=== PATIENT | female | born 1940 | race Caucasian/White ===

== ENCOUNTER 2022-08-02 13:51 | Emergency (ER) | payer MEDICARE, SELFPAY ==
[2022-08-02 14:42] VITALS: BP 144/77; PULSE 89; RESP 18; TEMP 36.3; O2SAT 96; BMI 24.8
--- NOTE | 2022-08-02 16:03 | ED_ITS ---
HPI - General Adult General Time Seen by Provider: 16:03 Date Seen: 08/02/22 Chief complaint: Extremity Pain/Injury, Lower Stated complaint: Infected Leg Time Seen by Provider: 08/02/22 15:43 Source: patient and RN notes reviewed Mode of arrival: ambulatory Limitations: no limitations History of Present Illness HPI narrative: Patient is an 82-year-old female up here for the holidays coming in with concern of wound and cellulitis of her left lower extremity. She has been living in [place] the last 20 years but maintains a condominium up here. They still have family here. She has been celebrating the holiday season appear, has been having to wear boots which she thinks may have rubbed on her leg. Does have a history ulcers and wound issues for which she has been to wound clinics in [place] before. She started noticed seen of about a couple days ago that her left lower extremity on the inner aspect was a little irritated and red. She did start some leftover oral antibiotics with Keflex yesterday, use 3 pills. Did call her doctor back in [place] yesterday who called in Keflex for her. She states she has multiple medication allergies, significant difficulties with many medicines. She has had 4 tablets of Keflex. She feels that the redness is down from 1 0 was yesterday. There is pain in the leg. She does have pain pills from her primary care provider. She has had no fevers or chills. She has been quite active and has been busy. She had her wounds covered, stocking at material over them. She has also been using some topical Bactroban. She is not aware that she has ever had any MRSA. She states she typically always takes Keflex. Related Data Home Medications Medication Instructions Recorded Confirmed cephalexin 500 mg capsule mg 08/02/22 hydrocodone 5 mg-acetaminophen 325 tab 08/02/22 mg tablet latanoprost 0.005 % eye drops drp 08/02/22 lorazepam 0.5 mg tablet (Ativan) 0.5 mg PO Q12H PRN 08/02/22 08/02/22 methotrexate sodium 2.5 mg tablet mg 08/02/22 mupirocin 2 % topical ointment topical 08/02/22 prednisone 5 mg tablet mg 08/02/22 zolpidem 5 mg tablet 2.5 mg PO QHS 08/02/22 08/02/22 Allergies Allergy/AdvReac Type Severity Reaction Status Date / Time ciprofloxacin [From Cipro] Allergy Anaphylaxis Verified 08/02/22 14:35 Review of Systems Status of ROS: Reports: 6 or more systems reviewed and unremarkable except as noted in History and below Exam Const: Vital Signs, click to edit/add: Vital Signs - 24 hr 08/02/22 14:42 Temperature 97.3 F L Pulse Rate [Right Pulse Oximeter] 89 Respiratory Rate 18 Blood Pressure [Ri ght Upper Arm] 144/77 H Pulse Oximetry 96 Oxygen Delivery Me thod Room Air Documenting provider has reviewed patient's vital signs: yes Common normals: no apparent distress, average body habitus, oriented x3, no limitations, healthy appearing and alert General appearance: cooperative, comfortable, well kempt and well developed Other: Very talkative and pleasant female. Stocking at was removed from her left lower extremity. There is a little superficial breakdown of the skin along the mid tibial area. There is erythema extending around that to above the ankle, over laterally. It is not circumferential. She does complain of pain when I palpate the area. There is no drainage. Bandage was removed from a wound on the upper proximal area below the knee. There is a little bit of a scab, no surrounding erythema, no drainage. Really no significant edema of this lower extremity. Good dorsalis pedis pulse. Foot has no edema. HENMT: Common normals: normocephalic, head/scalp atraumatic and hearing grossly normal bilaterally Head and scalp: normocephalic and atraumatic Eye: Common normals: PERRL, EOMs intact bilaterally, conjunctivae normal and no scleral icterus Conjunctiva: conjunctiva(e) normal Pupil: PERRL Resp: Common normals: normal respiratory effort, no retractions, no use of accessory muscles and clear to auscultation bilaterally Auscultation: clear to auscultation bilaterally Cardio: Common normals: regular rate, regular rhythm, S1 normal heart sound, S2 normal heart sound, no gallops, no clicks and no murmurs Rate: regular rate Rhythm: regular rhythm Heart sounds: S1 normal and S2 normal Neuro: Common normals: oriented x3 Sensorium/orientation: alert Psych: Appearance: well kempt Course Course Hospital Course: Will obtain some baseline labs including a C reactive protein and CBC. She indeed does have some erythema and breathe that there is some cellulitis. There is no drainage from any of her wounds. It appears that the wound along the medial mid tibial area is where the cellulitis is coming from. The upper wound just below her outer left knee is clean dry intact with a scab over it, no erythema. If her labs look reasonable, would recommend she continue with the Keflex but have advised her that she really needs to try to elevate and rest this leg. Reevaluation(s) Reevaluation #1: Reviewed with patient her normal white blood count. Given that she feels the erythema is decreased from yesterday, feel we are on adequate treatment at this time. She does understand that if the symptoms in her leg or worsening, may need to consider changing, if she develops fever likewise. Nursing staff has redressed the wounds. She did try to contact our wound clinic, they are supposedly putting her on a wait list. She is considering going back to [place] as well. We did review trying to elevate this leg and not trying to be as active her up on it as much. Time: 17:33 Vital Signs Vital signs: Initial Vital Signs Temperature 97.3 F L 08/02/22 14:42 Temperature Source Temporal Artery Scan 08/02/22 14:42 Pulse Rate 89 08/02/22 14:42 Respiratory Rate 18 08/02/22 14:42 Blood Pressure 144/77 H 08/02/22 14:42 Blood Pressure Mean 99 08/02/22 14:42 Blood Pressure Position Sitting 08/02/22 14:42 Pulse Oximetry 96 08/02/22 14:42 Oxygen Delivery Method 08/02/22 14:42 Vital Signs Temperature 97.3 F L 08/02/22 14:42 Pulse Rate 89 08/02/22 14:42 Respiratory Rate 18 08/02/22 14:42 Blood Pressure 144/77 H 08/02/22 14:42 Pulse Oximetry 96 08/02/22 14:42 Oxygen Delivery Method 08/02/22 14:42 Temperature 97.3 F L 08/02/22 14:42 Pulse Rate 89 08/02/22 14:42 Respiratory Rate 18 08/02/22 14:42 Blood Pressure 144/77 H 08/02/22 14:42 Pulse Oximetry 96 08/02/22 14:42 Oxygen Delivery Method 08/02/22 14:42 Medical Decision Making Lab Data Lab results reviewed: Yes I reviewed the patient's lab results Lab results narrative: C reactive protein, bmp pending but do not feel we need to change antibiotics at this point. Labs: Lab Results 08/02/22 Range/Units 16:40 WBC 5.00 (4.50-11.00) K/uL RBC 3.68 L (4.00-5.20) m/uL Hgb 12.1 (12.0-16.0) gm/dL Hct 37.2 (33.0-51.0) % MCV 101 H (80-100) fL MCH 33 (26-34) pg MCHC 33 (32-36) gm/dL RDW Coeff of Dre 13.4 (11.5-15.5) % Plt Count 171 (140-440) K/uL Neut % (Auto) 64.6 (42.0-72.0) % Lymph % (Auto) 20.4 (20-44) % Hamlin % (Auto) 13.6 H (0.0-11.0) % Eos % (Auto) 0.4 (0.0-7.0) % Baso % (Auto) 0.4 (0.0-3.0) % Neut # (Auto) 3.23 (1.7-7.0) K/uL Lymph # (Auto) 1.02 (0.90-2.90) K/uL Hamlin # (Auto) 0.70 (0.00-0.90) K/UL Eos # (Auto) 0.02 (0.00-0.50) K/uL Baso # (Auto) 0.02 (0.00-0.30) K/uL Core Measures AMI core measures followed: No Critical Care Time Critical Care Time Critical Care Time: No Discharge Plan Discharge Clinical Impression: Ulcer of left lower extremity, Cellulitis Patient Disposition: Home, Self-Care Condition: Stable Instructions: Cellulitis (ED) Additional Instructions: Dress wounds daily. Stand Keflex at this time. If you are staying here in [place], do recommend getting in with our wound clinic for management. Otherwise, if you go back to [place], get into your primary care provider as soon as possible. Do recommend elevating this leg and tell the cellulitis is improving. If you feel the infection is worsening at any point, please seek re- evaluation. Prescriptions: No Action latanoprost 0.005 % drops Label Comments: INSTILL 1 DROP IN BOTH EYES EVERY NIGHT hydrocodone-acetaminophen 5-325 mg tablet prednisone 5 mg tablet Label Comments: TAKE 1 TABLET BY MOUTH DAILY methotrexate sodium 2.5 mg tablet Label Comments: TAKE 5 TABLETS BY MOUTH 1 TIME A WEEK cephalexin 500 mg capsule mupirocin 2 % ointment TOPICAL Label Comments: APPLY TOPICALLY 2X DAILY. APPLY TO OPEN WOUND OF LEFT LEG 2X A DAY AND COVER WITH A DRY DRESSING zolpidem 5 mg tablet 2.5 mg PO QHS lorazepam [Ativan] 0.5 mg tablet 0.5 mg PO Q12H PRN Stand Alone [facility]: [facility] Inst[facility]
[2022-08-02 16:46] LABS: Basophils Absolute Auto 0.02 K/uL (0.00-0.30); Basophils Percent Auto 0.4 % (0.0-3.0); Eosinophils Absolute Auto 0.02 K/uL (0.00-0.50); Eosinophils Percent Auto 0.4 % (0.0-7.0); Hematocrit 37.2 % (33.0-51.0); Hemoglobin* 12.1 gm/dL (12.0-16.0); Immature Granulocytes Abs Auto 0.03 K/uL (0.00-0.30); Immature Granulocytes Pct Auto 0.6 %; Lymphocytes Absolute Auto 1.02 K/uL (0.90-2.90); Lymphocytes Percent Auto 20.4 % (20-44); Mean Corpuscular HGB Conc 33 gm/dL (32-36); Mean Corpuscular Hemoglobin 33 pg (26-34); Mean Corpuscular Volume 101 fL (80-100); Monocytes Percent Auto 13.6 % (0.0-11.0); Neutrophils Absolute Auto 3.23 K/uL (1.7-7.0); Neutrophils Percent Auto 64.6 % (42.0-72.0); Platelet Count* 171 K/uL (140-440); RDW Coefficient of Variation % 13.4 % (11.5-15.5); Red Blood Count 3.68 m/uL (4.00-5.20)
[2022-08-02 16:59] LABS: Chloride* 106 mmol/L (96-114); Potassium* 3.8 mmol/L (3.6-5.1); Slide Review Reflex No; Sodium* 140 mmol/L (135-149)
[2022-08-02 17:02] LABS: Creatinine* 0.7 mg/dL (0.5-1.5); Est. Creatinine Clearance* 35.88; Estimated Glomerular Filt Rate 86 ml/min
[2022-08-02 17:03] LABS: Blood Urea Nitrogen* 14 mg/dL (7-30); Calcium* 9.8 mg/dL (8.4-10.6); Carbon Dioxide* 26 mmol/L (20-32); Glucose* 94 mg/dL (60-115)
[2022-08-02 17:06] LABS: C Reactive Protein* 2.1 mg/dL (0.5-1.0)
[2022-08-02 18:42] VITALS: BP 131/57; PULSE 88; RESP 16; TEMP 37.1; O2SAT 97
== END 2022-08-02 18:44 | disposition home or self-care (01) ==
PROVIDERS: Emergency Provider Family Medicine
DX: L03.116 Cellulitis of left lower limb (principal)
CPT/HCPCS: 36415; 80048; 85025; 86140; 99283; 99284

== ENCOUNTER 2023-01-26 13:49 | Emergency (ER) | payer MEDICARE, SELFPAY ==
[2023-01-26 13:53] VITALS: BP 135/75; PULSE 97; RESP 20; TEMP 36.3; O2SAT 93; BMI 23.2
--- NOTE | 2023-01-26 14:29 | ED_ITS ---
HPI - General Adult General Chief complaint: Skin/Abscess/Foreign Body Stated complaint: Leg Infection Time Seen by Provider: 01/26/23 13:53 Source: patient Mode of arrival: ambulatory Limitations: no limitations History of Present Illness HPI narrative: 82-year-old female coming in today concerned about lower leg cellulitis. She states that she hit her leg with the corner of a car door about 1 month ago. She has been using mupirocin daily however 1 week and half ago approximately 6 switch to daily Vaseline. She elevates it when it gets swollen and has been slowly healing however in the last few days she has noticed increasing pain and redness. She denies any systemic symptoms. She states that she has been having a difficult time since her passed last May and they just had his celebration of life this last week. She feels like she does have good family support with 3 daughters and a son, as well as 10 grandchildren. Related Data Home Medications Medication Instructions Recorded Confirmed cephalexin 500 mg capsule mg 08/02/22 hydrocodone 5 mg-acetaminophen 325 tab 08/02/22 mg tablet latanoprost 0.005 % eye drops drp 08/02/22 lorazepam 0.5 mg tablet (Ativan) 0.5 mg PO Q12H PRN 08/02/22 08/02/22 methotrexate sodium 2.5 mg tablet mg 08/02/22 mupirocin 2 % topical ointment topical 08/02/22 prednisone 5 mg tablet mg 08/02/22 zolpidem 5 mg tablet 2.5 mg PO QHS 08/02/22 08/02/22 Previous Rx's Medication Instructions Recorded cephalexin 500 mg capsule 500 mg PO TID 7 days #21 caps 01/26/23 Allergies Allergy/AdvReac Type Severity Reaction Status Date / Time ciprofloxacin [From Cipro] Allergy Anaphylaxis Verified 01/26/23 13:52 Review of Systems Status of ROS: Reports: 10 or more systems reviewed and unremarkable except as noted in History and below [facility] Social History Smoking Status: Never smoker Do you use any of these nicotine containing products: None Second hand tobacco smoke exposure: No How often do you have a drink containing alcohol: never How often do you have six or more drinks on one occasion: Never AUDIT-C Alcohol total score: 0 Non-prescribed substance use: denies use service: No Exam Narrative: Exam Narrative: Well-nourished well-developed patient, tearful when she speaks of her . Alert and oriented x3. Answers questions appropriately. Mood and affect are appropriate. Thoughts are goal oriented and rational. No tangential or magical thinking noted. Patient speaks in full sentences without needing to catch her breath. HEENT: Normocephalic atraumatic. Pupils are equally round reactive to light. Extraocular muscles are intact. Conjunctivae are moist without any icterus noted. Moist mucous membranes. Extremities: Bilateral lower extremities are without edema. Normal DP and PT pulses. Anterior right lower leg has an ulceration of the skin that does appear to be healing appropriately. She does have some surrounding erythema and warmth however spreading up the leg. Skin: Well perfused . Const: Vital Signs, click to edit/add: Vital Signs - 24 hr 01/26/23 13:53 Temperature 97.4 F L Pulse Rate [Pulse Oximeter] 97 Respiratory Rate 20 Blood Pressure [Ri ght Upper Arm] 135/75 Pulse Oximetry 93 Oxygen Delivery Me thod Room Air Course Vital Signs Vital signs: Initial Vital Signs Temperature 97.4 F L 01/26/23 13:53 Temperature Source Temporal Artery Scan 01/26/23 13:53 Pulse Rate 97 01/26/23 13:53 Pulse Rhythm Regular 01/26/23 13:53 Respiratory Rate 20 01/26/23 13:53 Blood Pressure 135/75 01/26/23 13:53 Blood Pressure Mean 95 01/26/23 13:53 Blood Pressure Position Supine 01/26/23 13:53 Pulse Oximetry 93 01/26/23 13:53 Oxygen Delivery Method Room Air 01/26/23 13:53 Vital Signs Temperature 97.4 F L 01/26/23 13:53 Pulse Rate 97 01/26/23 13:53 Respiratory Rate 20 01/26/23 13:53 Blood Pressure 135/75 01/26/23 13:53 Pulse Oximetry 93 01/26/23 13:53 Oxygen Delivery Method Room Air 01/26/23 13:53 Temperature 97.4 F L 01/26/23 13:53 Pulse Rate 97 01/26/23 13:53 Respiratory Rate 20 01/26/23 13:53 Blood Pressure 135/75 01/26/23 13:53 Pulse Oximetry 93 01/26/23 13:53 Oxygen Delivery Method Room Air 01/26/23 13:53 Medical Decision Making MDM Narrative Medical decision making narrative: 82-year-old female with cellulitis peel treat with Keflex. We discussed appropriate follow-up. Patient does state that she lives between here in [facility], again has a lot of support here in the area with her family in feels safe and comfortable returning home at this time. Discharge Plan Discharge Clinical Impression: Cellulitis Patient Disposition: Home, Self-Care Condition: Stable Additional Instructions: Take all antibiotics as prescribed. Follow-up with your primary care provider or return to the ER if you feel like you are not improving. Prescriptions: New cephalexin 500 mg capsule 500 mg PO TID 7 Days Qty: 21 0RF No Action latanoprost 0.005 % drops Patient Comments: INSTILL 1 DROP IN BOTH EYES EVERY NIGHT hydrocodone-acetaminophen 5-325 mg tablet prednisone 5 mg tablet Patient Comments: TAKE 1 TABLET BY MOUTH DAILY methotrexate sodium 2.5 mg tablet Patient Comments: TAKE 5 TABLETS BY MOUTH 1 TIME A WEEK cephalexin 500 mg capsule mupirocin 2 % ointment TOPICAL Patient Comments: APPLY TOPICALLY 2X DAILY. APPLY TO OPEN WOUND OF LEFT LEG 2X A DAY AND COVER WITH A DRY DRESSING zolpidem 5 mg tablet 2.5 mg PO QHS lorazepam [Ativan] 0.5 mg tablet 0.5 mg PO Q12H PRN Follow Up/Referrals: Provider,Not a Local [Primary Care Provider] - Stand Alone [facility] Info Inst[facility]
--- OUTSIDE RECORDS SUMMARY | 2023-01-26 14:35 | XMS_ITS | Patient Health Record ---
Author Name Unknown Organization [facility] Care Team Providers Care Assistant General Manager Name Role Phone Porfirio Hauser Unavailable Unavailable PROBLEMS Type Condition ICD9-CM Code [id number] Code Onset Dates Condition Status W/U Status Risk SNOMED Code Notes Problem Sensorineural hearing loss, bilateral H90.3 confirmed [id number] ALLERGIES Allergen (clinical drug ingredient) Drug/Non Drug Allergy documented on EMR Reaction Allergy Type Onset Date Status ciprofloxacin Cipro([facility] Code:[address]-23) Unknown Drug Allergy Active ENCOUNTERS from 1940 to 2023-01-26 Encounter Location Date Provider Diagnosis [facility] [address] [place] [address] May, Porfirio Hauser [facility] [place] [address] [place] [address] May, Iftikhar Kelsch Sensorineural hearin g loss, bilateral H90.3 and Impacted cerumen of both ears H61.23 SOCIAL HISTORY Tobacco Use: Social History Observation Description Date Details (start date - stop date) Never Smoker Sex Assigned At : Social History Observation Description Sex Assigned At Female Tobacco Use/Smoking Question Answer Notes Are you a: never smoker REASON FOR REFERRAL No Information VITAL SIGNS from 1940 to 2023-01-26 Height 64 in May, Weight 142 lbs May, BMI 24.37 kg/m2 May, Heart Rate 93 /min May, Respiratory Rate 16 /min May, Weight-kg 64.41 kg May, Blood pressure systolic 132 mm Hg May, Blood pressure diastolic 85 mm Hg May, MEDICATIONS Medication SIG (Take, Route, Fr equency, Duration) Notes Start Date End Date Status Methotrexate 2.5 MG as directed Orally Active Vicodin Active prednisoLONE 5 MG 1 tablet in the morn ing with food or milk Orally Once a day A ctive REASON FOR VISIT No Information MEDICAL (GENERAL) HISTORY Type Description Date Medical History Fibermyalgia Surgical History Ostamy surgery x2 Surgical History Gallbladder Removed x2 Surgical History Hysterectomy Surgical History [place] Teeth Surgical History Tonsilectomy Surgical History Broken Leg x2 Surgical History Broken Hip MENTAL STATUS No Information ASSESSMENTS Encounter Date Diagnosis Assessment Notes Treatment Notes Treatment Clinical Notes May, Impacted cerumen of both ears (ICD-10 - H61.23) Today the patient underwent cerumen removal and I have recommended follow-up in 6 to 12 months for repeat ear cleaning. They may use vinegar/water irrigation to clean the ears. We will follow-up for any sudden change in symptoms. May, Sensorineural hearing loss, bilateral (ICD-10 - H90.3) The patient has hearing loss that meets indications for hearing amplification. Appropriate digital hearing aids will improve the patient's ability to communicate. I recommend consultation with audiology directly. I also recommend subsequent follow-up examinations every 1 to 2 years. Consultation for hearing aidsAudiogram 1 year PLAN OF TREATMENT Treatment Notes Assessment Notes Clinical Notes Impacted cerumen of both ears Today the patient underwent cerumen removal and I have recommended follow-up in 6 to 12 months for repeat ear cleaning. They may use vinegar/water irrigation to clean the ears. We will follow-up for any sudden change in symptoms. Sensorineural hearing loss, bilateral The patient has hearing loss that meets indications for hearing amplification. Appropriate digital hearing aids will improve the patient's ability to communicate. I recommend consultation with audiology directly. I also recommend subsequent follow-up examinations every 1 to 2 years. Consultation for hearing aidsAudiogram 1 year Insurance Providers Payer Name Payer Address Payer Phone Insured Name Patient Relationship to Insured Coverage Start Date Coverage End Date Subscriber Number Group Number [employer] [address] [facility] [phone] Eveline FRASER Self - patient is the insured [id number] Medicare Part B [employer] [address] [facility] [phone] Eveline FRASER EMILY Self - patient is the insured 5 [id number]
--- OUTSIDE RECORDS SUMMARY | 2023-01-26 14:35 | XMS_ITS | Patient Health Record ---
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 confirmed 83928463 Problem Localized edema R60.0 confirmed [id number] ALLERGIES Allergen (clinical drug ingredient) Drug/Non Drug Allergy documented on EMR Reaction Allergy Type Onset Date Status ant Unknown Non Drug Allergy Act lien ciprofloxacin Cipro([facility] Code:[address]-04) Unknown Drug Allergy Active ENCOUNTERS from 1940 to 2023-01-26 Encounter Location Date Provider Diagnosis [facility] [address] [address] Oct, Agustín Hernández [facility] [address] [address] Sep, Agustín Hernández Palpitations R00.2 [facility] [address] [address] Sep, Agustín Hernández Abnormal stress ECG with treadmill R94.39 ; Chest tightness R07.89 ; Palpitations R00.2 ; Shortness of breath R06.02 ; Localized edema R60.0 ; 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 ; Nonhealing nonsurgical wound T14.8XXA ; Pain in left leg M79.605 and Pain in right leg M79.604 SOCIAL HISTORY Tobacco Use: Social History Observation Description Date Details (start date - stop date) Never Smoker Sex Assigned At : Social History Observation Description Sex Assigned At Unknown Smoking Question Answer Notes Status: never smoker REASON FOR REFERRAL No Information VITAL SIGNS from 1940 to 2023-01-26 Heart Rate 96 /min Sep, Height 64 in Sep, Weight 147 lbs Sep, BMI 25.23 kg/m2 Sep, Blood pressure systolic 138 mm Hg Sep, Blood pressure diastolic 86 mm Hg Sep, MEDICATIONS Medication SIG (Take, Route, Frequency, Duration) Notes Start Date End Date Status Metoprolol Succinate ER 25 MG 0.5 tablet Orally EOD for 30 day(s) Oct, Active REASON FOR VISIT No Information MEDICAL (GENERAL) HISTORY Type Description Date Medical History venous insufficiency Medical History hernia lside upper stomach Surgical History No Surgical history information MENTAL STATUS No Information ASSESSMENTS Encounter Date Diagnosis Assessment Notes Treatment Notes Treatment Clinical Notes Sep, Abnormal stress ECG with treadmill (ICD-10 - R94.39) Recent Abnormal treadmill, intermediate risk, with hip and back limitations with exercise Sep, Palpitations (ICD-10 - R00.2) Sep, Chest tightness (ICD-10 - R07.89) Atypical Sep, Palpitations (ICD-10 - R00.2) She believes stress related Sep, Shortness of breath (ICD-10 - R06.02) Not clearly pulmonary or CHF related but she has edema chronic varicosities bilateral leg pain Sep, Localized edema (ICD-10 - R60.0) Sep, Varicose veins of both legs with edema (ICD-10 - I83.893) Nonhealing wounds, both legs, minor trauma, took 8 months at wound clinic Sep, Nonhealing nonsurgical wound (ICD-10 - T14.8XXA) Sep, Pain in left leg (ICD-10 - M79.605) Sep, Pain in right leg (ICD-10 - M79.604) Sep, Other This practice u [facility] voice recognition software. Translation errors may occur. Please contact this office for clarification if needed,Chest pain material was printed PLAN OF TREATMENT Medication Medication Name Sig Start Date Stop Date Metoprolol Succinate ER 25 MG 0.5 tablet Orally EOD for 30 day(s) Oct, Treatment Notes Assessment Notes Clinical Notes Abnormal stress ECG with treadmill Recen t Abnormal treadmill, intermediate risk, with hip and back limitations with exercise Chest tightness Atypical Palpitations She believes stress related Shortness of breath Not clearly pulmonar y or CHF related but she has edema chronic varicosities bilateral leg pain Varicose veins of both legs with edema Nonhealing wounds, both legs, minor trauma, took 8 months at wound clinic Pending Tests Test Name Order Date Lexiscan Stress Nuclear MPI 1-day protoc ol 2019-09-23 Ultrasound: Echocardiogram 2019-09-23 Ultrasound: Venous Lower RIGHT extremity 2019-09-23 Ultrasound: Venous Lower LEFT extremity 2019-09-23 Holter Monitor 24 Hours 2019-09-23 Insurance Providers Payer Name Payer Address Payer Phone Insured Name Patient Relationship to Insured Coverage Start Date Coverage End Date Subscriber Number Group Number [employer] Claims Division [address] [facility] [phone] Eveline Coelho Self - patient is the insured [id number] Medicare [address] [facility] [phone] Eveline Coelho Self - patient is the insured [id number]
--- OUTSIDE RECORDS SUMMARY | 2023-01-26 14:35 | XMS_ITS | Continuity of Care Document ---
Author Name Unknown Organization [facility] Address [address] [place] [address] Phone Care Team Providers Care Material Loader Name Role Phone Gene Marks PA-C Unavailable Unavailable Procedures Procedure Date INITIAL HOSPITAL CARE Advance Directives Directive Yes / No Effective Date File Name No Information Encounters Encounter Description Practice Location Reason(s) For Visit Diagnoses Date Provider Providers Copied on Encounter INITIAL HOSPITAL CARE [facility], [address] [place] [address], [id number], [place] tel:[phone] [facility] No Information [facility] Mills. [address], [address], [place], [place], [id number], [place]. tel:[phone] Referring Provider: Gary Sainz, [address], [place], [place], [id number]. tel:[phone] Family History Family Member Type Diagnosis Age At Onset No Information Payers Payer name Insurance type Covered libertarian ID Authoriza tion(s) Medicare MB [id number] [facility] Health Care Options [id number] CI [id number] 1 Social History Type Description Quantity Date Captured Comments Sex Female Smoking Status No Information Chief Complaint And Reason For Visit No Information Plan Of Treatment Date Type Action Status No Information History Of Present Illness Encounter Date Complaint History Of Prese nt Illness No Information Instructions Date Instruction Additional Infor mation No Information Assessments Type Assessment Date No Information
== END 2023-01-26 15:02 | disposition home or self-care (01) ==
LOC: ED 14:34
PROVIDERS: Emergency Provider Family Medicine
DX: L03.115 Cellulitis of right lower limb (principal)
CPT/HCPCS: 99282; 99283; 99284

== ENCOUNTER 2023-01-28 15:47 | Emergency (ER) | payer MEDICARE, SELFPAY ==
[2023-01-28 16:11] VITALS: BP 124/73; PULSE 95; RESP 18; TEMP 36.8; O2SAT 92; BMI 24.0
--- NOTE | 2023-01-28 17:36 | ED.BACK ---
HPI - Back Pain/Injury General Chief Complaint: Back Injury/Pain Stated Complaint: Back pain Time Seen by Provider: 01/28/23 17:18 History of Present Illness HPI Narrative: This 82-year-old female comes in reporting back pain. 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 She states [place] but visits family members up here. 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 She status as that she has fibromyalgia and has some type of arthritic condition where she is taking methotrexate, prednisone, hydrocodone, and lorazepam as needed. She does not describe any pain radiating down into any of her extremities. She is here simply for additional relief of her back pain. Related Data Home Medications Medication Instructions Recorded Confirmed cephalexin 500 mg capsule mg 08/02/22 hydrocodone 5 mg-acetaminophen 325 tab 08/02/22 mg tablet latanoprost 0.005 % eye drops drp 08/02/22 lorazepam 0.5 mg tablet (Ativan) 0.5 mg PO Q12H PRN 08/02/22 08/02/22 methotrexate sodium 2.5 mg tablet mg 08/02/22 mupirocin 2 % topical ointment topical 08/02/22 prednisone 5 mg tablet mg 08/02/22 zolpidem 5 mg tablet 2.5 mg PO QHS 08/02/22 08/02/22 Previous Rx's Medication Instructions Recorded cephalexin 500 mg capsule 500 mg PO TID 7 days #21 caps 01/26/23 cyclobenzaprine 10 mg tablet 10 mg PO TID #15 tabs 01/28/23 ketorolac 10 mg tablet 10 mg PO Q8H 5 days #15 tabs 01/28/23 Allergies Allergy/AdvReac Type Severity Reaction Status Date / Time ciprofloxacin [From Cipro] Allergy Anaphylaxis Verified 01/28/23 16:14 Review of Systems Status of ROS: Reports: 10 or more systems reviewed and unremarkable except as noted in History and below Narrative: Constitutional: No fevers, no weight gain or loss. Eyes: No discharge. No vision changes. HENT: No congestion, no sore throat, no ear pain. Cardiovascular: No chest pain, no palpitations. Respiratory: No shortness of breath, no wheezes, no cough. Gastrointestinal: No abdominal pain, no vomiting, no diarrhea. Genitourinary: No dysuria, no hematuria. Musculoskeletal: Normal range of motion. Chronic arthritic pains and fibromyalgia. Skin: No rashes, no pruritis. Neurological: No dizziness, weakness, sensory change, speech change. Endo/Heme/Allergies: No bruising or bleeding. No polydipsia. Pysch: no suicidality, no anxiety, no insomnia. All other systems reviewed and are negative. [facility] Social History Smoking Status: Never smoker Do you use any of these nicotine containing products: None Second hand tobacco smoke exposure: No How often do you have a drink containing alcohol: never How often do you have six or more drinks on one occasion: Never AUDIT-C Alcohol total score: 0 Non-prescribed substance use: denies use service: No Exam Narrative: Exam Narrative: Constitutional: Well-developed, well-nourished, no acute distress. HEENT: Normocephalic, atraumatic. Neck: Normal range of motion. Nontender. Supple. Heart: Regular. No murmurs. Normal rate. Intact distal pulses. Lungs: Clear to auscultation. No chest discomfort. No wheezes, rhonchi, or rales. Abdomen: Normal bowel sounds. Nontender. No rebound tenderness. Genitalia: Deferred. Back: Generalized pain throughout her back. No particular midline tenderness along the spine. Occasional spasms. Extremities: Normal range of motion. No injury. Skin: Intact. No rash. Warm. No erythema or pallor. Neurologic: No altered sensation. No weakness. Alert and oriented. Psychiatric: No suicidality. No anxiety or depression. No insomnia. Nursing notes and vitals signs are reviewed. Const: Vital Signs, click to edit/add: Vital Signs - 24 hr 01/28/23 16:11 Temperature 98.2 F Pulse Rate [Right Pulse Oximeter] 95 Respiratory Rate 18 Blood Pressure [Ri ght Upper Arm] 124/73 Pulse Oximetry 92 Oxygen Delivery Me thod Room Air Course Vital Signs Vital signs: Initial Vital Signs Temperature 98.2 F 01/28/23 16:11 Temperature Source Temporal Artery Scan 01/28/23 16:11 Pulse Rate 95 01/28/23 16:11 Pulse Rhythm Regular 01/28/23 16:11 Pulse Strength 3+ Normal 01/28/23 16:11 Respiratory Rate 18 01/28/23 16:11 Blood Pressure 124/73 01/28/23 16:11 Blood Pressure Mean 90 01/28/23 16:11 Blood Pressure Position Sitting 01/28/23 16:11 Pulse Oximetry 92 01/28/23 16:11 Oxygen Delivery Method Room Air 01/28/23 16:11 Vital Signs Temperature 98.2 F 01/28/23 16:11 Pulse Rate 95 01/28/23 16:11 Respiratory Rate 18 01/28/23 16:11 Blood Pressure 124/73 01/28/23 16:11 Pulse Oximetry 92 01/28/23 16:11 Oxygen Delivery Method Room Air 01/28/23 16:11 Temperature 98.2 F 01/28/23 16:11 Pulse Rate 95 01/28/23 16:11 Respiratory Rate 18 01/28/23 16:11 Blood Pressure 124/73 01/28/23 16:11 Pulse Oximetry 92 01/28/23 16:11 Oxygen Delivery Method Room Air 01/28/23 16:11 MDM - Back Pain/Injury MDM Narrative Medical decision making narrative: This patient has acute on chronic pain in her back. 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 She received an intramuscular injection of Toradol 15 mg. I also provided prescription for Toradol and Flexeril. The patient has her other regular medicines that can also be used as needed and directed. Discharge Plan Discharge Clinical Impression: Back muscle spasm Patient Disposition: Home, Self-Care Condition: Stable Additional Instructions: Take medications as needed and indicated. Follow up with MD or return if worsening. Prescriptions: New cyclobenzaprine 10 mg tablet 10 mg PO TID Qty: 15 0RF ketorolac 10 mg tablet 10 mg PO Q8H 5 Days Qty: 15 0RF No Action cephalexin 500 mg capsule 500 mg PO TID 7 Days Qty: 21 0RF latanoprost 0.005 % drops Patient Comments: INSTILL 1 DROP IN BOTH EYES EVERY NIGHT hydrocodone-acetaminophen 5-325 mg tablet prednisone 5 mg tablet Patient Comments: TAKE 1 TABLET BY MOUTH DAILY methotrexate sodium 2.5 mg tablet Patient Comments: TAKE 5 TABLETS BY MOUTH 1 TIME A WEEK cephalexin 500 mg capsule mupirocin 2 % ointment TOPICAL Patient Comments: APPLY TOPICALLY 2X DAILY. APPLY TO OPEN WOUND OF LEFT LEG 2X A DAY AND COVER WITH A DRY DRESSING zolpidem 5 mg tablet 2.5 mg PO QHS lorazepam [Ativan] 0.5 mg tablet 0.5 mg PO Q12H PRN Follow Up/Referrals: Provider,Not a Local [Primary Care Provider] - Stand Alone Forms: [facility] Info Instructions
--- OUTSIDE RECORDS SUMMARY | 2023-01-28 17:47 | XMS_ITS | Patient Health Record ---
Author Name Unknown Organization [facility] Care Team Providers Care Tree Scout Name Role Phone Porfirio Hauser Unavailable Unavailable PROBLEMS Type Condition ICD9-CM Code UOS15-GY Code Onset Dates Condition Status W/U Status Risk SNOMED Code Notes Problem Sensorineural hearing loss, bilateral H90.3 confirmed [id number] ALLERGIES Allergen (clinical drug ingredient) Drug/Non Drug Allergy documented on EMR Reaction Allergy Type Onset Date Status ciprofloxacin Cipro([facility] Code:[address]-71) Unknown Drug Allergy Active ENCOUNTERS from 1940 to 2023-01-28 Encounter Location Date Provider Diagnosis [facility] [place] [address] [place] [address] May, Porfirio Hauser [facility] [place] [address] [facility] [address] [place] [address] May, Iftikhar Kelsch Sensorineural hearin g loss, [...] No Information VITAL SIGNS from 1940 to 2023-01-28 Height 64 in May, Weight 142 lbs [...] Removed x2 Surgical History Hysterectomy Surgical History [place] Teeth Surgical History Tonsilectomy Surgical History Broken Leg x2 Surgical History Broken Hip MENTAL STATUS No Information ASSESSMENTS Encounter Date Diagnosis Assessment Notes Treatment Notes Treatment Clinical Notes May, Sensorineural hearing loss, bilateral (ICD-10 - H90.3) The patient has hearing loss that meets indications for hearing amplification. Appropriate digital hearing aids will improve the patient's ability to communicate. I recommend consultation with audiology directly. I also recommend subsequent follow-up examinations every 1 to 2 years. Consultation for hearing aidsAudiogram 1 year May, Impacted cerumen of both ears (ICD-10 - H61.23) Today the patient underwent cerumen removal and I have recommended follow-up in 6 to 12 months for repeat ear cleaning. They may use vinegar/water irrigation to clean the ears. We will follow-up for any sudden change in symptoms. PLAN OF TREATMENT Treatment Notes Assessment Notes Clinical Notes Sensorineural hearing loss, bilateral The patient has hearing loss that meets indications for hearing amplification. Appropriate digital hearing aids will improve the patient's ability to communicate. I recommend consultation with audiology directly. I also recommend subsequent follow-up examinations every 1 to 2 years. Consultation for hearing aidsAudiogram 1 year Impacted cerumen of both ears Today the patient underwent cerumen removal and I have recommended follow-up in 6 to 12 months for repeat ear cleaning. They may use vinegar/water irrigation to clean the ears. We will follow-up for any sudden change in symptoms. Insurance Providers Payer Name Payer Address Payer Phone Insured Name Patient Relationship to Insured Coverage Start Date Coverage End Date Subscriber Number Group Number Medicare Part B [employer] [address] [facility] [phone] Eveline FRASER Self - patient is the insured 5 [id number] [facility] [address] [facility] [phone] Eveline FRASER EMILY Self - patient is the insured [id number]
--- OUTSIDE RECORDS SUMMARY | 2023-01-28 17:47 | XMS_ITS | Continuity of Care Document ---
Author Name Unknown Organization [facility] Address [address] [place] [address] Phone Care Team Providers Care Director Digital Name Role Phone Gene Marks PA-C Unavailable Unavailable Procedures Procedure Date INITIAL HOSPITAL CARE Advance Directives Directive Yes / No Effective Date File Name No Information Encounters Encounter Description Practice Location Reason(s) For Visit Diagnoses Date Provider Providers Copied on Encounter INITIAL HOSPITAL CARE [facility], [address] [place] [address], [id number], [place] tel:[phone] [facility] No Information [facility] Mills. [address], [address], [place], [place], [id number], [place]. tel:[phone] Referring Provider: Gary Sainz, [address], [place], [place], [id number]. tel:[phone] Family History Family Member Type Diagnosis Age At Onset No Information Payers Payer name Insurance type Covered green party ID Authoriza tion(s) Medicare MB [id number] [facility] Health Care Options [id number] CI [id number] 1 Social History Type Description Quantity Date [...]
--- OUTSIDE RECORDS SUMMARY | 2023-01-28 17:48 | XMS_ITS | Patient Health Record ---
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 confirmed 95124918 Problem Localized edema R60.0 confirmed [id number] ALLERGIES Allergen (clinical drug ingredient) Drug/Non Drug Allergy documented on EMR Reaction Allergy Type Onset Date Status ant Unknown Non Drug Allergy Act lien ciprofloxacin Cipro([facility] Code:[address]-91) Unknown Drug Allergy Active ENCOUNTERS from 1940 to 2023-01-28 Encounter Location Date Provider Diagnosis [facility] [address] [address] Oct, Agustín Hernández [facility] [address] [address] Sep, Agustín Hernández Palpitations R00.2 [facility] [address] [address] Sep, Agustín Hernández Abnormal stress ECG with [...] Information VITAL SIGNS from 1940 to 2023-01-28 Heart Rate 96 /min Sep, Height 64 [...] - M79.604) Sep, Other This practice u [facility] voice recognition software. Translation errors may occur. [...] Group Number [employer] Claims Division [address] [facility] [phone] Eveline Coelho Self - patient is the insured [id number] Medicare [address] [facility] [id number] [phone] Eveline Coelho Self - patient is the insured [id number]
[2023-01-28] MEDS: KETOROLAC 15 MG/ML inj IM (18:00)
--- NOTE | 2023-01-28 18:14 | ED.NURSE ---
dc teaching done, pt waiting for son to pick her up.
== END 2023-01-28 18:20 | disposition home or self-care (01) ==
PROVIDERS: Emergency Provider Emergency Medicine Emergency Medical Services
DX: M62.830 Muscle spasm of back (principal)
CPT/HCPCS: 96372; 99284; J1885

== ENCOUNTER 2023-01-30 13:30 | Emergency (ER) | payer MEDICARE, SELFPAY ==
[2023-01-30 13:39] VITALS: BP 126/79; PULSE 99; RESP 18; TEMP 36.7; O2SAT 93; BMI 24.8
--- NOTE | 2023-01-30 13:47 | ED.GENADULT ---
HPI - General Adult General Chief complaint: Back Injury/Pain Stated complaint: Back Pain Time Seen by Provider: 01/30/23 13:45 History of Present Illness HPI narrative: Patient is 82 white female that reports vacuuming in the last few days and having back pain. She saw Dr. Self got Toradol and a muscle relaxant, and apparently it has not helped much. She is on a regular narcotic per her doctor for fibromyalgia in on a small dose of prednisone daily. She lives in [place], she is here with her granddaughter. Her granddaughter reports that she is chronically on narcotic medication, and they were concerned that she has an issue with this, she is from [place] and might be running low on her pills. Today she reports that she still has adequate narcotic at home. But has pain that stems from her low back to and migrates around to her upper back. When she moves quickly she has pain in the thoracic area and at the thoracic lumbar junction. She has been on chronic prednisone Related Data Home Medications Medication Instructions Recorded Confirmed cephalexin 500 mg capsule mg 08/02/22 hydrocodone 5 mg-acetaminophen 325 tab 08/02/22 mg tablet latanoprost 0.005 % eye drops drp 08/02/22 lorazepam 0.5 mg tablet (Ativan) 0.5 mg PO Q12H PRN 08/02/22 08/02/22 methotrexate sodium 2.5 mg tablet mg 08/02/22 mupirocin 2 % topical ointment topical 08/02/22 prednisone 5 mg tablet mg 08/02/22 zolpidem 5 mg tablet 2.5 mg PO QHS 08/02/22 08/02/22 Previous Rx's Medication Instructions Recorded cephalexin 500 mg capsule 500 mg PO TID 7 days #21 caps 01/26/23 cyclobenzaprine 10 mg tablet 10 mg PO TID #15 tabs 01/28/23 ketorolac 10 mg tablet 10 mg PO Q8H 5 days #15 tabs 01/28/23 Allergies Allergy/AdvReac Type Severity Reaction Status Date / Time ciprofloxacin [From Cipro] Allergy Anaphylaxis Verified 01/30/23 13:48 Review of Systems Status of ROS: Reports: 6 or more systems reviewed and unremarkable except as noted in History and below PFSH PFSH Social History Smoking Status: Never smoker Do you use any of these nicotine containing products: None Second hand tobacco smoke exposure: No How often do you have a drink containing alcohol: never How often do you have six or more drinks on one occasion: Never AUDIT-C Alcohol total score: 0 Non-prescribed substance use: denies use service: No Exam Narrative: Exam Narrative: Objective: Patient's vital signs unremarkable She appears to be in no distress except when moving she has pain in the thoracic area. No lumbar palpable tenderness or thoracic tenderness, no redness in that area Normal strength sensation lower extremities Negative straight leg raise bilaterally Patient denies bowel or bladder symptoms Const: Vital Signs, click to edit/add: Vital Signs - 24 hr 01/30/23 13:39 01/30/23 15:50 Temperature 98.1 F 97.1 F L Pulse Rate [Left P ulse Oximeter] 99 83 Respiratory Rate 18 16 Blood Pressure [Ri ght Upper Arm] 126/79 139/69 Pulse Oximetry 93 95 Oxygen Delivery Me thod Room Air Room Air Course Vital Signs Vital signs: Initial Vital Signs Temperature 98.1 F 01/30/23 13:39 Temperature Source Temporal Artery Scan 01/30/23 13:39 Pulse Rate 99 01/30/23 13:39 Pulse Rhythm Regular 01/30/23 13:39 Respiratory Rate 18 01/30/23 13:39 Blood Pressure 126/79 01/30/23 13:39 Blood Pressure Mean 94 01/30/23 13:39 Pulse Oximetry 93 01/30/23 13:39 Oxygen Delivery Method Room Air 01/30/23 13:39 Vital Signs Temperature 98.1 F 01/30/23 13:39 Pulse Rate 99 01/30/23 13:39 Respiratory Rate 18 01/30/23 13:39 Blood Pressure 126/79 01/30/23 13:39 Pulse Oximetry 93 01/30/23 13:39 Oxygen Delivery Method Room Air 01/30/23 13:39 Temperature 97.1 F L 01/30/23 15:50 Pulse Rate 83 01/30/23 15:50 Respiratory Rate 16 01/30/23 15:50 Blood Pressure 139/69 01/30/23 15:50 Pulse Oximetry 95 01/30/23 15:50 Oxygen Delivery Method Room Air 01/30/23 15:50 Medical Decision Making MDM Narrative Medical decision making narrative: 82-year-old white female with chronic narcotic use with episode of increased back pain. Patient is also on daily prednison She has a regular physician in [place], she is going back within the next couple of weeks. I would recommend at this time that we give her some pain relief with IM morphine, this was discussed with her with the patient and her granddaughter. I think a 1 time injection be reasonable to make sure she is having pain relief, then she can talk to her regular physician regarding ongoing pain management, as she really should get narcotics from 1 physician in 1 clinic. Will check x-rays of thoracic and lumbar area to make sure there is no compression fracture. If x-rays showed just degenerative change, I think continuing on her home medications as well as the injection now will be appropriate. The patient's thoracic CT scan shows chronic T8 and 12 compression fractures that are old with no new change no new fractures. Follow-up plan as above. Discharge Plan Discharge Clinical Impression: Strain of lumbar region, Thoracic back pain Patient Disposition: Home w/ Parent or Adult Condition: Stable Additional Instructions: Recommend continue home medications, position of comfort, light activity, ice to the back, discussed with her regular physician regarding ongoing pain management. The compression fractures at T8 and T12 care to be chronic and stable no new compression fractures were noted. Activity Level: Light activity Discharge Diet: Regular Prescriptions: No Action cephalexin 500 mg capsule 500 mg PO TID 7 Days Qty: 21 0RF latanoprost 0.005 % drops Patient Comments: INSTILL 1 DROP IN BOTH EYES EVERY NIGHT hydrocodone-acetaminophen 5-325 mg tablet prednisone 5 mg tablet Patient Comments: TAKE 1 TABLET BY MOUTH DAILY methotrexate sodium 2.5 mg tablet Patient Comments: TAKE 5 TABLETS BY MOUTH 1 TIME A WEEK cephalexin 500 mg capsule mupirocin 2 % ointment TOPICAL Patient Comments: APPLY TOPICALLY 2X DAILY. APPLY TO OPEN WOUND OF LEFT LEG 2X A DAY AND COVER WITH A DRY DRESSING zolpidem 5 mg tablet 2.5 mg PO QHS lorazepam [Ativan] 0.5 mg tablet 0.5 mg PO Q12H PRN cyclobenzaprine 10 mg tablet 10 mg PO TID Qty: 15 0RF ketorolac 10 mg tablet 10 mg PO Q8H 5 Days Qty: 15 0RF Follow Up/Referrals: Provider,Not a Local [Primary Care Provider] - Stand Alone Forms: [facility] Info Instructions
--- NOTE | 2023-01-30 14:01 | CRLHL7_ITS ---
For Patients: As a result of the Century Cures Act, medical imaging exams and procedure reports are released immediately into your electronic medical record. You may view this report before your referring provider. If you have questions, please contact your health care provider. INDICATION: Pain. TECHNIQUE: Thoracic spine 2 views. COMPARISON: CT thoracic spine 04/01/2018. FINDINGS: There are 12 rib-bearing thoracic type vertebral bodies. Normal vertebral body alignment. There is a severe biconcave compression fracture of T8 which has increased in severity since prior exam. No obvious retropulsion. Chronic severe biconcave compression fracture T12 with mild retropulsion. Chronic rlpp-[id number] superior endplate compression fractures of L1 and L2. No new fracture identified. Surgical clips right upper quadrant. Aortic calcification. IMPRESSION: 1. Severe biconcave compression fracture of T8 has increased in severity since prior exam. 2. Stable chronic compression fractures of T12-L2. 3. No new fracture identified. Dictated by Ladan Williamson MD @ 01/30/2023 3:24:34 PM (Electronically Signed)
--- NOTE | 2023-01-30 14:01 | CRLHL7_ITS ---
For Patients: As a result of the Century Cures Act, medical imaging exams and procedure reports are released immediately into your electronic medical record. You may view this report before your referring provider. If you have questions, please contact your health care provider. INDICATION: Pain. TECHNIQUE: Lumbar spine 2 views. COMPARISON: CT lumbar spine 04/01/2018. FINDINGS: There are 5 lumbar type vertebral bodies. Mild anterolisthesis of L4 on L5. There is a chronic severe biconcave compression fracture of T12 with mild retropulsion of the inferior endplate. Chronic mild superior endplate compression fractures of L1 and L2 and moderate superior endplate compression fracture of L3. No retropulsion at these levels. No new fracture identified. Lower lumbar facet arthropathy. Disc space narrowing at L5-S1. The sacroiliac joints are normal in appearance. Surgical clips right upper quadrant. Suture line in the pelvis. Partially visualized left femur hardware. Aortic calcification. IMPRESSION: 1. 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 2. Chronic qyot-kr-acxvqbwz superior endplate compression fractures of L1-L3. 3. No new fracture identified. Dictated by Ladan Williamson MD @ 01/30/2023 3:28:58 PM (Electronically Signed)
--- OUTSIDE RECORDS SUMMARY | 2023-01-30 14:14 | XMS_ITS | Continuity of Care Document ---
Author Name Unknown Organization [facility] Address [address] [place] [address] Phone Care Team Providers Care Iron Setter Name Role Phone Gene Marks PA-C Unavailable Unavailable Procedures Procedure Date INITIAL HOSPITAL CARE Advance Directives Directive Yes / No Effective Date File Name No Information Encounters Encounter Description Practice Location Reason(s) For Visit Diagnoses Date Provider Providers Copied on Encounter INITIAL HOSPITAL CARE [facility], [address] [place] [address], [id number], [place] tel:[phone] [facility] No Information [facility]. [address], [address], [place], [place], [id number], [place]. tel:[phone] Referring Provider: Gary Sainz, [address], [place], [place], [id number]. tel:[phone] Family History Family Member Type Diagnosis Age At Onset No Information Payers Payer name Insurance type Covered republican ID Authoriza tion(s) Medicare MB [id number] [facility] Health Care Options [id number] 1 Social History Type Description Quantity Date [...]
--- OUTSIDE RECORDS SUMMARY | 2023-01-30 14:14 | XMS_ITS | Patient Health Record ---
Author Name Unknown Organization [facility] Care Team Providers Care Shake Feeder Name Role Phone Porfirio Hauser Unavailable Unavailable PROBLEMS Type Condition ICD9-CM Code [id number] Code Onset Dates Condition Status W/U Status Risk SNOMED Code Notes Problem Sensorineural hearing loss, bilateral H90.3 confirmed [id number] ALLERGIES Allergen (clinical drug ingredient) Drug/Non Drug Allergy documented on EMR Reaction Allergy Type Onset Date Status ciprofloxacin Cipro([facility] [place] 2[place] Code:[address]-85) Unknown Drug Allergy Active ENCOUNTERS from 1940 to 2023-01-30 Encounter Location Date Provider Diagnosis [facility] [address] [place] [address] May, Porfirio Hauser [facility] [place] [address] [place] [address] May, Iftikhar Kelsch Sensorineural hearin g loss, [...] No Information VITAL SIGNS from 1940 to 2023-01-30 Height 64 in May, Weight 142 lbs [...] Removed x2 Surgical History Hysterectomy Surgical History Dolliver Teeth Surgical History Tonsilectomy Surgical History Broken [...] Medicare Part B Carriers [address] [facility] [phone] Eveline FRASER Self - patient is the insured 5 [id number] [facility] [address] [facility] [phone] Eveline FRASER EMILY Self - patient is the insured [id number]
[2023-01-30] MEDS: MORPHINE 10 MG/ML inj 7.5 MG IM (14:21)
--- NOTE | 2023-01-30 14:34 | ED.NURSE ---
pt initially did not want to take morphine because she reports feeling loopy. Dr talked to patient about taking the morphine, she then agreed to the injection.
--- NOTE | 2023-01-30 15:02 | CRLHL7_ITS ---
For Patients: As a result of the Century Cures Act, medical imaging exams and procedure reports are released immediately into your electronic medical record. You may view this report before your referring provider. If you have questions, please contact your health care provider. Indication: Evaluate compression fractures Technique: Volumetric multidetector CT images of the thoracic spine were obtained without the administration of IV contrast. Comparison: CT thoracic spine April 01, 2018 Findings: There is chronic vertebral plana of evolution of previously seen compression fracture of the T8 level. Additional vertebral plana changes of the T12 level are noted. Otherwise, there are stable mild chronic endplate deformities of the superior T2 and T3 levels. There is persistent straightening of the normal thoracic kyphosis with mild focal exaggerated kyphosis at the T8 level. There is no significant spondylolisthesis. There is minimal degenerative disc height loss and marginal osteophyte formation. There is no significant spinal canal stenosis or neural foraminal narrowing. There is no displaced fracture or dislocation. There are airspace opacities appreciated within the lung bases with trace pleural effusions consistent with bibasilar infiltrates. Impression: Chronic vertebral plana fractures of the T8 and T12 levels with otherwise stable vertebral body heights. No significant spondylolisthesis or displaced injury is appreciated. No evidence of new or acute compression fracture is identified. Consider follow-up with MRI for improved characterization of the remains persistent clinical concern. Please note that all CT scans at this facility use dose modulation, iterative reconstruction, and/or weight-based dosing when appropriate to reduce radiation dose to as low as reasonably achievable. Dictated by Fidel Gonzalez MD @ 01/30/2023 3:52:10 PM (Electronically Signed)
[2023-01-30 15:50] VITALS: BP 139/69; PULSE 83; RESP 16; TEMP 36.2; O2SAT 95
== END 2023-01-30 16:15 | disposition home or self-care (01) ==
PROVIDERS: Emergency Provider Family Medicine
DX: S39.012A Strain of muscle, fascia and tendon of lower back, initial encounter (principal); M54.6 Pain in thoracic spine
CPT/HCPCS: 72070; 72100; 72128; 96372; 99284; 99285; J2270

== ENCOUNTER 2023-02-04 09:00 | Emergency (ER) | payer MEDICARE, SELFPAY ==
[2023-02-04 09:08] VITALS: BP 141/84; PULSE 117; RESP 20; TEMP 36.8; O2SAT 97; BMI 24.6
--- NOTE | 2023-02-04 10:37 | ED.BACK ---
HPI - Back Pain/Injury General Chief Complaint: Back Injury/Pain Stated Complaint: back pain Time Seen by Provider: 02/04/23 10:19 History of Present Illness HPI Narrative: This 82-year-old female resides in [place] but is visiting family up here as there is a [facility] service plan for her who last fall. She has chronic back pain and has been taking hydrocodone as needed over the past 15 years. She has much worse pain recently and does state that she has been doing out of the normal activities that may have triggered worsening pain. She was seen by me about a week ago and then a 2nd visit occurred a few days ago. At that time she had a CT scan of her spine which showed no acute findings. She does have old compression fractures and degenerative disease. She has been taking hydrocodone as prescribed by her primary physician. She also recently took Toradol which I prescribed. She states that she has pain with any kind of movement and at times is screaming out in pain. Related Data Home Medications Medication Instructions Recorded Confirmed cephalexin 500 mg capsule mg 08/02/22 hydrocodone 5 mg-acetaminophen 325 tab 08/02/22 mg tablet latanoprost 0.005 % eye drops drp 08/02/22 lorazepam 0.5 mg tablet (Ativan) 0.5 mg PO Q12H PRN 08/02/22 08/02/22 methotrexate sodium 2.5 mg tablet mg 08/02/22 mupirocin 2 % topical ointment topical 08/02/22 prednisone 5 mg tablet mg 08/02/22 zolpidem 5 mg tablet 2.5 mg PO QHS 08/02/22 08/02/22 Previous Rx's Medication Instructions Recorded cephalexin 500 mg capsule 500 mg PO TID 7 days #21 caps 01/26/23 cyclobenzaprine 10 mg tablet 10 mg PO TID #15 tabs 01/28/23 ketorolac 10 mg tablet 10 mg PO Q8H 5 days #15 tabs 01/28/23 hydrocodone 5 mg-acetaminophen 325 1 tab PO Q4-6H PRN pain #20 tabs 02/04/23 mg tablet lidocaine 5 % topical patch 1 patch topical DAILY #15 ea 02/04/23 tramadol 50 mg tablet 50 mg PO Q6H PRN pain #20 tabs 02/04/23 Allergies Allergy/AdvReac Type Severity Reaction Status Date / Time ciprofloxacin [From Cipro] Allergy Anaphylaxis Verified 01/30/23 13:48 Review of Systems Status of ROS: Reports: 10 or more systems reviewed and unremarkable except as noted in History and below Narrative: Constitutional: No fevers, no weight gain or loss. Eyes: No discharge. No vision changes. HENT: No congestion, no sore throat, no ear pain. Cardiovascular: No chest pain, no palpitations. Respiratory: No shortness of breath, no wheezes, no cough. Gastrointestinal: No abdominal pain, no vomiting, no diarrhea. Genitourinary: No dysuria, no hematuria. Musculoskeletal: Chronic back pain that is worse recently. Skin: No rashes, no pruritis. Neurological: No dizziness, weakness, sensory change, speech change. Endo/Heme/Allergies: No bruising or bleeding. No polydipsia. Pysch: no suicidality, no anxiety, no insomnia. All other systems reviewed and are negative. [facility] Social History Smoking Status: Never smoker Do you use any of these nicotine containing products: None Second hand tobacco smoke exposure: No How often do you have a drink containing alcohol: monthly or less How many standard drinks containing alcohol do you have on a typical day: 1 or 2 How often do you have six or more drinks on one occasion: Never AUDIT-C Alcohol total score: 1 Non-prescribed substance use: denies use service: No Exam Narrative: Exam Narrative: Constitutional: Well-developed, well-nourished, no acute distress. HEENT: Normocephalic, atraumatic. Neck: Normal range of motion. Nontender. Supple. Heart: Intact distal pulses. Lungs: No chest discomfort. No wheezes, rhonchi, or rales. Abdomen: Nontender. Back: Diffuse pain throughout the back with frequent spasms and increased pain. Extremities: Normal range of motion. No injury. Skin: Intact. No rash. Warm. No erythema or pallor. Neurologic: No altered sensation. No weakness. Alert and oriented. Psychiatric: No suicidality. No anxiety or depression. No insomnia. Nursing notes and vitals signs are reviewed. Const: Vital Signs, click to edit/add: Vital Signs - 24 hr 02/04/23 09:08 Temperature 98.3 F Pulse Rate [Pulse Oximeter] 117 H Respiratory Rate 20 Blood Pressure [Ri ght Upper Arm] 141/84 H Pulse Oximetry 97 Oxygen Delivery Me thod Room Air Course Vital Signs Vital signs: Initial Vital Signs Temperature 98.3 F 02/04/23 09:08 Temperature Source Temporal Artery Scan 02/04/23 09:08 Pulse Rate 117 H 02/04/23 09:08 Pulse Rhythm Regular 02/04/23 09:08 Respiratory Rate 20 02/04/23 09:08 Blood Pressure 141/84 H 02/04/23 09:08 Blood Pressure Mean 103 02/04/23 09:08 Blood Pressure Position Supine 02/04/23 09:08 Pulse Oximetry 97 02/04/23 09:08 Oxygen Delivery Method Room Air 02/04/23 09:08 Vital Signs Temperature 98.3 F 02/04/23 09:08 Pulse Rate 117 H 02/04/23 09:08 Respiratory Rate 20 02/04/23 09:08 Blood Pressure 141/84 H 02/04/23 09:08 Pulse Oximetry 97 02/04/23 09:08 Oxygen Delivery Method Room Air 02/04/23 09:08 Temperature 98.3 F 02/04/23 09:08 Pulse Rate 117 H 02/04/23 09:08 Respiratory Rate 20 02/04/23 09:08 Blood Pressure 141/84 H 02/04/23 09:08 Pulse Oximetry 97 02/04/23 09:08 Oxygen Delivery Method Room Air 02/04/23 09:08 MDM - Back Pain/Injury MDM Narrative Medical decision making narrative: This patient has acute on chronic back pain. This is her 3rd visit here in the last week. She has been following they prescriptions by her primary provider who resides in [place]. She is planning to return back there within a week or so. The patient does not have any radiating pain into her extremities. She does use narcotics daily and may be having some rebound pain and tolerance of her current medications. I stated that we typically have a patient's primary physician managing such medications. The patient did receive an intramuscular injection of morphine 10 mg and an oral dose of dexamethasone 10 mg. I did provide prescription for tramadol and lidocaine patches. I stated that we do have a spine clinic here but seeing that she is planning to return to [place] these medicines then may help her enough until she can follow with her regular doctors there. Discharge Plan Discharge Clinical Impression: Thoracic back pain Patient Disposition: Home w/ Parent or Adult Condition: Unchanged Additional Instructions: Take medications as prescribed. Follow up with primary physician for ongoing management of pain. If desiring to seek such management here an appointment can be made with the spine clinic by calling [phone]. Prescriptions: New hydrocodone-acetaminophen 5-325 mg tablet 1 tab PO Q4-6H PRN (Reason: pain) Qty: 20 0RF tramadol 50 mg tablet 50 mg PO Q6H PRN (Reason: pain) Qty: 20 0RF lidocaine 5 % adhesive patch,medicated 1 patch topical DAILY Qty: 15 0RF Rx Instructions: leave on most painful area for up to 12 hrs No Action cephalexin 500 mg capsule 500 mg PO TID 7 Days Qty: 21 0RF latanoprost 0.005 % drops Patient Comments: INSTILL 1 DROP IN BOTH EYES EVERY NIGHT hydrocodone-acetaminophen 5-325 mg tablet prednisone 5 mg tablet Patient Comments: TAKE 1 TABLET BY MOUTH DAILY methotrexate sodium 2.5 mg tablet Patient Comments: TAKE 5 TABLETS BY MOUTH 1 TIME A WEEK cephalexin 500 mg capsule mupirocin 2 % ointment TOPICAL Patient Comments: APPLY TOPICALLY 2X DAILY. APPLY TO OPEN WOUND OF LEFT LEG 2X A DAY AND COVER WITH A DRY DRESSING zolpidem 5 mg tablet 2.5 mg PO QHS lorazepam [Ativan] 0.5 mg tablet 0.5 mg PO Q12H PRN cyclobenzaprine 10 mg tablet 10 mg PO TID Qty: 15 0RF ketorolac 10 mg tablet 10 mg PO Q8H 5 Days Qty: 15 0RF Follow Up/Referrals: Provider,Not a Local [Primary Care Provider] - Stand Alone Forms: [facility] Info Instructions
[2023-02-04] MEDS: MORPHINE 10 MG/ML inj IM (10:46)
[2023-02-04] MEDS: dexAMETHasone 10 MG/ML inj PO (10:46)
== END 2023-02-04 11:05 | disposition home or self-care (01) ==
LOC: ED 10:49
PROVIDERS: Emergency Provider Emergency Medicine Emergency Medical Services
DX: M54.6 Pain in thoracic spine (principal)
CPT/HCPCS: 96372; 99283; 99284; J1100; J2270

== ENCOUNTER 2023-02-08 12:09 | Observation (INO) | payer MEDICARE, SELFPAY ==
[2023-02-08] VITALS (20 sets, daily range): BP systolic 146–163; BP diastolic 75–95; PULSE 94–120; RESP 18–22; TEMP 36–36.8; O2SAT 88–97; BMI 24.0; BMI 23.9
--- NOTE | 2023-02-08 12:35 | ED.NURSE ---
Last time patient had a bowel movement was last night or this morning, did not sound like it was a complete one.
--- NOTE | 2023-02-08 12:37 | CRLHL7_ITS ---
For Patients: As a result of the Century Cures Act, medical imaging exams and procedure reports are released immediately into your electronic medical record. You may view this report before your referring provider. If you have questions, please contact your health care provider. INDICATION: Diffuse abdominal pain. TECHNIQUE: CT abdomen and pelvis without contrast. COMPARISON: April 01, 2018. FINDINGS: Lower chest: Scattered atelectasis. Trace pericardial effusion. Liver: Normal in size and attenuation. No suspicious masses. Gallbladder and bile ducts: Cholecystectomy. Pancreas: Unremarkable. No mass or inflammation. Spleen: Normal in size. No masses. Adrenal glands: Normal in size. No nodules. Kidneys: Normal in size. No suspicious masses, stones, or hydronephrosis. GI tract: Postsurgical changes in the rectum. Moderate to large volume colonic stool burden. No bowel obstruction. Colonic diverticulosis without diverticulitis. No sign of mass or inflammation. Vasculature: Moderate aortoiliac arterial calcifications. Abdominal aorta is normal in caliber. Lymph nodes: No lymphadenopathy. Peritoneum/Abdominal Wall: Left ventral fat containing hernia. No sign of mass or infiltration. No free air or significant free fluid. Pelvis: Hysterectomy.. No pelvic masses. Bones: Left hip intertrochanteric carola and nail. Degenerative changes. Chronic T12, L1, L2, L3 compression deformities. Anterolisthesis of L4 on L5. IMPRESSION: Severe colonic stool burden. No acute intra-abdominal/pelvic abnormality. Colonic diverticulosis without diverticulitis. Please note that all CT scans at this facility use dose modulation, iterative reconstruction, and/or weight-based dosing when appropriate to reduce radiation dose to as low as reasonably achievable. Dictated by Ward Hughes MD @ 02/08/2023 2:25:40 PM (Electronically Signed)
--- OUTSIDE RECORDS SUMMARY | 2023-02-08 12:48 | XMS_ITS | Patient Health Record ---
Author Name Unknown Organization [facility] Address [address] [place] [address] Care Team Providers Care Fire Marshal Refinery Name Role Phone Pofririo Hauser MD Primary Care Provider Iftikhar Landeros [phone] ALLERGIES Allergen (clinical drug ingredient) Drug/Non Drug Allergy documented on EMR Reaction Allergy Type Onset Date Status ciprofloxacin Cipro Unknown Drug Allergy Act lien REASON FOR REFERRAL No Information MEDICATIONS Medication SIG (Take, Route, Fr equency, Duration) Notes Start Date End Date Status prednisoLONE 5 MG 1 tablet in the morn ing with food or milk Orally Once a day A ctive Methotrexate 2.5 MG as directed Orally Active Vicodin Active SOCIAL HISTORY Tobacco Use: Social History Observation Description Date Details (start date - stop date) Never Smoker NA - NA Sex Assigned At : Social History Observation Description Sex Assigned At Female Tobacco Use/Smoking Question Answer Notes Are you a: never smoker PROBLEMS Problem Type ICD Code Onset Dates Problem Status W/U Status Risk SNOMED Code Notes Problem Sensorineural hearing loss, bilateral (H90.3) Active confirmed [id number] VITAL SIGNS Heart Rate 93 /min 05/28/2022 Respiratory Rate 16 /min 05/28/2022 Blood pressure diastolic 85 mm Hg 05/28/2022 Weight-kg 64.41 kg 05/28/2022 Height 64 in 05/28/2022 Blood pressure systolic 132 mm Hg 05/28/2022 Weight 142 lbs 05/28/2022 BMI 24.37 kg/m2 05/28/2022 Encounters Encounter Location Date Provider Diagnosis [facility] [address] [place] [address] 05/28/2022 [facility] [address] [place] [address] 05/28/2022 Iftikhar Perez Sensorineural hearin g loss, bilateral H90.3 and Impacted cerumen of both ears H61.23 ASSESSMENTS Encounter Date Diagnosis Assessment Notes Treatment Notes Treatment Clinical Notes 05/28/2022 Sensorineural hearing loss, bilateral (ICD-10 - H90.3) The patient has hearing loss that meets indications for hearing amplification. Appropriate digital hearing aids will improve the patient's ability to communicate. I recommend consultation with audiology directly. I also recommend subsequent follow-up examinations every 1 to 2 years. Consultation for hearing aidsAudiogram 1 year 05/28/2022 Impacted cerumen of both ears (ICD-10 - H61.23) Today the patient underwent cerumen removal and I have recommended follow-up in 6 to 12 months for repeat ear cleaning. They may use vinegar/water irrigation to clean the ears. We will follow-up for any sudden change in symptoms. PLAN OF TREATMENT No Information Insurance Providers Payer Name Payer Address Payer Phone Subscriber Number Group Number Insured Name Patient Relationship to Insured Coverage Start Date Coverage End Date Medicare Part B [employer] [address] [place] [phone] [id number] MILIND FRASER Self - patient is the insured 5 [facility] [address] [place] [address] [id number] MILIND FRASER Self - patient is the insured MEDICAL (GENERAL) HISTORY Medical History History ICD Code Fibermyalgia Surgical History Surgery Date(Month/Year) Ostamy surgery x2 Gallbladder Removed x2 Hysterectomy Tyro Teeth Tonsilectomy Broken Leg x2 Broken Hip
--- OUTSIDE RECORDS SUMMARY | 2023-02-08 12:48 | XMS_ITS | Patient Health Record ---
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 confirmed 45120342 Problem Localized edema R60.0 confirmed [id number] ALLERGIES Allergen (clinical drug ingredient) Drug/Non Drug Allergy documented on EMR Reaction Allergy Type Onset Date Status ant Unknown Non Drug Allergy Act lien ciprofloxacin Cipro([facility] Code:[id number]) Unknown Drug Allergy Active ENCOUNTERS from 1940 to 2023-02-08 Encounter Location Date Provider Diagnosis [facility] [address] [address] Oct, Agustín Hernández [facility] [address] [address] Sep, Agustín Hernández Palpitations R00.2 [facility] [address] [address] Sep, Agustín Hernández Abnormal stress ECG with [...] No Information VITAL SIGNS from 1940 to 2023-02-08 Heart Rate 96 /min Sep, Height 64 [...] - M79.604) Sep, Other This practice [facility] voice recognition software. Translation errors may occur. [...] End Date Subscriber Number Group Number Medicare [address] [facility] [id number] Eveline Coelho Self - patient is the insured [id number] [facility] Claims Division [address] [facility] [phone] Eveline Coelho Self - patient is the insured [id number]
--- NOTE | 2023-02-08 12:52 | ED_ITS ---
HPI - General Adult General Chief complaint: Abdominal Pain Stated complaint: Bowel obstruction, back pain Time Seen by Provider: 02/08/23 12:18 Source: patient Mode of arrival: ambulatory Limitations: no limitations History of Present Illness HPI narrative: 82-year-old female coming in today complaining of abdominal discomfort and constipation. She states that ever since she received IM morphine on January 30 here in the ER, she has had little to no stool output. She states that she had no stool output until last night when she had a couple of roel come out, and again another few roel this morning. She states that her stomach is bloated and uncomfortable. She denies any vomiting. She complains of decreased appetite and has not been drinking very much water recently. She also states she has not been passing gas for ?I do not know how long?. She has not had any fevers or chills. She continues to have back pain that she states is not getting any better, however today her biggest concern is her abdominal discomfort. Patient tells me that she has had an ostomy in the past but cannot tell me why. Of note this is patient's 4th ER visit in the last 2 weeks. She is very tearful today. Her last May and she tells me today as she did last time I saw her that they had his celebration of life recently and that she is having a very difficult time getting over his . She denies thoughts of self-harm today. Denies thoughts of hurting others. Her children all live in [place], she generally lives in [place] and has a condo here for when she visits her kids. She states that she wants to go back to [place] but her kids want her to stay and so there is a lot of family struggle going on right now. Related Data Home Medications Medication Instructions Recorded Confirmed cephalexin 500 mg capsule mg 08/02/22 hydrocodone 5 mg-acetaminophen 325 tab 08/02/22 mg tablet latanoprost 0.005 % eye drops drp 08/02/22 lorazepam 0.5 mg tablet (Ativan) 0.5 mg PO Q12H PRN 08/02/22 08/02/22 methotrexate sodium 2.5 mg tablet mg 08/02/22 mupirocin 2 % topical ointment topical 08/02/22 prednisone 5 mg tablet mg 08/02/22 zolpidem 5 mg tablet 2.5 mg PO QHS 08/02/22 08/02/22 Previous Rx's Medication Instructions Recorded cephalexin 500 mg capsule 500 mg PO TID 7 days #21 caps 01/26/23 cyclobenzaprine 10 mg tablet 10 mg PO TID #15 tabs 01/28/23 ketorolac 10 mg tablet 10 mg PO Q8H 5 days #15 tabs 01/28/23 hydrocodone 5 mg-acetaminophen 325 1 tab PO Q4-6H PRN pain #20 tabs 02/04/23 mg tablet lidocaine 5 % topical patch 1 patch topical DAILY #15 ea 02/04/23 tramadol 50 mg tablet 50 mg PO Q6H PRN pain #20 tabs 02/04/23 Allergies Allergy/AdvReac Type Severity Reaction Status Date / Time ciprofloxacin [From Cipro] Allergy Anaphylaxis Verified 02/08/23 12:29 Review of Systems Status of ROS: Reports: 10 or more systems reviewed and unremarkable except as noted in History and below PFSH PFS Social History Smoking Status: Never smoker Do you use any of these nicotine containing products: None Second hand tobacco smoke exposure: No How often do you have a drink containing alcohol: monthly or less How many standard drinks containing alcohol do you have on a typical day: 1 or 2 How often do you have six or more drinks on one occasion: Never AUDIT-C Alcohol total score: 1 Non-prescribed substance use: denies use service: No Exam Narrative: Exam Narrative: Well-nourished well-developed patient, tearful. Alert and oriented x3. Answers questions appropriately. Thoughts are goal oriented and rational. No tangential or magical thinking noted. Patient speaks in full sentences without needing to catch her breath. Speech is not slurred or pressured. HEENT: Normocephalic atraumatic. Pupils are equally round reactive to light. Extraocular muscles are intact. Conjunctivae are moist without any icterus noted. Dry mucous membranes. Neck is soft without any lymphadenopathy or thyromegaly. No masses are appreciated. Cardiovascular: Heart is regular rate and rhythm S1 and S2 are present without any murmurs. Lungs: Clear to auscultation bilaterally no wheezes rhonchi or rales are appreciated. Patient takes deep breaths without any discomfort. Abdomen: Soft. It is mildly distended and she has diffuse mild tenderness with palpation anywhere on the abdomen. She has scarring on the abdominal wall. Extremities: Bilateral lower extremities are without edema. Normal DP and PT pulses. Skin: Well perfused without any obvious rashes. Const: Vital Signs, click to edit/add: Vital Signs - 24 hr 02/08/23 12:18 02/08/23 13:14 02/08/23 15:45 Temperature 96.8 F L 98.1 F Pulse Rate [Right Pulse Oximeter] 118 H 120 H Respiratory Rate 18 22 Blood Pressure [Ri ght Upper Arm] 150/89 H 161/93 H Pulse Oximetry 96 89 97 Oxygen Delivery Me thod Room Air Room Air 02/08/23 18:43 Temperature 98.1 F Pulse Rate [Right Pulse Oximeter] 101 H Respiratory Rate 22 Blood Pressure [Ri ght Upper Arm] 152/75 H Pulse Oximetry 97 Oxygen Delivery Me thod Room Air Course Course Hospital Course: Patient appeared to be quite dehydrated on presentation with dry cracked lips dry mucous membranes and tachycardia. IV established and labs were drawn. She received 1 L of normal saline which brought her pulse down to 105 from 08/24. Patient's lab work was unremarkable. However, a D-dimer was drawn given her tachycardia and diffuse back discomfort and this was found to be elevated. Given her diffuse nature of the abdominal discomfort, EKG was done and read by me, showed sinus tachycardia with a pulse of 107. Given her abdominal surgical history, We proceeded with an abdominal CT which showed a significant stool burden. we then proceeded with a Fleet's enema which produced a moderate amount of stool and made her feel significantly better. CT chest PE protocol was then done: Shows involving compression fracture T10, no PE. Atelectasis versus infiltrate- patient is not coughing, has no other evidence of infection, this is likely atelectasis. Patient had refused pain medication up to this point she felt that is contributing to her constipation however she is in so much discomfort that she finally accepts IV Dilaudid. Given that the patient lives alone is having very difficult time controlling her pain and constipation from narcotic use, she will be admitted for further management and pain control. Vital Signs Vital signs: Initial Vital Signs Temperature 96.8 F L 02/08/23 12:18 Temperature Source Temporal Artery Scan 02/08/23 12:18 Pulse Rate 118 H 02/08/23 12:18 Pulse Rhythm Regular 02/08/23 12:18 Respiratory Rate 18 02/08/23 12:18 Blood Pressure 150/89 H 02/08/23 12:18 Blood Pressure Mean 109 H 02/08/23 12:18 Pulse Oximetry 96 02/08/23 12:18 Oxygen Delivery Method Room Air 02/08/23 12:18 Vital Signs Temperature 96.8 F L 02/08/23 12:18 Pulse Rate 118 H 02/08/23 12:18 Respiratory Rate 18 02/08/23 12:18 Blood Pressure 150/89 H 02/08/23 12:18 Pulse Oximetry 96 02/08/23 12:18 Oxygen Delivery Method Room Air 02/08/23 12:18 Temperature 98.1 F 02/08/23 18:43 Pulse Rate 101 H 02/08/23 18:43 Respiratory Rate 22 02/08/23 18:43 Blood Pressure 152/75 H 02/08/23 18:43 Pulse Oximetry 97 02/08/23 18:43 Oxygen Delivery Method Room Air 02/08/23 18:43 Medical Decision Making MDM Narrative Medical decision making narrative: 82-year-old female with acute on chronic back pain presenting with constipation, dehydration and involving T4 compression fracture. Patient will be admitted for further management. Medical Records Medical records reviewed: Yes I reviewed the patient's medical records Lab Data Lab results reviewed: Yes I reviewed the patient's lab results Labs: Lab Results 02/08/23 02/08/23 02/08/23 Range/Units 12:38 14:20 16:42 WBC 7.38 (4.50-11.00) K/uL RBC 3.44 L (4.00-5.20) m/uL Hgb 11.2 L (12.0-16.0) gm/dL Hct 34.0 (33.0-51.0) % MCV 99 (80-100) fL MCH 33 (26-34) pg MCHC 33 (32-36) gm/dL RDW Coeff of Dre 13.3 (11.5-15.5) % Plt Count 228 (140-440) K/uL Neut % (Auto) 76.5 H (42.0-72.0) % Lymph % (Auto) 7.3 L (20-44) % Story % (Auto) 13.0 H (0.0-11.0) % Eos % (Auto) 0.0 (0.0-7.0) % Baso % (Auto) 0.5 (0.0-3.0) % Neut # (Auto) 5.60 (1.7-7.0) K/uL Lymph # (Auto) 0.50 L (0.90-2.90) K/uL Story # (Auto) 1.00 H (0.00-0.90) K/UL Eos # (Auto) 0.00 (0.00-0.50) K/uL Baso # (Auto) 0.04 (0.00-0.30) K/uL Abs Immat Gran (auto) 0.20 (0.00-0.30) K/uL Imm/Tot Granulo (auto) 2.7 % D-Dimer Quant (PE/DVT) 1.79 H (0.00-0.50) ug/ml Sodium 136 (135-149) mmol/L Potassium 3.5 L (3.6-5.1) mmol/L Chloride 101 (96-114) mmol/L Carbon Dioxide 25 (20-32) mmol/L BUN 14 (7-30) mg/dL Creatinine 0.5 (0.5-1.5) mg/dL Estimated Creat Clear 37.45 Estimated GFR 94 ml/min Glucose 117 H (60-115) mg/dL Lactate 1.0 (0.5-1.9) mmol/L Calcium 9.3 (8.4-10.6) mg/dL Total Bilirubin 1.1 (0.1-1.5) mg/dL Direct Bilirubin 0.2 (0.0-0.5) mg/dL AST 29 (12-35) U/L ALT 25 (4-35) U/L Alkaline Phosphatase 100 (40-150) U/L Troponin I < 0.01 L (0.01-0.04) ng/mL C-Reactive Protein 3.1 H (0.5-1.0) mg/dL Total Protein 7.0 (6.0-8.3) g/dL Albumin 4.3 (3.3-5.0) g/dL Lipase 48 (23-300) U/L Urine Color Yellow (Yellow) Urine Appearance Clear (Clear) Urine pH 6.5 (5.0-8.5) Ur Specific [place] 1.015 (1.000-1.030) Urine Protein Negative (Negative) Urine Glucose (UA) Negative (Negative) Urine Ketones Trace A (Negative) Urine Blood Trace-intact A (Negative) Urine Nitrite Negative (Negative) Urine Bilirubin Negative (Negative) Urine Urobilinogen 0.2 (0.2-1.0) Ur Leukocyte Esterase Negative (Negative) Urine RBC 0-2 (0-2) Urine WBC 0-2 (0-5) Ur Squamous Epith Cells Few (None-Few) Urine Bacteria Few A (None) Fine Granular Casts Few A (None) Lab Acknowledgement Test Added Imaging Data CT scan - abdomen: Attestation: I have reviewed the pertinent imaging results. Radiologist's impression: CT abdomen and pelvis without contrast. COMPARISON: April 01, 2018. FINDINGS: Lower chest: Scattered atelectasis. Trace pericardial effusion. Liver: Normal in size and attenuation. No suspicious masses. Gallbladder and bile ducts: Cholecystectomy. Pancreas: Unremarkable. No mass or inflammation. Spleen: Normal in size. No masses. Adrenal glands: Normal in size. No nodules. Kidneys: Normal in size. No suspicious masses, stones, or hydronephrosis. GI tract: Postsurgical changes in the rectum. Moderate to large volume colonic stool burden. No bowel obstruction. Colonic diverticulosis without diverticulitis. No sign of mass or inflammation. Vasculature: Moderate aortoiliac arterial calcifications. Abdominal aorta is normal in caliber. Lymph nodes: No lymphadenopathy. Peritoneum/Abdominal Wall: Left ventral fat containing hernia. No sign of mass or infiltration. No free air or significant free fluid. Pelvis: Hysterectomy.. No pelvic masses. Bones: Left hip intertrochanteric carola and nail. Degenerative changes. Chronic T12, L1, L2, L3 compression deformities. Anterolisthesis of L4 on L5. IMPRESSION: Severe colonic stool burden. No acute intra-abdominal/pelvic abnormality. Colonic diverticulosis without diverticulitis. CT scan - chest: Attestation: I have reviewed the pertinent imaging results. Radiologist's impression: Technique: Volumetric multidetector CT images of the chest were obtained after the administration of IV contrast. 95 cc Isovue 370 low osmolar intravenous contrast Comparison: CT thoracic spine January 30, 2023 Findings: The thoracic inlet and thyroid gland are unremarkable. The thoracic aorta is nonaneurysmal. There is no central filling defect to suggest pulmonary embolism. There are mildly prominent mediastinal and hilar lymph nodes. There is no axillary adenopathy. There is mild central bronchial thickening. There is airspace opacification of the right greater than left lung bases likely representing infiltrate versus atelectasis. There is mild emphysematous change of the upper lobes. There is mild to moderate biapical pleural thickening. There is no evidence of pulmonary mass or suspicious pulmonary nodule. The partially visualized upper abdominal viscera are within normal limits. Again seen are compression fractures of the T8, T10, and T12 levels with evolving subacute changes of the T10 level Impression: Evolving subacute compression fracture of the T10 vertebral body from recent comparison exam. Stable vertebral plana changes of the T8 and T12 levels. Demonstration of consolidative opacities within the bilateral lung bases likely representing atelectasis, underlying infiltrates may be difficult to exclude. ECG Data Attestation: I personally reviewed and interpreted this ECG as follows: Discharge Plan Discharge Clinical Impression: Intractable back pain, Constipation, Dehydration, Compression fracture Patient Disposition: Admitted As Inpatient Condition: Stable Additional Instructions: Increase your daily water intake. Start taking 1 scoop of MiraLax daily with 2 tablets of Colace daily. Both MiraLax and Colace can be purchased [id number]. I recommend you call your primary care provider to discuss pain management for your back. Prescriptions: No Action cephalexin 500 mg capsule 500 mg PO TID 7 Days Qty: 21 0RF hydrocodone-acetaminophen 5-325 mg tablet 1 tab PO Q4-6H PRN (Reason: pain) Qty: 20 0RF tramadol 50 mg tablet 50 mg PO Q6H PRN (Reason: pain) Qty: 20 0RF lidocaine 5 % adhesive patch,medicated 1 patch topical DAILY Qty: 15 0RF Rx Instructions: leave on most painful area for up to 12 hrs latanoprost 0.005 % drops Patient Comments: INSTILL 1 DROP IN BOTH EYES EVERY NIGHT hydrocodone-acetaminophen 5-325 mg tablet prednisone 5 mg tablet Patient Comments: TAKE 1 TABLET BY MOUTH DAILY methotrexate sodium 2.5 mg tablet Patient Comments: TAKE 5 TABLETS BY MOUTH 1 TIME A WEEK cephalexin 500 mg capsule mupirocin 2 % ointment TOPICAL Patient Comments: APPLY TOPICALLY 2X DAILY. APPLY TO OPEN WOUND OF LEFT LEG 2X A DAY AND COVER WITH A DRY DRESSING zolpidem 5 mg tablet 2.5 mg PO QHS lorazepam [Ativan] 0.5 mg tablet 0.5 mg PO Q12H PRN cyclobenzaprine 10 mg tablet 10 mg PO TID Qty: 15 0RF ketorolac 10 mg tablet 10 mg PO Q8H 5 Days Qty: 15 0RF Follow Up/Referrals: Provider,Not a Local [Primary Care Provider] - Stand Alone Forms: [facility] Info Instructions
[2023-02-08 13:14] LABS: Basophils Absolute Auto 0.04 K/uL (0.00-0.30); Basophils Percent Auto 0.5 % (0.0-3.0); Hemoglobin* 11.2 gm/dL (12.0-16.0); Immature Granulocytes Pct Auto 2.7 %; Lymphocytes Percent Auto 7.3 % (20-44); Mean Corpuscular HGB Conc 33 gm/dL (32-36); Mean Corpuscular Hemoglobin 33 pg (26-34); Mean Corpuscular Volume 99 fL (80-100); Neutrophils Percent Auto 76.5 % (42.0-72.0); Platelet Count* 228 K/uL (140-440); RDW Coefficient of Variation % 13.3 % (11.5-15.5); Red Blood Count 3.44 m/uL (4.00-5.20); White Blood Count* 7.38 K/uL (4.50-11.00)
--- NOTE | 2023-02-08 13:20 | ED.NURSE ---
pain upon palpitation of mid lower abdomen near the umbilicus
[2023-02-08 13:23] LABS: Slide Review Reflex No
[2023-02-08 13:28] LABS: Chloride* 101 mmol/L (96-114)
[2023-02-08 13:29] LABS: Potassium* 3.5 mmol/L (3.6-5.1); Sodium* 136 mmol/L (135-149)
[2023-02-08] MEDS: 0.9 % SODIUM CHLORIDE 1000 ml 1,000 ML IV (13:29)
[2023-02-08 13:30] LABS: Albumin* 4.3 g/dL (3.3-5.0)
[2023-02-08 13:31] LABS: Creatinine* 0.5 mg/dL (0.5-1.5); Est. Creatinine Clearance* 37.45; Estimated Glomerular Filt Rate 94 ml/min
[2023-02-08 13:32] LABS: Blood Urea Nitrogen* 14 mg/dL (7-30); Carbon Dioxide* 25 mmol/L (20-32); Glucose* 117 mg/dL (60-115)
[2023-02-08 13:33] LABS: Alkaline Phosphatase* 100 U/L (40-150); Aspartate Amino Transferase* 29 U/L (12-35); Bilirubin Direct* 0.2 mg/dL (0.0-0.5); Bilirubin Total* 1.1 mg/dL (0.1-1.5); Calcium* 9.3 mg/dL (8.4-10.6)
[2023-02-08 13:34] LABS: Alanine Aminotransferase* 25 U/L (4-35); Lipase* 48 U/L (23-300)
[2023-02-08 13:35] LABS: C Reactive Protein* 3.1 mg/dL (0.5-1.0)
[2023-02-08 13:44] LABS: Troponin I* < 0.01 ng/mL (0.01-0.04)
[2023-02-08 14:26] LABS: Appearance Urine Clear (Clear); Bilirubin Urine Negative (Negative); Blood Urine Trace-intact (Negative); Color Urine Yellow (Yellow); Glucose Urine Negative (Negative); Ketones Urine Trace (Negative); Leukocyte Esterase Urine Negative (Negative); Nitrite Urine Negative (Negative); Protein Urine Negative (Negative); Specific Gravity Urine 1.015 (1.000-1.030); Urobilinogen Urine 0.2 (0.2-1.0); pH Urine 6.5 (5.0-8.5)
[2023-02-08 14:42] LABS: RBC Urine 0-2 (0-2); WBC Urine 0-2 (0-5)
[2023-02-08 14:43] LABS: Bacteria Urine Few; Squamous Epithelial Cell Urine Few (None-Few)
[2023-02-08 14:44] LABS: Fine Granular Casts Urine Few
--- NOTE | 2023-02-08 15:11 | ED.NURSE ---
enema given to pt, no bowel movement yet
--- NOTE | 2023-02-08 15:38 | ED.NURSE ---
pt has been on the commode for approx 20 minutes, says blankets and dim lights help with bowel movement. Some progress made.
--- NOTE | 2023-02-08 16:24 | ED.NURSE ---
Pt off of commode, had 3 golf ball sized hard stools.
[2023-02-08 16:56] LABS: D Dimer Quantitative* 1.79 ug/ml (0.00-0.50)
--- NOTE | 2023-02-08 17:08 | CRLHL7_ITS ---
For Patients: As a result of the Century Cures Act, medical imaging exams and procedure reports are released immediately into your electronic medical record. You may view this report before your referring provider. If you have questions, please contact your health care provider. Indication: Pain, elevated D-dimer Technique: Volumetric multidetector CT images of the chest were obtained after the administration of IV contrast. 95 cc Isovue 370 low osmolar intravenous contrast Comparison: CT thoracic spine January 30, 2023 Findings: The thoracic inlet and thyroid gland are unremarkable. The thoracic aorta is nonaneurysmal. There is no central filling defect to suggest pulmonary embolism. There are mildly prominent mediastinal and hilar lymph nodes. There is no axillary adenopathy. There is mild central bronchial thickening. There is airspace opacification of the right greater than left lung bases likely representing infiltrate versus atelectasis. There is mild emphysematous change of the upper lobes. There is mild to moderate biapical pleural thickening. There is no evidence of pulmonary mass or suspicious pulmonary nodule. The partially visualized upper abdominal viscera are within normal limits. Again seen are compression fractures of the T8, T10, and T12 levels with evolving subacute changes of the T10 level Impression: Evolving subacute compression fracture of the T10 vertebral body from recent comparison exam. Stable vertebral plana changes of the T8 and T12 levels. Demonstration of consolidative opacities within the bilateral lung bases likely representing atelectasis, underlying infiltrates may be difficult to exclude. No evidence of pulmonary embolus. Please note that all CT scans at this facility use dose modulation, iterative reconstruction, and/or weight-based dosing when appropriate to reduce radiation dose to as low as reasonably achievable. Dictated by Fidel Gonzalez MD @ 02/08/2023 6:44:48 PM (Electronically Signed)
--- NOTE | 2023-02-08 18:15 | ED.NURSE ---
Multiple IV placement attempts by several RNs made to place IV for PE protocol study. During attempts, one RN suspected accidental venipuncture of artery in L AC. IV was removed and site was bandage with gauze and tegaderm. Notable swelling and bleeding through gauze at the site after venipuncture. Manager Of Training And Development placed coban over existing dressing as a pressure bandage. notified.
--- NOTE | 2023-02-08 18:49 | ED.NURSE ---
pt is in pain, rating it a 8 out of 10. Currently lying on her side to alleviate the pain some of her back.
[2023-02-08] MEDS: HYDROmorphone 0.5 mg/0.5 ml inj IVP (19:09)
--- NOTE | 2023-02-08 19:27 | ED.NURSE ---
MD Wut in room with pt. MD Mcdonough informed of possible accidental arterial venipuncture earlier during IV attempts. Coban pressure bandage removed and site examined, bleeding controlled at this time. There is a notable bruise and some swelling at pt's Left AC.
--- NOTE | 2023-02-08 19:36 | ED.NURSE ---
report given to med/surg, pt will be heading up
--- NOTE | 2023-02-08 20:10 | PM.IMHP1 ---
Hospitalist- H&P: HPI History of Present Illness Date Seen: 02/08/23 Chief complaint: Bowel obstruction, back pain Narrative: Bryanna Coelho is a 82 year old female admitted through the emergency department for uncontrolled back pain and abdominal pain. Patient reports over the last several days she has had severe unrelenting mid back pain. She has been seen in our emergency department twice for evaluation of this. She is unable to get control of her pain and unable to function at home secondary to pain. She cannot get out of bed because of her back pain. She has been taking hydrocodone/acetaminophen 5/325 2 tablets 3 or 4 times a day without relief of her pain. She is chronically on hydrocodone acetaminophen for over a decade. He was initially started for fibromyalgia. Evaluation the emergency department has shown that she has old compression fractures at T8 and T12 and new compression fracture at T10, likely the cause of her pain. She has not had any numbness or weakness in her legs. She has not had any bowel or bladder control problems. She reports despite her chronic use of hydrocodone she has never had problems with constipation. She normally has a bowel movement every day without straining. Recently she has not been able have a bowel movement and is feeling abdominal pain and bloating as a result. CT of the abdomen today showed a large burden of stool in her colon. She has a history of some type of inflammatory arthritis. Patient does not know her diagnosis but she tells me she is taking methotrexate and prednisone for this. She does not think this is rheumatoid arthritis but she does not know why her doctor is prescribing these medicines for more than a decade. Old records indicate possibly seronegative rheumatoid arthritis. Possibly this is for a diagnosis made at [facility]. Review of Systems Narrative: Review of systems is unremarkable except as noted above. Main concerns today are her severe back pain and now abdominal pain with constipation. Along with this she has had marked disability is not able to function at home. Two weeks ago she had an injury to her right leg causing a abrasion and superficial ulcer. With this she had a cellulitis that was treated with Keflex. That appears to have resolved though the ulcer is still present [facility] Medical History (Updated 02/08/23 @ 20:37 by Gurinder Mcdonough MD) Frailty syndrome in geriatric patient ?R54 - Age-related physical debility (ICD-10) History of femur fracture ?Z87.81 - Personal history of (healed) traumatic fracture (ICD-10) Thoracic compression fracture ?S22.000A - Wedge compression fracture of unspecified thoracic vertebra, initial encounter for closed fracture (ICD-10) Anxiety ?F41.9 - Anxiety disorder, unspecified (ICD-10) Sensorineural hearing loss ?H90.5 - Unspecified sensorineural hearing loss (ICD-10) Perforation of sigmoid colon due to diverticulitis ?K57.20 - Diverticulitis of large intestine with perforation and abscess without bleeding (ICD-10) Insomnia ?G47.00 - Insomnia, unspecified (ICD-10) Fibromyalgia ?M79.7 - Fibromyalgia (ICD-10) Inflammatory arthritis ?M19.90 - Unspecified osteoarthritis, unspecified site (ICD-10) Polypharmacy ?Z79.899 - Other middle or intermediate school principal (current) drug therapy (ICD-10) Chronic, continuous use of opioids ?F11.90 - Opioid use, unspecified, uncomplicated (ICD-10) Osteoporosis ?M81.0 - Age-related osteoporosis without current pathological fracture (ICD-10) Surgical History (Updated 02/08/23 @ 20:26 by Gurinder Mcdonough MD) History of ovarian cystectomy ?Z98.890 - Other specified postprocedural states (ICD-10) ?Z87.42 - Personal history of other diseases of the female genital tract (ICD-10) History of colostomy reversal ?Z98.890 - Other specified postprocedural states (ICD-10) History of colostomy History of hysterectomy ?Z90.710 - Acquired absence of both cervix and uterus (ICD-10) History of cholecystectomy ?Z90.49 - Acquired absence of other specified parts of digestive tract (ICD-10) Social History (Updated 02/08/23 @ 20:27 by Gurinder Mcdonough MD) Narrative: Patient lives in [place] in the winter but visits family in [place] in the summer. She maintains a condominium in [place]. May 2022. She has 4 children. 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 Code status is DNR. She does not smoke. She drinks wine about twice a week. Smoking Status: Never smoker Do you use any of these nicotine containing products: None Second hand tobacco smoke exposure: No How often do you have a drink containing alcohol: monthly or less How many standard drinks containing alcohol do you have on a typical day: 1 or 2 How often do you have six or more drinks on one occasion: Never AUDIT-C Alcohol total score: 1 Non-prescribed substance use: denies use service: No Meds Home Medications and Allergies Home Medications Medication Instructions Recorded Confirmed Type hydrocodone 5 mg-acetaminophen 325 2 tab PO TID 08/02/22 02/08/23 History mg tablet latanoprost 0.005 % eye drops 1 drp ophthalmic (eye) HS 08/02/22 02/08/23 History lorazepam 0.5 mg tablet (Ativan) 0.5 mg PO Q12H PRN 08/02/22 02/08/23 History methotrexate sodium 2.5 mg tablet 12.5 mg PO .weekly 08/02/22 02/08/23 History prednisone 5 mg tablet 5 mg PO DAILY 08/02/22 02/08/23 History zolpidem 5 mg tablet 2.5 mg PO QHS 08/02/22 02/08/23 History Allergies Allergy/AdvReac Type Severity Reaction Status Date / Time ciprofloxacin [From Cipro] Allergy Anaphylaxis Verified 02/08/23 12:29 Exam Narrative: Exam Narrative: She is lying in bed in obvious discomfort. She gives her own history. She struggles to give some information possibly due to distraction from the pain. Head is without apparent trauma. Eyes are normal. Pupils are of normal diameter, not pinpoint or dilated, and reactive to light. Extraocular movements are full. Oropharynx with dry mucous membranes. Neck is supple without mass or adenopathy. Respirations are clear to auscultation. Breathing is unlabored. Cardiovascular: S1, S2, regular rate and rhythm. No murmur gallop or rub. Abdomen: Bowel sounds are present. Abdomen is soft. She has mild diffuse tenderness a little more on the left than the right. External genitalia normal. Inspection of her back shows no obvious trauma. She does have midline tenderness in the lower thoracic spine without other obvious deformity or signs of trauma. She has intact peripheral pulses and intact sensation. Limited strength testing of her lower extremity shows intact strength in the feet and ankles with dorsiflexion plantar flexion. Const: Vital Signs, click to edit/add: Vital Signs - 24 hr 02/08/23 12:18 02/08/23 13:13 02/08/23 13:14 Temperature 96.8 F L Pulse Rate 100 Pulse Rate [Right Pulse Oximeter] 118 H Respiratory Rate 18 Blood Pressure Blood Pressure [Ri ght Upper Arm] 150/89 H Pulse Oximetry 96 88 89 Oxygen Delivery Me thod Room Air 02/08/23 13:30 02/08/23 14:18 02/08/23 14:30 Temperature Pulse Rate 98 99 96 Pulse Rate [Right Pulse Oximeter] Respiratory Rate Blood Pressure Blood Pressure [Ri ght Upper Arm] Pulse Oximetry 92 97 93 Oxygen Delivery Me thod 02/08/23 15:45 02/08/23 15:45 02/08/23 16:00 Temperature 98.1 F Pulse Rate 120 H 112 H Pulse Rate [Right Pulse Oximeter] 120 H Respiratory Rate 22 Blood Pressure Blood Pressure [Ri ght Upper Arm] 161/93 H Pulse Oximetry 97 97 96 Oxygen Delivery Me thod Room Air 02/08/23 16:30 02/08/23 17:00 02/08/23 17:17 Temperature Pulse Rate 107 H 104 H 94 Pulse Rate [Right Pulse Oximeter] Respiratory Rate Blood Pressure 163/95 H Blood Pressure [Ri ght Upper Arm] Pulse Oximetry 97 96 95 Oxygen Delivery Me thod 02/08/23 17:30 02/08/23 18:00 02/08/23 18:35 Temperature Pulse Rate 104 H 98 101 H Pulse Rate [Right Pulse Oximeter] Respiratory Rate Blood Pressure Blood Pressure [Ri ght Upper Arm] Pulse Oximetry 95 97 97 Oxygen Delivery Me thod 02/08/23 18:43 02/08/23 18:44 02/08/23 19:00 Temperature 98.1 F Pulse Rate 98 102 H Pulse Rate [Right Pulse Oximeter] 101 H Respiratory Rate 22 Blood Pressure 152/75 H Blood Pressure [Ri ght Upper Arm] 152/75 H Pulse Oximetry 97 96 96 Oxygen Delivery Me thod Room Air 02/08/23 19:30 Temperature Pulse Rate 101 H Pulse Rate [Right Pulse Oximeter] Respiratory Rate Blood Pressure Blood Pressure [Ri ght Upper Arm] Pulse Oximetry 96 Oxygen Delivery Me thod Documenting provider has reviewed patient's vital signs: yes Hospitalist - H&P: Result Labs Labs: Short CBC 02/08/23 Range/Units 12:38 WBC 7.38 (4.50-11.00) K/uL Hgb 11.2 L (12.0-16.0) gm/dL Hct 34.0 (33.0-51.0) % Plt Count 228 (140-440) K/uL BMP 02/08/23 12:38 Sodium 136 Potassium 3.5 L Chloride 101 Carbon Dioxide 25 BUN 14 Creatinine 0.5 Glucose 117 H Calcium 9.3 Cardiac Enzymes 02/08/23 Range/Units 12:38 Troponin I < 0.01 L (0.01-0.04) ng/mL Liver Function 02/08/23 Range/Units 12:38 Total Bilirubin 1.1 (0.1-1.5) mg/dL Direct Bilirubin 0.2 (0.0-0.5) mg/dL AST 29 (12-35) U/L ALT 25 (4-35) U/L Alkaline Phosphatase 100 (40-150) U/L Albumin 4.3 (3.3-5.0) g/dL Urine 02/08/23 Range/Units 14:20 Urine Color Yellow (Yellow) Urine Appearance Clear (Clear) Urine pH 6.5 (5.0-8.5) Ur Specific [place] 1.015 (1.000-1.030) Urine Protein Negative (Negative) Urine Glucose (UA) Negative (Negative) Assessment and Plan Assessment and plan (1) Thoracic compression fracture: Problem comment: February 2023: New compression fracture at T10. Old compression fractures at T8 and T12 Status: Acute (2) Intractable back pain: Problem comment: Currently will plan to continue outpatient hydrocodone acetaminophen 5/325, 2 tablets t.i.d. and supplement with oxycodone p.r.n.. Will also give a trial of low-dose ibuprofen for additional pain relief. Monitor for complications of ibuprofen. Treat complications of hydrocodone, constipation. Monitor for excess sedation from hydrocodone Status: Acute (3) Constipation: Problem comment: By patient report this is a new problem in February 2023 despite long-term use of opioid pain medication. Will treat with senna, MiraLax, suppositories, enema Status: Acute (4) Insomnia: Problem comment: On zolpidem Status: Acute (5) Polypharmacy: Problem comment: It appears that she is on chronic opioids plus zolpidem plus lorazepam. Family is quite concerned about polypharmacy and her substance use. I indicated that I was in agreement with their concerns but also that a change of plan would have to come gradually with the support of her primary care provider. Status: Acute (6) Osteoporosis: Problem comment: Patient has had at least 3 vertebral compression fractures. Most recently without trauma. Add in bisphosphonate, vitamin-D, calcium? Status: Acute (7) Frailty syndrome in geriatric patient: Problem comment: Assess functional status to determine whether she can remain independent. Status: Acute (8) Inflammatory arthritis: Problem comment: Possibly seronegative rheumatoid arthritis. Continue outpatient prednisone and methotrexate. Status: Acute (9) Fibromyalgia: Problem comment: Longstanding, treated with hydrocodone/acetaminophen Status: Acute Plan Admit to the hospital for management of intractable back pain due to thoracic compression fracture at T10 as well as underlying chronic pain and chronic opioid use and acute constipation. Assess for ability to care for herself. Total time spent in evaluation and management is 80 minutes, 50 minutes in discussing with patient family and other providers management of disabling back pain and constipation
[2023-02-08] MEDS: OXYCODONE 5 MG TABLET PO (20:43)
[2023-02-08] MEDS: ONDANSETRON 2 MG/ML inj 4 MG IVP (21:25)
[2023-02-08] MEDS: SENNOSIDES/DOCUSATE TABLET 4 TAB PO (21:41)
[2023-02-08] MEDS: polyethylene glycoL 3350 17 GM PACK PO (21:41)
[2023-02-08] MEDS: IBUPROFEN 400 MG TABLET PO (21:41)
[2023-02-08] MEDS: LATANOPROST 0.005% OPHTH 1 DROP EYE-BOTH (21:43)
[2023-02-08] MEDS: SODIUM CHLORIDE 0.9 % (FLUSH) 10 ML SYRINGE 5 ML IVF (21:44)
[2023-02-08] MEDS: bisacodyL 10 MG SUPP.RECT PR (21:45)
[2023-02-08] MEDS: LIDOCAINE 5% PATCH 1 PATCH TRANSDERMA (22:31)
[2023-02-08] MEDS: ZOLPIDEM 5 MG TABLET 2.5 MG PO (22:31)
[2023-02-08] MEDS: LACTATED RINGERS 1000 ML 1,000 ML 125 ML IV (22:37)
[2023-02-09] VITALS (7 sets, daily range): BP systolic 126–155; BP diastolic 55–86; PULSE 96–116; RESP 18–20; TEMP 36.7–37.3; O2SAT 92–95
[2023-02-09] MEDS: OXYCODONE 5 MG TABLET PO ×5 (04:01→21:01)
--- NOTE | 2023-02-09 06:00 | PC.NURSE ---
[id number] Pt slept on and off during night, up to BSC with SBA when needed. Pt denies passing gas and no BM this shift. Lower back pain present, increased with movement, some relief with prn galdamez medication, ice and heat.
[2023-02-09 06:16] LABS: Basophils Absolute Auto 0.02 K/uL (0.00-0.30); Basophils Percent Auto 0.3 % (0.0-3.0); Eosinophils Absolute Auto 0.01 K/uL (0.00-0.50); Eosinophils Percent Auto 0.1 % (0.0-7.0); Hematocrit 28.4 % (33.0-51.0); Hemoglobin* 9.3 gm/dL (12.0-16.0); Immature Granulocytes Abs Auto 0.08 K/uL (0.00-0.30); Immature Granulocytes Pct Auto 1.1 %; Lymphocytes Percent Auto 14.8 % (20-44); Mean Corpuscular HGB Conc 33 gm/dL (32-36); Mean Corpuscular Hemoglobin 33 pg (26-34); Mean Corpuscular Volume 99 fL (80-100); Monocytes Percent Auto 24.1 % (0.0-11.0); Neutrophils Absolute Auto 4.27 K/uL (1.7-7.0); Neutrophils Percent Auto 59.6 % (42.0-72.0); Platelet Count* 202 K/uL (140-440); RDW Coefficient of Variation % 13.3 % (11.5-15.5); Red Blood Count 2.86 m/uL (4.00-5.20); White Blood Count* 7.17 K/uL (4.50-11.00)
[2023-02-09 06:26] LABS: Slide Review Reflex No
[2023-02-09 06:41] LABS: C Reactive Protein* 4.2 mg/dL (0.5-1.0)
[2023-02-09] MEDS: IBUPROFEN 400 MG TABLET PO ×2 (08:41→16:20)
[2023-02-09] MEDS: predniSONE 5 MG TABLET PO (08:42)
[2023-02-09] MEDS: polyethylene glycoL 3350 17 GM PACK PO ×2 (09:46→20:59)
[2023-02-09] MEDS: FOLIC ACID 1 MG TABLET PO (09:46)
[2023-02-09] MEDS: bisacodyL 10 MG SUPP.RECT PR ×2 (09:47→20:59)
[2023-02-09] MEDS: SENNOSIDES/DOCUSATE TABLET 4 TAB PO ×2 (09:47→21:00)
[2023-02-09] MEDS: SODIUM CHLORIDE 0.9 % (FLUSH) 10 ML SYRINGE 5 ML IVF ×2 (09:48→21:09)
--- NOTE | 2023-02-09 14:49 | PC.NURSE ---
Pt worked with PT and OT this morning. Up to BS for small soft formed brown bm, some thick brown mucus noted in commode. Eval by Dr. Saldaña. Pt is very dramatic and restless when her pain meds start to wear off. She was treated with oxycodone 10 mg Q4hrs. Ibuprofen 400mg and 5 mg of Prednisone after initial assessment. HR 114-116 after activity. RN updated dtr Kristal @ [phone] via phone, she is planning to come and visit her mother later today. Pt resting at this time. Bowel regimen followed to promote adequate evacuation. Pt is to walk in hallway a minimum of 3 times per day.
--- NOTE | 2023-02-09 16:04 | P.IMPN_ITS ---
Progress Note: A&P Assessment and plan (1) Intractable back pain: Problem details: Has difficulty when pain medication wears off. May benefit from adjusting how she takes hydrocodone, but keeping the same overall dose and supplement with oxycodone p.r.n.. Also trialing low-dose ibuprofen for additional pain relief. Monitor for complications of ibuprofen. Treat complications of hydrocodone, constipation. No excess sedation from hydrocodone seen, continue to monitor. She is not yet safe for discharge and may need rehab prior to homegoing. Reassess in a.m.. Continue lidocaine patch and calcitonin nasal spray as well. Status: Chronic (2) Thoracic compression fracture: Problem details: February 2023: New compression fracture at T10. Old compression fractures at T8 and T12 Status: Acute (3) Frailty syndrome in geriatric patient: Problem details: Assessing functional status to determine whether she can remain independent. Status: Acute (4) Fibromyalgia: Problem details: Longstanding, treated with hydrocodone/acetaminophen Status: Chronic (5) Inflammatory arthritis: Problem details: Possibly seronegative rheumatoid arthritis. Continue outpatient prednisone and methotrexate. Add folic acid for methotrexate Status: Chronic (6) Polypharmacy: Problem details: It appears that she is on chronic opioids plus zolpidem plus lorazepam. Family is quite concerned about polypharmacy and her substance use. I indicated that I was in agreement with their concerns but also that a change of plan would have to come gradually with the support of her primary care provider. Status: Chronic (7) Chronic, continuous use of opioids: Status: Chronic (8) Osteoporosis: Problem details: Patient has had at least 3 vertebral compression fractures. Most recently without trauma. Getting calcium with vitamin D. Add in bisphosphonate as outpatient? Status: Chronic (9) Constipation: Problem details: By patient report this is a new problem in February 2023 despite long-term use of opioid pain medication. Not much result yet today. Continue with senna, MiraLax, suppositories, enema Status: Chronic (10) Sinus tachycardia: Problem details: EKG 02/08/23 shows sinus tachycardia. Possibly secondary to pain. Does not appear dehydrated at this time. Monitor on telemetry. Status: Acute Plan Not yet safe for discharge home, all familial support is unavailable this weekend. No safe discharge plan at present. Adjust pain managment. Subjective Time Seen by Provider: 11:30 Date Seen: 02/09/23 Interval history: Bryanna tells me that she has the best primary care provider in the world that he graduated 1st out of 6000 people in his class from medical school and that she trusts him completely and he is the 1 who prescribed her narcotic medications for her fibromyalgia. She tells me that unless she takes those narcotic medications, she is unable to do anything during the day because of the pain. She is at times somewhat able to ambulate in her room, but at other times is having difficulty. She tells me quite frequently during our extended conversation about how she has no help this weekend because each of her 4 children are off doing different things. Usually 1 of her sons lives with her and a condo here in [place], but he is currently in [place], 1 of her daughters is in [place], another daughter has a challenging child his care for and another daughter has a who recently had knee surgery. We discussed the possibility of rehab, which she is in favor of, but it is unclear if she will meet the criteria for this or if it will be covered by insurance. Exam Narrative: Exam Narrative: General: No acute distress although she is shifting around in fidgety in bed. Very animated. Awake, alert, oriented x3. No pallor. No jaundice. Oropharynx: Clear. Mucous membranes moist. Cardiovascular: Regular rate and rhythm. No murmurs, gallops, or rubs. Respiratory: Clear to auscultation bilaterally. No wheezes or crackles. Abdomen: Bowel sounds present. Soft, nondistended, nontender. Extremities: Slightly larger than quarter-sized area of black eschar over her right mid tapia. She tells me this has been there since the end of December when she bumped her leg. No pedal edema. Const: Vital Signs, click to edit/add: Vital Signs - 24 hr 02/08/23 16:30 02/08/23 17:00 02/08/23 17:17 Temperature Pulse Rate 107 H 104 H 94 Pulse Rate [Left A pical] Pulse Rate [Right Pulse Oximeter] Respiratory Rate Blood Pressure 163/95 H Blood Pressure [Le ft Radial Artery] Blood Pressure [Ri ght Upper Arm] Pulse Oximetry 97 96 95 Oxygen Delivery Me thod 02/08/23 17:30 02/08/23 18:00 02/08/23 18:35 Temperature Pulse Rate 104 H 98 101 H Pulse Rate [Left A pical] Pulse Rate [Right Pulse Oximeter] Respiratory Rate Blood Pressure Blood Pressure [Le ft Radial Artery] Blood Pressure [Ri ght Upper Arm] Pulse Oximetry 95 97 97 Oxygen Delivery Me thod 02/08/23 18:43 02/08/23 18:44 02/08/23 19:00 Temperature 98.1 F Pulse Rate 98 102 H Pulse Rate [Left A pical] Pulse Rate [Right Pulse Oximeter] 101 H Respiratory Rate 22 Blood Pressure 152/75 H Blood Pressure [Le ft Radial Artery] Blood Pressure [Ri ght Upper Arm] 152/75 H Pulse Oximetry 97 96 96 Oxygen Delivery Me thod Room Air 02/08/23 19:30 02/08/23 21:11 02/08/23 22:45 Temperature 98.1 F 98.2 F Pulse Rate 101 H Pulse Rate [Left A pical] Pulse Rate [Right Pulse Oximeter] Respiratory Rate 20 20 Blood Pressure Blood Pressure [Le ft Radial Artery] 146/88 H 148/83 H Blood Pressure [Ri ght Upper Arm] Pulse Oximetry 96 96 97 [facility] Room Air 02/09/23 02:11 02/09/23 08:00 02/09/23 12:45 Temperature 98.1 F 98.7 F 98.3 F Pulse Rate Pulse Rate [Left A pical] 114 H 116 H Pulse Rate [Right Pulse Oximeter] Respiratory Rate 18 18 20 Blood Pressure Blood Pressure [Le ft Radial Artery] 138/72 155/84 H 131/86 Blood Pressure [Ri ght Upper Arm] Pulse Oximetry 94 93 95 Oxygen Delivery Nc thod Room Air Room Air Room Air Labs Labs: Laboratory Results - last 24 hr 02/08/23 02/08/23 02/09/23 12:38 16:42 05:42 WBC 7.17 RBC 2.86 L Hgb 9.3 L Hct 28.4 L MCV 99 MCH 33 MCHC 33 RDW Coeff of Dre 13.3 Plt Count 202 Neut % (Auto) 59.6 Lymph % (Auto) 14.8 L [place] % (Auto) 24.1 H Eos % (Auto) 0.1 Baso % (Auto) 0.3 Neut # (Auto) 4.27 Lymph # (Auto) 1.10 [place] # (Auto) 1.70 H Eos # (Auto) 0.01 Baso # (Auto) 0.02 Abs Immat Gran (auto) 0.08 Imm/Tot Granulo (auto) 1.1 D-Dimer Quant (PE/DVT) 1.79 H C-Reactive Protein 4.2 H Lab Acknowledgement Test Added
--- NOTE | 2023-02-09 18:01 | PC.NURSE ---
New order for telemetry on this patient. Rhythm strip indicates NSR. She denies chest pain or SOB. Earlier in the shift pt was tachycardic with movement and position changes d/to back pain. Pt appears less anxious than earlier in the shift. She has been resting/napping on her right side enjoying the view out the window. CL tray ordered. Pain 3-5 out of 10 managed with ibuprofen 400mg and oxycodone 10 mg PO. Pt's dtr Kristal was updated on her mother's condition over the phone by primary RN @ 1648 pm ). Dtr states she will be in later this evening to visit with her mom. Continue plan of care, report will be provided to oncoming shift RN.
--- NOTE | 2023-02-09 19:21 | PC.NURSE ---
Pt walked in hallway with jasson Giraldo during shift change. Report to Rosales FLORES.
[2023-02-09] MEDS: LATANOPROST 0.005% OPHTH 1 DROP EYE-BOTH (20:59)
[2023-02-09] MEDS: LIDOCAINE 5% PATCH 1 PATCH TRANSDERMA (21:01)
[2023-02-09] MEDS: HYDROCODONE/ACETAMIN 7.5-325 TABLET 1 TAB PO (21:01)
[2023-02-09] MEDS: ZOLPIDEM 5 MG TABLET 2.5 MG PO (22:33)
[2023-02-10] VITALS (7 sets, daily range): BP systolic 110–152; BP diastolic 51–81; PULSE 94–110; RESP 16–18; TEMP 36.9–37; O2SAT 91–95
[2023-02-10] MEDS: IBUPROFEN 400 MG TABLET PO ×3 (01:03→17:10)
[2023-02-10] MEDS: OXYCODONE 5 MG TABLET PO ×2 (01:04→07:43)
--- NOTE | 2023-02-10 06:01 | PC.NURSE ---
Shift note: Pt was given scheduled Bisacodyl suppository, Mirelax, and Senna at 2100 due to constipation. About an hour after the medication pt complained of abdominal pain and discomfort. Nurse assisted pt to the bedside commode and had medium size hard stool. Repeated another medium size hard stool about 30 minute from the first one. At 0230, had an explosive loose stool which was repeated at 0500 which cause interruption of sleep pattern. Pt verbalized reduction in abd pain. Still complained of weakness. Vitally stable except variation of heart rate between 95 and 110.
[2023-02-10 06:50] LABS: Basophils Percent Auto 0.4 % (0.0-3.0); Eosinophils Percent Auto 0.1 % (0.0-7.0); Hematocrit 33.3 % (33.0-51.0); Immature Granulocytes Pct Auto 1.4 %; Lymphocytes Percent Auto 10.2 % (20-44); Mean Corpuscular HGB Conc 33 gm/dL (32-36); Mean Corpuscular Hemoglobin 33 pg (26-34); Mean Corpuscular Volume 99 fL (80-100); Monocytes Percent Auto 29.7 % (0.0-11.0); Neutrophils Percent Auto 58.2 % (42.0-72.0); Platelet Count* 211 K/uL (140-440); RDW Coefficient of Variation % 13.3 % (11.5-15.5); Red Blood Count 3.36 m/uL (4.00-5.20); White Blood Count* 11.23 K/uL (4.50-11.00)
[2023-02-10 07:04] LABS: Chloride* 97 mmol/L (96-114); Potassium* 3.3 mmol/L (3.6-5.1); Sodium* 133 mmol/L (135-149)
[2023-02-10 07:07] LABS: Carbon Dioxide* 26 mmol/L (20-32); Creatinine* 0.6 mg/dL (0.5-1.5); Est. Creatinine Clearance* 37.45; Estimated Glomerular Filt Rate 90 ml/min
[2023-02-10 07:08] LABS: Blood Urea Nitrogen* 12 mg/dL (7-30); Calcium* 9.5 mg/dL (8.4-10.6); Glucose* 95 mg/dL (60-115); Magnesium* 1.7 mg/dL (1.5-2.6)
[2023-02-10 07:30] LABS: C Reactive Protein* 14.7 mg/dL (0.5-1.0)
[2023-02-10 08:06] LABS: Slide Review Reflex Yes
[2023-02-10 08:09] LABS: Slide Review Acceptable Review (Acceptable)
[2023-02-10] MEDS: POTASSIUM BICARB 25 MEQ EFFERVESCENT TAB PO (09:23)
[2023-02-10] MEDS: predniSONE 5 MG TABLET PO (09:24)
[2023-02-10] MEDS: SODIUM CHLORIDE 0.9 % (FLUSH) 10 ML SYRINGE 5 ML IVF (09:24)
[2023-02-10 12:50] LABS: Appearance Urine Cloudy (Clear); Bilirubin Urine 1+ (Negative); Blood Urine 3+ (Negative); Color Urine Brown (Yellow); Glucose Urine Negative (Negative); Ketones Urine 2+ (Negative); Leukocyte Esterase Urine 3+ (Negative); Nitrite Urine Negative (Negative); Protein Urine Negative (Negative); pH Urine 6.5 (5.0-8.5)
[2023-02-10 12:54] LABS: Bacteria Urine Many; Squamous Epithelial Cell Urine Few (None-Few)
[2023-02-10 15:11] LABS: Appearance Urine Clear (Clear); Bilirubin Urine Negative (Negative); Blood Urine Negative (Negative); Color Urine Yellow (Yellow); Glucose Urine Negative (Negative); Ketones Urine Trace (Negative); Leukocyte Esterase Urine Negative (Negative); Nitrite Urine Negative (Negative); Protein Urine Negative (Negative); Urobilinogen Urine 0.2 (0.2-1.0)
[2023-02-10 15:25] LABS: RBC Urine 0-2 (0-2); WBC Urine 0-2 (0-5)
[2023-02-10] MEDS: HYDROCODONE/ACETAMIN 7.5-325 TABLET 1 TAB PO (16:07)
[2023-02-10 16:11] LABS: Troponin I* < 0.01 ng/mL (0.01-0.04)
--- NOTE | 2023-02-10 16:23 | P.DS_ITS ---
DS: Providers Provider Time Seen by Provider: 07:55 Date Seen: 02/10/23 Date of admission: 02/08/23 19:37 Primary care physician: Not a Local Provider Admitting Clinician: Gurinder Mcdonough MD Consults: 02/08/23 20:03 Consult to Occupational Therapy [CONS] Routine Comment: Reason(s) for OT Consult:: Evaluate and Treat Any Restrictions?:: No Restrictions Consult to Physical Therapy [CONS] Routine Comment: Reason(s) for PT Consult:: Evaluate and Treat Any Restrictions?:: No Restrictions 02/08/23 20:04 Consult to Program Management Analyst [CONS] Routine Comment: Reason for Consult:: Discharge Planning Needs Attending Physician on discharge: Judy Saldaña MD Date of Discharge: 02/10/23 DS: Diagnosis Discharge Diagnosis (1) Thoracic compression fracture: Status: Acute Problem details: February 2023: New compression fracture at T10. Old compression fractures at T8 and T12 (2) Sinus tachycardia: Status: Acute Problem details: EKG 02/08/23, 02/10/23, and telemetry show sinus tachycardia. Does not appear dehydrated. DDx includes pain, withdrawal, infection, or inflammatory response. She is asymptomatic. No SOB or hypoxia. Have patient f/u with PCP this week. (3) Frailty syndrome in geriatric patient: Status: Acute Problem details: PT and OT assessed yesterday and again today. Patient is up independently in the room and hallway and does not need supervision at home. 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 Continue outpatient prednisone and methotrexate. Add folic acid for methotrexate (6) Polypharmacy: Status: Chronic Problem details: It appears that she is on chronic opioids plus zolpidem plus lorazepam. Family is quite concerned about polypharmacy and her substance use. I indicated that I was in agreement with their concerns but also that a change of plan would have to come gradually with the support of her primary care provider. (7) Chronic, continuous use of opioids: Status: Chronic (8) Osteoporosis: Status: Chronic Problem details: Patient has had at least 3 vertebral compression fractures. Most recently without trauma. Getting calcium with vitamin D. Consider adding bisphosphonate as outpatient. (9) Intractable back pain: Status: Chronic Problem details: Doing much better today, oxycodone stop this morning and patient has been able to ambulate without difficulty independently. She has done well with a low dose of ibuprofen for additional pain relief. Have her establish primary care provider here to monitor for complications of ibuprofen. Continue lidocaine patch in calcitonin nasal spray as well. Continue home narcotic dosing with no additional narcotics. (10) Constipation: Status: Chronic Problem details: By patient report this is a new problem in February 2023 despite long-term use of opioid pain medication. Good results in the hospital, this is now resolved, but likely needs an ongoing bowel regimen in chronic opioid use. Will start on p.r.n. senna and have patient follow-up to establish primary care provider here. (11) Dehydration: Status: Resolved DS: Summary Hospital Course Hospital Course: This is an 82-year-old female with a history of chronic pain for which she has been on chronic opioids who developed uncontrolled back and abdominal pain over the last several days. She was found to have a new compression fracture at T10 in addition to old compression fractures at T8 and T12. She was also found to have large burden of stool in her colon. She was started on oxycodone and given about 3 doses of IV Dilaudid and was able to ambulate independently today without difficulty. I had several conversations with her and I also spoke with her daughter Kristal Sanders [phone] over the phone today. Kristal asked for resources to help get her mom off pain medications. I suggested that she establish a primary care provider in the area who can help adjust her medications. Kristal stated that her mom has not wanted to go into rehab for addiction to pain medications nor establish primary care in the area because she goes to a [facility] physician? in [place] where she can get her narcotic medications. Kristal would like Bryanna to go [place] a [place] [facility] [place] for rehab, however we talked about how Bryanna is ambulating independently and [place] not qualify [place] at this point. I suggested looking into assisted living however Bryanna and Kristal both declined this idea. Bryanna said that her bed at home does not allow her to get in and out of it easily like she can here. She has a recliner at home he says is 2 lumpy to sleep in. We talked about possibly getting bed rales or getting a different bed frame so that she could get in an out more easily. Bryanna declined all of these ideas stating that none of them would work. I recommended that she establish with a physician in this area and she was hesitant to do so but she did agree to do so. Also of note she had persistent asymptomatic sinus tachycardia here. This was asymptomatic with the exception of a brief episode of chest pain when we told her she was leaving today. EKG and troponin at that time were unremarkable. She has not had any hypoxia or shortness of breath. She had a CTA on admission that was negative for PE. She is discharged today in stable condition. I would like her to follow-up with Dr. Elias this week. Time Spent with Patient Time attestation: Total time spent providing and/or coordinating discharge services: Exam Narrative: Exam Narrative: General: No acute distress. Awake, alert, oriented x3. No pallor. No jaundice. Oropharynx: Clear. Mucous membranes moist. Cardiovascular: Regular rate and rhythm. No murmurs, gallops, or rubs. Chest wall is mildly tender to palpation anteriorly. No overlying skin changes. Respiratory: Clear to auscultation bilaterally. No wheezes or crackles. Abdomen: Bowel sounds present. Soft, nondistended, nontender. Const: Vital Signs, click to edit/add: Vital Signs - 24 hr 02/09/23 17:38 02/09/23 19:00 02/09/23 23:00 Temperature 98.5 F Pulse Rate 96 97 Pulse Rate [Left A pical] 106 H Respiratory Rate 18 Blood Pressure [Le ft Arm] Blood Pressure [Le ft Radial Artery] 133/83 Pulse Oximetry 92 Oxygen Delivery Me thod Room Air 02/09/23 23:00 02/10/23 03:00 02/10/23 07:02 Temperature 98.5 F 98.5 F Pulse Rate 94 Pulse Rate [Left A pical] 103 H 110 H Respiratory Rate 18 18 Blood Pressure [Le ft Arm] Blood Pressure [Le ft Radial Artery] 130/79 120/66 Pulse Oximetry 93 91 Oxygen Delivery Md thod Room Air Room Air 02/10/23 07:40 02/10/23 12:32 02/10/23 15:19 Temperature 98.4 F 98.6 F Pulse Rate 100 Pulse Rate [Left A pical] 95 95 Respiratory Rate 16 16 Blood Pressure [Le ft Arm] 133/69 110/51 L Blood Pressure [Le ft Radial Artery] Pulse Oximetry 92 95 Oxygen Delivery Me thod Room Air Room Air 02/10/23 15:20 Temperature 98.6 F Pulse Rate Pulse Rate [Left A pical] 110 H Respiratory Rate 18 Blood Pressure [Le ft Arm] 137/81 Blood Pressure [Le ft Radial Artery] Pulse Oximetry 93 Oxygen Delivery Me thod Room Air Documenting provider has reviewed patient's vital signs: yes DS: Data Data Completed and Pending Completed studies during hospitalization: 02/08/2023 EKG: Sinus tachycardia, 107 beats per minute, otherwise normal EKG. 02/10/2023 8:09 a.m. EKG: sinus tachycardia, 124 beats per minute, nonspecific ST abnormality. 02/10/2023 2:27 p.m. EKG: Normal sinus rhythm, 100 beats per minute, normal EKG. Ordering Physician: Yue Pryor M.D. Date of Service: 02/08/23 Procedure(s): CT abdomen pelvis wo con Accession Number(s): [id number] cc: Yue Pryor M.D.; Provider,Not a Local~ For Patients: As a result of the Cures Act, medical imaging exams and procedure reports are released immediately into your electronic medical record. You may view this report before your referring provider. If you have questions, please contact your health care provider. INDICATION: Diffuse abdominal pain. TECHNIQUE: CT abdomen and pelvis without contrast. COMPARISON: April 01, 2018. FINDINGS: Lower chest: Scattered atelectasis. Trace pericardial effusion. Liver: Normal in size and attenuation. No suspicious masses. Gallbladder and bile ducts: Cholecystectomy. Pancreas: Unremarkable. No mass or inflammation. Spleen: Normal in size. No masses. Adrenal glands: Normal in size. No nodules. Kidneys: Normal in size. No suspicious masses, stones, or hydronephrosis. GI tract: Postsurgical changes in the rectum. Moderate to large volume colonic stool burden. No bowel obstruction. Colonic diverticulosis without diverticulitis. No sign of mass or inflammation. Vasculature: Moderate aortoiliac arterial calcifications. Abdominal aorta is normal in caliber. Lymph nodes: No lymphadenopathy. Peritoneum/Abdominal Wall: Left ventral fat containing hernia. No sign of mass or infiltration. No free air or significant free fluid. Pelvis: Hysterectomy.. No pelvic masses. Bones: Left hip intertrochanteric carola and nail. Degenerative changes. Chronic T12, L1, L2, L3 compression deformities. Anterolisthesis of L4 on L5. IMPRESSION: Severe colonic stool burden. No acute intra-abdominal/pelvic abnormality. Colonic diverticulosis without diverticulitis. Please note that all CT scans at this facility use dose modulation, iterative reconstruction, and/or weight-based dosing when appropriate to reduce radiation dose to as low as reasonably achievable. Dictated by Ward Hughes MD @ 02/08/2023 2:25:40 PM (Electronically Signed) Ordering Physician: Yue Pryor M.D. Date of Service: 02/08/23 Procedure(s): CT angio chest PE protocol Accession Number(s): [id number] cc: Yue Pryor M.D.; Provider,Not a Local~ For Patients: As a result of the Cures Act, medical imaging exams and procedure reports are released immediately into your electronic medical record. You may view this report before your referring provider. If you have questions, please contact your health care provider. Indication: Pain, elevated D-dimer Technique: Volumetric multidetector CT images of the chest were obtained after the administration of IV contrast. 95 cc Isovue 370 low osmolar intravenous contrast Comparison: CT thoracic spine January 30, 2023 Findings: The thoracic inlet and thyroid gland are unremarkable. The thoracic aorta is nonaneurysmal. There is no central filling defect to suggest pulmonary embolism. There are mildly prominent mediastinal and hilar lymph nodes. There is no axillary adenopathy. There is mild central bronchial thickening. There is airspace opacification of the right greater than left lung bases likely representing infiltrate versus atelectasis. There is mild emphysematous change of the upper lobes. There is mild to moderate biapical pleural thickening. There is no evidence of pulmonary mass or suspicious pulmonary nodule. The partially visualized upper abdominal viscera are within normal limits. Again seen are compression fractures of the T8, T10, and T12 levels with evolving subacute changes of the T10 level Impression: Evolving subacute compression fracture of the T10 vertebral body from recent comparison exam. Stable vertebral plana changes of the T8 and T12 levels. Demonstration of consolidative opacities within the bilateral lung bases likely representing atelectasis, underlying infiltrates may be difficult to exclude. No evidence of pulmonary embolus. Please note that all CT scans at this facility use dose modulation, iterative reconstruction, and/or weight-based dosing when appropriate to reduce radiation dose to as low as reasonably achievable. Dictated by Fidel Gonzalez MD @ 02/08/2023 6:44:48 PM (Electronically Signed) Labs on day of discharge: Labs from last 24 hours 02/10/23 02/10/23 02/10/23 15:37 15:00 12:32 WBC RBC Hgb Hct MCV MCH MCHC RDW Coeff of Dre Plt Count Neut % (Auto) Lymph % (Auto) [place] % (Auto) Eos % (Auto) Baso % (Auto) Neut # (Auto) Lymph # (Auto) [place] # (Auto) Eos # (Auto) Baso # (Auto) Abs Immat Gran (auto) Imm/Tot Granulo (auto) Diff Slide Review Sodium Potassium Chloride Carbon Dioxide BUN Creatinine Estimated Creat Clear Estimated GFR Glucose Calcium Magnesium Troponin I < 0.01 L C-Reactive Protein Procalcitonin Urine Color Yellow Brown A Urine Appearance Clear Cloudy A Urine pH 7.0 6.5 Ur Specific [place] 1.010 1.010 Urine Protein Negative Negative Urine Glucose (UA) Negative Negative Urine Ketones Trace A 2+ A Urine Blood Negative 3+ A Urine Nitrite Negative Negative Urine Bilirubin Negative 1+ A Urine Urobilinogen 0.2 1.0 Ur Leukocyte Esterase Negative 3+ A Urine RBC 0-2 5-10 A Urine WBC 0-2 2-5 Ur Squamous Epith Cells None Few Urine Bacteria None Many A Lab Acknowledgement 02/10/23 02/10/23 09:21 06:05 WBC 11.23 H RBC 3.36 L Hgb 11.0 L Hct 33.3 MCV 99 MCH 33 MCHC 33 RDW Coeff of Dre 13.3 Plt Count 211 Neut % (Auto) 58.2 Lymph % (Auto) 10.2 L [place] % (Auto) 29.7 H Eos % (Auto) 0.1 Baso % (Auto) 0.4 Neut # (Auto) 6.50 Lymph # (Auto) 1.10 [place] # (Auto) 3.30 H Eos # (Auto) 0.00 Baso # (Auto) 0.00 Abs Immat Gran (auto) 0.20 Imm/Tot Granulo (auto) 1.4 Diff Slide Review Acceptable Review Sodium 133 L Potassium 3.3 L Chloride 97 Carbon Dioxide 26 BUN 12 Creatinine 0.6 Estimated Creat Clear 37.45 Estimated GFR 90 Glucose 95 Calcium 9.5 Magnesium 1.7 Troponin I C-Reactive Protein 14.7 H Procalcitonin 0.20 Urine Color Urine Appearance Urine pH Ur Specific [place] Urine Protein Urine Glucose (UA) Urine Ketones Urine Blood Urine Nitrite Urine Bilirubin Urine Urobilinogen Ur Leukocyte Esterase Urine RBC Urine WBC Ur Squamous Epith Cells Urine Bacteria Lab Acknowledgement Test Added Preliminary micro results at discharge 02/08/23 14:20 Urine Culture - Preliminary Urine,Clean Catch < 50,000 COL/ML MIXED GRAM POSITIVE YONY ISOLATED NO FURTHER WORKUP Discharge Plan Discharge Disposition: Home, Self-Care Date of Admission: 02/08/23 19:37 Attending Provider on Discharge: Judy Saldaña Primary Care Provider: Provider,Not a Local Condition: Stable Anticipated Discharge Date/Time: 02/10/23 16:33 Discharge Medications: New calcitonin (salmon) 200 unit/actuation [place],Non-Aerosol 1 spray intranasal HS Qty: 1 0RF Rx Instructions: alternate nostrils calcium carbonate-vitamin D3 [Oyster Shell Calcium-Vit D3] 500 mg-5 mcg (200 unit) Tablet 1 tab PO BID Qty: 60 0RF sennosides-docusate sodium [Stool Softener-Laxative] 8.6-50 mg Tablet 1 tab PO BID PRN (Reason: constipation) Qty: 60 0RF folic acid 1 mg Tablet 1 mg PO DAILY Qty: 30 0RF ibuprofen 400 mg Tablet 400 mg PO Q6H PRNQty: 100 0RF polyethylene glycol 3350 [Miralax] 17 gram Powder In Packet 17 g PO DAILY PRN (Reason: Constipation) Qty: 1 0RF Continued lidocaine 5 % adhesive patch,medicated 1 patch topical DAILY Qty: 15 0RF Rx Instructions: leave on most painful area for up to 12 hrs latanoprost 0.005 % drops 1 drp ophthalmic (eye) HS Patient Comments: INSTILL 1 DROP IN BOTH EYES EVERY NIGHT hydrocodone-acetaminophen 5-325 mg tablet 2 tab PO TID prednisone 5 mg tablet 5 mg PO DAILY Patient Comments: TAKE 1 TABLET BY MOUTH DAILY methotrexate sodium 2.5 mg tablet 12.5 mg PO .WEEKLY Patient Comments: TAKE 5 TABLETS BY MOUTH 1 TIME A WEEK on Saturday Rx Instructions: Wednesdays lorazepam [Ativan] 0.5 mg tablet 0.5 mg PO Q12H PRN tramadol 50 mg tablet 50 mg PO Q6H PRN (Reason: pain) zolpidem [Ambien] 5 mg tablet 2.5 mg PO QHS Discharge Orders: Discharge Order (Routine); Ordered 02/10/23 Ordered By: Judy Saldaña Patient Education: Vertebral Compression Fracture (DC), Polysubstance Use Disorder (DC) Additional Instructions: Increase your daily water intake. Start taking 1 scoop of MiraLax daily with 2 tablets of Colace daily. Both MiraLax and Colace can be purchased [id number]. I recommend you establish care with a provider in the area. Please see Dr. Elias this week to discuss pain management for your back. Activity Level: Activity as Tolerated and Use Walker Discharge Diet: Regular Follow Up Appointments: Provider,Not a Local [Primary Care Provider] - Forms: [facility] Info Instructions
--- NOTE | 2023-02-10 18:57 | PC.NURSE ---
Discharge [id number]- Patient complains of sharp chest pain during initial assessment- MD updated- see orders, EKG done. Ly[place] is cleansed and redressed with mepilex. She is up independently. Pain medication given for pain control and prophylactic to discharge. Discharge instructions given verbally and in-print. IV removed with catheter intact. Discharge done, patient awaits ride in room. She leaves with all belongings.
--- NOTE | 2023-02-15 14:08 | P.EN_ITS ---
Chart Event Note Date Seen: 02/15/23 Chart Event Note: Received results from patient's urine culture during recent stay, positive for pansensitive E coli. Called and reviewed with patient. She has been having dysuria and actually called her PCP in [place] yesterday for medication. Her PCP called in Keflex to [facility] locally; unfortunately, it was not the brand that she typically does well with. She is asking that I recent a prescription for Keflex (of the TEVA brand) to [facility] locally.
== END 2023-02-10 18:50 | disposition home or self-care (01) ==
LOC: ED 19:11 → MEDSURG 19:38
PROVIDERS: Family Medicine; Admitting Provider Family Medicine; Emergency Provider Family Medicine; Visit Provider Family Medicine
DX: S22.070A Wedge compression fracture of T9-T10 vertebra, initial encounter for closed fracture (principal); R79.89 Other specified abnormal findings of blood chemistry; R00.0 Tachycardia, unspecified; R54 Age-related physical debility; M79.7 Fibromyalgia; F11.90 Opioid use, unspecified, uncomplicated; M80.08XA Age-related osteoporosis with current pathological fracture, vertebra(e), initial encounter for fracture; M19.90 Unspecified osteoarthritis, unspecified site; M54.9 Dorsalgia, unspecified; G89.29 Other chronic pain; K59.00 Constipation, unspecified; E86.0 Dehydration; G47.00 Insomnia, unspecified; I10 Essential (primary) hypertension; F41.9 Anxiety disorder, unspecified; Z98.890 Other specified postprocedural states; Z79.899 Other long term (current) drug therapy; Z87.81 Personal history of (healed) traumatic fracture; Z87.42 Personal history of other diseases of the female genital tract; Z90.710 Acquired absence of both cervix and uterus; Z90.49 Acquired absence of other specified parts of digestive tract
CPT/HCPCS: 36415; 71260; 74176; 80048; 80076; 81001; 83605; 83690; 83735; 84145; 84484; 85025; 85379; 86140; 87040; 87086; 87186; 93005; 94761; 96361; 96374; 96375; 97116; 97161; 97165; 97530; 97535; 99285; G0378; A9270; J1170; J2405; J7030; J7120; J7512; Q9967

== ENCOUNTER 2023-02-20 12:39 | Outpatient (CLI) | payer MEDICARE, SELFPAY | END 2023-02-20 12:40 | disposition home or self-care (01) | PROVIDERS: Visit Provider Surgery | DX: I83.012 Varicose veins of right lower extremity with ulcer of calf (principal); L97.812 Non-pressure chronic ulcer of other part of right lower leg with fat layer exposed; M79.7 Fibromyalgia; R54 Age-related physical debility; Z79.52 Long term (current) use of systemic steroids; F11.90 Opioid use, unspecified, uncomplicated | CPT/HCPCS: 11042; 99213 ==

== ENCOUNTER 2023-02-22 15:31 | Outpatient (CLI) | payer MEDICARE, SELFPAY ==
--- OUTSIDE RECORDS SUMMARY | 2023-02-22 15:33 | XMS_ITS | Patient Health Record ---
Author Name Unknown Organization Valerio Carpio MD, P [facility] Address [address] [place] [address] Care Team Providers Care Dietary Aide Teacher Name Role Phone Porfirio Hauser Primary Care Provider Agustín Hernández [phone] ALLERGIES Allergen (clinical drug ingredient) Drug/Non Drug Allergy documented on EMR Reaction Allergy Type Onset Date Status ant (uncoded) Unknown Allergy Active ciprofloxacin Cipro Unknown Drug Allergy Act lien REASON FOR REFERRAL No Information MEDICATIONS Medication SIG (Take, Route, Frequency, Duration) Notes Start Date End Date Status Metoprolol Succinate ER 25 MG 0.5 tablet Orally EOD for 30 day(s) 10/08/2019 Active SOCIAL HISTORY Tobacco Use: Social History Observation Description Date Details (start date - stop date) Never Smoker NA - NA Sex Assigned At : Social History Observation Description Sex Assigned At Unknown Smoking Question Answer Notes Status: Non Smoker PROBLEMS Problem Type ICD Code Onset Dates Problem Status W/U Status Risk SNOMED Code Notes Problem Palpitations (R00.2) Active confirmed 06679096 Problem Shortness of breath (R06.02) Active confirmed 960820332 Problem Localized edema (R60.0) Active confirmed 686807864 Problem 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) Active confirmed 45282025 Problem Chest tightness (R07.89) Active confirmed 19909715 Problem Abnormal stress ECG with treadmill (R94.39) Active confirmed 603835346 PLAN OF TREATMENT Pending Test Test Name Order Date Lexiscan Stress Nuclear MPI 1-day protoc ol 09/23/2019 Ultrasound: Echocardiogram 09/23/2019 Ultrasound: Venous Lower RIGHT extremity 09/23/2019 Ultrasound: Venous Lower LEFT extremity 09/23/2019 Holter Monitor 24 Hours 09/23/2019 Insurance Providers Payer Name Payer Address Payer Phone Subscriber Number Group Number Insured Name Patient Relationship to Insured Coverage Start Date Coverage End Date Medicare [address] [place] [phone] [id number] Bryanna Coelho Self - patient is the insured [facility] Claims Division [address] [place] [address] [id number] Bryanna Coelho Self - patient is the insured MEDICAL (GENERAL) HISTORY Medical History History ICD Code venous insufficiency hernia lside upper stomach
--- OUTSIDE RECORDS SUMMARY | 2023-02-22 15:33 | XMS_ITS | Patient Health Record ---
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) Active confirmed 923384159 VITAL SIGNS Heart Rate 93 /min 05/28/2022 Respiratory Rate 16 /min 05/28/2022 Blood pressure diastolic 85 mm Hg 05/28/2022 Weight-kg 64.41 kg 05/28/2022 Height 64 in 05/28/2022 Blood pressure systolic 132 mm Hg 05/28/2022 Weight 142 lbs 05/28/2022 BMI 24.37 kg/m2 05/28/2022 Encounters Encounter Location Date Provider Diagnosis [facility] [address] [place] [address] 05/28/2022 Porfirio [facility] [address] [place] [address] 05/28/2022 Iftikhar Perez Sensorineural hearin g loss, [...] Medicare Part B Carriers [address] [place] [address] [id number] MILIND FRASER Self - patient is the insured [address] [facility] [address] [place] [address] [id number] MILIND FRASER Self - patient is the insured MEDICAL (GENERAL) HISTORY Medical History History ICD Code Fibermyalgia Surgical History Surgery Date(Month/Year) Ostamy surgery x2 Gallbladder Removed x2 Hysterectomy Upper [place] Teeth Tonsilectomy Broken Leg x2 Broken Hip
--- OUTSIDE RECORDS SUMMARY | 2023-02-22 15:33 | XMS_ITS | Continuity of Care Document ---
Author Name Unknown Organization [facility] Address [address] [place] [address] Phone Care Team Providers Care Distribution Associate Name Role Phone Gene Marks PA-C Unavailable Unavailable Procedures Procedure Date INITIAL HOSPITAL CARE Advance Directives Directive Yes / No Effective Date File Name No Information Encounters Encounter Description Practice Location Reason(s) For Visit Diagnoses Date Provider Providers Copied on Encounter INITIAL HOSPITAL CARE [facility], [address] [place] [address], [id number], [place] tel:[phone] [facility] No Information [facility]. [address], [address], [place], [place], [id number], [place]. tel:[phone] Referring Provider: Gary Sainz, [address], [place], [place], [id number]. tel:[phone] Family History Family Member Type Diagnosis Age At Onset No Information Payers Payer name Insurance type Covered constitution party ID Authoriza tion(s) Medicare MB [id number] [facility] Health Care Options [id number] Social History Type Description Quantity Date [...]
== END 2023-02-22 15:32 | disposition home or self-care (01) ==
LOC: WOUND 15:32
PROVIDERS: Visit Provider Nurse Practitioner Family
DX: I83.012 Varicose veins of right lower extremity with ulcer of calf (principal); L97.212 Non-pressure chronic ulcer of right calf with fat layer exposed
CPT/HCPCS: 99212

== ENCOUNTER 2023-02-27 15:48 | Outpatient (CLI) | payer MEDICARE, SELFPAY ==
--- OUTSIDE RECORDS SUMMARY | 2023-02-27 15:50 | XMS_ITS | Patient Health Record ---
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
--- OUTSIDE RECORDS SUMMARY | 2023-02-27 15:50 | XMS_ITS | Patient Health Record ---
Author Name Unknown Organization [facility] Address [address] [place] [address] Care Team Providers Care Electric Tool Repairer Name Role Phone Porfirio Hauser MD Primary Care Provider Iftikhar Landeros [phone] ALLERGIES Allergen (clinical drug ingredient) Drug/Non Drug [...] Sensorineural hearing loss, bilateral (H90.3) Active confirmed [id number] VITAL SIGNS Heart Rate 93 /min 05/28/2022 Respiratory Rate 16 /min 05/28/2022 Blood pressure diastolic 85 mm Hg 05/28/2022 Weight-kg 64.41 kg 05/28/2022 Height 64 in 05/28/2022 Blood pressure systolic 132 mm Hg 05/28/2022 Weight 142 lbs 05/28/2022 BMI 24.37 kg/m2 05/28/2022 Encounters Encounter Location Date Provider Diagnosis [facility] [address] [place] [address] 05/28/2022 Porfirio Estill [facility] [place] [address] [place] [address] 05/28/2022 Iftikhar Perez Sensorineural hearin g loss, [...] Medicare Part B Carriers [address] [place] [address] [phone] [id number] MILIND FRASER Self - patient is the insured 5 [facility] [address] [place] [address] [phone] [id number] MILIND FRASER Self - patient is the insured MEDICAL (GENERAL) HISTORY Medical History History ICD Code Fibermyalgia Surgical History Surgery Date(Month/Year) Ostamy surgery x2 Gallbladder Removed x2 Hysterectomy [place] Teeth Tonsilectomy Broken Leg x2 Broken Hip
== END 2023-02-27 15:49 | disposition home or self-care (01) ==
LOC: WOUND 15:48
PROVIDERS: Visit Provider Surgery
DX: I87.311 Chronic venous hypertension (idiopathic) with ulcer of right lower extremity (principal); L97.811 Non-pressure chronic ulcer of other part of right lower leg limited to breakdown of skin; S91.101A Unspecified open wound of right great toe without damage to nail, initial encounter
CPT/HCPCS: 97597

== ENCOUNTER 2023-02-28 10:46 | Outpatient (RCR) | payer MEDICARE, SELFPAY | END 2023-06-28 23:59 | disposition home or self-care (01) | PROVIDERS: Visit Provider Family Medicine | DX: S22.070D Wedge compression fracture of T9-T10 vertebra, subsequent encounter for fracture with routine healing (principal); M54.6 Pain in thoracic spine; R29.3 Abnormal posture; Z51.89 Encounter for other specified aftercare | CPT/HCPCS: 97110; 97162; 97535 ==

== ENCOUNTER 2023-03-06 15:41 | Outpatient (CLI) | payer MEDICARE, SELFPAY ==
--- OUTSIDE RECORDS SUMMARY | 2023-03-06 15:44 | XMS_ITS | Patient Health Record ---
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
== END 2023-03-06 15:42 | disposition home or self-care (01) ==
LOC: WOUND 15:41
PROVIDERS: Visit Provider Surgery
DX: I83.018 Varicose veins of right lower extremity with ulcer other part of lower leg (principal); L97.812 Non-pressure chronic ulcer of other part of right lower leg with fat layer exposed; L89.893 Pressure ulcer of other site, stage 3; R54 Age-related physical debility
CPT/HCPCS: 11042; 11104; 88305; 99212

== ENCOUNTER 2023-03-13 14:05 | Outpatient (CLI) | payer MEDICARE, SELFPAY ==
--- OUTSIDE RECORDS SUMMARY | 2023-03-13 14:08 | XMS_ITS | Patient Health Record ---
Author Name Unknown Organization [facility] Address [address] [place] [address] Care Team Providers Care Video Tape Duplicator Name Role Phone Porfirio Hauser MD Primary Care Provider Iftikhar Landeros [phone] ALLERGIES Allergen (clinical drug ingredient) Drug/Non Drug [...] Sensorineural hearing loss, bilateral (H90.3) Active confirmed 700580003 VITAL SIGNS Heart Rate 93 /min 05/28/2022 Respiratory Rate 16 /min 05/28/2022 Blood pressure diastolic 85 mm Hg 05/28/2022 Weight-kg 64.41 kg 05/28/2022 Height 64 in 05/28/2022 Blood pressure systolic 132 mm Hg 05/28/2022 Weight 142 lbs 05/28/2022 BMI 24.37 kg/m2 05/28/2022 Encounters Encounter Location Date Provider Diagnosis [facility] [place] [address] [place] [address] 05/28/2022 Porfirio Lequire [facility] [place] [address] [place] [address] 05/28/2022 Iftikhar Perez Sensorineural hearin g loss, [...] Medicare Part B Carriers [address] [place] [address] [id number] MILIND FRASER Self - patient is the insured 5 [facility] [address] [place] [address] [phone] [id number] MILIND FRASER Self - patient is the insured MEDICAL (GENERAL) HISTORY Medical History History ICD Code Fibermyalgia Surgical History Surgery Date(Month/Year) Ostamy surgery x2 Gallbladder Removed x2 Hysterectomy [place] Teeth Tonsilectomy Broken Leg x2 Broken Hip
--- OUTSIDE RECORDS SUMMARY | 2023-03-13 14:08 | XMS_ITS | Patient Health Record ---
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 Claims Division [address] [place] [address] [id number] Bryanna Coelho Self - patient is the insured MEDICAL (GENERAL) HISTORY Medical History History ICD Code venous insufficiency hernia lside upper stomach
== END 2023-03-13 14:06 | disposition home or self-care (01) ==
LOC: WOUND 14:05
PROVIDERS: Visit Provider Surgery
DX: I83.018 Varicose veins of right lower extremity with ulcer other part of lower leg (principal); L97.812 Non-pressure chronic ulcer of other part of right lower leg with fat layer exposed; S91.101A Unspecified open wound of right great toe without damage to nail, initial encounter; Z79.52 Long term (current) use of systemic steroids
CPT/HCPCS: 97597

== ENCOUNTER 2023-03-20 13:54 | Outpatient (CLI) | payer MEDICARE, SELFPAY | END 2023-03-20 13:55 | disposition home or self-care (01) | LOC: WOUND 13:55 | PROVIDERS: Visit Provider Surgery | DX: I87.311 Chronic venous hypertension (idiopathic) with ulcer of right lower extremity (principal); L97.812 Non-pressure chronic ulcer of other part of right lower leg with fat layer exposed | CPT/HCPCS: 97597 ==

== ENCOUNTER 2023-03-27 13:32 | Outpatient (CLI) | payer MEDICARE, SELFPAY ==
--- OUTSIDE RECORDS SUMMARY | 2023-03-27 13:34 | XMS_ITS | Patient Health Record ---
Author Name Unknown Organization [facility] Address [address] [place] [address] Care Team Providers Care Hand I Thermal Cutter Name Role Phone Porfirio Hauser MD Primary Care Provider Iftikhar Landeros [phone] ALLERGIES Allergen (clinical drug ingredient) Drug/Non Drug [...] Sensorineural hearing loss, bilateral (H90.3) Active confirmed 650593979 VITAL SIGNS Heart Rate 93 /min 05/28/2022 Respiratory Rate 16 /min 05/28/2022 Blood pressure diastolic 85 mm Hg 05/28/2022 Weight-kg 64.41 kg 05/28/2022 Height 64 in 05/28/2022 Blood pressure systolic 132 mm Hg 05/28/2022 Weight 142 lbs 05/28/2022 BMI 24.37 kg/m2 05/28/2022 Encounters Encounter Location Date Provider Diagnosis [facility] [address] [place] [address] 05/28/2022 Porfirio [facility] [place] [address] [place] [address] 05/28/2022 Iftikhar Perez Sensorineural hearin g loss, [...] Medicare Part B Carriers [address] [place] [address] [id number] MILIND FRASER Self - patient is the insured 5 [facility] [address] [place] [address] [id number] MILIND FRASER Self - patient is the insured MEDICAL (GENERAL) HISTORY Medical History History ICD Code Fibermyalgia Surgical History Surgery Date(Month/Year) Ostamy surgery x2 Gallbladder Removed x2 Hysterectomy [place] Teeth Tonsilectomy Broken Leg x2 Broken Hip
--- OUTSIDE RECORDS SUMMARY | 2023-03-27 13:34 | XMS_ITS | Patient Health Record ---
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
== END 2023-03-27 13:33 | disposition home or self-care (01) ==
LOC: WOUND 13:32
PROVIDERS: Visit Provider Surgery
DX: L97.812 Non-pressure chronic ulcer of other part of right lower leg with fat layer exposed; I83.018 Varicose veins of right lower extremity with ulcer other part of lower leg
CPT/HCPCS: 97597

== ENCOUNTER 2023-04-03 13:32 | Outpatient (CLI) | payer MEDICARE, SELFPAY ==
--- OUTSIDE RECORDS SUMMARY | 2023-04-03 13:35 | XMS_ITS | Patient Health Record ---
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
== END 2023-04-03 13:33 | disposition home or self-care (01) ==
LOC: WOUND 13:33
PROVIDERS: Visit Provider Surgery
DX: I83.018 Varicose veins of right lower extremity with ulcer other part of lower leg (principal); L97.811 Non-pressure chronic ulcer of other part of right lower leg limited to breakdown of skin
CPT/HCPCS: 11042

== ENCOUNTER 2023-04-10 13:42 | Outpatient (CLI) | payer MEDICARE, SELFPAY ==
--- OUTSIDE RECORDS SUMMARY | 2023-04-10 13:44 | XMS_ITS | Continuity of Care Document ---
Author Name Unknown Organization [facility] Address [address] [place] [address] Phone Care Team Providers Care Bindery Leadperson Name Role Phone Kendrick THOMPSON, Gene Unavailable Unavailable Procedures Procedure Date INITIAL HOSPITAL CARE Advance Directives Directive Yes / No Effective Date File Name No Information Encounters Encounter Description Practice Location Reason(s) For Visit Diagnoses Date Provider Providers Copied on Encounter INITIAL HOSPITAL CARE [facility], [address] [place] [address], [id number], tel:[phone] [facility] No Information Kendrick Mills. [address], [address], [place], [place], [id number], [place]. tel:[phone] Referring Provider: Gary Sainz, [address], [place], [address] . tel:[phone] Family History Family Member Type Diagnosis Age At Onset No Information Payers Payer name Insurance type Covered democrat ID Authoriza tion(s) Medicare MB [id number] [facility] Health Care Options [id number] Social History Type Description Quantity Date [...]
--- OUTSIDE RECORDS SUMMARY | 2023-04-10 13:44 | XMS_ITS | Patient Health Record ---
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
== END 2023-04-10 13:43 | disposition home or self-care (01) ==
LOC: WOUND 13:42
PROVIDERS: Visit Provider Surgery
DX: I83.012 Varicose veins of right lower extremity with ulcer of calf (principal); L97.218 Non-pressure chronic ulcer of right calf with other specified severity
CPT/HCPCS: 97597; 99212

== ENCOUNTER 2024-05-25 10:05 | Emergency (ER) | payer MEDICARE, SELFPAY ==
[2024-05-25 10:09] VITALS: BP 125/71; PULSE 99; RESP 18; TEMP 37.1; O2SAT 94
--- NOTE | 2024-05-25 10:20 | CRLHL7_ITS ---
For Patients: As a result of the Century Cures Act, medical imaging exams and procedure reports are released immediately into your electronic medical record. You may view this report before your referring provider. If you have questions, please contact your health care provider. INDICATION: Fall. Left-sided chest pain. COMPARISON: 02/08/2023 TECHNIQUE: CT of the chest without intravenous contrast. Please note that all CT scans at this facility use dose modulation, iterative reconstruction, and/or weight-based dosing when appropriate to reduce radiation dose to as low as reasonably achievable. FINDINGS: THORAX Visualized Lower Neck: No significant incidental findings. Thoracic Aorta: Smooth contour and uniform caliber without evidence of an intramural hematoma, pseudoaneurysm or rupture. The lumen cannot be evaluated on this noncontrast exam. Lungs: No lung injury. Bibasilar multilobar subsegmental atelectasis and/or fibrosis. Pleura: No hemothorax. No pneumothorax. No simple effusion. Mediastinum: No mediastinal hemorrhage or pneumomediastinum. Small chronic pericardial effusion. Trachea and esophagus are normal in appearance. No mediastinal lymphadenopathy. INCLUDED SKELETON AND BODY WALL Chronic lower sternal body fracture deformity. Spine: Chronic compression deformities of T8 and T12. Interval progression of compression deformity of T10. Age indeterminate chronic appearing compression deformity of T6, new in the interval since the prior exam. No significant spondylolisthesis, widening of the intervertebral disc spaces, interfacetal joints or interspinous distances. Vertebral bodies, pedicles, laminae, articular, transverse and spinous processes are otherwise intact. Ribs: Fractures of the left posterolateral 6th and 7th ribs (series 3; images 22, 29 respectively). Visualized appendicular skeleton: No fracture is identified. Body Wall: No soft tissue injury is identified. ABDOMEN Visualized Upper Abdomen: No significant findings. Cholecystectomy. IMPRESSION: 1. Acute fractures of the left posterolateral 6th and 7th ribs. No associated left pneumothorax or hemothorax. 2. Chronic appearing age-indeterminate compression deformities of T6, new in the interval since 02/08/2023. Interval progression of compression deformity of T10 compared to the prior exam. Chronic compression deformities of T8, T12 and chronic fracture deformity of the lower sternal body. 3. Incidental findings as above. Please note that all CT scans at this facility use dose modulation, iterative reconstruction, and/or weight-based dosing when appropriate to reduce radiation dose to as low as reasonably achievable. Dictated by Israel Ann MD @ 05/25/2024 11:21:22 AM (Electronically Signed)
--- NOTE | 2024-05-25 10:23 | ED.GENADULT ---
HPI - General Adult General Date Seen: 05/25/24 Chief complaint: Rib Pain Stated complaint: Fall, rib pain Time Seen by Provider: 05/25/24 10:14 Source: patient, RN notes reviewed and old records reviewed Mode of arrival: wheelchair Limitations: no limitations History of Present Illness HPI narrative: Patient is an 84-year-old woman who says her walker malfunction today in some way and she slipped forward hitting her left chest on the food tray. She complains of pain in her left ribcage particularly with movement. She has been having problems with pain in her right leg ongoing for quite some time she says they have been working on that for months, review of her record shows she has been followed by wound clinic for varicose veins and a chronic wound which appears to have healed up. She has bruising on the legs which she says happened today. She is able to bear weight without difficulty. No reported head or neck injury. No loss of consciousness. She does have a history of chronic pain and is on long standing chronic opioids. She is not anticoagulated. Related Data Home Medications ?Medication ?Instructions ?Recorded ?Confirmed hydrocodone 5 mg-acetaminophen 325 2 tab PO TID 08/02/22 02/08/23 mg tablet latanoprost 0.005 % eye drops 1 drp ophthalmic (eye) HS 08/02/22 02/08/23 lorazepam 0.5 mg tablet (Ativan) 0.5 mg PO Q12H PRN 08/02/22 02/08/23 methotrexate sodium 2.5 mg tablet 12.5 mg PO .WEEKLY 08/02/22 02/09/23 prednisone 5 mg tablet 5 mg PO DAILY 08/02/22 02/08/23 tramadol 50 mg tablet 50 mg PO Q6H PRN pain 02/09/23 02/09/23 zolpidem 5 mg tablet (Ambien) 2.5 mg PO QHS 02/09/23 02/09/23 metoprolol succinate 25 mg 12.5 mg PO DAILY 05/25/24 05/25/24 tablet,extended release 24 hr oxycodone 5 mg tablet PO 05/25/24 pregabalin 25 mg capsule mg PO BID 05/25/24 pregabalin 50 mg capsule 50 mg PO BID 05/25/24 05/25/24 Previous Rx's ?Medication ?Instructions ?Recorded lidocaine 5 % topical patch 1 patch topical DAILY #15 ea 02/04/23 calcitonin (salmon) 200 1 spray intranasal HS #1 ea 02/10/23 unit/actuation nasal spray calcium 500 mg (as 1 tab PO BID #60 tabs 02/10/23 carbonate)-vitamin D3 5 mcg (200 unit) tablet (Oyster Shell Calcium-Vitamin D3) folic acid 1 mg tablet 1 mg PO DAILY #30 tabs 02/10/23 ibuprofen 400 mg tablet 400 mg PO Q6H PRN #100 tabs 02/10/23 polyethylene glycol 3350 17 gram 17 g PO DAILY PRN Constipation #1 02/10/23 oral powder packet (Miralax) ea sennosides 8.6 mg-docusate sodium 1 tab PO BID PRN constipation #60 02/10/23 50 mg tablet (Stool tabs Softener-Laxative) cephalexin 500 mg capsule 500 mg PO Q8H 7 days #21 caps 02/15/23 Allergies Allergy/AdvReac Type Severity Reaction Status Date / Time ciprofloxacin [From Cipro] Allergy Anaphylaxis Verified 02/08/23 12:29 Review of Systems Status of ROS: Reports: 6 or more systems reviewed and unremarkable except as noted in History and below PFSH [facility] Medical History Frailty syndrome in geriatric patient ?R54 - Age-related physical debility (ICD-10) History of femur fracture ?Z87.81 - Personal history of (healed) traumatic fracture (ICD-10) Thoracic compression fracture ?S22.000A - Wedge compression fracture of unspecified thoracic vertebra, initial encounter for closed fracture (ICD-10) Anxiety ?F41.9 - Anxiety disorder, unspecified (ICD-10) Sensorineural hearing loss ?H90.5 - Unspecified sensorineural hearing loss (ICD-10) Perforation of sigmoid colon due to diverticulitis ?K57.20 - Diverticulitis of large intestine with perforation and abscess without bleeding (ICD-10) Insomnia ?G47.00 - Insomnia, unspecified (ICD-10) Fibromyalgia ?M79.7 - Fibromyalgia (ICD-10) Inflammatory arthritis ?M19.90 - Unspecified osteoarthritis, unspecified site (ICD-10) Polypharmacy ?Z79.899 - Other parts counterman (current) drug therapy (ICD-10) Chronic, continuous use of opioids ?F11.90 - Opioid use, unspecified, uncomplicated (ICD-10) Osteoporosis ?M81.0 - Age-related osteoporosis without current pathological fracture (ICD-10) Surgical History History of ovarian cystectomy ?Z98.890 - Other specified postprocedural states (ICD-10) ?Z87.42 - Personal history of other diseases of the female genital tract (ICD-10) History of colostomy reversal ?Z98.890 - Other specified postprocedural states (ICD-10) History of colostomy History of hysterectomy ?Z90.710 - Acquired absence of both cervix and uterus (ICD-10) History of cholecystectomy ?Z90.49 - Acquired absence of other specified parts of digestive tract (ICD-10) Social History Narrative: Patient lives in [place] in the winter but visits family in [place] in the summer. She maintains a condominium in [place]. May 2022. She has 4 children. 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 Code status is DNR. She does not smoke. She drinks wine about twice a week. What is your current living situation?: I presently have a place to live Problems where you live: declined to answer Problems where you live details: na In the past 12 months, utilities in danger of being shut off: no In past 12 months, lack of transportation kept you from medical appts, meetings, work, or getting things needed for daily living: no In the past 12 mos, have been you worried that your food would run out before you had money to buy more?: never true In the past 12 mos, the food you bought just didn't last and you didn't have money to buy more?: never true Smoking Status: Never smoker Do you use any of these nicotine containing products: None Second hand tobacco smoke exposure: No How often do you have a drink containing alcohol: monthly or less How many standard drinks containing alcohol do you have on a typical day: 1 or 2 How often do you have six or more drinks on one occasion: Never AUDIT-C Alcohol total score: 1 Non-prescribed substance use: denies use How often does anyone, including family, friends and others, physically hurt you: never How often does anyone, including family, friends and others, insult or talk down to you: never How often does anyone, including family, friends and others, threaten you with harm: never How often does anyone, including family, friends and others, scream or curse at you: never service: No Exam Narrative: Exam Narrative: Vital signs as noted above. In general, an alert, nontoxic elderly woman. She speaking in full sentences. Head: Normocephalic, atraumatic. Eyes: Pupils are equal reactive. Extraocular movements are full. Conjunctivae are normal. ENT: Mucous membranes are moist. Delete Neck: Supple without lymphadenopathy. Nontender to palpation. Heart: Regular rate and rhythm. No murmur or rub. Lungs: Clear bilaterally. No increased work of breathing, crackles or wheezes. Breath sounds equal. Tenderness along the left lateral ribcage without bruising, deformity, crepitus or subcu air. Abdomen: Soft and nontender. Extremities: Right leg is slightly edematous relative to the left, this appears to be chronic. There is no significant erythema or warmth. She has a healed wound on the anterior tapia. Scattered bruising noted around the knee area bilaterally which appears likely to be older than today. Neurologic: Patient is alert and oriented to person and place. Speech is fluent. Face is symmetric. Moves all extremities equally. Affect: Anxious. Skin: Warm and dry. Well perfused. Const: Vital Signs, click to edit/add: Vital Signs - 24 hr 05/25/24 10:09 Temperature 98.7 F Pulse Rate [Right Pulse Oximeter] 99 Respiratory Rate 18 Blood Pressure [Ri ght Upper Arm] 125/71 Pulse Oximetry 94 Oxygen Delivery Me thod Room Air Course Course ED Course: She reports that she did not take her usual morning pain medication, I did order 2 hydrocodone orally here, will get a CT of the chest to evaluate for rib fractures, underlying lung trauma or other injuries related to her fall. CT of the chest by my review showed at least 1 minimally displaced rib fracture on the left, read as below by Radiology. No pneumothorax. Plan will be to discharge home with her usual pain medications. Discussed reasons to return such as severe uncontrolled pain, inability to manage ADLs, or signs or symptoms of pneumonia. Reviewed expected course of rib fractures, primary care follow-up as needed for further concerns. Vital Signs Vital signs: Initial Vital Signs Temperature 98.7 F 05/25/24 10:09 Temperature Source Temporal Artery Scan 05/25/24 10:09 Pulse Rate 99 05/25/24 10:09 Respiratory Rate 18 05/25/24 10:09 Blood Pressure 125/71 05/25/24 10:09 Blood Pressure Mean 89 05/25/24 10:09 Blood Pressure Position Sitting 05/25/24 10:09 Pulse Oximetry 94 05/25/24 10:09 Oxygen Delivery Method Room Air 05/25/24 10:09 Vital Signs Temperature 98.7 F 05/25/24 10:09 Pulse Rate 99 05/25/24 10:09 Respiratory Rate 18 05/25/24 10:09 Blood Pressure 125/71 05/25/24 10:09 Pulse Oximetry 94 05/25/24 10:09 Oxygen Delivery Method Room Air 05/25/24 10:09 Temperature 98.7 F 05/25/24 10:09 Pulse Rate 99 05/25/24 10:09 Respiratory Rate 18 05/25/24 10:09 Blood Pressure 125/71 05/25/24 10:09 Pulse Oximetry 94 05/25/24 10:09 Oxygen Delivery Method Room Air 05/25/24 10:09 Medications Administered Medications: Discontinued Medications Generic Name Dose Route Start Last Admin Trade Name Freq PRN Reason Stop Dose Admin Hydrocodone Bitart/Acetaminophen 2 tab 05/25/24 10:20 05/25/24 10:42 Hydrocodone-Acetamin 5-325 Mg 1 Tab PO 05/25/24 10:21 2 tab ONCE ONE Administration Medical Decision Making Imaging Data CT scan - chest: Radiologist's impression: Patient: MILIND FRASER Facility: [facility] Site . Site : [id number] Study: CT-Chest WITHOUT-05/25/2024 10:45:32 AM Ordering Physician: Stone Ferreira Final Report: INDICATION: Fall. Left-sided chest pain. COMPARISON: 02/08/2023 TECHNIQUE: CT of the chest without intravenous contrast. Please note that all CT scans at this facility use dose modulation, iterative reconstruction, and/or weight-based dosing when appropriate to reduce radiation dose to as low as reasonably achievable. FINDINGS: THORAX Visualized Lower Neck: No significant incidental findings. Thoracic Aorta: Smooth contour and uniform caliber without evidence of an intramural hematoma, pseudoaneurysm or rupture. The lumen cannot be evaluated on this noncontrast exam. Lungs: No lung injury. Bibasilar multilobar subsegmental atelectasis and/or fibrosis. Pleura: No hemothorax. No pneumothorax. No simple effusion. Mediastinum: No mediastinal hemorrhage or pneumomediastinum. Small chronic pericardial effusion. Trachea and esophagus are normal in appearance. No mediastinal lymphadenopathy. INCLUDED SKELETON AND BODY WALL Chronic lower sternal body fracture deformity. Spine: Chronic compression deformities of T8 and T12. Interval progression of compression deformity of T10. Age indeterminate chronic appearing compression deformity of T6, new in the interval since the prior exam. No significant spondylolisthesis, widening of the intervertebral disc spaces, interfacetal joints or interspinous distances. Vertebral bodies, pedicles, laminae, articular, transverse and spinous processes are otherwise intact. Ribs: Fractures of the left posterolateral 6th and 7th ribs (series 3; images 22, 29 respectively). Visualized appendicular skeleton: No fracture is identified. Body Wall: No soft tissue injury is identified. ABDOMEN Visualized Upper Abdomen: No significant findings. Cholecystectomy. IMPRESSION: 1. Acute fractures of the left posterolateral 6th and 7th ribs. No associated left pneumothorax or hemothorax. 2. Chronic appearing age-indeterminate compression deformities of T6, new in the interval since 02/08/2023. Interval progression of compression deformity of T10 compared to the prior exam. Chronic compression deformities of T8, T12 and chronic fracture deformity of the lower sternal body. 3. Incidental findings as above. Please note that all CT scans at this facility use dose modulation, iterative reconstruction, and/or weight-based dosing when appropriate to reduce radiation dose to as low as reasonably achievable. Discharge Plan Discharge Clinical Impression: Left rib fracture Patient Disposition: Home, Self-Care Condition: Stable Instructions: Rib Fracture (ED) Additional Instructions: Continue your current pain medications. I would recommend liberal use of ice over the next week or so as this is most helpful for pain control. Transition to heat as needed. For severe uncontrolled pain, inability to manage ADLs, new symptoms such as shortness of breath, cough, fever, return to the emergency department. Otherwise, see her primary doctor as needed. Pain from rib fractures usually is fairly persistent for the 1st 10-14 days and gradually improves thereafter. Prescriptions: No Action lidocaine 5 % adhesive patch,medicated 1 patch topical DAILY Qty: 15 0RF Rx Instructions: leave on most painful area for up to 12 hrs latanoprost 0.005 % drops 1 drp ophthalmic (eye) HS Patient Comments: INSTILL 1 DROP IN BOTH EYES EVERY NIGHT hydrocodone-acetaminophen 5-325 mg tablet 2 tab PO TID prednisone 5 mg tablet 5 mg PO DAILY Patient Comments: TAKE 1 TABLET BY MOUTH DAILY methotrexate sodium 2.5 mg tablet 12.5 mg PO .WEEKLY Patient Comments: TAKE 5 TABLETS BY MOUTH 1 TIME A WEEK on Saturday Rx Instructions: Wednesdays lorazepam [Ativan] 0.5 mg tablet 0.5 mg PO Q12H PRN tramadol 50 mg tablet 50 mg PO Q6H PRN (Reason: pain) zolpidem [Ambien] 5 mg tablet 2.5 mg PO QHS calcitonin (salmon) 200 unit/actuation [place],Non-Aerosol 1 spray intranasal HS Qty: 1 0RF Rx Instructions: alternate nostrils calcium carbonate-vitamin D3 [Oyster Shell Calcium-Vit D3] 500 mg-5 mcg (200 unit) Tablet 1 tab PO BID Qty: 60 0RF polyethylene glycol 3350 [Miralax] 17 gram Powder In Packet 17 g PO DAILY PRN (Reason: Constipation) Qty: 1 0RF sennosides-docusate sodium [Stool Softener-Laxative] 8.6-50 mg Tablet 1 tab PO BID PRN (Reason: constipation) Qty: 60 0RF ibuprofen 400 mg Tablet 400 mg PO Q6H PRNQty: 100 0RF folic acid 1 mg Tablet 1 mg PO DAILY Qty: 30 0RF cephalexin 500 mg capsule 500 mg PO Q8H 7 Days Qty: 21 0RF Rx Instructions: Patient requesting TEVA brand (received keflex Rx yesterday in different brand). + UTI metoprolol succinate 25 mg tablet extended release 24 hr 12.5 mg PO DAILY oxycodone 5 mg tablet PO pregabalin 25 mg capsule PO BID pregabalin 50 mg capsule 50 mg PO BID Follow Up/Referrals: Kylah Baxter Provider [Primary Care Provider] - Stand Alone Forms: MyHealth Info Instructions
[2024-05-25] MEDS: HYDROCODONE-ACETAMIN 5-325 MG 1 TAB 2 TAB PO (10:42)
--- OUTSIDE RECORDS SUMMARY | 2024-05-25 11:42 | XMS_ITS | Clinical Summary ---
[facility] Address [address] [place] [address] Care Team Providers Care Sales Office Administrator Name Role Phone Porfirio Hauser MD Primary Care Provider Jerilyn Holley WORK CHECKER Unavailable Allergies Active Allergy Reactions Criticality Noted Date Comments Sulfa Antibiotics 05/18/2017 Ciprofloxacin High 05/18/2017 Levofloxacin 05/18/2017 Phenazopyridine 05/18/2017 Medications Medication Sig Dispensed Refills Start Date End Date Status Cyanocobalamin (B-12 COMPLIANCE INJECTION IJ) Inject as directed. Ac tive latanoprost (XALATAN) 0.005 % ophthalmic solution Place 1 drop into both eyes at bedtime. Active famotidine (PEPCID) 10 mg tablet Take 10 mg by mouth 2 (two) times daily as needed. Active predniSONE (DELTASONE) 5 mg tablet Take 5 mg by mouth daily. Active methotrexate (TREXALL) 2.5 mg tablet Take 12.5 mg by mouth once a week. Patient takes 5 tablets of 2.5mg tab on Saturday night once a week Active Folic Acid (FOLATE PO) Take 1 mg by mouth daily. Active hydrocortisone 2.5 % cream Apply 1 Application topically 2 (two) times daily as needed (to affected areas). Active pregabalin (LYRICA) 25 mg capsule Take 1 capsule (25 mg total) by mouth 2 (two) times daily. 6 capsule 03/17/2024 Active naloxone (NARCAN) 4 mg/0.1 mL intranasal liquid 1 spray by Nasal route as needed for Opioid Reversal. 03/17/2024 Active zolpidem (AMBIEN) 5 mg tablet Take 2 tablets (10 mg total) by mouth at bedtime as needed for Sleep. 30 tablet 03/18/2024 Active docusate sodium (COLACE) 100 MG capsule Take 1 capsule (100 mg total) by mouth daily. 03/19/2024 Active Active Problems Problem Noted Date Diagnosed Date Sciatica, right side 03/15/2024 Right leg pain 03/15/2024 Macrocytic anemia 03/15/2024 Thrombocytopenia 03/15/2024 Closed fracture of third thoracic vertebra 03/15 Closed fracture of twelfth thoracic vertebra 06/2024 Osteoporosis with current pathological fracture 03/15/2024 HTN (hypertension) 03/15/2024 Open wound of left lower leg 10/26/2020 Venous insufficiency (chronic) (peripheral) 10/04 T12 compression fracture 01/22/2018 Acute bilateral low back pain without sciatica 0 01/22/2018 Closed left subtrochanteric femur fracture, initial encounter 05/18/2017 Encounters Date Type Department Care Team Description 03/15/2024 Procedure Pass [facility] MRI [address] [place] [address] 03/15/2024 Procedure Pass [facility] MRI [address] [place] [address] 03/14/2024 6:[address] [facility] - 03/18/2024 3:[address] [facility] Hospital Encounter [facility] L3 Ortho/Spine [address] [place] [address] Graciela Torres PA Parker, Steven Paul, MD Farah, MD Carlton Fernandez, Mariel Bennett MD Acute right-sided low back pain with right-sided sciatica (Primary Dx); Compression fracture of lumbar vertebra, unspecified lumbar vertebral level, initial encounter; Compression fracture of thoracic vertebra, unspecified thoracic vertebral level, initial encounter; Wound of right lower extremity, initial encounter; Age-related osteoporosis with current pathological fracture with routine healing, subsequent encounter Discharge Disposition: Intermediate Facility 03/14/2024 Travel from Last 3 Months Family History Medical History Relation Name Comments Hypertension Father No Known Problems Mother Relation Name Status Comments Father Mother Social History Tobacco Use Types Packs/Day Years Used Date Smoking Tobacco: Never Smokeless Tobacco: Never Tobacco Cessation:Counseling Given: Not Answered Alcohol Use Standard Drinks/Week Comments Yes 0 (1 standard drink = 0.6 oz pur e alcohol) rarely [facility] Utilities Answer Date Recorded In the past 12 months has th e electric, gas, oil, or water company threatened to shut off services in your home? No 03/16/2024 Humiliation, Afraid, Rape, and Kick questionnair e Answer Date Recorded Within the last year, have y ou been afraid of your partner or ex-partner? No 03/16/2024 Within the last year, have y ou been humiliated or emotionally abused in other ways by your partner or ex-partner? No Within the last year, have y ou been kicked, hit, slapped, or otherwise physically hurt by your partner or ex-partner? No 03/16/2024 Within the last year, have y ou been raped or forced to have any kind of sexual activity by your partner or ex-partner? No 03/16/2024 AUDIT-C Answer Date Recorded Q1: How often do you have a drink containing alcohol? Never 03/16/2024 Q2: How many drinks containi ng alcohol do you have on a typical day when you are drinking? Patient does not drink Q3: How often do you have si x or more drinks on one occasion? Never 03/16/2024 Overall Financial Resource Strain (CARDIA) Answe r Date Recorded How hard is it for you to pa y for the very basics like food, housing, medical care, and heating? Not hard at all 03/16/2024 PHQ-2 Answer Date Recorded Depression Risk 0 03/14/2024 Hunger Vital Sign Answer Date Recorded Within the past 12 months, y ou worried that your food would run out before you got the money to buy more. Never true 03/16/20 24 Within the past 12 months, t he food you bought just didn't last and you didn't have money to get more. Never true 03/16/2024 PRAPARE - Transportation Answer Date Re corded In the past 12 months, has l ack of transportation kept you from medical appointments or from getting medications? No 03/05 In the past 12 months, has l ack of transportation kept you from meetings, work, or from getting things needed for daily living? No 03/16/2024 Housing Stability Vital Sign Answer Yao e Recorded In the last 12 months, was t here a time when you were not able to pay the mortgage or rent on time? No 03/16/2024 In the past 12 months, how m any times have you moved where you were living? 0 03/16/2024 At any time in the past 12 m [facility], were you homeless or living in a [facility] (including now)? No 03/16/2024 Sex and Gender Information Value Date Recorded Sex Assigned at Not on file Gender Identity Not on file Sexual Orientation Not on file Last Filed Vital Signs Vital Sign Reading Time Taken Comments Blood Pressure 124/61 03/18/2024 2:34 PM MST Pulse 105 03/18/2024 2:34 PM MST Temperature 36.4 ??C (97.6 ??F) 03/18/2024 2:34 PM MS T Respiratory Rate 14 03/18/2024 2:34 PM MST Oxygen Saturation 92% 03/18/2024 2:34 PM MST Inhaled Oxygen Concentration - - Weight 56.2 kg (124 lb) 03/14/2024 6:41 PM MST Height 157.5 cm (5' 2) 03/14/2024 11:03 PM MST Body Mass Index 22.68 03/14/2024 6:41 PM MST Plan of Treatment Health Maintenance Due Date Last Done Comments DTaP,Tdap,or Td Vaccines (1 - Tdap) 1959 Zoster (Shingles) Vaccine (1 of 2) 1990 RSV Vaccine (1 - 1-dose 60+ series) 2000 DEXA Osteoporosis Screening 2005 Pneumococcal Vaccine: 65+ Ye ars (1 of 1 - PCV) 2005 COVID-19 Vaccine ( - 2022-2 4 season) 2024 Influenza Vaccine (#1) 2024 HPV VACCINES Aged Out No longer eligi ble based on patient's age to complete this topic Hepatitis A Vaccine Aged Out No longe r eligible based on patient's age to complete this topic Medical Devices Implanted Type Area Retail Team Member Device Identifier Shelf Expiration Date Model / Serial / Lot Nail Im Intertroch Ante 10mm 36cm 125deg Lft Trigen Intertan - Sn/A Implanted:Qty: 1 on 05/18/2017 by Roby Cameron MD at [facility] Nail Left: Hip [employer] 01/23/2027 [id number] / N/A / [id number] Screw Kit Bn Lag Cmprsn 90/85mm Ti Interlck Hip - Sn/A Implanted:Qty: 1 on 05/18/2017 by Roby Cameron MD at [facility] Screw Left: Hip [employer] 02/27/2027 [id number] / N/A / [id number] Screw Bn 5mm X 32.5mm Trigen Low Profile - Sn/A Implanted:Qty: 1 on 05/18/2017 by Roby Cameron MD at [facility] Screw Left: Hip [employer] 10/20/2026 [id number] / N/A / [id number] Screw Bn 5.0mm X 35mm Trigen Low Profile - Sn/A Implanted:Qty: 1 on 05/18/2017 by Roby Cameron MD at [facility] Screw Left: Hip [employer] 08/07/2026 [id number] / N/A / [id number] Procedures Procedure Name Priority Date/Time Associated Diagnosis Comments MAGNESIUM Routine 03/18/2024 4:53 AM MST MAGNESIUM Routine 03/17/2024 4:38 AM MST PHOSPHORUS Routine 03/17/2024 4:38 AM MST URINALYSIS WITH MICROSCOPIC STAT 03/15/2024 11:07 PM MST FOLATE Routine 03/15/2024 1:18 PM MST VITAMIN B12 Routine 03/15/2024 1:18 PM MST MR LUMBAR SPINE WO CONTRAST Routine 03/15/2024 9:49 AM MST MR THORACIC SPINE WO CONTRAST Routine 03/15/2024 9:49 AM MST XR TIBFIB 2 VIEWS RT Routine 03/15/2024 7:54 AM MST HEPATIC FUNCTION PANEL Routine 03/15/2024 6:50 AM MST BASIC METABOLIC PANEL STAT 03/14/2024 8:41 PM MST CBC WITH DIFFERENTIAL STAT 03/14/2024 8:[address] LUMBAR SPINE WO CONTRAST STAT 03/14/2024 8:22 PM MST XR HIP 2 VIEW W PELVIS RT STAT 03/14/2024 8:04 PM MST from Last 3 Months Results * Magnesium--AM Draw (03/18/2024 4:[address] [facility]) Only the most recent of2 resultswithin the time period is included. Magnesium 1.9 1.6 - 2.6 mg/dL 03/18/2024 5:23 AM [facility] Blood BLOOD SPECIMEN / Unknown Venipuncture / Unknown 03/18/2024 4:53 AM MST 03/18/2024 4:[address] [facility] Татьяна Bernal MD LAB BLOOD ORDERABLES [facility] [address] [place], [place] [address] [phone] * Phosphorus (03/17/2024 4:[address] [facility]) Phosphorus 2.7 2.4 - 4.7 mg/dL 03/17/2024 5:44 AM [facility] Blood BLOOD SPECIMEN / Unknown Venipuncture / Unknown 03/17/2024 4:38 AM MST 03/17/2024 5:[address] [facility] Narrative [facility] - 03/17/2024 5:[address] [facility] High doses of lipsomal Amphotericin B therapy may cause falsely elevated results for phosphorus. Татьяна Bernal MD LAB BLOOD ORDERABLES [facility] [address] [place] [address], [facility] [phone] * (ABNORMAL) Urinalysis with Microscopic (03/15/2024 11:[address] [facility]) Color, Urine Light Yellow Colorless, Light Yellow, Yellow, Dark Yellow, Straw 03/15/2024 11:18 PM [facility] Clarity, Urine Clear Clear 03/15/2024 11:18 PM [facility] Glucose, Urine Negative Negative mg/dL 03/15/2024 11:18 PM [facility] Bilirubin, Urine Negative Negative 03/15/2024 11:18 PM [facility] Ketones, Urine Negative Negative mg/dL 03/15/2024 11:18 PM [facility] Specific Mcclelland, Urine 1.018 1.005 - 1.030 03/15/2024 11:18 PM [facility] Blood, Urine Trace(A) Negative 03/15/2024 11:18 PM [facility] pH, Urine 5.5 5.0 - 8.0 03/15/2024 11:18 PM [facility] Protein, Urine Negative Negative mg/dL 03/15/2024 11:18 PM [facility] Urobilinogen, Urine <2.0 <2.0 mg/dL 03/15/2024 11:18 PM [facility] Nitrite, Urine Negative Negative 03/15/2024 11:18 PM [facility] Leukocyte Esterase, Urine Negative Negative 03/15/2024 11:18 PM [facility] WBC, Urine <1 0 - 5 /HPF 03/15/2024 11:18 PM [facility] RBC, Urine 1 0 - 2 /HPF 03/15/2024 11:18 PM [facility] Bacteria, Urine None Seen None Seen /HPF 03/15/2024 11:18 PM [facility] Squamous Epithelial, Urine 2 0 - 5 /HPF 03/15/2024 11:18 PM [facility] Transitional Epithelial, Urine <1 0 - 5 /HPF 03/15/2024 11:18 PM [facility] Urine URINE SPECIMEN OBTAINED BY CLEAN CATCH PROCEDURE / Unknown Collection / Unknown 03/15/2024 11:[address] [facility] 03/15/2024 11:[address] [facility] Graciela HUIZAR URINE ORDERAB LES Performing Organization Address City/[facility]/ZIP Co de Phone Number [facility] [address] [place], [place] [id number] [place] [address] * (ABNORMAL) Folate (03/15/2024 1:[address] [facility]) Pathologist [facility] Folate >40.0(H) 7.0 - 31.4 ng/mL 03/15/2024 10:52 PM [facility] Blood BLOOD SPECIMEN / Unknown Butterfly / Unknown 03/15/2024 1:18 PM MST 03/15/2024 1:[address] [facility] Houston Webb MD LAB BLOOD ORDERABL ES [facility] [address] [phone] * (ABNORMAL) Vitamin B12 (03/15/2024 1:[address] [facility]) Pathologist [facility] Vitamin B-12 1,042(H) 213 - 816 pg/mL 03/15/2024 9:47 PM [facility] Comment:Sample slightly hemo lyzed Blood BLOOD SPECIMEN / Unknown Butterfly / Unknown 03/15/2024 1:[address] [facility] 03/15/2024 1:[address] [facility] Narrative [facility] - 03/15/2024 9:[address] [facility] Normal Range: 180 - 914 pg/mL Indeterminate Range: 145 - 180 pg/mL Deficient Range: <145 pg/mL Houston Webb MD LAB BLOOD ORDERABL ES [facility] [address] [place] [address], [facility] [phone] * MR Lumbar Spine WO Contrast (03/15/2024 9:[address] [facility]) Anatomical Region Laterality Modality L-spine Magnetic Resonan ce 03/15/2024 12:[address] [facility] Impressions 03/15/2024 12:[address] [facility] IMPRESSION: ?? 1. 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 2. ??Subacute bilateral sacral insufficiency fractures. 3. ??Remote compression fractures of L1, L2, and L3. 4. 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 MELECIO BLAKELY MD 03/15/2024 12:11 PM Narrative 03/15/2024 12:[address] [facility] MRI LUMBAR SPINE WITHOUT CONTRAST HISTORY: ??Back pain radiating down her right leg for one week. ??History of sciatica. ??Right buttock and right thigh pain. ??Urinary incontinence. COMPARISON: ??CT examination lumbar spine 03/14/2024 TECHNIQUE: ??Multiplanar, multisequence noncontrast images were obtained. 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 ??L5-S1 is image 44, series 12, with a rudimentary disc at S1-2. Alignment does not appear significant changed, with again 5 mm anterolisthesis at L4-5. ??Remote appearing compression fractures involving L1 and L2, again noted, with approximately 20% loss of height these regions. ??Similarly, unchanged remote compression fracture of L3, with 50% loss of height. Mild marrow edema in the sacrum, with bilateral presacral soft tissue swelling, suggestive of subacute sacral insufficiency fractures. 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 ??Remaining findings by level are as follows: T12-L1: Mild bulge. ??Mild facet arthropathy. ??Mild bilateral neural foraminal narrowing. ??No significant canal stenosis. L1-2: Mild bulge. ??Mild facet arthropathy. ??No significant canal or neural foraminal narrowing. L2-3: Mild bulge. ??Mild facet arthropathy. ??No significant canal stenosis. ??Mild bilateral neural foraminal narrowing. L3-4: Mild bulge. ??Mild facet arthropathy. ??No significant canal or neural foraminal narrowing. L4-5: Severe facet hypertrophy. ??Anterolisthesis. ??Unroofing the disc. ??No significant canal stenosis. ??Mild bilateral neural foraminal narrowing. L5-S1: Rudimentary disc and posterior elements. ??No significant canal or neural foraminal narrowing. Atrophy of the dorsal paraspinous soft tissues. ??Dependent changes in the lungs. ??Visualized intra-abdominal contents, grossly unremarkable Procedure Note Melecio Blakely MD - 03/15/2024 MRI LUMBAR SPINE WITHOUT CONTRAST HISTORY: Back pain radiating down her right leg for one week. History ofsciatica. Right buttock and right thigh pain. Urinary incontinence. COMPARISON: CT examination lumbar spine 03/14/2024 TECHNIQUE: Multiplanar, multisequence noncontrast images were obtained. 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 L5-S1 is image 44,series 12, with a rudimentary disc at S1-2. Alignment does not appear significant changed, with again 5 mmanterolisthesis at L4-5. Remote appearing compression fractures involvingL1 and L2, again noted, with approximately 20% loss of height theseregions. Similarly, unchanged remote compression fracture of L3, with 50% loss of height. Mild marrow edema in the sacrum, with bilateral presacral soft tissueswelling, suggestive of subacute sacral insufficiency fractures. 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 Remaining findings by level are as follows: T12-L1: Mild bulge. Mild facet arthropathy. Mild bilateral neuralforaminal narrowing. No significant canal stenosis. L1-2: Mild bulge. Mild facet arthropathy. No significant canal or neuralforaminal narrowing. L2-3: Mild bulge. Mild facet arthropathy. No significant canal stenosis.Mild bilateral neural foraminal narrowing. L3-4: Mild bulge. Mild facet arthropathy. No significant canal or neuralforaminal narrowing. L4-5: Severe facet hypertrophy. Anterolisthesis. Unroofing the disc. Nosignificant canal stenosis. Mild bilateral neural foraminal narrowing. L5-S1: Rudimentary disc and posterior elements. No significant canal orneural foraminal narrowing. Atrophy of the dorsal paraspinous soft tissues. Dependent changes in thelungs. Visualized intra-abdominal contents, grossly unremarkable IMPRESSION: 1. 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 2. Subacute bilateral sacral insufficiency fractures. 3. Remote compression fractures of L1, L2, and L3. 4. 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 MELECIO BLAKELY MD 03/15/2024 12:11 PM [place] Webb MD [facility] MRI ORDERABLES * MR Thoracic Spine WO Contrast (03/15/2024 9:[address] [facility]) Anatomical Region Laterality Modality T-spine Magnetic Resonan ce 03/15/2024 11:[address] [facility] Impressions 03/15/2024 11:[address] [facility] IMPRESSION: ?? 1. ??Multiple remote compression fractures, unchanged from May 2023. No progressive height loss or retropulsion. ??Unchanged exaggerated thoracic kyphosis in this region 2. 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 3. ??Mild degenerative findings, but no significant canal stenosis or neural foraminal narrowing. MELECIO BLAKELY MD 03/15/2024 11:32 AM Narrative 03/15/2024 11:[address] [facility] MRI THORACIC SPINE WITHOUT CONTRAST HISTORY: Back pain radiating down her right leg for one week. ??History of sciatica. ??Right buttock and right thigh pain. ??Urinary incontinence. COMPARISON: Plain film of the thoracic spine 05/21/2023 TECHNIQUE: ??Multiplanar, multisequence noncontrast images were obtained. FINDINGS: ?? T1-2 is image 1, series 7 Again noted are the multiple remote compression fractures, unchanged from the May 2023 study as follows: T8: AO spine A4 complete burst fracture. ??Near vertebra plana deformity. T9: AO spine A3 incomplete burst fracture with 60% loss of height fluid within the fracture gap. T12: AO spine A4 complete burst fracture, with 80% loss of height. L1 and L2: AO spine A1 wedge type compression fractures, with approximately 20% loss of height. No progressive height loss from May 2023. ??Only mild retropulsion and no significant canal stenosis. ??Associated exaggerated thoracic kyphosis is unchanged. No new regions of marrow edema are seen to suggest new, acute compression fractures. 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 ??Remaining findings by level are as follows: T9-10: Mild retropulsion with mild cord flattening. ??No significant canal stenosis or neural foraminal narrowing. T10-11: Mild bulge. ??Mild facet arthropathy. ??No central canal or neural foraminal narrowing. T11-12: Mild bulge. ??Mild facet arthropathy. ??Mild cord finding. ??No central canal stenosis. T12-L1: Mild bulge. ??Mild facet arthropathy. ??Mild bilateral neural foraminal narrowing. ??No significant canal stenosis. Atrophy of the dorsal paraspinous tissues. ??Small bilateral dependent atelectasis in the lungs. ??Ectasia of the thoracic aorta. ??Visualized upper abdominal contents, grossly unremarkable Procedure Note Melecio Blakely MD - 03/15/2024 MRI THORACIC SPINE WITHOUT CONTRAST HISTORY: Back pain radiating down her right leg for one week. History ofsciatica. Right buttock and right thigh pain. Urinary incontinence. COMPARISON: Plain film of the thoracic spine 05/21/2023 TECHNIQUE: Multiplanar, multisequence noncontrast images were obtained. FINDINGS: T1-2 is image 1, series 7 Again noted are the multiple remote compression fractures, unchanged fromthe May 2023 study as follows: T8: AO spine A4 complete burst fracture. Near vertebra plana deformity. T9: AO spine A3 incomplete burst fracture with 60% loss of height fluidwithin the fracture gap. T12: AO spine A4 complete burst fracture, with 80% loss of height. L1 and L2: AO spine A1 wedge type compression fractures, withapproximately 20% loss of height. No progressive height loss from May 2023. Only mild retropulsion andno significant canal stenosis. Associated exaggerated thoracic kyphosisis unchanged. No new regions of marrow edema are seen to suggest new, acute compressionfractures. 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 No significant canalstenosis or neural foraminal narrowing. T10-11: Mild bulge. Mild facet arthropathy. No central canal or neuralforaminal narrowing. T11-12: Mild bulge. Mild facet arthropathy. Mild cord finding. Nocentral canal stenosis. T12-L1: Mild bulge. Mild facet arthropathy. Mild bilateral neuralforaminal narrowing. No significant canal stenosis. Atrophy of the dorsal paraspinous tissues. Small bilateral dependentatelectasis in the lungs. Ectasia of the thoracic aorta. Visualizedupper abdominal contents, grossly unremarkable IMPRESSION: 1. Multiple remote compression fractures, unchanged from May 2023. Noprogressive height loss or retropulsion. Unchanged exaggerated thoracickyphosis in this region 2. 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 3. Mild degenerative findings, but no significant canal stenosis orneural foraminal narrowing. MELECIO BLAKELY MD 03/15/2024 11:32 AM Houston Webb MD IMG MRI ORDERABLES * XR Tibfib 2 Views RT (03/15/2024 7:[address] [facility]) Anatomical Region Laterality Modality Lower Leg Digital Radiogra phy 03/15/2024 8:21 AM MST Impressions 03/15/2024 8:22 AM MST IMPRESSION: Nothing acute with mild chondrocalcinosis of the lateral joint space. BRANDIN CHESTER MD 03/15/2024 8:22 AM Narrative 03/15/2024 8:22 AM MST XR TIBFIB 2 VIEWS RT INDICATION: mysterious pain COMPARISON: None FINDINGS: ??No acute osseous or articular abnormalities. ??There is mild chondrocalcinosis of the lateral joint space, with very slight loss of joint space involving both the medial and lateral joint compartments. ??No focal soft tissue abnormality evident. Procedure Note Brandin Chester MD - 03/15/2024 XR TIBFIB 2 VIEWS RT INDICATION: mysterious pain COMPARISON: None FINDINGS: No acute osseous or articular abnormalities. There is mildchondrocalcinosis of the lateral joint space, with very slight loss ofjoint space involving both the medial and lateral joint compartments. Nofocal soft tissue abnormality evident. IMPRESSION: Nothing acute with mild chondrocalcinosis of the lateral joint space. BRANDIN CHESTER MD 03/15/2024 8:22 AM Houston Webb MD IMG DIAGNOSTIC ABDIEL GING ORDERABLES * (ABNORMAL) Hepatic Function Panel (03/15/2024 6:[address] [facility]) Total Protein 6.0(L) 6.5 - 8.4 g/dL 03/15/2024 7:12 AM [facility] Albumin 3.7 3.2 - 4.6 g/dL 03/15/2024 7:12 AM [facility] Globulin, Total 2.3 2.0 - 3.9 g/dL 03/15/2024 7:12 AM [facility] A/G Ratio 1.6 1.1 - 2.5 03/15/2024 7:12 AM [facility] Bilirubin, Total 1.3(H) 0.2 - 1.2 mg/dL 03/15/2024 7:12 AM [facility] Bilirubin, Direct 0.4 <=0.5 mg/dL 03/15/2024 7:12 AM [facility] Alkaline Phosphatase 49 38 - 126 U/L 03/15/2024 7:12 AM [facility] ALT 12 <=54 U/L 03/15/2024 7:12 AM [facility] AST 19 <=41 U/L 03/15/2024 7:12 AM [facility] Blood BLOOD SPECIMEN / Unknown Butterfly / Unknown 03/15/2024 6:[address] [facility] 03/15/2024 6:[address] [facility] Narrative [facility] - 03/15/2024 7:[address] [facility] Patients on sulfasalazine and/or sulfapyridine should be drawn prior to drug administration due to the potential for falsely depressed ALT (SGPT) and/or AST (SGOT) results. Houston Webb MD LAB BLOOD ORDERABL ES [facility] [address] [place], [place] [address] [phone] * (ABNORMAL) CBC with Differential (03/14/2024 8:[address] [facility]) WBC 4.7 4.0 - 10.9 10??/uL 03/14/2024 8:53 PM [facility] RBC 2.94(L) 3.50 - 5.40 10? 6 /uL 03/14/2024 8:53 PM [facility] Hemoglobin 9.9(L) 12.0 - 16.0 g/dL 03/14/2024 8:53 PM [facility] Hematocrit 29.7(L) 36.0 - 48.0 % 03/14/2024 8:53 PM [facility] MCV 101.0(H) 80.0 - 98.0 fL 03/14/2024 8:53 PM [facility] MCH 33.5 27.0 - 34.0 PG 03/14/2024 8:53 PM [facility] MCHC 33.2 31.0 - 37.0 g/dL 03/14/2024 8:53 PM [facility] RDW 15.8(H) 11.5 - 14.5 % 03/14/2024 8:53 PM [facility] RDW-SD 54.7(H) 36.4 - 46.3 fL 03/14/2024 8:53 PM [facility] Platelets 120(L) 130 - 450 10? 3 /uL 03/14/2024 8:53 PM [facility] MPV 9.6 7.4 - 12.4 fL 03/14/2024 8:53 PM [facility] Neutrophils 71 % 03/14/2024 8:53 PM [facility] Lymphs 9 % 03/14/2024 8:53 PM [facility] Monocytes 20 % 03/14/2024 8:53 PM [facility] Eosinophils 0 % 03/14/2024 8:53 PM [facility] Basophils 0 % 03/14/2024 8:53 PM [facility] nRBC <1.0 /100 WBCs 03/14/2024 8:53 PM [facility] Neutrophils Absolute 3.37 1.48 - 8.32 10??/uL 03/14/2024 8:53 PM [facility] Lymphocytes Absolute 0.41(L) 0.90 - 3.50 10??/uL 03/14/2024 8:53 PM [facility] Monocytes Absolute 0.95(H) 0.26 - 0.80 10??/uL 03/14/2024 8:53 PM [facility] Eosinophils Absolute <0.05 0.00 - 0.62 10??/uL 03/14/2024 8:53 PM [facility] Basophils Absolute <0.05 0.00 - 0.10 10??/uL 03/14/2024 8:53 PM [facility] Nucleated RBC Absolute 0.000 0.000 - 0.020 10??/uL 03/14/2024 8:53 PM [facility] Blood BLOOD SPECIMEN / Unknown Line / Unknown 03/14/2024 8:[address] [facility] 03/14/2024 8:[address] [facility] Graciela HUIZRA LAB BLOOD ORD ERABLES [facility] [address] [place] [address], [facility] [phone] * (ABNORMAL) Basic Metabolic Panel (03/14/2024 8:[address] [facility]) Sodium 137 136 - 144 mmol/L 03/14/2024 9:07 PM [facility] Potassium 4.2 3.6 - 5.0 mmol/L 03/14/2024 9:07 PM [facility] Chloride 107 101 - 111 mmol/L 03/14/2024 9:07 PM [facility] CO2 22(L) 23 - 31 mmol/L 03/14/2024 9:07 PM [facility] Anion Gap 8 7 - 16 03/14/2024 9:07 PM [facility] Calcium 9.0 8.5 - 10.3 mg/dL 03/14/2024 9:07 PM [facility] Glucose 104 Fastin-99; Random: 70-130 mg/dL 03/14/2024 9:07 PM [facility] BUN 17.0 9.8 - 20.1 mg/dL 03/14/2024 9:07 PM [facility] Creatinine 0.8 0.5 - 1.0 mg/dL 03/14/2024 9:07 PM [facility] eGFR 73(L) >=90 mL/min/1.73 m2 03/14/2024 9:07 PM [facility] Blood BLOOD SPECIMEN / Unknown Line / Unknown 03/14/2024 8:[address] [facility] 03/14/2024 8:[address] [facility] Narrative [facility] - 03/14/2024 9:07 PM MST For eGFR ? 60-89 ml/min/A (A= 1.73 sq.m) MAY MEAN EARLY-STAGE KIDNEY DISEASE ? 15-59 ml/min/A (A= 1.73 sq.m) MAY MEAN KIDNEY DISEASE ?< 15 ml/min/A (A= 1.73 sq.m) MAY MEAN KIDNEY FAILURE For patients at least 18 years of age, estimated Glomerular Filtration Rate (eGFR) is calculated from creatinine using the Chronic Kidney Disease Epidemiology Collaboration (CKD-EPI) equation, refit without adjustment for race, as per recommendations from the NKF-ASN Task Force on Reassessing the Inclusion of Race in Diagnosing Kidney Disease. This eGFR equation has similar overall performance characteristics to the Modification of Diet in Renal Disease (MDRD) equation but has been modified to remove the race coefficient. For patients under 18 years of age, eGFR is calculated using the Bedside Wallace equation. Patients on sulfasalazine should be drawn prior to drug administration due to the potential for falsely elevated glucose and/or T4 results. Graciela HUIZAR LAB BLOOD ORD ERABLES [facility] [address] [place], [place] [id number] [place] [address] * CT Lumbar Spine WO Contrast (03/14/2024 8:22 PM MST) Anatomical Region Laterality Modality L-spine Computed Tomogra phy 03/14/2024 8:45 PM [facility] Impressions 03/14/2024 8:49 PM MST IMPRESSION: Progressive compression deformities of T3 and T12. SANTOS TAYLOR MD 03/14/2024 8:49 PM Narrative 03/14/2024 8:[address] [facility] CT LUMBAR SPINE WITHOUT CONTRAST HISTORY: ??Pt complains of back pain radiating down her right leg x1 week. H/x of sciatica COMPARISON: ??01/22/2018 TECHNIQUE: No contrast. Coronal and sagittal reformatted images generated and reviewed. Automated exposure control, adjustment of mA and/or kV according to patient size or iterative reconstruction dose optimization techniques were used. ?? FINDINGS: ?? BONES: Stable diffuse osteopenia is demonstrated. ??Stable compression deformities seen in the L4, L2 and L1 vertebral bodies. ??Progressive compression deformity of T12 is seen with approximately 70% collapse of the anterior vertebral body as opposed to approximately 50% compression. ??In addition, there is increased compression deformity of the T3 vertebral body now measuring approximately 20%. No suspicious lytic or blastic lesions identified. ALIGNMENT: No evidence of acute malalignment. SOFT TISSUES: Paraspinous soft tissues are within normal limits. Aorta is of normal caliber for age. ??Significant calcifications of the abdominal aorta is stable when compared to the prior exam DEGENERATIVE CHANGES: Multilevel degenerative disease. No significant canal or foraminal stenosis. ??Mild degenerative anterolisthesis of L4 on L5 without associated pars interarticularis defects without definite fracture Additional findings: Visualized lung bases are clear. Procedure Note Cruzito Taylor MD - 03/14/2024 CT LUMBAR SPINE WITHOUT CONTRAST HISTORY: Pt complains of back pain radiating down her right leg x1 week.H/x of sciatica COMPARISON: 01/22/2018 TECHNIQUE: No contrast. Coronal and sagittal reformatted images generatedand reviewed. Automated exposure control, adjustment of mA and/or kVaccording to patient size or iterative reconstruction dose optimizationtechniques were used. FINDINGS: BONES: Stable diffuse osteopenia is demonstrated. Stable compressiondeformities seen in the L4, L2 and L1 vertebral bodies. Progressivecompression deformity of T12 is seen with approximately 70% collapse ofthe anterior vertebral body as opposed to approximately 50% compression. In addition, there is increasedcompression deformity of the T3 vertebral body now measuring [id number]%. No suspicious lytic or blastic lesions identified. ALIGNMENT: No evidence of acute malalignment. SOFT TISSUES: Paraspinous soft tissues are within normal limits. Aorta isof normal caliber for age. Significant calcifications of the abdominalaorta is stable when compared to the prior exam DEGENERATIVE CHANGES: Multilevel degenerative disease. No significantcanal or foraminal stenosis. Mild degenerative anterolisthesis of L4 onL5 without associated pars interarticularis defects without definitefracture Additional findings: Visualized lung bases are clear. IMPRESSION: Progressive compression deformities of T3 and T12. SANTOS TAYLOR MD 03/14/2024 8:49 PM [address]a HUIZAR IMG CT ORDERA BLES * XR Hip 2 View W Pelvis RT (03/14/2024 8:[address] [facility]) Anatomical Region Laterality Modality Hip Digital Radiogra phy 03/14/2024 8:12 PM MST Narrative 03/14/2024 8:[address] [facility] RIGHT HIP COMPLETE WITH PELVIS HISTORY: ??Right hip pain COMPARISON: ??None VIEWS: ??Complete hip, minimum of 2 views. ??Pelvis, 1 or 2 views. ?? FINDINGS/IMPRESSION: No fracture or dislocation. ??No bony lesion. ??Right hip joint is normal. There is ORIF changes of the left hip joint with healed left intertrochanteric fracture. Bony pelvis is intact. ??Soft tissues are normal. Juan J Isidro MD 03/14/2024 8:12 PM Procedure Note Juan J Isidro MD - 03/14/2024 RIGHT HIP COMPLETE WITH PELVIS HISTORY: Right hip pain COMPARISON: None VIEWS: Complete hip, minimum of 2 views. Pelvis, 1 or 2 views. FINDINGS/IMPRESSION: No fracture or dislocation. No bony lesion. Right hip joint is normal. There is ORIF changes of the left hip joint with healed leftintertrochanteric fracture. Bony pelvis is intact. Soft tissues are normal. Juan J Isidro MD 03/14/2024 8:12 PM Graciela HUIZAR IMG DIAGNOSTI C IMAGING ORDERABLES from Last 3 Months Advance Directives For more information, please contact: [phone] * DNR/DNI (Latest Code Status on File) Date Activated Date Inactivated Comments 03/17/2024 12:03 PM * DNR/DNI Date Activated Date Inactivated Comments 03/15/2024 10:20 AM 03/17/2024 12:03 PM * Full Code Date Activated Date Inactivated Comments 03/14/2024 10:33 PM 03/15/2024 10:20 AM * Full Code Date Activated Date Inactivated Comments 01/22/2018 8:10 AM 01/24/2018 9:10 PM * DNR/DNI Date Activated Date Inactivated Comments 05/21/2017 1:26 PM 01/22/2018 12:41 AM Care Teams Sales Office Administrator Relationship Specialty Start Date End Date Porifrio Hauser MD [id number] [place] [address] PCP - General Internal Medicine 04/03/22 Jerilyn Holley NP [address] [place], [place] [id number] Nurse Practitioner Family Medicine 09/18/23
--- OUTSIDE RECORDS SUMMARY | 2024-05-25 11:42 | XMS_ITS | Encounter Summary ---
Author Organization [facility] Address [address] [place] [address] Care Team Providers Care Neurology Director Name Role Phone Porfirio Hauser MD Primary Care Provider [phone] Jerilyn Holley TITLE INSURANCE SALES REPRESENTATIVE Unavailable [phone] Reason for Referral * Eval and Treat (Routine) - Authorized Specialty Diagnoses / Procedures Referred By Drake horan Referred To Contact Pain Management / Pain Medicine Diagnoses Age-related osteoporosis with current pathological fracture with routine healing, subsequent encounter Татьяна Bernal MD [address] [place] [address] Referral ID Status Reason Start Date Expiration Date Visits Requested Visits Authorized [id number] Authorized Specialty Services Required 03/17/2024 03/17/2025 99 99 Scheduling Instructions Urgent requests are handled same day/ next day Saturday through Saturday and routine referrals may take up to two weeks to be processed. Please note if you have Traditional Medicare insurance ONLY (PART A or B) and do not have secondary insurance, your insurance does not require an authorization. You may go ahead and schedule an appointment with a participating Medicare provider of your choice. Log into [employer] to see the insurance authorization status or message your provider directly if you need a referral change. Once authorization is obtained, you? ll receive a [employer] notification, text or a call from your specialty office to schedule your appointment. All other questions please call [facility] [email or web address] [facility] at [phone]. * Consultation (Routine) - Authorized Specialty Diagnoses / Procedures Referred By Contac t Referred To Contact Rheumatology Diagnoses Age-related osteoporosis with current pathological fracture with routine healing, subsequent encounter Татьяна Bernal MD [address] [place] [address] [facility] Rheumatology [address] [address] Referral ID Status Reason Start Date Expiration Date V isits Requested Visits Authorized [id number] Authorized Consult 03/17/2024 03/17/2025 99 99 Scheduling Instructions Urgent requests are handled same day/ next day Saturday through Saturday and routine referrals may take up to two weeks to be processed. Please note if you have Traditional Medicare insurance ONLY (PART A or B) and do not have secondary insurance, your insurance does not require an authorization. You may go ahead and schedule an appointment with a participating Medicare provider of your choice. Log into [employer] to see the insurance authorization status or message your provider directly if you need a referral change. Once authorization is obtained, you? ll receive a [employer] notification, text or a call from your specialty office to schedule your appointment. All other questions please call [facility] [employer] [facility] at [phone]. * Physical Medicine (Routine) - New Request Specialty Diagnoses / Procedures Referred By Contac t Referred To Contact Diagnoses Compression fracture of lumbar vertebra, unspecified lumbar vertebral level, initial encounter Procedures PT Consult and Treat Татьяна Bernal MD [address] [place] [address] Referral ID Status Reason Start Date Expiration Date V isits Requested Visits Authorized [id number] New Request 03/17/2024 03/17/2025 1 1 * Occupational Therapy (Routine) - New Request Specialty Diagnoses / Procedures Referred By Contac t Referred To Contact Diagnoses Compression fracture of lumbar vertebra, unspecified lumbar vertebral level, initial encounter Procedures OT Consult and Treat Татьяна Bernal MD [address] [place] [address] Referral ID Status Reason Start Date Expiration Date V isits Requested Visits Authorized [id number] New Request 03/17/2024 03/17/2025 1 1 [facility] Reason for Visit * Reason Comments Back Pain Pt complains of back pain radiating down her right leg x1 week. H/x of sciatica Leg Pain * Auth/Cert Specialty Diagnoses / Procedures Referred By Drake t Referred To Contact Diagnoses Acute right-sided low back pain with right-sided sciatica Referral ID Status Reason Start Date Expiration Date Visits Re quested Visits Authorized [id number] 1 1 Encounter Details Date Type Department Care Team (Latest Contact Info) Description 03/14/2024 6:55 PM [facility] - 03/18/2024 3:15 PM [facility] Hospital Encounter [facility] L[facility] Ortho/Spine [address] [place] [address] Graciela Torres PA [address] [place], [place] [id number] Houston Webb MD [address] [place] [address] Татьяна Bernal MD [address] [place], [place] [id number] Mariel Vincent MD [address] [place], [place] [id number] Acute right-sided low back pain with right-sided sciatica (Primary Dx); Compression fracture of lumbar vertebra, unspecified lumbar vertebral level, initial encounter; Compression fracture of thoracic vertebra, unspecified thoracic vertebral level, initial encounter; Wound of right lower extremity, initial encounter; Age-related osteoporosis with current pathological fracture with routine healing, subsequent encounter Discharge Disposition: [facility] Social History Tobacco Use Types Packs/Day Years Used Date Smoking Tobacco: Never Smokeless Tobacco: Never Alcohol Use Standard Drinks/Week Comments Yes 0 (1 standard drink = 0.6 oz pur e alcohol) rarely [facility] Utilities Answer Date Recorded In the [...] any time in the past 12 m [facility], were you homeless or living in a jail (including now)? No 03/16/2024 Sex and Gender Information Value Date Recorded Sex Assigned at Not on file Gender Identity Not on file Sexual Orientation Not on file documented as of this encounter Last Filed Vital Signs Vital Sign Reading [...] Mass Index 22.68 03/14/2024 6:41 PM MST documented in this encounter Discharge Summaries * Mariel Vincent MD - 03/18/2024 3:15 PM MST Images from the original note were not included. DISCHARGE SUMMARY Patient Name: Bryanna Coelho Date of : 1940 Age: 83 y.o. Primary Care Physician: Porfirio Hauser MD Admit Date: 03/14/2024 Discharge Diagnoses Right-sided sciatica as etiology for right buttock and right thigh pain Closed fracture of 3rd thoracic vertebrae Closed fracture of 12 thoracic vertebrae Osteoporosis with current pathological fractures Microcytic anemia Thrombocytopenia Chronic methotrexate use Polymyalgia rheumatica Discharge Medications Medication List START taking these medications cyclobenzaprine 5 mg tablet Commonly known as: FLEXERIL Take 1 tablet (5 mg total) by mouth every 8 (eight) hours for 10 days. docusate sodium 100 MG capsule Commonly known as: COLACE Take 1 capsule (100 mg total) by mouth daily. naloxone 4 mg/0.1 mL intranasal liquid Commonly known as: NARCAN 1 spray by Nasal route as needed for Opioid Reversal. polyethylene glycol 3350 17 g packet Commonly known as: MiraLax Take 17 g by mouth daily for 3 days. CONTINUE taking these medications B-12 COMPLIANCE INJECTION IJ famotidine 10 mg tablet Commonly known as: PEPCID FOLATE PO HYDROcodone-acetaminophen 5-325 mg per tablet Commonly known as: NORCO Take 2 tablets by mouth every 4 (four) hours as needed for Pain for up to 3 days. hydrocortisone 2.5 % cream latanoprost 0.005 % ophthalmic solution Commonly known as: XALATAN methotrexate 2.5 mg tablet Commonly known as: TREXALL predniSONE 5 mg tablet Commonly known as: DELTASONE pregabalin 25 mg capsule Commonly known as: LYRICA Take 1 capsule (25 mg total) by mouth 2 (two) times daily. zolpidem 5 mg tablet Commonly known as: AMBIEN Take 2 tablets (10 mg total) by mouth at bedtime as needed for Sleep. STOP taking these medications LORazepam 0.5 mg tablet Commonly known as: ATIVAN Where to Get Your Medications You can get these medications from any pharmacy Bring a paper prescription for each of these medications HYDROcodone-acetaminophen 5-325 mg per tablet pregabalin 25 mg capsule zolpidem 5 mg tablet Information about where to get these medications is not yet available Ask your nurse or doctor about these medications cyclobenzaprine 5 mg tablet docusate sodium 100 MG capsule naloxone 4 mg/0.1 mL intranasal liquid polyethylene glycol 3350 17 g packet Hospital Course Admission Note: Per Dr. Jon Coelho is a 83 y.o. year old female who tells me she's here for attention to right buttockand entire right thigh pain that is relatively new (she could not be more specific time-weber). She seems not at all concerned about spine pain. One episode of urinary incontinence this AM, none thereafter. No fecal incontinence. No LE paresthesias. Also concerned about three days of severe atraumatic right tapia pain that she thinks is separate from her other pains. Hospital Course: Patient presented with the above symptomatology. Ortho Spine surgery was consulted. Patient was diagnosed with closed fractures of the 3rd thoracic vertebrae and 12th thoracic vertebrae thought to be secondary to osteoporosis. Patient was counseled on close outpatient follow-up with a bone health clinic for which referral has been placed along with primary care physician and daily vitamin-D supplementation was advised to the patient and she is agreeable. PT/OT was consulted andpatient was cleared for [facility] to [facility] for further rehabilitation which has been arranged for the patient. Patient advised to follow-up with her primary care physician within 1week of hospital discharge for close outpatient hospital follow-up visits. Patient ultimately discharged in stable condition. All questions answered to apparent satisfaction.Pt was instructed if any reoccurrence or any concerning symptoms to contact provider or present to nearest emergency department based on activity. Patient and family voiced understanding of recommendations and in agreement with discharge plan. Follow-up instructions discussed with the patient and family if applicable. Discharge Exam BP 124/61 (BP Location: Right arm) Pulse (!) 105 Temp 97.6 ??F (36.4 ??C) (Temporal) Resp 14 Ht 5' 2 (1.575 m) Wt 56.2 kg (124 lb) SpO2 92% BMI 22.68 kg/m?? Physical Exam General: Pt appears well-developed and well-nourished. No distress. Eyes: Conjunctivae and EOM are normal. No scleral icterus. Cardiovascular: Normal rate, regular rhythm. No murmur heard. Pulmonary/Chest: Effort normal. No respiratory distress. Pt has no wheezes. Pt has no rales. Abdominal: Soft. Bowel sounds are normal. Pt exhibits no distension. There is no tenderness. There is no rebound and no guarding. Musculoskeletal: Appears to have normal range of motion. Pt exhibits no edema, no tenderness or deformity. Neurological: Pt is alert and oriented to person, place, and time. No cranial nerve deficit or sensory deficit obviously noted. Skin: No rash noted. No erythema. No pallor. Procedures/Surgeries Performed/Labs Labs and Imaging: LABS LABORATORY DATA Recent Labs Lab 03/14/242040 WBC 4.7 HGB 9.9* HCT 29.7* PLTCT 120* SEGS 71 LYMPH 9 EOS 0 Recent Labs Lab 03/14/241 03/17/24 0438 03/18/24 0453 NA 137 -- -- CL 107 -- -- K 4.2 -- -- CO2 22* -- -- BUN 17.0 -- -- CREATININE 0.8 -- -- GLU 104 -- -- MG -- 1.9 1.9 CA 9.0 -- -- PHOS -- 2.7 -- Recent Labs Lab 03/15/24 0650 ALT 12 AST 19 ALK 49 ALB 3.7 No results for input(s): AMYLASE, LIPASE, MIREILLE, LIP in the last 168 hours. No results for input(s): ESR, CRP in the last 168 hours. No results for input(s): CHOL, HDL, LDL, TRIG in the last 168 hours. Cardiac: No results for input(s): CK, CKMB, TROP in the last 72 hours. No results for input(s): BNP in the last 72 hours. No results for input(s): DIGOXIN in the last 72 hours. No results for input(s): CHOL, HDL, LDL, TRIG in the last 72 hours. Coagulation: No results for input(s): PRO, INR, APTT in the last 72 hours. No results for input(s): DDIMER in the last 72 hours. UA Lab Results Component Value Date COLORU Light Yellow 03/15/2024 GLUCOSEU Negative 03/15/2024 KETONESU Negative 03/15/2024 PHUR 5.5 03/15/2024 PROTEINUR Negative 03/15/2024 NITRITE Negative 03/15/2024 LEUKOCYTESUR Negative 03/15/2024 WBCUA <1 03/15/2024 RBCUA 1 03/15/2024 MICROBIOLOGY: Microbiology Results (last 7 days) No results found for the last 168 hours. IMAGING: MR Lumbar Spine WO Contrast Result Date: 03/15/2024 MRI LUMBAR SPINE WITHOUT CONTRAST HISTORY: Back pain radiating down her right leg for one week. History of sciatica. Right buttock and right thigh pain. Urinary incontinence. COMPARISON: CT examination lumbar spine 03/14/2024 TECHNIQUE: Multiplanar, multisequence noncontrast images were obtained. FI NDINGS: Transitional anatomy at the lumbosacral junction. L5-S1 is image 44, series 12, with a rudimentary disc at S1-2. Alignment does not appear significant changed, with again 5 mm anterolisthesisat L4-5. Remote appearing compression fractures involving L1 and L2, again noted, with approximately 20% loss of height these regions. Similarly, unchanged remote compression fracture of L3, with 50%loss of height. Mild marrow edema in the sacrum, with bilateral presacral soft tissue swelling, suggestive of subacute sacral insufficiency fractures. 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 Remaining findings by level are as follows: T12-L1: Mild bulge. Mild facet arthropathy. Mild bilateral neural foraminal narrowing. No significant canal stenosis. L1-2: Mild bulge. Mild facet arthropathy. No significant canal or neural foraminal narrowing. L2-3: Mild bulge. Mild facet arthropathy. No significant canal stenosis. Mild bilateral neural foraminal narrowing. L3-4: Mild bulge. Mild facet arthropathy. No significant canal or neural foraminal narrowing. L4-5: Severe facet hypertrophy. Anterolisthesis. Unroofing the disc. No significant canal stenosis. Mild bilateral neural foraminal narrowing. L5-S1:Rudimentary disc and posterior elements. No significant canal or neural foraminal narrowing. Atrophy of the dorsal paraspinous soft tissues. Dependent changes in the lungs. Visualized intra-abdominalcontents, grossly unremarkable IMPRESSION: 1. 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 2. Subacute bilateral sacral insufficiency fractures. 3. Remote compression fractures of L1, L2, and L3. 4. 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 MELECIO BLAKELY MD 03/15/2024 12:11 PM MR Thoracic Spine WO Contrast Result Date: 03/15/2024 MRI THORACIC SPINE WITHOUT CONTRAST HISTORY: Back pain radiating down her right leg for one week. History of sciatica. Right buttock and right thigh pain. Urinary incontinence. COMPARISON: Plain filmof the thoracic spine 05/21/2023 TECHNIQUE: Multiplanar, multisequence noncontrast images were obtained. FINDINGS: T1-2 is image 1, series 7 Again noted are the multiple remote compression fractures,unchanged from the May 2023 study as follows: [...] loss from May 2023. Only mild retropulsion and no significant canal stenosis. Associated exaggerated thoracic kyphosis is unchanged. No new regions of marrow edema are seen to suggest new, acute compression fractures. 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 Remaining findings by level are as follows: T9-10: Mild retropulsion with mild cord flattening. No significant canal stenosis or neural foraminal narrowing. T10-11: Mild bulge. Mild facet arthropathy. No central canal orneural foraminal narrowing. T11-12: Mild bulge. Mild facet arthropathy. Mild cord finding. No central canal stenosis. T12-L1: Mild bulge. Mild facet arthropathy. Mild bilateral neural foraminal narrowing. No significant canal stenosis. Atrophy of the dorsal paraspinous tissues. Small bilateral dependent atelectasis in the lungs. Ectasia of the thoracic aorta. Visualized upper abdominal contents, g rossly unremarkable IMPRESSION: 1. Multiple remote compression fractures, unchanged from May 2023. No progressive height loss or retropulsion. Unchanged exaggerated thoracic kyphosis in this region 2. Tiny syrinx inthe distal cord from T9 to the conus. 3. Mild degenerative findings, but no significant canal stenosis or neural foraminal narrowing. MELECIO BLAKELY MD 03/15/2024 11:32 AM XR Tibfib 2 Views RT Result Date: 03/15/2024 XR TIBFIB 2 VIEWS RT INDICATION: mysterious pain COMPARISON: None FINDINGS: No acute osseous or articular abnormalities. There is mild chondrocalcinosis of the lateral joint space, with very slight loss of joint space involving both the medial and lateral joint compartments. No focal soft tissue abnormality evident. IMPRESSION: Nothing acute with mild chondrocalcinosis of the lateral joint space. BRANDIN SHELTON MD 03/15/2024 8:[address] Lumbar Spine WO Contrast Result Date: 03/14/2024 CT LUMBAR SPINE WITHOUT CONTRAST HISTORY: Pt complains of back pain radiating down her right leg x1week. H/x of sciatica COMPARISON: 01/22/2018 TECHNIQUE: No contrast. Coronal and sagittal reformatted images generated and reviewed. Automated exposure control, adjustment of mA and/or kV according to patient size or iterative reconstruction dose optimization techniques were used. FINDINGS: BONES: Stable diffuse osteopenia is demonstrated. Stable compression deformities seen in the L4, L2 and L1 vertebral bodies. Progressive compression deformity of T12 is seen with approximately 70% collapse of the anterior vertebral body as opposed to approximately 50% compression. In addition, there is increased compression deformity of the T3 vertebral body now measuring approximately 20%. No suspiciouslytic or blastic lesions identified. ALIGNMENT: No evidence of acute malalignment. SOFT TISSUES: Paraspinous soft tissues are within normal limits. Aorta is of normal caliber for age. Significant calcifications of the abdominal aorta is stable when compared to the prior exam DEGENERATIVE CHANGES: Multilevel degenerative disease. No significant canal or foraminal stenosis. Mild degenerative anterolisthesis of L4 on L5 without associated pars interarticularis defects without definite fracture Additional findings: Visualized lung bases are clear. IMPRESSION: Progressive compression deformities of T3 and T12. SANTOS TAYLOR MD 03/14/2024 8:49 PM XR Hip 2 View W Pelvis RT Result Date: 03/14/2024 RIGHT HIP COMPLETE WITH PELVIS HISTORY: Right hip pain COMPARISON: None VIEWS: Complete hip, minimum of 2 views. Pelvis, 1 or 2 views. FINDINGS/IMPRESSION: No fracture or dislocation. No bony lesion.Right hip joint is normal. There is ORIF changes of the left hip joint with healed left intertrochanteric fracture. Bony pelvis is intact. Soft tissues are normal. Juan J Isidro MD 03/14/2024 8:12PM Disposition [facility] Facility Discharge Instructions Follow up: Follow-up Information Brandin Perales MD. Call. Specialties: Orthopedic and Spine Surgery, Orthopedic Surgery Why: As needed, Post-Hospital Visit Contact information: [address] [facility] [address] Porfirio Hauser MD. Schedule an appointment as soon as possible for a visit in 2 week(s). Specialty: Internal Medicine Why: Post-Hospital Visit Contact information: [address] [facility] [address] Signed: Mariel Vincent MD 03/19/2024 6:43 AM Total time spent today: 35 minutes. Of note patient new to provider on day of discharge Total encounter time spent on clinical assessment and preparing for visitation with patient, interviewing patient and or accompanying person(s), performing physical examination and evaluation of patient, independently reviewing written and or electronic patient's medical record(s) including but notlimited to vital signs, laboratory results, radiographic images, senior energy consultant(s) notes, and current medications. Independently performing computerized mill recorder of appropriate medications, tests and/or proceduresin electronic medical record, documenting/charting clinical information in patient's medical record, communicating and coordinating medical care with other health daycare director, counseling/educating the patient/family and coordinating medical care. The calculation of this time is not solely limited to the time interval recorded by the electronic medical records. This note was generated using [employer] dictation software. There may be inherent mis-spellings and mis-wordings that are not intentional and are not reflective of the medical care provided. * Татьяна Bernal MD - 03/17/2024 3:34 PM MST Images from the original note were not included. Hospitalist Discharge Summary Patient: Bryanna Coelho 83 y.o. female : 1940 PCP: Porfirio Hauser MD Date of Admission: 03/14/2024 6:55 PM Length of Stay: 3 days Post-Discharge To-Do List Follow-up with PCP and bone health clinic History of Present Illness Bryanna Coelho is a 83 y.o. year old female with PMH of HTN, arthritis, and fibromyalgia who presents for worsening right buttock and right thigh pain. She was not able to define onset. She was not worried about her back as a point of pain. She had 1 episode of urinary incontinence the morning of arrival with none thereafter and no fecal incontinence. She denied any lower extremity paresthesias. She did note right tapia pain on arrival that she feels is separate from her presenting chief complaint. She denies any fevers, chills, or rigors at home. Patient was seen and examined on day of discharge. NAEO, hemodynamically stable. Continues to deny any new motor or sensory deficits. Still with intense right buttock and thigh pain. Worked with skilled therapists recommended for discharge to penit[facility]iary facility. Discussed plan of care with her daughter, out of state, on the phone. Addressed all questions and concerns. Hospital Course Right-sided sciatica as etiology for right buttock and right thigh pain Closed fracture of 3rd thoracic vertebrae Closed fracture of 12 thoracic vertebrae Osteoporosis with current pathological fractures -ortho spine following, appreciate recs -multimodal pain control -Tylenol 1000 mg PO TID -cyclobenzaprine 5 mg PO TID -Lyrica 25 mg PO BID -prn oxycodone PO or morphine IV -prn antiemetics -prn bowel care -followup MRI without evidence of significant canal stenosis or neural foraminal narrowing -establish care with bone health clinic and follow-up after discharge, referral placed -skilled therapy assessments recommending discharge to penitentiary facility -continue vitamin-D supplementation for osteoporosis Microcytic anemia Thrombocytopenia Chronic methotrexate use Polymyalgia rheumatica -monitor -folate and B12 levels elevated, titrate with PCP -continue folic acid 800 mcg PO q.d. -continue prednisone 5 mg PO q.d., wean as tolerated outpatient in the setting of osteoporosis -resume weekly methotrexate 12.5 mg PO outpatient Ancillary Assessments: Physical Therapy: Ordered: Yes Evaluation: Sat at edge of bed ([facility] 3), Minimal Assist, Contact Guard Assist (03/16/24 0920) Discharge recommendations: Prison Facility DME: To Be Determined, At next level of care Occupational Therapy: Ordered: No Evaluation: Discharge recommendations: DME: Speech Therapy: Ordered: No Diagnosis: Sonoscope Operator: Wound Care: Wound Right;Anterior Tibial (Active) Date First Assessed/Time First Assessed: 03/14/24 2230 Orientation: Right;Anterior Location: Tibial Discharge Problem List Principal Problem: Sciatica, right side (POA: Unknown) Active Problems: Right leg pain (POA: Unknown) Macrocytic anemia (POA: Unknown) Thrombocytopenia (POA: Unknown) Closed fracture of third thoracic vertebra (POA: Unknown) Closed fracture of twelfth thoracic vertebra (POA: Unknown) Osteoporosis with current pathological fracture (POA: Unknown) HTN (hypertension) (POA: Unknown) Resolved Problems: * No resolved hospital problems. * Discharge Disposition Prison Facility Patient Instructions Patient Instructions: Follow-up Information Brandin Perales MD. Call. Specialties: Orthopedic and Spine Surgery, Orthopedic Surgery Why: As needed, Post-Hospital Visit Contact information: [address] [facility] [address] Porfirio Hauser MD. Schedule an appointment as soon as possible for a visit in 2 week(s). Specialty: Internal Medicine Why: Post-Hospital Visit Contact information: [address] [facility] [address] Discharge Diet Orders Future Labs/Procedures Expected by Expires Diet Regular As directed Questions: Liquid Modification: Fluid Restriction: Additional Diet: Texture Modification: Discharge MISC Future Labs/Procedures Expected by Expires Ambulatory Referral to Bone Health Consult As directed Scheduling Instructions: Urgent requests are handled same day/ next day Saturday through Saturday and routine referrals may takeup to two weeks to be processed. Please note if you have Traditional Medicare insurance ONLY (PART A or B) and do not have secondaryinsurance, your insurance does not require an authorization. You may go ahead and schedule an appointment with a participating Medicare provider of your choice. Log into [employer] to see the insurance authorization status or message your provider directly if youneed a referral change. Once authorization is obtained, you???ll receive a [employer] notification, text or a call from your specialty office to schedule your appointment. All other questions please call [facility] at [phone]. Questions: Type of Fracture: If selected provider is [id number] with patient???s insurance plan, okay to redirect referral to in-network provider?: Yes Ambulatory referral to Pain Clinic As directed Scheduling Instructions: Urgent requests are handled same day/ next day Saturday through Saturday and routine referrals may takeup to two weeks to be processed. Please note if you have Traditional Medicare insurance ONLY (PART A or B) and do not have secondaryinsurance, your insurance does not require an authorization. You may go ahead and schedule an appointment with a participating Medicare provider of your choice. Log into [employer] to see the insurance authorization status or message your provider directly if youneed a referral change. Once authorization is obtained, you???ll receive a [employer] notification, text or a call from your specialty office to schedule your appointment. All other questions please call [facility] at [phone]. Questions: If selected provider is [id number] with patient???s insurance plan, okay to redirect referral to in-network provider?: Yes DNR (Do Not Resuscitate) As directed Free from active TB As directed Questions: Free from active TB?: Yes OT Consult and Treat As directed 03/17/2025 Pain Control As directed PT Consult and Treat As directed 03/17/2025 Discharge Medications Medication List START taking these medications cyclobenzaprine 5 mg tablet Commonly known as: FLEXERIL Take 1 tablet (5 mg total) by mouth every 8 (eight) hours for 10 days. naloxone 4 mg/0.1 mL intranasal liquid Commonly known as: NARCAN 1 spray by Nasal route as needed for Opioid Reversal. CONTINUE taking these medications B-12 COMPLIANCE INJECTION IJ famotidine 10 mg tablet Commonly known as: PEPCID FOLATE PO HYDROcodone-acetaminophen 5-325 mg per tablet Commonly known as: NORCO Take 2 tablets by mouth every 4 (four) hours as needed for Pain for up to 3 days. hydrocortisone 2.5 % cream latanoprost 0.005 % ophthalmic solution Commonly known as: XALATAN LORazepam 0.5 mg tablet Commonly known as: ATIVAN methotrexate 2.5 mg tablet Commonly known as: TREXALL predniSONE 5 mg tablet Commonly known as: DELTASONE pregabalin 25 mg capsule Commonly known as: LYRICA Take 1 capsule (25 mg total) by mouth 2 (two) times daily. zolpidem 5 mg tablet Commonly known as: AMBIEN Take 2 tablets (10 mg total) by mouth at bedtime as needed for Sleep. Where to Get Your Medications You can get these medications from any pharmacy Bring a paper prescription for each of these medications HYDROcodone-acetaminophen 5-325 mg per tablet pregabalin 25 mg capsule Information about where to get these medications is not yet available Ask your nurse or doctor about these medications cyclobenzaprine 5 mg tablet naloxone 4 mg/0.1 mL intranasal liquid Labs and Studies Results Labs: Hematologic: Recent Labs Lab 03/14/24204003/15/24 1318 WBC 4.7 -- HGB 9.9* -- HCT 29.7* -- MCV 101.0* -- PLTCT 120* -- [id number] -- 1,042* FOLATE -- >40.0* Metabolic: Recent Labs Lab 03/14/24204003/15/24 0650 03/17/24 0438 NA 137 -- -- K 4.2 -- -- CL 107 -- -- CO2 22* -- -- BUN 17.0 -- -- CREATININE 0.8 -- -- CA 9.0 -- -- MG -- -- 1.9 ALT -- 12 -- AST -- 19 -- Cardiovascular: No results for input(s): HSTROP, CK, CKMB, BNP, PROBNP, CRP, SEDRATE, LACTATE, DIMER, CHOL, TRIG, HDL, LDL in the last 168 hours. Urine Testing: Recent Labs Lab 03/15/24 2307 SPECGRAV 1.018 GLUCOSEU Negative BILIRUBINUR Negative KETONESU Negative HGBUR Trace* PHUR 5.5 PROTEINUR Negative UROBILINOGEN <2.0 NITRITE Negative LEUKOCYTESUR Negative RBCUA 1 WBCUA <1 SQUAM 2 BACTERIA None Seen Body Fluid: No results for input(s): WBCFLUID, TNCFLUID, NEUTPCTFLD, LYMPHPCTFLD, RBCFL, PROTEINFL,ALBFL, LDHFL, GLUCOSEFL, POCPHBF, TNCCSF, NEUTCSF, LYMPHSCSF, MONOCSF, RBCCSF, PROTEINCSF, GLUCCSF, COLORSYNFL, TNCSYNFL, RBCSYNFL, SYNCRYS, SYNOVQUANT, MONOURC, SFG LUCOSE, SFPROTEIN in the last 168 hours. Imaging: MR Lumbar Spine WO Contrast Result Date: 03/15/2024 IMPRESSION: 1. 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 2. Subacute bilateral sacral insufficiency fractures. 3. Remote compression fractures of L1, L2, and L3. 4. 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 MELCEIO BLAKELY MD 03/15/2024 12:11 PM MR Thoracic Spine WO Contrast Result Date: 03/15/2024 IMPRESSION: 1. Multiple remote compression fractures, unchanged from May 2023. No progressive height loss or retropulsion. Unchanged exaggerated thoracic kyphosis in this region 2. Tiny syrinx inthe distal cord from T9 to the conus. 3. Mild degenerative findings, but no significant canal stenosis or neural foraminal narrowing. MELECIO BLAKELY MD 03/15/2024 11:32 AM XR Tibfib 2 Views RT Result Date: 03/15/2024 IMPRESSION: Nothing acute with mild chondrocalcinosis of the lateral joint space. BRANDIN SHELTON MD 03/15/2024 8:[address] Lumbar Spine WO Contrast Result Date: 03/14/2024 IMPRESSION: Progressive compression deformities of T3 and T12. SANTOS TAYLOR MD 03/14/2024 8:49 PM Microbiology: Microbiology Results (last 7 days) No results found for the last 168 hours. Pending Test Results [facility] IP PENDING LABORATORY AND RADIOLOGY RESULTS (From admission to next 4h) None Surgeries & Procedures Consults Consults (From admission, onward) Start Ordered 03/17/24 120 Inpatient consult to Case Management Once Provider: (Not yet assigned) 03/17/24 1203 03/15/24 06 Wound/OstomyNurse Consult Eval and Treat Once Provider: (Not yet assigned) 03/15/2461703/14/242102 Ortho/Spine Consult Once Provider: Brandin Pearles MD 03/14/242102 Discharge Physical Exam BP 120/81 (BP Location: Right arm) Pulse (!) 106 Temp 98.1 ??F (36.7 ??C) (Oral) Resp 18 Ht5' 2 (1.575 m) Wt 56.2 kg (124 lb) SpO2 90% BMI 22.68 kg/m?? General: No acute distress. Awake and alert. Converses appropriately. Eyes: Non-icteric sclerae. Normal lids and conjunctiva. ENT: No signs of head or facial trauma. External ears and nose normal. Neck: Soft. Trachea midline. Resp: Normal respiratory rate and effort. Clear to auscultation. CV: Normal rate, regular rhythm. No murmurs, rubs, or gallops. No lower extremity edema. GI: Active bowel sounds. Soft, non-tender, non-distended. MSK: No deformities or joint swelling of hands, legs or feet. 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 Moves all 4 extremities on command. No facial asymmetry. Psych: Appropriate affect. Normal judgement and insight. Skin: No rash, ulcers or subcutaneous nodules on exposed skin. Credentials Татьяна Bernal MD 03/17/2024 3:34 PM Total time spent for discharge on date of discharge: >30 minutes. documented in this encounter Medications at Time of Discharge Medication Sig Dispensed Refills Start Date End Date Cyanocobalamin (B-12 COMPLIANCE INJECTION IJ) Inject as directed. docusate sodium (COLACE) 100 MG capsule Take 1 capsule (100 mg total) by mouth daily. 03/19/2024 famotidine (PEPCID) 10 mg tablet Take 10 mg by mouth 2 (two) times daily as needed. Folic Acid (FOLATE PO) Take 1 mg by mouth daily. hydrocortisone 2.5 % cream Apply 1 Application topically 2 (two) times daily as needed (to affected areas). latanoprost (XALATAN) 0.005 % ophthalmic solution Place 1 drop into both eyes at bedtime. methotrexate (TREXALL) 2.5 mg tablet Take 12.5 mg by mouth once a week. Patient takes 5 tablets of 2.5mg tab on Saturday night once a week naloxone (NARCAN) 4 mg/0.1 mL intranasal liquid 1 spray by Nasal route as needed for Opioid Reversal. 03/17/2024 predniSONE (DELTASONE) 5 mg tablet Take 5 mg by mouth daily. pregabalin (LYRICA) 25 mg capsule Take 1 capsule (25 mg total) by mouth 2 (two) times daily. 6 capsule 03/17/2024 zolpidem (AMBIEN) 5 mg tablet Take 2 tablets (10 mg total) by mouth at bedtime as needed for Sleep. 30 tablet 03/18/2024 cyclobenzaprine (FLEXERIL) 5 mg tablet Take 1 tablet (5 mg total) by mouth every 8 (eight) hours for 10 days. 03/17/2024 03/27/2024 HYDROcodone-acetamino phen (NORCO) 5-325 mg per tablet Take 2 tablets by mouth every 4 (four) hours as needed for Pain for up to 3 days. 12 tablet 03/17/2024 03/20/2024 polyethylene glycol 3350 (MIRALAX) 17 g packet Take 17 g by mouth daily for 3 days. 03/18/2024 03/21/2024 documented as of this encounter Progress Notes * Rosanne Hankins LMSW - 03/18/2024 12:26 PM MST Images from the original note were not included. Case Management Ongoing Assessment Rosanne Hankins LMSW 03/18/2024 12:26 PM Patient Class:Inpatient Principal Problem: Sciatica, right side Preferred Outpatient Pharmacy [id number] - [place], [place] - [address] [address] [place] [address] Reason: DC Planning Transportation set up for pt to go to [facility]. [facility] transport will be picking pt up between 2:30-3:30pm. CM to remain available for any additional DCP needs. Rosanne Hankins LMSW * Chester Brizuela RN - 03/17/2024 11:58 AM MST Images from the original note were not included. Case Management Ongoing Assessment FELIX Medina 03/17/2024 11:59 AM Patient Class:Inpatient Principal Problem: Sciatica, right side Preferred Outpatient Pharmacy [id number] - [place], [place] - [address] [address] [place] [address] Reason: DC Planning Subjective (Patient's Account): Medicare 3 day inpt stay for SNF transfer Objective (Clinical Findings): discharge planning Assessment: After Mrs. Coelho's chart reviewed for Medical 3 day inpt stay for SNF transfer, verified pt's stay meets criteria. Plan: [facility]: [facility] Sandra Brizuela [facility] cell [phone] * Rosanne Hankins LMSW - 03/17/2024 10:18 AM MST Images from the original note were not included. Case Management Ongoing Assessment Rosanne Hankins LMSW 03/17/2024 10:20 AM Patient Class:Inpatient Principal Problem: Sciatica, right side Preferred Outpatient Pharmacy [id number] - [place], [place] - [address] [facility] [address] [address] Reason: DC Planning Pt's daughter Mireille called to speak with CM. Mireille expressed concern for not knowing what was going on with her mother. She stated the pt told her she wasn't physically examined, as well as therapy hasn't seen her. I explained that per the pt's chart, she has been seen by both wound care and physical therapy, as well as other doctors and staff. Pt's daughter shared she's worried about the pts cognition and mentation, since she has been on pain medication for a long period of time. Mireille has requestedto speak with the doctor for further information, as well as asked to be kept updated on pt. RAMY viveros know she would inform the doctor of her request. CM to continue to follow. UPDATE 12:00: Sent Dr. Bernal a message to contact pts daughter. Pending bed availability for DC - CM to continue to follow. UPDATE 1356: [facility] informed CM that they do not have a bed available today. CM to continue to follow. UPDATE 1616: Pt requested to speak with CM regarding next steps for DC. CM informed her that tomorrow she shouldbe leaving to go to [facility]. Pt agreeable and happy to be going to that facility again. CM to follow and coordinate transportation tomorrow, 03/18. Plan: SNF: [facility] Rosanne Hankins LMSW * Татьяна Bernal MD - 03/16/2024 5:10 PM MST Images from the original note were not included. Hospitalist Progress Note Patient: Bryanna Coelho 83 y.o. female : 1940 Date of Admission: 03/14/2024 6:55 PM Date of Encounter: 03/16/2024 Hospital Day: 3 Admission Status: Inpatient History of Present Illness Bryanna Coelho is a 83 y.o. year old female with PMH of HTN, arthritis, and fibromyalgia who presents for worsening right buttock and right thigh pain. She was not able to define onset. She was not worried about her back as a point of pain. She had 1 episode of urinary incontinence the morning of arrival with none thereafter and no fecal incontinence. She denied any lower extremity paresthesias. She did note right tapia pain on arrival that she feels is separate from her presenting chief complaint. She denies any fevers, chills, or rigors at home. Interval History Notes and events occurring since last patient evaluation reviewed. 03/16/2024: NAEO. Pain is better controlled. Hemodynamically stable, afebrile. MRI results noted. Awaiting spine input after MRIs. Worked with PT [facility]. Case discussed with: Patient, Nurse, and Case Management Physical Exam Vital Signs: BP (!) 169/76 (BP Location: Left arm) Pulse 74 Temp 97.9 ??F (36.6 ??C) (Oral) Resp 18 Ht 5' 2 (1.575 m) Wt 56.2 kg (124 lb) SpO2 93% BMI 22.68 kg/m?? General: No acute distress. Awake and alert. Converses appropriately. Eyes: Non-icteric sclerae. Normal lids and conjunctiva. ENT: No signs of head or facial trauma. External ears and nose normal. Neck: Soft. Trachea midline. Resp: Normal respiratory rate and effort. Clear to auscultation. CV: Normal rate, regular rhythm. No murmurs, rubs, or gallops. No lower extremity edema. GI: Active bowel sounds. Soft, non-tender, non-distended. MSK: No deformities or joint swelling of hands, legs or feet. 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 Moves all 4 extremities on command. No facial asymmetry. Psych: Appropriate affect. Normal judgement and insight. Skin: No rash, ulcers or subcutaneous nodules on exposed skin. Medications Scheduled: acetaminophen (TYLENOL) tablet 1,000 mg Oral Q8H YVONNE cyclobenzaprine (FLEXERIL) tablet 5 mg Oral Q8H YVONNE folic acid (FOLVITE) tablet 800 mcg Oral Daily (09:00) latanoprost (XALATAN) 0.005 % ophthalmic solution 1 drop Both Eyes HS predniSONE (DELTASONE) tablet 5 mg Oral Daily (09:00) pregabalin (LYRICA) capsule 25 mg Oral BID vitamin D3 (CHOLECALCIFEROL) tablet 25 mcg Oral Q24H YVONNE Continuous infusions: PRN: LORazepam 0.5 mg Oral Q8H PRN ondansetron 4 mg Intravenous Q6H PRN oxyCODONE 5 mg Oral Q4H PRN Or oxyCODONE 10 mg Oral Q4H PRN Data Reviewed I personally performed the following data review which was relevant to medical decision-making, including ordering and reviewing unique tests as below, discussing management and test results with appropriate specialists, independently interpreting tests performed by other providers, obtaining indepe ndent history as needed, and reviewing of necessary outside records: Labs: Hematologic: Recent Labs 03/15/24 1318 [id number] 1,042* FOLATE >40.0* Metabolic: Recent Labs 03/15/24 0650 AST 19 ALT 12 TP 6.0* ALB 3.7 GLOB 2.3 AG 1.6 TBIL 1.3* Cardiovascular: No results for input(s): HSTROP, CK, CKMB, BNP, PROBNP, DIMER, CHOL, TRIG, HDL, LDL, LDLCALC, VLDL, LACTATE, CRP, ESR, POCPH, POCPO2, POCPCO2, POCHCO3 in the last 36 hours. Urine Testing: Recent Labs 03/15/24 2307 SPECGRAV 1.018 GLUCOSEU Negative KETONESU Negative PROTEINUR Negative NITRITE Negative LEUKOCYTESUR Negative RBCUA 1 WBCUA <1 SQUAM 2 BACTERIA None Seen Imaging: No results found. Microbiology: Microbiology Results (last 3 days) No results found for the last 80 hours. Intake/Output: No intake or output data in the 24 hours ending 03/16/24 1710 Assessment & Plan Suspect right-sided sciatica as etiology for right buttock and right thigh pain Closed fracture of 3rd thoracic vertebrae Closed fracture of 12 thoracic vertebrae Osteoporosis with current pathological fractures -ortho spine following, appreciate recs -multimodal pain control -Tylenol 1000 mg PO TID -cyclobenzaprine 5 mg PO TID -Lyrica 25 mg PO BID -prn oxycodone PO or morphine IV -prn antiemetics -prn bowel care -followup MRI without evidence of significant canal stenosis or neural foraminal narrowing -skilled therapy assessments recommending discharge to pen[facility] facility -continue vitamin-D supplementation for osteoporosis Microcytic anemia Thrombocytopenia Chronic methotrexate use Polymyalgia rheumatica -monitor -folate and B12 levels elevated, titrate with PCP -continue folic acid 800 mcg PO q.d. -continue prednisone 5 mg PO q.d. -resume weekly methotrexate 12.5 mg PO outpatient Diet: Diet Regular Room Service Eligible - Yes Code Status: DNR/DNI VTE Prophylaxis: Mechanical: Anti-Embolism Location: Bilateral lower extremity Anti-Embolism Devices: Sequential compression devices, below knee Pharmacologic: No Discharge Planning: Patient not medically cleared for discharge Ancillary Assessments: Physical Therapy: Ordered: Yes Evaluation: Sat at edge of bed ([facility]), Minimal Assist, Contact Guard Assist (03/16/24 0920) Discharge Recommendations: [facility] Facility DME: To Be Determined, At next level of care Occupational Therapy: Ordered: No Evaluation: Discharge Recommendations: DME: Speech Therapy: Ordered: No Diagnosis: Sonoscope Operator: Wound Care: Wound Wound Right (Active) Date First Assessed/Time First Assessed: 09/18/23 1351 Primary Wound Type: Wound Present on Original Admission: Yes Orientation: Right Wound Description (Comments): great toe with intact yellow scab Wound Right;Anterior Tibial (Active) Date First Assessed/Time First Assessed: 03/14/24 2230 Orientation: Right;Anterior Location: Tibial Credentials Татьяна Bernal MD 03/16/2024 5:10 PM * Татьяна Bernal MD - 03/15/2024 4:52 PM MST Images from the original note were not included. Hospitalist Progress Note Patient: Bryanna Coelho 83 y.o. female : 1940 Date of Admission: 03/14/2024 6:55 PM Date of Encounter: 03/15/2024 Hospital Day: 2 Admission Status: Inpatient History of Present Illness Bryanna Coelho is a 83 y.o. year old female with PMH of HTN, arthritis, and fibromyalgia who presents for worsening right buttock and right thigh pain. She was not able to define onset. She was not worried about her back as a point of pain. She had 1 episode of urinary incontinence the morning of arrival with none thereafter and no fecal incontinence. She denied any lower extremity paresthesias. She did note right tapia pain on arrival that she feels is separate from her presenting chief complaint. She denies any fevers, chills, or rigors at home. Interval History Notes and events occurring since last patient evaluation reviewed. 03/15/2024: NAEO. Pain is better controlled. Hemodynamically stable, afebrile. Awaiting final results of MRI. Evaluated by ortho spine. No new complaints. Case discussed with: Patient, Nurse, and Case Management Physical Exam Vital Signs: BP 131/51 (BP Location: Right arm) Pulse 69 Temp 97.7 ??F (36.5 ??C) (Oral) Resp 18 Ht 5' 2 (1.575 m) Wt 56.2 kg (124 lb) SpO2 90% BMI 22.68 kg/m?? General: No acute distress. Awake and alert. Converses appropriately. Eyes: Non-icteric sclerae. Normal lids and conjunctiva. ENT: No signs of head or facial trauma. External ears and nose normal. Neck: Soft. Trachea midline. Resp: Normal respiratory rate and effort. Clear to auscultation. CV: Normal rate, regular rhythm. No murmurs, rubs, or gallops. No lower extremity edema. GI: Active bowel sounds. Soft, non-tender, non-distended. MSK: No deformities or joint swelling of hands, legs or feet. 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 Moves all 4 extremities on command. No facial asymmetry. Psych: Appropriate affect. Normal judgement and insight. Skin: No rash, ulcers or subcutaneous nodules on exposed skin. Medications Scheduled: acetaminophen (TYLENOL) tablet 1,000 mg Oral Q8H YVONNE cyclobenzaprine (FLEXERIL) tablet 5 mg Oral Q8H YVONNE folic acid (FOLVITE) tablet 800 mcg Oral Daily (09:00) latanoprost (XALATAN) 0.005 % ophthalmic solution 1 drop Both Eyes HS [START ON 03/16/2024] predniSONE (DELTASONE) tablet 5 mg Oral Daily (09:00) pregabalin (LYRICA) capsule 25 mg Oral BID vitamin D3 (CHOLECALCIFEROL) tablet 25 mcg Oral Q24H YVONNE Continuous infusions: PRN: fentaNYL 50 mcg Intravenous Q15MIN PRN ketorolac 15 mg Intravenous Q6H PRN LORazepam 0.5 mg Oral Q8H PRN morphine 2 mg Intravenous Q3H PRN morphine 3 mg Intravenous Q3H PRN ondansetron 4 mg Intravenous Q6H PRN oxyCODONE 2.5 mg Oral Q6H PRN oxyCODONE 5 mg Oral Q6H PRN zolpidem 2.5 mg Oral HS PRN Data Reviewed I personally performed the following data review which was relevant to medical decision-making, including ordering and reviewing unique tests as below, discussing management and test results with appropriate specialists, independently interpreting tests performed by other providers, obtaining indepe ndent history as needed, and reviewing of necessary outside records: Labs: Hematologic: Recent Labs 03/14/242040 WBC 4.7 RBC 2.94* HGB 9.9* HCT 29.7* MCV 101.0* PLTCT 120* Metabolic: Recent Labs 03/14/24204003/15/24 0650 GLU 104 -- BUN 17.0 -- NA 137 -- K 4.2 -- CL 107 -- CO2 22* -- CREATININE 0.8 -- CA 9.0 -- AST -- 19 ALT -- 12 TP -- 6.0* ALB -- 3.7 GLOB -- 2.3 AG -- 1.6 TBIL -- 1.3* Cardiovascular: No results for input(s): HSTROP, CK, CKMB, BNP, PROBNP, DIMER, CHOL, TRIG, HDL, LDL, LDLCALC, VLDL, LACTATE, CRP, ESR, POCPH, POCPO2, POCPCO2, POCHCO3 in the last 36 hours. Urine Testing: No results for input(s): SPECGRAV, GLUCOSEU, KETONESU, PROTEINUR, NITRITE, LEUKOCYTESUR, RBCUA, WBCUA, SQUAM, BACTERIA, NAUR, CRERUR, UOSMO, UREO, UUNUR, PROTUR in thelast 36 hours. Imaging: MR Lumbar Spine WO Contrast Result Date: 03/15/2024 MRI LUMBAR SPINE WITHOUT CONTRAST HISTORY: Back pain radiating down her right leg for one week. History of sciatica. Right buttock and right thigh pain. Urinary incontinence. COMPARISON: CT examination lumbar spine 03/14/2024 TECHNIQUE: Multiplanar, multisequence noncontrast images were obtained. FI NDINGS: Transitional anatomy at the lumbosacral junction. L5-S1 is image 44, series 12, with a rudimentary disc at S1-2. Alignment does not appear significant changed, with again 5 mm anterolisthesisat L4-5. Remote appearing compression fractures involving L1 and L2, again noted, with approximately 20% loss of height these regions. Similarly, unchanged remote compression fracture of L3, with 50%loss of height. Mild marrow edema in the sacrum, with bilateral presacral soft tissue swelling, suggestive of subacute sacral insufficiency fractures. 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 Remaining findings by level are as follows: T12-L1: Mild bulge. Mild facet arthropathy. Mild bilateral neural foraminal narrowing. No significant canal stenosis. L1-2: Mild bulge. Mild facet arthropathy. No significant canal or neural foraminal narrowing. L2-3: Mild bulge. Mild facet arthropathy. No significant canal stenosis. Mild bilateral neural foraminal narrowing. L3-4: Mild bulge. Mild facet arthropathy. No significant canal or neural foraminal narrowing. L4-5: Severe facet hypertrophy. Anterolisthesis. Unroofing the disc. No significant canal stenosis. Mild bilateral neural foraminal narrowing. L5-S1:Rudimentary disc and posterior elements. No significant canal or neural foraminal narrowing. Atrophy of the dorsal paraspinous soft tissues. Dependent changes in the lungs. Visualized intra-abdominalcontents, grossly unremarkable IMPRESSION: 1. 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 2. Subacute bilateral sacral insufficiency fractures. 3. Remote compression fractures of L1, L2, and L3. 4. 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 MELECIO BLAKELY MD 03/15/2024 12:11 PM MR Thoracic Spine WO Contrast Result Date: 03/15/2024 MRI THORACIC SPINE WITHOUT CONTRAST HISTORY: Back pain radiating down her right leg for one week. History of sciatica. Right buttock and right thigh pain. Urinary incontinence. COMPARISON: Plain filmof the thoracic spine 05/21/2023 TECHNIQUE: Multiplanar, multisequence noncontrast images were obtained. FINDINGS: T1-2 is image 1, series 7 Again noted are the multiple remote compression fractures,unchanged from the May 2023 study as follows: [...] loss from May 2023. Only mild retropulsion and no significant canal stenosis. Associated exaggerated thoracic kyphosis is unchanged. No new regions of marrow edema are seen to suggest new, acute compression fractures. 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 Remaining findings by level are as follows: T9-10: Mild retropulsion with mild cord flattening. No significant canal stenosis or neural foraminal narrowing. T10-11: Mild bulge. Mild facet arthropathy. No central canal orneural foraminal narrowing. T11-12: Mild bulge. Mild facet arthropathy. Mild cord finding. No central canal stenosis. T12-L1: Mild bulge. Mild facet arthropathy. Mild bilateral neural foraminal narrowing. No significant canal stenosis. Atrophy of the dorsal paraspinous tissues. Small bilateral dependent atelectasis in the lungs. Ectasia of the thoracic aorta. Visualized upper abdominal contents, g rossly unremarkable IMPRESSION: 1. Multiple remote compression fractures, unchanged from May 2023. No progressive height loss or retropulsion. Unchanged exaggerated thoracic kyphosis in this region 2. Tiny syrinx inthe distal cord from T9 to the conus. 3. Mild degenerative findings, but no significant canal stenosis or neural foraminal narrowing. MELECIO BLAKELY MD 03/15/2024 11:32 AM XR Tibfib 2 Views RT Result Date: 03/15/2024 XR TIBFIB 2 VIEWS RT INDICATION: mysterious pain COMPARISON: None FINDINGS: No acute osseous or articular abnormalities. There is mild chondrocalcinosis of the lateral joint space, with very slight loss of joint space involving both the medial and lateral joint compartments. No focal soft tissue abnormality evident. IMPRESSION: Nothing acute with mild chondrocalcinosis of the lateral joint space. BRANDIN SHELTON MD 03/15/2024 8:[address] Lumbar Spine WO Contrast Result Date: 03/14/2024 CT LUMBAR SPINE WITHOUT CONTRAST HISTORY: Pt complains of back pain radiating down her right leg x1week. H/x of sciatica COMPARISON: 01/22/2018 TECHNIQUE: No contrast. Coronal and sagittal reformatted images generated and reviewed. Automated exposure control, adjustment of mA and/or kV according to patient size or iterative reconstruction dose optimization techniques were used. FINDINGS: BONES: Stable diffuse osteopenia is demonstrated. Stable compression deformities seen in the L4, L2 and L1 vertebral bodies. Progressive compression deformity of T12 is seen with approximately 70% collapse of the anterior vertebral body as opposed to approximately 50% compression. In addition, there is increased compression deformity of the T3 vertebral body now measuring approximately 20%. No suspiciouslytic or blastic lesions identified. ALIGNMENT: No evidence of acute malalignment. SOFT TISSUES: Paraspinous soft tissues are within normal limits. Aorta is of normal caliber for age. Significant calcifications of the abdominal aorta is stable when compared to the prior exam DEGENERATIVE CHANGES: Multilevel degenerative disease. No significant canal or foraminal stenosis. Mild degenerative anterolisthesis of L4 on L5 without associated pars interarticularis defects without definite fracture Additional findings: Visualized lung bases are clear. IMPRESSION: Progressive compression deformities of T3 and T12. SANTOS TAYLOR MD 03/14/2024 8:49 PM XR Hip 2 View W Pelvis RT Result Date: 03/14/2024 RIGHT HIP COMPLETE WITH PELVIS HISTORY: Right hip pain COMPARISON: None VIEWS: Complete hip, minimum of 2 views. Pelvis, 1 or 2 views. FINDINGS/IMPRESSION: No fracture or dislocation. No bony lesion.Right hip joint is normal. There is ORIF changes of the left hip joint with healed left intertrochanteric fracture. Bony pelvis is intact. Soft tissues are normal. Juan J Isidro MD 03/14/2024 8:12PM Microbiology: Microbiology Results (last 3 days) No results found for the last 80 hours. Intake/Output: No intake or output data in the 24 hours ending 03/15/24 1262 Assessment & Plan Suspect right-sided sciatica as etiology for right buttock and right thigh pain Closed fracture of 3rd thoracic vertebrae Closed fracture of 12 thoracic vertebrae Osteoporosis with current pathological fractures -ortho spine following, appreciate recs -multimodal pain control -Tylenol 1000 mg PO TID -cyclobenzaprine 5 mg PO TID -Lyrica 25 mg PO BID -prn oxycodone PO or morphine IV -prn antiemetics -prn bowel care -followup MRI -skilled therapy assessments -continue vitamin-D supplementation for osteoporosis Microcytic anemia Thrombocytopenia Chronic methotrexate use Polymyalgia rheumatica -monitor -follow-up B12 and folate -continue folic acid 800 mcg PO q.d. -continue prednisone 5 mg PO q.d. -resume weekly methotrexate 12.5 mg PO outpatient Diet: Diet Regular Room Service Eligible - Yes Code Status: DNR/DNI VTE Prophylaxis: Mechanical: Anti-Embolism Location: Bilateral lower extremity Anti-Embolism Devices: Sequential compression devices, below knee Pharmacologic: No Discharge Planning: Patient not medically cleared for discharge Ancillary Assessments: Physical Therapy: Ordered: Yes Evaluation: Discharge Recommendations: DME: Occupational Therapy: Ordered: No Evaluation: Discharge Recommendations: DME: Speech Therapy: Ordered: No Diagnosis: Sonoscope Operator: Wound Care: Wound Right;Anterior Tibial (Active) Date First Assessed/Time First Assessed: 03/14/240 Orientation: Right;Anterior Location: Tibial Credentials Татьяна Bernal MD 03/15/2024 4:52 PM * Kiko Cunningham MD - 03/15/2024 11:59 AM MST Ortho spine plan of care note 83 y.o. female w/ a history of mild lower back pain with a 3 day history of acute severe radiculopathy. Clinically she appears to have an L3 radiculopathy as it radiates from the buttock to the anterior thigh without going distal to the knee. She has no weakness at this time but her mobility is limited due to pain. She has been taking pain medications and muscle relaxers which have not helped hersymptoms. CT is notable for degenerative changes and compression fractures consistent with osteoporosis. At the time being she does not have any red flag symptoms such as saddle anesthesia, incontinence, or urinary retention, thus there is low concern for cauda equina. Given her acute neurologic symptoms which have been refractory to conservative management we will proceed with MRI to determine if there is any stenosis on the nerve roots contributing to her clinical presentation. In the interimwe will initiate multimodal pain control including steroids, NSAIDS, and lyrica. also recommend treatment for osteoporosis with vitamin D / Calcium. MRI of the L and T spine was reviewed Notable for transitional anatomy at the lumbosacral junction with a sacralized L5. T12 was used as arefernce which attaching 12th rib for level numbering purposes. Multiple chronic compression fractures are identified including T12, L2 and L3. She also has multiple severe compression fractures (T8,T10, T12) in the thoracic spine and local kyphosis. Given her minimal symptomatology, chornicity offractures, as well as her evidence of severe osteoporosis do not recommend any surgical intervention at this time in regards to her thoracic spine fractures or deformity. No evidence of acute fracture or infection. Tiny syrinx at the distal spinal cord. There is no hyperintensity on STIR imaging con sistent with chronic compression fractures. There is a slight disc bulge at T12- L1 without evidenceof central or foraminal stenosis. She has approximately 7mm of spondylolisthesis of L4 on L5 with possible rotational instability as evidenced by some fluid in the facet joint. She otherwise has a spacious central canal with no evidence of central or neuroforaminal stenosis. Given these findings as well as her clinical symptoms of acute pain without any red flag signs, weakness, or acute neural compression, she is most likely experiencing a radiculitis of the L5 nerve root secondary to her spondylolisthesis in the setting of increased physical activity. At the time being she has done minimal non-operative management and there is no acute indication for surgical intervention. Recommendation is for multimodal pain management, physical therapy, activity as tolerated. Recommend outpatient follow-up for pain management for possible future injections if refractory to th jag first line treatments. Also recommend referral for endocrine or rheumatology for bone health and osteoporosis treatment. Okay for discharge from spine surgery perspective. PLAN: WB status -- Activity as tolerated, okay for PT Okay for diet Multimodal pain control Vitmain D for osteoporosis Endocrine or rheum follow-up for bone health Follow-up with pain management Clear for discharge from spine surgery perspective * Houston Webb MD - 03/15/2024 2:24 AM MST Nurse says pt changed her mind and wants to be DNR. I discuss with pt further when time allows. documented in this encounter H&P Notes * Houston Webb MD - 03/14/2024 9:17 PM MST Images from the original note were not included. Hospitalist Admission Note Patient: Bryanna Coelho 83 y.o. female : 1940 Date of Admission: 03/14/2024 6:55 PM Admission Status: Inpatient Chief Complaint Chief Complaint Patient presents with Back Pain Pt complains of back pain radiating down her right leg x1 week. H/x of sciatica Leg Pain History of Present Illness Bryanna Coelho is a 83 y.o. year old female who tells me she's here for attention to right buttockand entire right thigh pain that is relatively new (she could not be more specific time-weber). She seems not at all concerned about spine pain. One episode of urinary incontinence this AM, none thereafter. No fecal incontinence. No LE paresthesias. Also concerned about three days of severe atraumatic right tapia pain that she thinks is separate from her other pains. Primary care provider: Porfirio Hauser MD Review of Systems Multi-system ROS performed, with pertinent positives and negatives as noted in HPI. Patient History Past Medical History: Diagnosis Date HTN (hypertension) 03/15/2024 Arthritis Blood transfusion without reported diagnosis Diverticulitis Fibromyalgia Insomnia Osteoporosis Polymyalgia rheumatica Skin cancer Vitamin D deficiency Past Surgical History: Procedure Laterality Date I-M RODDING LEFT HIP. S&N Left 05/18/2017 Performed by Roby Cameron MD at [facility] IP SURGERY CHOLECYSTECTOMY COLOSTOMY EYE SURGERY Bilateral cataract extraction FRACTURE SURGERY Ankle HYSTERECTOMY REVISION COLOSTOMY SKIN BIOPSY TONSILLECTOMY Family History Problem Relation Name Age of Onset No Known Problems Mother Hypertension Father Social History Tobacco Use Smoking status: Never Smokeless tobacco: Never Vaping Use Vaping status: Never Used Substance Use Topics Alcohol use: Yes Comment: rarely Drug use: No I have reviewed the social determinants of health which were pertinent to medical decision-making. I have reviewed the patient's [id number] medication list. Current Outpatient Medications Medication Instructions Cyanocobalamin (B-12 COMPLIANCE INJECTION IJ) Injection famotidine (PEPCID) 10 mg, Oral, 2 times daily PRN Folic Acid (FOLATE PO) 1 mg, Oral, Daily HYDROcodone-acetaminophen (NORCO) 5-325 mg per tablet 2 tablets, Oral, Every 4 hours PRN hydrocortisone 2.5 % cream 1 Application, Topical, 2 times daily PRN latanoprost (XALATAN) 0.005 % ophthalmic solution 1 drop, Both Eyes, At bedtime LORazepam (ATIVAN) 0.5 mg, Oral, Every 8 hours PRN methotrexate (TREXALL) 12.5 mg, Oral, Weekly, Patient takes 5 tablets of 2.5mg tab on Saturday night once a week predniSONE (DELTASONE) 5 mg, Oral, Daily pregabalin (LYRICA) 25 mg, Oral, 2 times daily zolpidem (AMBIEN) 10 mg, Oral, At bedtime PRN Allergies Allergen Reactions Ciprofloxacin Sulfa Antibiotics Levaquin [Levofloxacin] Phenazopyridine Physical Exam Vital Signs: BP: 132/82 Temp: 97.7 ??F (36.5 ??C) Heart Rate: 67 Resp: 16 SpO2: 93 % Weight (Daily Weight): 56.2 kg (124 lb) Pulse Oximetry Type: Intermittent O2 Device: None (Room air) Body mass index is 22.68 kg/m??. Physical Exam at 2116 hrs: General and Psychiatric: Looks comfortable and generally healthy for age. Alert and cooperative. Speech clear and coherent. Delightful disposition. HEENT: Face symmetric. EOM intact. Pupils equally round and reactive to light. Neck: No JVD. No thyromegaly or masses. Cardiovascular: Regular rate and rhythm without murmurs, rubs, or gallops. Pulmonary/Chest: Breath sounds normal. Respirations unlabored. Abdominal: Soft and nontender. Bowel sounds are normal. No distension, masses or HSM. Extremities: Both legs are hyperpigmented and the midportion of the right leg anteriorly is exquisitely tender to palpation. Feet are warm. [place] nailbeds. No edema. No acutely inflamed joints. Neurological: Moves all four limbs under good voluntary control. Intact major motor groups throughout LEs. Intact light touch in all four limbs. Gait not tested. Skin: No rash noted. Normal turgor. Data Reviewed I reviewed and analyzed the following data which was relevant to medical decision making: Labs: Hematologic: Recent Labs 03/14/242040 WBC 4.7 RBC 2.94* HGB 9.9* HCT 29.7* MCV 101.0* PLTCT 120* Metabolic: Recent Labs 03/14/242040 GLU 104 BUN 17.0 NA 137 K 4.2 CL 107 CO2 22* CREATININE 0.8 CA 9.0 Imaging: CT Lumbar Spine WO Contrast Result Date: 03/14/2024 CT LUMBAR SPINE WITHOUT CONTRAST HISTORY: Pt complains of back pain radiating down her right leg x1week. H/x of sciatica COMPARISON: 01/22/2018 TECHNIQUE: No contrast. Coronal and sagittal reformatted images generated and reviewed. Automated exposure control, adjustment of mA and/or kV according to patient size or iterative reconstruction dose optimization techniques were used. FINDINGS: BONES: Stable diffuse osteopenia is demonstrated. Stable compression deformities seen in the L4, L2 and L1 vertebral bodies. Progressive compression deformity of T12 is seen with approximately 70% collapse of the anterior vertebral body as opposed to approximately 50% compression. In addition, there is increased compression deformity of the T3 vertebral body now measuring approximately 20%. No suspiciouslytic or blastic lesions identified. ALIGNMENT: No evidence of acute malalignment. SOFT TISSUES: Paraspinous soft tissues are within normal limits. Aorta is of normal caliber for age. Significant calcifications of the abdominal aorta is stable when compared to the prior exam DEGENERATIVE CHANGES: Multilevel degenerative disease. No significant canal or foraminal stenosis. Mild degenerative anterolisthesis of L4 on L5 without associated pars interarticularis defects without definite fracture Additional findings: Visualized lung bases are clear. IMPRESSION: Progressive compression deformities of T3 and T12. SANTOS TAYLOR MD 03/14/2024 8:49 PM XR Hip 2 View W Pelvis RT Result Date: 03/14/2024 RIGHT HIP COMPLETE WITH PELVIS HISTORY: Right hip pain COMPARISON: None VIEWS: Complete hip, minimum of 2 views. Pelvis, 1 or 2 views. FINDINGS/IMPRESSION: No fracture or dislocation. No bony lesion.Right hip joint is normal. There is ORIF changes of the left hip joint with healed left intertrochanteric fracture. Bony pelvis is intact. Soft tissues are normal. Juan J Isidro MD 03/14/2024 8:12 PM Diagnostic Impressions Principal Problem: Right buttock and thigh pain suggestive of sciatica Active Problems: Right leg pain Macrocytic anemia Thrombocytopenia Closed fracture of third thoracic vertebra Closed fracture of twelfth thoracic vertebra Osteoporosis with current pathological fractures HTN (hypertension) Initial Plan Multimodal approaches to pain, ordered, including a couple doses of dexamethasone. MRI L and T spine. Xray right leg. Outpatient Rx of osteoporosis. Ask her why she takes methotrexate. Check B12 and folate. Monitor BP and adjust Rx as appropriate. Diet: Diet Regular Room Service Eligible - Yes VTE Prophylaxis: enoxaparin (Lovenox), no indication for SCDs in addition to medical prophylaxis Disposition: Admit to med/surg unit, inpatient status Anticipated Length of Stay: > 2 midnights Advance Care Planning I had a dedicated face to face, voluntary discussion with the patient regarding advance care planning. Patient does not have a legally designated medical power of employment law attorney but would like to name her four children as his or her surrogate decision-maker. Patient has an advance directive; a copy is not available. Patient desires to be Full Code in the event that acute resuscitative care is needed for respiratory or cardiac failure. Credentials Houston Webb MD 03/15/2024 6:19 AM The Medical Decision Making level of this visit is High based on 1) the number and complexity of problems, 2) the amount and/or complexity of data reviewed and analyzed, and 3) risk of complications and/or morbidity of patient management. When appropriate, medically necessary, and possible, my assessment and plan formulation included review of prior external notes, review of all the above test results, ordering of tests, interviewing independent historians, independent viewing of images and EKGs, and discussion of management with another physician or other qualified healthcare professional. documented in this encounter Consult Notes * Rosanne Hankins LMSW - 03/16/2024 12:52 PM MST Images from the original note were not included. Case Management Initial Assessment Rosanne Hankins LMSW 03/16/2024 12:52 PM Primary Care Physician: Porfirio Hauser MD Primary Insurance: MEDICARE Secondary Insurance: AARP Patient Class:Inpatient Principal Problem: Sciatica, right side Preferred Outpatient Pharmacy [id number] - [place], [place] - [address] [facility] [address] [place] [address] Presenting Problem: Initial assessment Subjective (Patient's account): Pt presented to the hospital for leg and back pain. Objective (Clinical Findings): This patient is a 83 y.o. female with past medical history of cataracts, diverticulitis, fibromyalgia, squamous cell carcinoma, hypertension, insomnia, osteoporosis, polymyalgia rheumatica, and vitamin-D deficiency, who presents to the ED for evaluation of low back pain and right hip pain. See chart for additional details. Current Living Situation: Single Story Private Residence: Lives With: alone Identification of Agent/Surrogate Decision Maker: Majority of Adult Children (Names and Phone Numbers of Children): Matthew Hughes, Community/Outpatient Services: Confirmed PCP: Porfirio Hauser MD Financial Resources: Detention: Prior To Admission Ambulation : Modified independent FWW ADL's : Independent DME: FWW Transportation to Home: Other family or friend Does this patient require further a Comprehensive Behavioral Risk Assessment: CM/SW COMP BEHAVIOR ASSESS REQUIRED: No Do you want to complete a comprehensive behavioral risk assessment? CM/SW COMPLETE BEHAVIOR RISK ASSESS: No Behavioral Health/ Substance Abuse Services Substance: Denies ETOH: Denies Behavior Health: None Patient/Family Goals for Discharge: To DC to [facility]. Assessment: CM met with pt bedside. Pt presents to the hospital for leg and back pain. CM introduced case management, reviewed current living arrangements, and discussed after care plan. Pt confirmedher contact information, PCP, and emergency contact. Her emergency contact is her son, Matthew Hughes. Pt requested CM reach out to her daughter Mireille Whitehead to keep her updated on the pts plan. Pt shared that she has little supports here in [place] since she lost her in the past year, as well as all of her children living in [place]. Upon asking pt how she normally gets around, she normally is able to drive. Pt states that she is able to ambulate independently utilizing a walker, and can complete all daily life activities independently. Pt shared she's still in pain, however her RN was going to be returning soon. CM explained that therapy is recommending skilled rehab facility, and that she wanted to discuss choices per what her insurance accepts. Pt stated she has been to [facility] previously and would like a referral sent there. CM let pt know she will submit that today and keep her informed on next steps. CM submitted referral to [facility] via [employer]. CM to continue to follow, DC pending acceptance and medical clearance. Plan:RAMY/PEGGY Anticipated Discharge Plan: SNF: Pending Rosanne Hankins LMSW * Neto Uriostegui, PT - 03/16/2024 9:20 AM MST Physical Therapy Evaluation 03/16/2024 Start: 919 End: 943 Assessment: Evaluation completed for pleasant and cooperative 83 y.o. female with a past medical/surgical history as stated above and admission diagnosis of Sciatica w/ radiating pain down R LE, leading to a functional decline in the following area(s): gait stability, functional mobility in transfers and bed mobility, activity tolerance, balance, ROM/strength, ADL status and safety. Prior to injury/illness, patient's baseline level of function was mod I with ADLs and amb w/ FWW, lives alone. Pt meets clinical decision making criteria of low complexity with stable clinical presentation. PT evaluation completed using standardized tests/measurements with above observable deficits. Pt will benefit/benefitted from skilled inpatient acute care physical therapy to meet established goals and POC to address above functional deficits including gait training and activity tolerance and promote overall improvement in functional independence and return to PLOF. Recommend SNF when medically stable. Recommendations: [facility] *Equipment Recommended: To Be Determined, At next level of care Subjective: Pt was ID by 2 identifiers. It hurts so much to move. Bryanna Coelho is a 83 y.o. female admitted on 03/14/2024 with the following: Therapy Relevant History *Admit Reason per Therapy: Sciatica w/ radiating pain down R LE *Significant Events Since Admit per Therapy: Remote Compression Fx L1-3 (Old vs New) (Ortho: Non op, Conservative managment.) Admission Diagnosis: Wound of right lower extremity, initial encounter [S81.801A] Acute right-sided low back pain with right-sided sciatica [M54.41] Compression fracture of lumbar vertebra, unspecified lumbar vertebral level, initial encounter [S32.000A] Compression fracture of thoracic vertebra, unspecified thoracic vertebral level, initial encounter [S22.000A] Principal Problem: Sciatica, right side (POA: Unknown) Active Problems: Right leg pain (POA: Unknown) Macrocytic anemia (POA: Unknown) Thrombocytopenia (POA: Unknown) Closed fracture of third thoracic vertebra (POA: Unknown) Closed fracture of twelfth thoracic vertebra (POA: Unknown) Osteoporosis with current pathological fracture (POA: Unknown) HTN (hypertension) (POA: Unknown) Resolved Problems: * No resolved hospital problems. * Past Medical History: Diagnosis Date HTN (hypertension) 03/15/2024 Arthritis Blood transfusion without reported diagnosis Diverticulitis Fibromyalgia Insomnia Osteoporosis Polymyalgia rheumatica Skin cancer Vitamin D deficiency Past Surgical History: Procedure Laterality Date I-M RODDING LEFT HIP. S&N Left 05/18/2017 Performed by Roby Cameron MD at [facility] IP SURGERY CHOLECYSTECTOMY COLOSTOMY EYE SURGERY Bilateral cataract extraction FRACTURE SURGERY Ankle HYSTERECTOMY REVISION COLOSTOMY SKIN BIOPSY TONSILLECTOMY Home Living: Type of Home: House Home Layout: One level Home Equipment: Front-Wheeled Walker;4WW Prior Functional Level: Functional Mobility: Modified Independent;Use of Assistive Device Lives With: Alone Vocational: Retired Fall History (Patient Reported): How many falls in the last 6 months?: 0 Pt states being worried about falling or unsteady w/ standing/walking: No Do you feel your vision affects your balance?: No Pain Assessment Pain Assessment: 0-10 Pain Score: 10-Worst pain ever Pain Type: Acute pain;Chronic pain Pain Location: Back;Leg Pain Orientation: Right Therapy Pain Interventions Therapy Intervention: Nursing notified/aware;Patient repositioned Objective: General Informed Consent Obtained: Yes;Patient;RN Precautions Other Precautions: Fall;Spinal (for comfort) Observation Observations: Pt resting in bed. Agreed to PT Eval. Skin Integrity: All visible areas CDI Cognition/Communication Orientation Level: Oriented X4 Communication: Within Functional Limits Follows Commands: Follows all commands and directions without difficulty Cognitive Function: Alert;Cooperative Overall Cognitive Status: Appears Intact Vision Current Vision: Within Functional Limits Perception Inattention/Neglect: Appears intact Motor Planning: Appears intact Proprioception Proprioception: No apparent deficits Coordination Coordination Assessment: Exceptions Heel to Tapia: Bilateral;Mild Impairment RUE ROM Overall RUE ROM: Within Functional Limits RUE Strength RUE Strength: Within Functional Limits RUE Tone RUE Tone: Within Functional Limits LUE ROM Overall LUE ROM: Within Functional Limits LUE Strength LUE Strength: Within Functional Limits LUE Tone LUE Tone: Within Functional Limits RLE ROM Overall RLE ROM: Within Functional Limits RLE Strength RLE Strength: Impaired;Due to pain (Grossly 4-/5) RLE Tone RLE Tone: Within Functional Limits LLE ROM Overall LLE ROM: Within Functional Limits LLE Strength LLE Strength: Impaired;Due to pain (Grossly 4-/5) LLE Tone LLE Tone: Within Functional Limits Spine Assessment Spine Assessment: (Flexed) Balance Assessment Static Sit: Contact Guard Assist Dynamic Sit: Contact Guard Assist Transfers/ADL Assessment Rolling: Contact Guard Assist Supine to Sit: Contact Guard Assist;Minimal Assist Sit to Supine: Contact Guard Assist;Minimal Assist Scooting: Contact Guard Assist Safety Patient Positioned at End of Session: In Bed Safety Measures Addressed: Call Light Within Reach;Nursing Notified;Bed Alarm On Functional Assessments: AM-PAC: 10 JH-HLM Mobility Score: Sit at edge of bed Modified Yi Scale: Yes Current Modified [place] : 4 Reported PLOF Modified [place]: 1 Physical Therapy Diagnosis: Impaired ROM, Impaired Strength, Impaired Activity Tolerance, Impaired Coordination, Impaired Balance, Impaired Bed Mobility, Impaired Functional Mobility, Impaired Transfers, Impaired Gait, Impaired Safety Awareness Rehab Potential: Good PT Delegation Decision: Appropriate for COMMUNICATION SKILLS INSTRUCTOR to treat Activity Tolerance DOS Activity by PT: Sat at edge of bed (JH-HLM 3);Minimal Assist;Contact Guard Assist Activity Tolerance: Poor Factors Limiting Activity: Pain;Fatigue;Weakness PT Eval Complexity Components History Components: 3 or more personal factors and/or comorbidities Exam of Body Systems: Addressing a total of 3 or more elements Clinical Presentation: Stable Plan: Planned Interventions: Bed Mobility Training, Transfer Training, Gait Training, Therapeutic Exercises, Balance Training, Endurance Training, Patient/Family/[place]iver Teaching, Equipment Eval/Education Frequency: 5x week, Mon (1) Duration: 2, week(s) from eval ( thru 03/30/24 ) Goals: Treatment Goals to be met by 03/30/24 Pt Will Use Assistive Device Safely: Yes Pt will perform exercise program: Bilateral, LE(s), With Verbal Cues Pt Will Transfer Supine To/From Sit: With supervision Pt Will Perform Sit to/from Stand: With supervision, With FWW Pt Will Ambulate: 101-150 feet, WIth supervision, With FWW TREATMENT: Treatment Initiated (separate from evaluation): PT Therapeutic Activities mins: 14 mins Transfers/ADL Training Therapeutic Activity Justification: Decrease fall risk;Educate on use of assistive device;Improve activity tolerance for functional mobility;Improve safety/precaution awareness;Improve efficiency of movement patterns;Improve posture/positioning;Address dynamic balance during functional activities Rolling: Contact Guard Assist Supine to Sit: Contact Guard Assist;Minimal Assist Sit to Supine: Contact Guard Assist;Minimal Assist Scooting: Contact Guard Assist Standing Balance Training: Weight Shifting;With UE Support Dynamic Balance Training: Backward Walking;Side Stepping Therapeutic activity including bed mobility and functional transfers with cues to/for education on proper techniques to maximize safety and independence with functional mobility tasks. Emphasis on proper hand placement, sequencing of task and management of AD. Instructed in sit<>stand, SPT and short ambulatory transfers. Education Education Topic(s): Physical Therapy;Functional Mobility;Safety;Adaptive Equipment;Positioning, Energy Conservation Techniques Learner(s): Patient Method: Explanation;Demonstration Response: Verbalizes understanding;Needs reinforcement CHARGES: PT Total Untimed Minutes Billed: 10 mins $PT Evaluation: Low Complexity PT Evaluation mins: 10 PT Timed Charges/Minutes - 03/16/24 0920 $PT Therapeutic Activities CPT 37529 1 PT Therapeutic Activities mins 14 mins PT Total Timed Charges/Minutes - 03/16/24 0920 PT Total Timed CPTs Billed 1 cpt(s) PT Total Timed Minutes Billed 14 mins Neto Uriostegui PT,DPT, CSRS 03/16/2024, 1:43 PM * Desiree Granado RN - 03/16/2024 8:54 AM MSTAssociated Order(s): WOUND/OSTOMY NURSE CONSULT EVAL AND TREAT Images from the original note were not included. Wound Care Services Consult Assessment: Patient seen in response to consult. Patient lying in bed upon initial assessment of patient. Patient alert and converse. Patient agreeable to wound care visit at this time. Individuals present in room: this automobile service writer, patient, and patient's RN-Delaney in room upon initial assessment and left shortly after starting visit Patient has clinical risk factors that may contribute to altered skin integrity and delayed wound healing. Pertinent risk factors include, but are not limited to: Eric score of 16, edema, friction,shearing, history of polymyalgia rheumatica, fibromyalgia, presence of vertebral fractures and painlimiting mobility. Wound history: Patient has previously followed with Dr. Yang at [facility] and was lastseen at [facility] by TITLE INSURANCE SALES REPRESENTATIVEKishan in September of this year. At that time she was healed and had corns and calluses to right foot. She was instructed to wear corn pads. Patient reports she doeswear compression, however stopped wearing consistently because she found they were causing more discoloration to her legs. Patient reports she has had blisters to her legs off and on over time. She reports over the last year since her she has been dealing with one thing or the other back to back starting with a broken water heater and 5 room damage resulting in her home. [place] she has been going through lots of boxes and moving things for work to be done in repairs. Shereports she was supposed to start outpatient therapy 07/22/23, however was unable to start due to home repairs needed. Patient reports she tries to elevate her legs as much as she can, however is limited due to pain and need for activity. She reports she has various compression garments at home rang ing in sizes, materials, and even has tubigrip. Wound Wound Right (Active) Date First Assessed/Time First Assessed: 09/18/23 1351 Primary Wound Type: Wound Present on Original Admission: Yes Orientation: Right Wound Description (Comments): great toe with intact yellow scab Assessments 03/16/2024 8:00 AM Wound Bed Assessment Unable to assess Wound Right;Anterior Tibial (Active) Date First Assessed/Time First Assessed: 03/14/24 2230 Orientation: Right;Anterior Location: Tibial Assessments 03/16/2024 8:00 AM Wound Bed Assessment Skin intact;Purple;Brown;Maroon Tissue Involvement Unable to Determine Area Around Wound Ecchymotic;Fragile;Discoloration;Purple Drainage Amount None Primary Dressing Open to air Patient with three pillows under each leg with heels resting on pillows, she reports she was just repositioned prior to this visit. Educated patient on offloading, pressure injury prevention, and patient despite education, would like to keep heels resting on pillows. Patient reports pain from knee to groin area on right side that is persistent, she does not to be repositioned with use of pillows for any offloading to sacrococcygeal area at this time either. She declines removal of socks for assessment of heels and does not want to turn for assessment of sacrococcygeal area. Patient verbalizedunderstanding of pressure injury prevention and reports she will move later. Patient verbalized frus tration with breakfast order this morning and asking for additional heating packs for pain control to right upper leg. Plan: Recommended orders: Pressure injury prevention/offloading: Turn patient and reposition at frequent intervals. Reposition patient seated in chair at frequent intervals. Elevate heels off of bed or other surfaces with use of pillows or other positioning devices.. Specialty mattress Isoflex Pump. Seatcushion for use when up in chair only. Right tapia may be left open to air at this time, should siteopen, recommend betadine moist gauze and may re-consult wound care services. Patient educated on pressure injuries, pressure injury prevention, offloading, the importance of offloading and repositioning at frequent intervals, compression therapy/edema control, and elevation of affected areas for edema control. Understanding of all education has been verbalized and all questions have been answered. Discussed plan of care with Dr. Bernal, patient's nurse, and patient WOC Team to follow from a distance. Re-consult for any new or unfavorable changes. * Kiko Cunningham MD - 03/15/2024 7:33 AM MSTAssociated Order(s): ORTHO/SPINE CONSULT Orthopedic Spine Inpatient Consultation Chief Complaint/ Reason for Consultation: RLE radiculopathy HPI: Bryanna Coelho is a 83 y.o. female with a chief complaint of acute severe right lower extremity pain. Pt states that the pain started approximately 3 days ago. She does not note any specific trauma but has been doing a significant amount of lifting over the last few weeks. She reports the pain starts in the buttock and radiates down the front of the thigh as well as the medial aspect. She reports only minimal lower back pain. She has tried pain medicaitons and muscle relaxers which have not helped the pain at all. The pain does not go distal to the knee. She denies any numbness or tingling. She specifically denies any saddle anesthesia or genital numbness. She denies any bowel or bladder incontinence. She had one episode where she could feel she had to urinate but did not make it to the restroom secondary to pain. At baseline she is ambulatory. Shehas a history of osteoporosis which is currently untreated. She has a healing wound on her right anterior tapia. Past Medical History: Diagnosis Date HTN (hypertension) 03/15/2024 Arthritis Blood transfusion without reported diagnosis Diverticulitis Fibromyalgia Insomnia Osteoporosis Polymyalgia rheumatica Skin cancer Vitamin D deficiency Past Surgical History: Procedure Laterality Date I-M RODDING LEFT HIP. S&N Left 05/18/2017 Performed by Roby Cameron MD at [facility] IP SURGERY CHOLECYSTECTOMY COLOSTOMY EYE SURGERY Bilateral cataract extraction FRACTURE SURGERY Ankle HYSTERECTOMY REVISION COLOSTOMY SKIN BIOPSY TONSILLECTOMY Outpatient Medications Marked as Taking for the 03/14/24 encounter (Hospital Encounter) Medication Sig Dispense Refill Cyanocobalamin (B-12 COMPLIANCE INJECTION IJ) Inject as directed. Folic Acid (FOLATE PO) Take 1 mg by mouth daily. HYDROcodone-acetaminophen (NORCO) 5-325 mg per tablet Take 2 tablets by mouth every 4 (four) hours as needed for Pain. latanoprost (XALATAN) 0.005 % ophthalmic solution Place 1 drop into both eyes at bedtime. predniSONE (DELTASONE) 5 mg tablet Take 5 mg by mouth daily. pregabalin (LYRICA) 25 mg capsule Take 25 mg by mouth 2 (two) times daily. zolpidem (AMBIEN) 5 mg tablet Take 2 tablets (10 mg total) by mouth at bedtime as needed for Sleep.30 tablet 0 Allergies Allergen Reactions Ciprofloxacin Sulfa Antibiotics Levaquin [Levofloxacin] Phenazopyridine Social History Socioeconomic History Marital status: Spouse name: Not on file Number of children: Not on file Years of education: Not on file Highest education level: Not on file Occupational History Occupation: Retired Tobacco Use Smoking status: Never Smokeless tobacco: Never Vaping Use Vaping status: Never Used Substance and Sexual Activity Alcohol use: Yes Comment: rarely Drug use: No Sexual activity: Not Currently Partners: Male Other Topics Concern Not on file Social History Narrative Lives with . Social Determinants of Health Financial Resource Strain: Not on file Food Insecurity: Not on file Transportation Needs: Not on file Physical Activity: Not on file Stress: Not on file Social Connections: Not on file Intimate Partner Violence: Not on file Housing Stability: Not on file ROS: Negative except for what is stated above in the HPI. EXAM: GEN -- Awake and alert, NAD, Cooperative HEENT -- Normocephalic and atraumatic, gross visual acuity within normal limits, no discharge PULM -- Non-labored breathing, no respiratory distress, no audible wheezing noted EXTREMITIES / SPINE -- Bilateral Lower Extremities: Healing wound and scarring present on her anterior tapia Motor: HF KF KE DF EHL PF R 5 5 5 5 5 5 L 5 5 5 5 5 5 Sensory: SILT L2-S1 except some dysesthesia at the anterior thigh Vascular: Toes wwp, 2+ DP/PT Special Tests: No sustained clonus, Reflexes symmetric Back -- Mild lumbar TTP, otherwise no thoracic, or cervical TTP. No other TTP noted upon secondary skeletal survey. IMAGING: Images personally reviewed and independently interpreted. My interpretation: Radiographs - XR R hip - no evidence of acute fracture, notable L hip IMN with healed fracture, CT L spine 03/14: She has transitional anatomy with a sacralized L5, for level purposes the T12 is referenced with the articulating 12th rib There is L4-L5 spondylolisthesis. Multilevel spondylosis with degenerative changes as well as chronic L2 & L3 mild compression fractures. She has a more significant compression fx at T12 which isworsened compared to MRI 01/2018. She has diffuse multilevel facet arthrosis. Notable large vessel calcifications. Previous MRI 01/23/2018 redemonstration of similar degnerative changes as above but less severe T12 compression. No evidence of significant central or foraminal stenosis HOSPITAL PROBLEMS: Principal Problem: Sciatica, right side SNOMED CT(R): DISORDER OF RIGHT SCIATIC NERVE Active Problems: Right leg pain SNOMED CT(R): PAIN IN RIGHT LOWER LIMB Macrocytic anemia SNOMED CT(R): MACROCYTIC ANEMIA Thrombocytopenia SNOMED CT(R): THROMBOCYTOPENIC DISORDER Closed fracture of third thoracic vertebra SNOMED CT(R): CLOSED FRACTURE OF THIRD THORACIC VERTEBRA Closed fracture of twelfth thoracic vertebra SNOMED CT(R): FRACTURE OF TWELFTH THORACIC VERTEBRA Osteoporosis with current pathological fracture SNOMED CT(R): OSTEOPOROSIS HTN (hypertension) SNOMED CT(R): HYPERTENSIVE DISORDER ASSESSMENT: 83 y.o. female w/ a history of mild lower back pain with a 3 day history of acute severe radiculopathy. Clinically she appears to have an L3 radiculopathy as it radiates from the buttock to the anterior thigh without going distal to the knee. She has no weakness at this time but her mobility is limited due to pain. She has been taking pain medications and muscle relaxers which have not helped hersymptoms. CT is notable for degenerative changes and compression fractures consistent with osteoporosis. At the time being she does not have any red flag symptoms such as saddle anesthesia, incontinence, or urinary retention, thus there is low concern for cauda equina. Given her acute neurologic symptoms which have been refractory to conservative management we will proceed with MRI to determine if there is any stenosis on the nerve roots contributing to her clinical presentation. In the interimwe will initiate multimodal pain control including steroids, NSAIDS, and lyrica. After completion of MRI spine surgery will review and discuss with patient the treatment options and interventions depending on the imaging findings. Given her history of vertebral compression fractures with worsening compared to previous MRI, also recommend treatment for osteoporosis with vitamin D / Calcium. PLAN: Admit -- Continue IP admission WB status -- Activity as tolerated Multimodal pain control Additional imaging -- MRI pending Vitmain D for osteoporosis Medical Decision Making Over 50 minutes were spent carrying out the patient evaluation today, including: Reviewing prior evaluation and treatment records. Performing the direct patient history interview and exam. Reviewing and interpreting the actual images from imaging studies, and reviewing other diagnostic studies (as listed above) Discussing these records, studies and procedures with the patient as part of our consultation today. The patient was educated as to the current diagnoses applicable to their complaints and problems, and presented with treatment options; the results and conclusions of these discussions are outlined above. Evaluated by Brandin Perales MD and by Kiko Cunningham MD For any questions regarding this consult, please call [phone] Brandin Perales MD Board Certified Orthopedic Surgeon Fellowship Trained Spine Surgeon Electronically signed Kiko Cunningham MD Board Eligible Orthopedic Surgeon 03/15/2024 7:33 AM Associated attestation - Brandin Leonardo MD - 04/27/2024 12:42 PM MST Patient evaluated in collaboration with Dr. Grewal. I reviewed all elements of their clinical presentation. Pertient imaging and studies were reviewed. Dr. Cunningham and I together developed a medical impression and collaborated on a plan for the patient. documented in this encounter ED Notes * BHUPENDRA Jin - 03/14/2024 7:21 PM MST Images from the original note were not included. ED PROVIDER NOTE Date of Service: 03/14/2024 Time Seen: 7:21 PM Provider: BHUPENDRA Jin Location: [facility] CHIEF COMPLAINT Chief Complaint Patient presents with Back Pain Pt complains of back pain radiating down her right leg x1 week. H/x of sciatica Leg Pain HISTORY OF PRESENT ILLNESS History is provided by patient. This patient is a 83 y.o. female with past medical history of cataracts, diverticulitis, fibromyalgia, squamous cell carcinoma, hypertension, insomnia, osteoporosis, polymyalgia rheumatica, and vitamin-D deficiency, who presents to the ED for evaluation of low back pain and right hip pain. Patient states she has a history of intermittent low back pain over the past few years. Patient states currently she was not having severe low back pain, although on examination patient does have a lidocaine patch on her lower back. Patient states her pain is very severe in her right buttocks that radiates down into her right leg. Patient states pain does not radiate past her knee. Patient states she usually can drive and walk with a walker without difficulty, but states these tests have been difficult secondary to severe pain. Patient states he saw her primary care provider who diagnosed her with sciatica clinically, and gave her hydrocodone without improvement. Patient states she also tried muscle relaxers without improvement. Patient also states she takes Tylenol and ibuprofen, without much relief. Patient denies associated fevers, chills, body aches. Patient denies chest pain or shortness ofbreath. Patient denies abdominal pain, nausea, vomiting. Patient denies dysuria or hematuria. Patient denies urinary incontinence or retention. Patient denies saddle anesthesia. Other than squamous cell carcinoma, patient denies other cancers. Patient denies anticoagulation. Patient does note she recently had her cabinets redone and has been picking up more objects than normal. Patient also notesshe has a wound on her right tapia that has not been healing for the past month. Patient denies pain to cushion, but states that it is not healing. Patient denies calf pain or swelling bilaterally. There are no other complaints. There are no other exacerbating or alleviating factors. There are noother reported associated signs or symptoms. PCP: Porfirio Hauser MD PAST MEDICAL HISTORY Past Medical History: Diagnosis Date Cataract Diverticulitis Fibromyalgia History of SCC (squamous cell carcinoma) of skin Hypertension Insomnia Osteoporosis Polymyalgia rheumatica Vitamin D deficiency FAMILY MEDICAL HISTORY Family History Problem Relation Name Age of Onset No Known Problems Mother Hypertension Father PAST SURGICAL HISTORY Past Surgical History: Procedure Laterality Date I-M RODDING LEFT HIP. S&N Left 05/18/2017 Performed by Roby Cameron MD at [facility] IP SURGERY CATARACT EXTRACTION, BILATERAL CHOLECYSTECTOMY COLOSTOMY EYE SURGERY cataract HYSTERECTOMY REVISION COLOSTOMY SOCIAL HISTORY Social History Tobacco Use Smoking status: Never Smokeless tobacco: Never Vaping Use Vaping status: Never Used Substance Use Topics Alcohol use: Yes Comment: rarely Drug use: No MEDICATIONS Prior to Admission medications Medication Sig Start Date End Date Taking? Authorizing Provider Cyanocobalamin (B-12 COMPLIANCE INJECTION IJ) Inject as directed. Historical Provider, estradiol (ESTRACE VAGINAL) 0.1 MG/GM vaginal cream Place 2 g vaginally daily as needed. Three times a week Historical Provider, famotidine (PEPCID) 10 mg tablet Take 10 mg by mouth 2 (two) times daily. Historical Provider, Folic Acid (FOLATE PO) Take by mouth. Historical Provider HYDROcodone-acetaminophen (NORCO) 5-325 mg per tablet Take 2 tablets by mouth every 4 (four) hours as needed for Pain. Historical Provider, latanoprost (XALATAN) 0.005 % ophthalmic solution 1 drop at bedtime. Historical Provider, methotrexate (TREXALL) 2.5 mg tablet Take 2.5 mg by mouth once a week. Patient takes 5 tablets on night once a week Historical Provider, metoprolol succinate (TOPROL XL) 25 mg 24 hr tablet 0.5 tablet 10/08/19 Historical Provider mupirocin (BACTROBAN) 2 % cream APPLY EXTERNALLY TO THE AFFECTED AREA DAILY Patient not taking: Reported on 05/15/2022 10/10/20 Historical Provider predniSONE (DELTASONE) 5 mg tablet Take 5 mg by mouth daily. Historical Provider, saline (OCEAN NASAL SPRAY) 0.65 % nasal spray by Nasal route. Historical Provider, SANTYL ointment APPLY 1 APPLICATION TO THE AFFECTED AREA DAILY Patient not taking: Reported on 05/15/2022 04/27/19 Historical Provider, zolpidem (AMBIEN) 5 mg tablet Take 2 tablets (10 mg total) by mouth at bedtime as needed for Sleep.01/24/18 Neto White MD ALLERGIES Allergies Allergen Reactions Ciprofloxacin Sulfa Antibiotics Levaquin [Levofloxacin] Phenazopyridine REVIEW OF SYSTEMS Review of Systems All systems reviewed and negative except per HPI. PHYSICAL EXAM Triage vitals were reviewed. Temp: 98.5 ??F (36.9 ??C) ----- Oral Heart Rate: (!) 102 bpm Resp: 16 BP: (!) 144/68 mmHg SpO2 98 % ----- Physical Exam Vitals reviewed. Constitutional: General: She is not in acute distress. Appearance: Normal appearance. HENT: Head: Normocephalic and atraumatic. Right Ear: External ear normal. Left Ear: External ear normal. Nose: Nose normal. Eyes: Conjunctiva/sclera: Conjunctivae normal. Cardiovascular: Rate and Rhythm: Normal rate and regular rhythm. Pulses: Normal pulses. Heart sounds: Normal heart sounds. Pulmonary: Effort: Pulmonary effort is normal. No respiratory distress. Breath sounds: Normal breath sounds. No wheezing, rhonchi or rales. Abdominal: General: Abdomen is flat. Bowel sounds are normal. Palpations: Abdomen is soft. Tenderness: There is no abdominal tenderness. There is no guarding. Musculoskeletal: Cervical back: Normal range of motion. Right lower leg: No edema. Left lower leg: No edema. Comments: Cervical and thoracic spine are nontender to palpation midline. Patient has very minimal tenderness to the lumbar spine midline. Patient has significant tenderness to the right glutes, hip,and lateral thigh. Skin: General: Skin is warm and dry. Capillary Refill: Capillary refill takes less than 2 seconds. Comments: No calf swelling or tenderness to palpation bilaterally. Chronic skin changes are noted to the lower extremities bilaterally with a few blisters noted of the patient's right tapia, that are nontender to palpation. No surrounding erythema. No induration or fluctuance. Neurological: Mental Status: She is alert and oriented to person, place, and time. Psychiatric: Mood and Affect: Mood normal. Behavior: Behavior normal. INTERVENTIONS & DIAGNOSTIC INVESTIGATIONS MEDICATIONS ADMINISTERED DURING THIS ED VISIT: ED Medication Administration from 03/14/2024 1836 to 03/14/20242120 Date/Time Order Dose Route Action 03/14/20241923 [facility] ketorolac (TORADOL) 30 mg/mL injection 30 mg 30 mg Intramuscular Given 03/14/20241923 [facility] acetaminophen (TYLENOL) tablet 1,000 mg 1,000 mg Oral Given 03/14/20242033 [facility] oxyCODONE (ROXICODONE/OXY IR) tablet 5 mg 5 mg Oral Not Given 03/14/20242041 [facility] fentaNYL (SUBLIMAZE) 50 mcg/mL injection 50 mcg 50 mcg Intravenous Given EKG None PROCEDURES & CRITICAL CARE None RADIOLOGY STUDIES Any radiology studies ordered and resulted by the time of disposition or turnover were reviewed by me. INTERPRETATIONS BY ED PROVIDER: X-ray of: Right hip complete Number of views: 3 view(s) Interpreted by: BHUPENDRA Jin (ED Provider) Interpretation: No acute fracture or dislocation. INTERPRETATIONS BY RADIOLOGIST: CT Lumbar Spine WO Contrast Result Date: 03/14/2024 CT LUMBAR SPINE WITHOUT CONTRAST HISTORY: Pt complains of back pain radiating down her right leg x1week. H/x of sciatica COMPARISON: 01/22/2018 TECHNIQUE: No contrast. Coronal and sagittal reformatted images generated and reviewed. Automated exposure control, adjustment of mA and/or kV according to patient size or iterative reconstruction dose optimization techniques were used. FINDINGS: BONES: Stable diffuse osteopenia is demonstrated. Stable compression deformities seen in the L4, L2 and L1 vertebral bodies. Progressive compression deformity of T12 is seen with approximately 70% collapse of the anterior vertebral body as opposed to approximately 50% compression. In addition, there is increased compression deformity of the T3 vertebral body now measuring approximately 20%. No suspiciouslytic or blastic lesions identified. ALIGNMENT: No evidence of acute malalignment. SOFT TISSUES: Paraspinous soft tissues are within normal limits. Aorta is of normal caliber for age. Significant calcifications of the abdominal aorta is stable when compared to the prior exam DEGENERATIVE CHANGES: Multilevel degenerative disease. No significant canal or foraminal stenosis. Mild degenerative anterolisthesis of L4 on L5 without associated pars interarticularis defects without definite fracture Additional findings: Visualized lung bases are clear. IMPRESSION: Progressive compression deformities of T3 and T12. SANTOS TAYLOR MD 03/14/2024 8:49 PM XR Hip 2 View W Pelvis RT Result Date: 03/14/2024 RIGHT HIP COMPLETE WITH PELVIS HISTORY: Right hip pain COMPARISON: None VIEWS: Complete hip, minimum of 2 views. Pelvis, 1 or 2 views. FINDINGS/IMPRESSION: No fracture or dislocation. No bony lesion.Right hip joint is normal. There is ORIF changes of the left hip joint with healed left intertrochanteric fracture. Bony pelvis is intact. Soft tissues are normal. Juan J Isidro MD 03/14/2024 8:12 PM LABORATORY STUDIES Any labs ordered and resulted by the time of disposition or turnover were reviewed by me. Labs Reviewed CBC WITH DIFFERENTIAL - Abnormal Result Value WBC 4.7 RBC 2.94 (*) Hemoglobin 9.9 (*) Hematocrit 29.7 (*) MCV 101.0 (*) MCH 33.5 MCHC 33.2 RDW 15.8 (*) RDW-SD 54.7 (*) Platelets 120 (*) MPV 9.6 Neutrophils 71 Lymphs 9 Monocytes 20 Eosinophils 0 Basophils 0 nRBC <1.0 Neutrophils Absolute 3.37 Lymphocytes Absolute 0.41 (*) Monocytes Absolute 0.95 (*) Eosinophils Absolute <0.05 Basophils Absolute <0.05 Nucleated RBC Absolute 0.000 BASIC METABOLIC PANEL - Abnormal Sodium 137 Potassium 4.2 Chloride 107 CO2 22 (*) Anion Gap 8 Calcium 9.0 Glucose 104 BUN 17.0 Creatinine 0.8 eGFR 73 (*) URINALYSIS WITH MICROSCOPIC ED COURSE TIMELINE See MDM. REPEAT VITALS ED Vitals Date/Time Temp Pulse Resp BP SpO2 Weight Who 03/14/242045 -- 83 -- 131/64 96 % -- PG 03/14/24 1843 -- -- -- 144/68 -- -- JTC 03/14/24 184 98.5 ??F (36.9 ??C) 102 16 -- 98 % 56.2 kg (124 lb) [facility] 83 y.o. female with past medical history of cataracts, diverticulitis, fibromyalgia, squamous cell carcinoma, hypertension, insomnia, osteoporosis, polymyalgia rheumatica, and vitamin-D deficiency, who presents to the ED for evaluation of low back pain and right hip pain. Patient states she has a history of intermittent low back pain over the past few years. Patient states currently she was not having severe low back pain, although on examination patient does have a lidocaine patch on her lowerback. Patient states her pain is very severe in her right buttocks that radiates down into her right leg. Patient states pain does not radiate past her knee. Patient states she usually can drive and walk with a walker without difficulty, but states these tests have been difficult secondary to severe pain. Patient states he saw her primary care provider who diagnosed her with sciatica clinically, and gave her hydrocodone without improvement. Patient states she also tried muscle relaxers without improvement. Patient also states she takes Tylenol and ibuprofen, without much relief. Patient denies associated fevers, chills, body aches. Patient denies chest pain or shortness of breath. Patient denies abdominal pain, nausea, vomiting. Patient denies dysuria or hematuria. Patient denies urinary incontinence or retention. Patient denies saddle anesthesia. Other than squamous cell carcinoma, patient denies other cancers. Patient denies anticoagulation. Patient does note she recently had her cabinets redone and has been picking up more objects than normal. Patient also notes she has a wound on her right tapia that has not been healing for the past month. Patient denies pain to cushion, but states that it is not healing. Patient denies calf pain or swelling bilaterally. ED Course as of 03/14/242111 Sat Mar 14, 20241924 Physical exam patient is in no acute distress. Although patient is intermittent spasming of her right lower back and hip which causes her to scream and pain. Patient was in no acute respiratory distress normal respiratory effort. Lungs are clear to auscultation bilaterally. No wheezing or rhonchi noted. Cardiac rate and rhythm are normal. Abdomen is soft and nontender to palpation. No rebound tenderness or guarding. No calf swelling or tenderness to palpation bilaterally. Dorsalis pedis pulses are 2+ bilaterally. Cervical and thoracic spine are nontender to palpation midline. Patient hasvery minimal tenderness to the lumbar spine midline. Patient has significant tenderness to the right glutes, hip, and lateral thigh. No calf swelling or tenderness to palpation bilaterally. Chronic skin changes are noted to the lower extremities bilaterally with a few blisters noted of the patient's right tapia, that are nontender to palpation. No surrounding erythema. No induration or fluctuance. Patient was tachycardic heart rate 102 beats per minute. The remainder of the patient's vitals are stable. Most likely secondary pain I will continue to monitor. Tylenol was ordered for pain management. IM Toradol was ordered. Patient states she does not have history of kidney problems. Patient states she takes ibuprofen at home without difficulties. [AN] 2023 Right hip xray indicates no fracture or dislocation. No bony lesion. Right hip joint is normal. There is ORIF changes of the left hip joint with healed left intertrochanteric fracture. Bony pelvis is intact. Soft tissues are normal. [AN] 2025 Per chart review on 03/03/2024, patient was prescribed hydrocodone acetaminophen. Patient states oxycodone is not work for her at home. IV fentanyl was ordered for severe pain. [AN] 2103 No leukocytosis. Anemia hemoglobin 9.9. Platelets are decreased at 120. No acute kidney dysfunction. Sodium and potassium are within normal limits. Urinalysis was not collected at time of admission. [AN] 2103 CT lumbar spine indicates progressive compression deformities of T3 and T12. Stable diffuse osteopenia is demonstrated. Stable compression deformities seen in the L4, L2 and L1 vertebral bodies. Progressive compression deformity of T12 is seen with approximately 70% collapse of the anterior vertebral body as opposed to approximately 50% compression. In addition, there is increased compression deformity of the T3 vertebral body now measuring approximately 20%. No suspicious lytic or blastic lesions identified. [AN] 2108 9:10 PM Discussed this case with Dr. Rosa Webb, [facility], regarding patient history, HPI, physical exam, ED course, ED findings, and treatment plan. Dr. Webb kindly accepts this patient for admission to inpatient med/surg. 9:10 PM Discussed this case with Dr. Danica Perales, ortho spine, regarding patient history, HPI, physical exam, ED course, ED findings, and treatment plan. Dr. Danica Perales kindly agrees to consult on patient's case upon admission. [AN] Discussed results in depth with the patient. Discussed plan for admission. Patient kindly understands and agrees to plan. Discussed since patient lives at home alone concern for fall with severe pain, narcotics, and using a walker. Also discussed since patient is taking pain medication at home without resolution, I do think patient should be admitted for pain management as well as physical therapy. Patient understands and agrees to this plan. ED Course User Index [AN] BHUPENDRA Jin History obtained from: Patient. MIPS Encounter eligible for MIPS measure 46. Patient with low back pain. Opiates were prescribed or administered in the ED today due to: fracture of the vertebra and sciatica. CLINICAL IMPRESSION Diagnoses Diagnosis Comment Added By Time Added Acute right-sided low back pain with right-sided sciatica [M54.41] BHUPENDRA Jin 03/14/2024 8:27 PM Compression fracture of lumbar vertebra, unspecified lumbar vertebral level, initial encounter [S32.000A] BHUPENDRA Jin 03/14/2024 9:19 PM Compression fracture of thoracic vertebra, unspecified thoracic vertebral level, initial encounter [S22.000A] BHUPENDRA Jin 03/14/2024 9:20 PM Wound of right lower extremity, initial encounter [S81.801A] BHUPENDRA Jin 03/14/2024 9:21 PM DISPOSITION DISPOSITIONED TO... Admitto Med/Surg BHUPENDRA Jin [facility] BHUPENDRA Jin 03/14/242121 Abi Gonzalez DO 03/14/242204 Associated attestation - Abi Gonzalez DO - 03/14/2024 10:05 PM MST I have reviewed the notes, assessments, and/or procedures performed by Brian, I concur with her/his documentation of Bryanna Coelho. documented in this encounter Miscellaneous Notes * RN Progress Note - Dana Zarate RN - 03/18/2024 3:15 PM MST Discharge instructions discussed with patient and questions answered. Patient discharged to [place] via wheelchair by transport. Vitals: 03/18/24 1434 BP: 124/61 Pulse: (!) 105 Resp: 14 Temp: 97.6 ??F (36.4 ??C) Dana Zarate * RN Progress Note - Dana Zarate RN - 03/18/2024 10:43 AM MST Report provided to Apoorva at [facility] * Plan of Care - Dana Zarate RN - 03/18/2024 8:13 AM MST Problem: Falls, Risk of Goal: Absence of falls Outcome: Progressing Goal: Absence of physical injury Outcome: Progressing Goal: Knowledge of fall prevention Outcome: Progressing Problem: Pain Goal: Reduced pain sensation Outcome: Progressing Goal: Control of acute pain to acceptable level Outcome: Progressing Goal: Able to achieve maximum level of physical and psychosocial functioning Outcome: Progressing Problem: Activity Intolerance Goal: Improved activity tolerance Outcome: Progressing Problem: Mobility - Impaired Goal: Able to achieve maximum mobility level Outcome: Progressing Problem: Pressure Ulcer, Risk of Goal: Absence of pressure ulcer Outcome: Progressing Goal: Skin integrity intact Outcome: Progressing * Plan of Care - Elly Smith RN - 03/17/2024 11:43 PM MST Problem: Falls, Risk of Goal: Absence of falls Outcome: Progressing Goal: Absence of physical injury Outcome: Progressing Goal: Knowledge of fall prevention Outcome: Progressing Problem: Pain Goal: Reduced pain sensation Outcome: Progressing Goal: Control of acute pain to acceptable level Outcome: Progressing Goal: Able to achieve maximum level of physical and psychosocial functioning Outcome: Progressing Problem: Pain - Acute Goal: Control of pain Outcome: Progressing Goal: Able to achieve maximum level of physical and psychosocial functioning Outcome: Progressing Problem: Mobility - Impaired Goal: Able to achieve maximum mobility level Outcome: Progressing Problem: Activity Intolerance Goal: Improved activity tolerance Outcome: Progressing Problem: Pressure Ulcer, Risk of Goal: Absence of pressure ulcer Outcome: Progressing Goal: Skin integrity intact Outcome: Progressing * Plan of Care - Dana Zarate RN - 03/17/2024 7:53 AM MST Problem: Falls, Risk of Goal: Absence of falls Outcome: Progressing Goal: Absence of physical injury Outcome: Progressing Goal: Knowledge of fall prevention Outcome: Progressing Problem: Pain Goal: Reduced pain sensation Outcome: Progressing Goal: Control of acute pain to acceptable level Outcome: Progressing Goal: Able to achieve maximum level of physical and psychosocial functioning Outcome: Progressing Problem: Activity Intolerance Goal: Improved activity tolerance Outcome: Progressing Problem: Mobility - Impaired Goal: Able to achieve maximum mobility level Outcome: Progressing Problem: Pressure Ulcer, Risk of Goal: Absence of pressure ulcer Outcome: Progressing Goal: Skin integrity intact Outcome: Progressing * Plan of Care - Erendira Robins RN - 03/16/2024 8:35 PM MST Problem: Falls, Risk of Goal: Absence of falls Outcome: Progressing Goal: Absence of physical injury Outcome: Progressing Goal: Knowledge of fall prevention Outcome: Progressing Problem: Pain Goal: Reduced pain sensation Outcome: Progressing Goal: Control of acute pain to acceptable level Outcome: Progressing Goal: Able to achieve maximum level of physical and psychosocial functioning Outcome: Progressing Problem: Pain - Acute Goal: Control of pain Outcome: Progressing Goal: Able to achieve maximum level of physical and psychosocial functioning Outcome: Progressing Problem: Activity Intolerance Goal: Improved activity tolerance Outcome: Progressing Problem: Mobility - Impaired Goal: Able to achieve maximum mobility level Outcome: Progressing Problem: Pressure Ulcer, Risk of Goal: Absence of pressure ulcer Outcome: Progressing Goal: Skin integrity intact Outcome: Progressing [facility] * Plan of Care - Delaney Hidalgo RN - 03/16/2024 1:58 PM MST Problem: Falls, Risk of Goal: Absence of falls Outcome: Progressing Goal: Absence of physical injury Outcome: Progressing Goal: Knowledge of fall prevention Outcome: Progressing Problem: Pain Goal: Reduced pain sensation Outcome: Progressing Goal: Control of acute pain to acceptable level Outcome: Progressing Goal: Able to achieve maximum level of physical and psychosocial functioning Outcome: Progressing Problem: Pain - Acute Goal: Control of pain Outcome: Progressing Goal: Able to achieve maximum level of physical and psychosocial functioning Outcome: Progressing Problem: Activity Intolerance Goal: Improved activity tolerance Outcome: Progressing Problem: Mobility - Impaired Goal: Able to achieve maximum mobility level Outcome: Progressing Problem: Pressure Ulcer, Risk of Goal: Absence of pressure ulcer Outcome: Progressing Goal: Skin integrity intact Outcome: Progressing [facility] * Rehab Therapy Plan of Care - Neto Uriostegui PT - 03/16/2024 9:20 AM MST Physician Plan of Care Authorization/Signature Plan of Care established on 03/16/2024 Referral Source Consent/Physican Certification Certification Period: 03/16/24 to 03/30/24 By signing the Plan of Care, you are authorizing therapy according to the written plan of care for the above mentioned certification dates. Signatures are valid in written and/or electronic form. PHYSICAL THERAPY PLAN OF CARE NOTE Bryanna Coelho is a 83 y.o. female admitted on 03/14/2024 History of Present Illness: Sciatica w/ radiating pain down R LE Physical Therapy Diagnosis: Impaired ROM, Impaired Strength, Impaired Activity Tolerance, Impaired Coordination, Impaired Balance, Impaired Bed Mobility, Impaired Functional Mobility, Impaired Transfers, Impaired Gait, Impaired Safety Awareness secondary to Wound of right lower extremity, initial encounter [S81.801A] Acute right-sided low back pain with right-sided sciatica [M54.41] Compression fracture of lumbar vertebra, unspecified lumbar vertebral level, initial encounter [S32.000A] Compression fracture of thoracic vertebra, unspecified thoracic vertebral level, initial encounter [S22.000A] Prior Level of Function: Type of Home: House Home Layout: One level Home Equipment: Front-Wheeled Walker, 4WW Functional Mobility: Modified Independent, Use of Assistive Device Lives With: Alone Vocational: Retired Current Level of Function: Rolling: Contact Guard Assist Supine to Sit: Contact Guard Assist, Minimal Assist Sit to Supine: Contact Guard Assist, Minimal Assist Scooting: Contact Guard Assist Goals: Treatment Goals to be met by 03/30/24 Pt Will Use Assistive Device Safely: Yes Pt will perform exercise program: Bilateral, LE(s), With Verbal Cues Pt Will Transfer Supine To/From Sit: With supervision Pt Will Perform Sit to/from Stand: With supervision, With FWW Pt Will Ambulate: 101-150 feet, WIth supervision, With FWW Frequency: 5x week, Mon (1) Duration: 2, week(s) from eval (thru 03/30/24) Planned Interventions: Bed Mobility Training, Transfer Training, Gait Training, Therapeutic Exercises, Balance Training, Endurance Training, Patient/Family/Cargiver Teaching, Equipment Eval/Education Recommendations/Additional Info: *Discharge Recommendations: [facility] *Equipment Recommended: To Be Determined, At next level of care Neto Uriostegui PT,DPT, CSRS 03/16/2024, 1:45 PM Associated attestation - Татьяна Bernal MD - 03/16/2024 5:10 PM MST I have reviewed the plan of care and order ongoing treatment as documented by the therapist. * RN Progress Note - Avani Pryor RN - 03/16/2024 5:02 AM MST 12-hour chart check completed All patient encounters with this RN wearing PPE. * Plan of Care - Avani Pryor RN - 03/15/2024 8:47 PM MST Problem: Falls, Risk of Goal: Absence of falls Outcome: Progressing Goal: Absence of physical injury Outcome: Progressing Goal: Knowledge of fall prevention Outcome: Progressing Problem: Falls, Risk of Goal: Absence of falls Outcome: Progressing Goal: Absence of physical injury Outcome: Progressing Goal: Knowledge of fall prevention Outcome: Progressing Problem: Pain Goal: Reduced pain sensation Outcome: Progressing Goal: Control of acute pain to acceptable level Outcome: Progressing Goal: Able to achieve maximum level of physical and psychosocial functioning Outcome: Progressing Problem: Pain - Acute Goal: Control of pain Outcome: Progressing Goal: Able to achieve maximum level of physical and psychosocial functioning Outcome: Progressing Problem: Activity Intolerance Goal: Improved activity tolerance Outcome: Progressing Problem: Mobility - Impaired Goal: Able to achieve maximum mobility level Outcome: Progressing Problem: Pressure Ulcer, Risk of Goal: Absence of pressure ulcer Outcome: Progressing Goal: Skin integrity intact Outcome: Progressing * Plan of Care - Jeffrey Cabrera RN - 03/15/2024 1:47 PM MST Problem: Falls, Risk of Goal: Absence of falls Outcome: Progressing Goal: Absence of physical injury Outcome: Progressing Goal: Knowledge of fall prevention Outcome: Progressing Problem: Pain Goal: Reduced pain sensation Outcome: Progressing Goal: Control of acute pain to acceptable level Outcome: Progressing Goal: Able to achieve maximum level of physical and psychosocial functioning Outcome: Progressing Problem: Pain - Acute Goal: Control of pain Outcome: Progressing Goal: Able to achieve maximum level of physical and psychosocial functioning Outcome: Progressing Problem: Activity Intolerance Goal: Improved activity tolerance Outcome: Progressing Problem: Mobility - Impaired Goal: Able to achieve maximum mobility level Outcome: Progressing K * RN Progress Note - Jeffrey Cabrera RN - 03/15/2024 8:58 AM MST Prior to patient being transported to MRI, Patient was ask to remove all jewelry. Only piece of jewelry removed was two rings, a gold in color ring with what looks like a rebeca and a solid gold color solid thin ring band. Pt. Stated it is her wedding rings. RN offered to have Security store ring but patient declined. This RN and RN Pipeline Engineer witnessed Patient place rings in a garcia colored purse. Purse was placed in patient night stand. Jeffrey Cabrera RN * RN Progress Note - Jeffrey Cabrera RN - 03/15/2024 8:50 AM MST With Patient who states she wants to be a DNR/DNI. Will notify Hospitalist to complete DNR/DNI order. * RN Progress Note - Yennifer Pedraza RN - 03/15/2024 6:57 AM MST 12-hour chart check complete. Yennifer Pedraza * Plan of Care - Yennifer Pedraza RN - 03/14/2024 10:49 PM MST Problem: Falls, Risk of Goal: Absence of falls Outcome: Progressing Goal: Absence of physical injury Outcome: Progressing Goal: Knowledge of fall prevention Outcome: Progressing Problem: Pain Goal: Reduced pain sensation Outcome: Progressing Goal: Control of acute pain to acceptable level Outcome: Progressing Goal: Able to achieve maximum level of physical and psychosocial functioning Outcome: Progressing Problem: Pain - Acute Goal: Control of pain Outcome: Progressing Goal: Able to achieve maximum level of physical and psychosocial functioning Outcome: Progressing Problem: Activity Intolerance Goal: Improved activity tolerance Outcome: Progressing Problem: Mobility - Impaired Goal: Able to achieve maximum mobility level Outcome: Progressing Problem: Pressure Ulcer, Risk of Goal: Absence of pressure ulcer Outcome: Progressing Goal: Skin integrity intact Outcome: Progressing documented in this encounter Plan of Treatment Scheduled Referrals Name Type Priority Associated Diagnoses Orde r Schedule Ambulatory Referral to Bone Health Consult Outpatient Referral Routine Age-related osteoporosis with current pathological fracture with routine healing, subsequent encounter Ordered: 03/17/2024 Ambulatory referral to Pain Clinic Outpatient Referral Routine Age-related osteoporosis with current pathological fracture with routine healing, subsequent encounter Ordered: 03/17/2024 documented as of this encounter Procedures Procedure Name Priority Date/Time Associated Diagnosis Comments MAGNESIUM Routine 03/18/2024 4:53 AM MST PHOSPHORUS Routine 03/17/2024 4:38 AM MST MAGNESIUM Routine 03/17/2024 4:38 AM MST URINALYSIS WITH [...] FUNCTION PANEL Routine 03/15/2024 6:50 AM MST CBC WITH DIFFERENTIAL STAT 03/14/2024 8:41 PM MST BASIC METABOLIC PANEL STAT 03/14/2024 8:[address] LUMBAR SPINE WO CONTRAST STAT 03/14/2024 8:22 PM MST XR HIP 2 VIEW W PELVIS RT STAT 03/14/2024 8:04 PM MST documented in this encounter Results * Magnesium--AM Draw (03/18/2024 4:53 AM MST) Magnesium 1.9 1.6 - 2.6 mg/dL 03/18/2024 5:23 AM [facility] Blood BLOOD SPECIMEN / Unknown Venipuncture / Unknown 03/18/2024 4:53 AM [facility] 03/18/2024 4:58 AM [facility] Татьяна Bernal MD LAB BLOOD ORDERABLES Performing Organization Address [facility] [[email or web address]] Co de Phone Number [facility] [address] [phone] * Magnesium (03/17/2024 4:38 AM [facility]) Magnesium 1.9 1.6 - 2.6 mg/dL 03/17/2024 5:45 AM [facility] Blood BLOOD SPECIMEN / Unknown Venipuncture / Unknown 03/17/2024 4:38 AM [facility] 03/17/2024 5:24 AM [facility] Татьяна Bernal MD LAB BLOOD ORDERABLES Performing Organization Address [facility] de Phone Number [facility] [address] [phone] * Phosphorus (03/17/2024 4:38 AM [facility]) Phosphorus 2.7 2.4 - 4.7 mg/dL 03/17/2024 5:44 AM [facility] Blood BLOOD SPECIMEN / Unknown Venipuncture / Unknown 03/17/2024 4:38 AM [facility] 03/17/2024 5:24 AM [facility] Narrative [facility] - 03/17/2024 5:44 AM [facility] High doses of lipsomal Amphotericin B therapy may cause falsely elevated results for phosphorus. Татьяна Bernal MD LAB BLOOD ORDERABLES Performing Organization Address City/[facility] [[email or web address]] Co de Phone Number [facility] [address] [place] [address], [facility] [phone] * (ABNORMAL) Urinalysis with Microscopic (03/15/2024 11:07 PM [facility]) Color, Urine Light Yellow Colorless, Light Yellow, Yellow, Dark Yellow, Straw 03/15/2024 11:18 PM [facility] Clarity, Urine Clear Clear 03/15/2024 11:18 PM [facility] Glucose, Urine Negative Negative mg/dL 03/15/2024 11:18 PM [facility] Bilirubin, Urine Negative Negative 03/15/2024 11:18 PM [facility] Ketones, Urine Negative Negative mg/dL 03/15/2024 11:18 PM [facility] Specific [place], Urine 1.018 1.005 - 1.030 03/15/2024 11:18 PM [facility] Blood, Urine Trace(A) Negative 03/15/2024 11:18 PM [facility] pH, Urine 5.5 5.0 - 8.0 03/15/2024 11:18 PM [facility] Protein, Urine Negative Negative mg/dL 03/15/2024 11:18 PM [facility] Urobilinogen, Urine <2.0 <2.0 mg/dL 03/15/2024 11:18 PM [facility] Nitrite, Urine Negative Negative 03/15/2024 11:18 PM [facility] Leukocyte Esterase, Urine Negative Negative 03/15/2024 11:18 PM [facility] WBC, Urine <1 0 - 5 /HPF 03/15/2024 11:18 PM [facility] RBC, Urine 1 0 - 2 /HPF 03/15/2024 11:18 PM [facility] Bacteria, Urine None Seen None Seen /HPF 03/15/2024 11:18 PM [facility] Squamous Epithelial, Urine 2 0 - 5 /HPF 03/15/2024 11:18 PM [facility] Transitional Epithelial, Urine <1 0 - 5 /HPF 03/15/2024 11:18 PM [facility] Urine URINE SPECIMEN OBTAINED BY CLEAN CATCH PROCEDURE / Unknown Collection / Unknown 03/15/2024 11:07 PM [facility] 03/15/2024 11:11 PM [facility] Graciela HUIZAR URINE ORDERAB LES Performing Organization Address City/[facility]/ZIP Co de Phone Number [facility] [address] [place] [address], [facility] [phone] * (ABNORMAL) Folate (03/15/2024 1:18 PM [facility]) Folate >40.0(H) 7.0 - 31.4 ng/mL 03/15/2024 10:52 PM [facility] Blood BLOOD SPECIMEN / Unknown Butterfly / Unknown 03/15/2024 1:18 PM [facility] 03/15/2024 1:36 PM [facility] Houston Webb MD LAB BLOOD ORDERABL ES Performing Organization Address City/[facility]/ZIP Co de Phone Number [facility] [address] [place] [address], [facility] [phone] * (ABNORMAL) Vitamin B12 (03/15/2024 1:18 PM [facility]) Vitamin B-12 1,042(H) 213 - 816 pg/mL 03/15/2024 9:47 PM [facility] Comment:Sample slightly hemo lyzed Blood BLOOD SPECIMEN / Unknown Butterfly / Unknown 03/15/2024 1:18 PM MST 03/15/2024 1:36 PM [facility] Narrative [facility] - 03/15/2024 9:47 PM [facility] Normal Range: 180 - 914 pg/mL Indeterminate Range: 145 - 180 pg/mL Deficient Range: <145 pg/mL Houston Webb MD LAB BLOOD ORDERABL ES [facility] [address] [place] [address], [facility] [phone] * MR Lumbar Spine WO Contrast (03/15/2024 9:49 AM [facility]) Anatomical Region Laterality Modality L-spine Magnetic Resonan ce 03/15/2024 12:0 0 PM [facility] Impressions 03/15/2024 12:11 PM [facility] IMPRESSION: ?? 1. 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 2. ??Subacute bilateral sacral insufficiency fractures. 3. ??Remote compression fractures of L1, L2, and L3. 4. 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 MELECIO BLAKELY MD 03/15/2024 12:11 PM Narrative 03/15/2024 12:11 PM [facility] MRI LUMBAR SPINE WITHOUT CONTRAST HISTORY: [...] MD 03/15/2024 12:11 PM Houston Webb MD [facility] MRI ORDERABLES * MR Thoracic Spine WO Contrast (03/15/2024 9:49 AM [facility]) Anatomical Region Laterality Modality T-spine Magnetic Resonan ce 03/15/2024 11:2 5 AM [facility] Impressions 03/15/2024 11:32 AM [facility] IMPRESSION: ?? 1. ??Multiple remote compression fractures, unchanged from May 2023. No progressive height loss or retropulsion. ??Unchanged exaggerated thoracic kyphosis in this region 2. 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 3. ??Mild degenerative findings, but no significant canal stenosis or neural foraminal narrowing. MELECIO BLAKELY MD 03/15/2024 11:32 AM Narrative 03/15/2024 11:32 AM [facility] MRI THORACIC SPINE WITHOUT CONTRAST HISTORY: [...] Tibfib 2 Views RT (03/15/2024 7:54 AM [facility]) Anatomical Region Laterality Modality Lower Leg Digital Radiogra phy 03/15/2024 8:21 AM [facility] Impressions 03/15/2024 8:22 AM [facility] IMPRESSION: Nothing acute with mild chondrocalcinosis of the lateral joint space. BRANDIN SHELTON MD 03/15/2024 8:22 AM Narrative 03/15/2024 8:22 AM [facility] XR TIBFIB 2 VIEWS RT INDICATION: mysterious pain COMPARISON: None FINDINGS: ??No acute osseous or articular abnormalities. ??There is mild chondrocalcinosis of the lateral joint space, with very slight loss of joint space involving both the medial and lateral joint compartments. ??No focal soft tissue abnormality evident. Procedure Note Brandin Shelton MD - 03/15/2024 XR TIBFIB 2 VIEWS RT INDICATION: mysterious pain COMPARISON: None FINDINGS: No acute osseous or articular abnormalities. There is mildchondrocalcinosis of the lateral joint space, with very slight loss ofjoint space involving both the medial and lateral joint compartments. Nofocal soft tissue abnormality evident. IMPRESSION: Nothing acute with mild chondrocalcinosis of the lateral joint space. BRANDIN SHELTON MD 03/15/2024 8:22 AM Houston Webb MD IMG DIAGNOSTIC ABDIEL GING ORDERABLES * (ABNORMAL) Hepatic Function Panel (03/15/2024 6:50 AM [facility]) Total Protein 6.0(L) 6.5 - 8.4 g/dL 03/15/2024 7:12 AM [facility] Albumin 3.7 3.2 - 4.6 g/dL 03/15/2024 7:12 AM [facility] Globulin, Total 2.3 2.0 - 3.9 g/dL 03/15/2024 7:12 AM [facility] A/G Ratio 1.6 1.1 - 2.5 03/15/2024 7:12 AM [facility] Bilirubin, Total 1.3(H) 0.2 - 1.2 mg/dL 03/15/2024 7:12 AM [facility] Bilirubin, Direct 0.4 <=0.5 mg/dL 03/15/2024 7:12 AM [facility] Alkaline Phosphatase 49 38 - 126 U/L 03/15/2024 7:12 AM [facility] ALT 12 <=54 U/L 03/15/2024 7:12 AM [facility] AST 19 <=41 U/L 03/15/2024 7:12 AM [facility] Blood BLOOD SPECIMEN / Unknown Butterfly / Unknown 03/15/2024 6:50 AM [facility] 03/15/2024 6:53 AM [facility] Narrative [facility] - 03/15/2024 7:12 AM [facility] Patients on sulfasalazine and/or sulfapyridine should be drawn prior to drug administration due to the potential for falsely depressed ALT (SGPT) and/or AST (SGOT) results. Houston Webb MD LAB BLOOD ORDERABL ES [facility] [address] [place] [address], [facility] [phone] * (ABNORMAL) Basic Metabolic Panel (03/14/2024 8:41 PM [facility]) [facility] Sodium 137 136 - 144 mmol/L 03/14/2024 9:07 PM [facility] Potassium 4.2 3.6 - 5.0 mmol/L 03/14/2024 9:07 PM [facility] Chloride 107 101 - 111 mmol/L 03/14/2024 9:07 PM [facility] CO2 22(L) 23 - 31 mmol/L 03/14/2024 9:07 PM [facility] Anion Gap 8 7 - 16 03/14/2024 9:07 PM [facility] Calcium 9.0 8.5 - 10.3 mg/dL 03/14/2024 9:07 PM [facility] Glucose 104 Fastin-99; Random: 70-130 mg/dL 03/14/2024 9:07 PM [facility] BUN 17.0 9.8 - 20.1 mg/dL 03/14/2024 9:07 PM [facility] Creatinine 0.8 0.5 - 1.0 mg/dL 03/14/2024 9:07 PM [facility] eGFR 73(L) >=90 mL/min/1.73 m2 03/14/2024 9:07 PM [facility] Blood BLOOD SPECIMEN / Unknown Line / Unknown 03/14/2024 8:41 PM [facility] 03/14/2024 8:50 PM MST Narrative [facility] - 03/14/2024 9:07 PM [facility] For eGFR ? 60-89 ml/min/A (A= 1.73 [...] results. Graciela HUIZAR LAB BLOOD ORD ERABLES [facility] [address] [place], [place] [address] [phone] * (ABNORMAL) CBC with Differential (03/14/2024 8:41 PM [facility]) WBC 4.7 4.0 - 10.9 10??/uL 03/14/2024 8:53 PM [facility] RBC 2.94(L) 3.50 - 5.40 10? 6 /uL 03/14/2024 8:53 PM [facility] Hemoglobin 9.9(L) 12.0 - 16.0 g/dL 03/14/2024 8:53 PM [facility] Hematocrit 29.7(L) 36.0 - 48.0 % 03/14/2024 8:53 PM [facility] MCV 101.0(H) 80.0 - 98.0 fL 03/14/2024 8:53 PM [facility] MCH 33.5 27.0 - 34.0 PG 03/14/2024 8:53 PM [facility] MCHC 33.2 31.0 - 37.0 g/dL 03/14/2024 8:53 PM [facility] RDW 15.8(H) 11.5 - 14.5 % 03/14/2024 8:53 PM [facility] RDW-SD 54.7(H) 36.4 - 46.3 fL 03/14/2024 8:53 PM [facility] Platelets 120(L) 130 - 450 10? 3 /uL 03/14/2024 8:53 PM [facility] MPV 9.6 7.4 - 12.4 fL 03/14/2024 8:53 PM [facility] Neutrophils 71 % 03/14/2024 8:53 PM [facility] Lymphs 9 % 03/14/2024 8:53 PM [facility] Monocytes 20 % 03/14/2024 8:53 PM [facility] Eosinophils 0 % 03/14/2024 8:53 PM [facility] Basophils 0 % 03/14/2024 8:53 PM [facility] nRBC <1.0 /100 WBCs 03/14/2024 8:53 PM [facility] Neutrophils Absolute 3.37 1.48 - 8.32 10??/uL 03/14/2024 8:53 PM [facility] Lymphocytes Absolute 0.41(L) 0.90 - 3.50 10??/uL 03/14/2024 8:53 PM [facility] Monocytes Absolute 0.95(H) 0.26 - 0.80 10??/uL 03/14/2024 8:53 PM [facility] Eosinophils Absolute <0.05 0.00 - 0.62 10??/uL 03/14/2024 8:53 PM [facility] Basophils Absolute <0.05 0.00 - 0.10 10??/uL 03/14/2024 8:53 PM [facility] Nucleated RBC Absolute 0.000 0.000 - 0.020 10??/uL 03/14/2024 8:53 PM [facility] Blood BLOOD SPECIMEN / Unknown Line / Unknown 03/14/2024 8:41 PM MST 03/14/2024 8:50 PM [facility] Graciela HUIZAR LAB BLOOD ORD ERABLES [facility] [address] [phone] * CT Lumbar Spine WO Contrast (03/14/2024 8:22 PM [facility]) Anatomical Region Laterality Modality L-spine Computed Tomogra phy 03/14/2024 8:45 PM [facility] Impressions 03/14/2024 8:49 PM [facility] IMPRESSION: Progressive compression deformities of T3 and T12. SANTOS TAYLOR MD 03/14/2024 8:49 PM Narrative 03/14/2024 8:49 PM [facility] CT LUMBAR SPINE WITHOUT CONTRAST HISTORY: [...] of the T3 vertebral body now measuring [id number] No suspicious lytic or blastic lesions identified. [...] View W Pelvis RT (03/14/2024 8:04 PM [facility]) Anatomical Region Laterality Modality Hip Digital Radiogra phy 03/14/2024 8:12 PM [facility] Narrative 03/14/2024 8:12 PM MST RIGHT HIP COMPLETE WITH PELVIS HISTORY: ??Right [...] Graciela HUIZAR IMG DIAGNOSTI C IMAGING ORDERABLES documented in this encounter Visit Diagnoses Diagnosis Sciatica, right side- Primary Acute right-sided low back pain with right-sided sciatica Compression fracture of lumbar vertebra, unspecified lumbar vertebral level, initial encounter Compression fracture of thoracic vertebra, unspecified thoracic vertebral level, initial encounter Wound of right lower extremity, initial encounter Age-related osteoporosis with current pathological fracture with routine healing, subsequent encounter Right leg pain Pain in soft tissues of limb Macrocytic anemia Thrombocytopenia Unspecified thrombocytopenia Closed fracture of third thoracic vertebra Closed fracture of twelfth thoracic vertebra Osteoporosis with current pathological fracture HTN (hypertension) Unspecified essential hypertension documented in this encounter Administered Medications Inactive Administered Medications - up to 3 most recent administrations Medication Order MAR Action Action Date Dose Rate Site acetaminophen (TYLENOL) tablet 1,000 mg 1,000 mg, Oral, Once, On 03/14/24 at 1930, For 1 dose, STAT Given 03/14/2024 7:24 PM MST 1,000 mg acetaminophen (TYLENOL) tablet 1,000 mg 1,000 mg, Oral, Every 8 hours scheduled, First dose (after last modification) on 03/15/24 at 1130, Routine Given 03/18/2024 2:28 PM MST 1,000 mg Given 03/18/2024 6:31 AM MST 1,000 mg Given 03/17/2024 10:13 PM MST 1,000 mg acetaminophen (TYLENOL) tablet 650 mg 650 mg, Oral, Every 6 hours PRN, pain or fever > 101, Starting on Sat03/14/24 at 2232, Routine Given 03/15/2024 12:35 AM MST 650 mg cyclobenzaprine (FLEXERIL) tablet 5 mg 5 mg, Oral, Every 8 hours scheduled, First dose on Sat03/15/24 at 1130, Hold for somnolence and/or sedation , Routine Given 03/18/2024 2:28 PM MST 5 mg Given 03/18/2024 6:33 AM MST 5 mg Given 03/17/2024 10:13 PM MST 5 mg dexAMETHasone PF (DECADRON) 10 mg/mL injection 6 mg 6 mg, Intravenous, Every 8 hours scheduled, First dose on Sat03/15/24 at 0630, For 2 doses, Routine Given 03/15/2024 4:48 PM MST 6 mg Given 03/15/2024 6:44 AM MST 6 mg docusate sodium (COLACE) capsule 100 mg 100 mg, Oral, Every 24 hours scheduled, First dose on Sat03/17/24 at 1200, Swallow whole; do not crush or chew., Routine Given 03/18/2024 9:13 AM MST 100 mg Given 03/17/2024 12:16 PM MST 100 mg fentaNYL (SUBLIMAZE) 50 mcg/mL injection 50 mcg 50 mcg, Intravenous, Every 15 minutes PRN, SEVERE pain (score 7-10), Starting on Sat03/14/24 at 2032, For 3 doses, STAT Given 03/14/2024 8:42 PM MST 50 mcg folic acid (FOLVITE) tablet 800 mcg 800 mcg, Oral, Daily, First dose on Sat03/15/24 at 0900 Given 03/18/2024 9:13 AM MST 800 mcg Given 03/17/2024 8:12 AM MST 800 mcg Given 03/16/2024 10:19 AM MST 800 mcg ketorolac (TORADOL) 30 mg/mL injection 15 mg 15 mg, Intravenous, Every 6 hours PRN, pain 5-10, Starting on Sat03/15/24 at 0627, For 12 hours Given 03/15/2024 6:48 AM MST 15 mg ketorolac (TORADOL) 30 mg/mL injection 30 mg 30 mg, Intramuscular, Once, On 03/14/24 at 1930, For 1 dose, Maximum recommended dose if patient greater than or equal to 65 years, renally impaired, or less than 50 kg = 60 mg/day. Maximum recommended dose in other adults = 120 mg/day., STAT Given 03/14/2024 7:24 PM MST 30 mg Left Anterior Thigh latanoprost (XALATAN) 0.005 % ophthalmic solution 1 drop 1 drop, Both Eyes, At bedtime, First dose on Sat03/15/24 at 2100, Routine Given 03/17/2024 8:46 PM MST 1 drop Given 03/16/2024 8:40 PM MST 1 drop Given 03/15/2024 8:22 PM MST 1 drop LORazepam (ATIVAN) tablet 0.5 mg 0.5 mg, Oral, Every 8 hours PRN, Anxiety, prn for relaxation, Starting on 03/15/24 at 0603, Use carefully in patients over the age of 65. Dose selection should generally be on the low end of the dosage range., Routine Given 03/18/2024 12:05 AM MST 0.5 mg Given 03/16/2024 10:50 PM MST 0.5 mg magnesium oxide (MAG-OX) tablet 800 mg 800 mg, Oral, Once, On Sat03/17/24 at 0900, For 1 dose, For Mg++ 1.6 - 1.9 After Magnesium administration, repeat Mg++ level in the AM., Routine Given 03/17/2024 8:13 AM MST 800 mg magnesium oxide (MAG-OX) tablet 800 mg 800 mg, Oral, Once, On Sat03/18/24 at 0615, For 1 dose, For Mg++ 1.6 - 1.9 After Magnesium administration, repeat Mg++ level in the AM., Routine Given 03/18/2024 6:32 AM MST 800 mg morphine 4 mg/mL injection 3 mg 3 mg, Intravenous, Every 3 hours PRN, SEVERE pain (score 7-10), Starting on 03/14/24 at 2232, Routine Given 03/16/2024 2:46 AM MST 3 mg Given 03/15/2024 8:15 PM MST 3 mg Given 03/15/2024 2:22 PM MST 3 mg ondansetron (ZOFRAN) 2 mg/mL injection 4 mg 4 mg, Intravenous, Every 6 hours PRN, Nausea, Vomiting, Starting on Sat03/14/24 at 2232, Routine Given 03/15/2024 4:50 PM MST 4 mg oxyCODONE (ROXICODONE/OXY IR) tablet 10 mg 10 mg, Oral, Every 4 hours PRN, SEVERE pain (score 7-10), Starting on Sat03/16/24 at 1002, Routine Given 03/18/2024 2:29 PM MST 10 mg Given 03/18/2024 9:14 AM MST 10 mg Given 03/17/2024 10:55 PM MST 10 mg oxyCODONE (ROXICODONE/OXY IR) tablet 5 mg 5 mg, Oral, Every 6 hours PRN, SEVERE pain (score 7-10), Starting on 03/14/24 at 2232, Routine Given 03/16/2024 5:15 AM MST 5 mg Given 03/15/2024 7:00 PM MST 5 mg Given 03/15/2024 11:31 AM MST 5 mg oxyCODONE (ROXICODONE/OXY IR) tablet 5 mg 5 mg, Oral, Every 4 hours PRN, MODERATE pain (score 4-6), Starting on Sat03/16/24 at 1002, Routine Given 03/16/2024 3:48 PM MST 5 mg polyethylene glycol 3350 (MIRALAX) packet 17 g 17 g, Oral, Every 24 hours scheduled, First dose on Sat03/17/24 at 1200, Dilute packet contents in 8 ounces of water for patient to drink, Routine Given 03/18/2024 9:13 AM MST 17 g Given 03/17/2024 12:16 PM MST 17 g predniSONE (DELTASONE) tablet 5 mg 5 mg, Oral, Daily, First dose (after last modification) on Sat03/16/24 at 0900, Routine Given 03/18/2024 9:13 AM MST 5 mg Given 03/17/2024 8:13 AM MST 5 mg Given 03/16/2024 10:19 AM MST 5 mg pregabalin (LYRICA) capsule 25 mg 25 mg, Oral, 2 times daily, First dose on 03/15/24 at 0900, Routine Given 03/18/2024 9:13 AM MST 25 mg Given 03/17/2024 8:46 PM MST 25 mg Given 03/17/2024 8:12 AM MST 25 mg vitamin D3 (CHOLECALCIFEROL) tablet 25 mcg 25 mcg, Oral, Every 24 hours scheduled, First dose on 03/15/24 at 0900, 1000 units = 25 mcg, Routine Given 03/18/2024 9:13 AM MST 25 mcg Given 03/17/2024 8:13 AM MST 25 mcg Given 03/16/2024 10:19 AM MST 25 mcg zolpidem (AMBIEN) tablet 2.5 mg 2.5 mg, Oral, At bedtime PRN, Sleep, Starting on 03/15/24 at 0037, May repeat dose once, an hour later, if desired effect is not achieved. Ten mg is not safe. , Routine Given 03/15/2024 10:52 PM MST 2.5 mg Given 03/15/2024 12:45 AM MST 2.5 mg documented in this encounter Active and Recently Administered Medications Times are shown in MST. Scheduled Medication Order 03/16/2024 03/17/2024 03/18/2024 acetaminophen (TYLENOL) tablet 1,000 mg 1,000 mg, Oral, Every 8 hours scheduled, First dose (after last modification) on 03/15/24 at 1130, Routine 0515 (Given - Provider: Avani Pryor RN)1345 (Given - Provider: Delaney Hidalgo RN)2150 (Given - Provider: Erendira Robins RN) 0707 (Given - Provider: Erendira Robins RN)1335 (Given - Provider: Dana Zarate RN)2213 (Given - Provider: Elly Smith RN) 0631 (Given - Provider: Elly Smith RN)1428 (Given - Provider: Dana Zarate RN) cyclobenzaprine (FLEXERIL) tablet 5 mg 5 mg, Oral, Every 8 hours scheduled, First dose on 03/15/24 at 1130, Hold for somnolence and/or sedation , Routine 0515 (Given - Provider: Avani Pryor RN)1346 (Given - Provider: Delaney Hidalgo RN)2149 (Given - Provider: Erendira Robins, MARK) 0707 (Given - Provider: Erendira Robins, MARK)1335 (Given - Provider: Dana Zarate, MARK)2213 (Given - Provider: Elly Smith RN) 0633 (Given - Provider: Elly Smith RN)1428 (Given - Provider: Dana Zarate RN) docusate sodium (COLACE) capsule 100 mg 100 mg, Oral, Every 24 hours scheduled, First dose on Sat03/17/24 at 1200, Swallow whole; do not crush or chew., Routine 1216 (Given - Provider: Dana Zarate RN) 0913 (Given - Provider: Dana Zarate RN) folic acid (FOLVITE) tablet 800 mcg 800 mcg, Oral, Daily, First dose on Sat03/15/24 at 0900 1019 (Given - Provider: Delaney Hidalgo RN) 0812 (Given - Provider: Dana Zarate RN) 0913 (Given - Provider: Dana Zarate RN) latanoprost (XALATAN) 0.005 % ophthalmic solution 1 drop 1 drop, Both Eyes, At bedtime, First dose on Sat03/15/24 at 2100, Routine 2039 (Given - Provider: Erendira Robins RN) 204 (Given - Provider: Elly Smith RN) magnesium oxide (MAG-OX) tablet 800 mg (COMPLETED) 800 mg, Oral, Once, On Sat03/17/24 at 0900, For 1 dose, For Mg++ 1.6 - 1.9 After Magnesium administration, repeat Mg++ level in the AM., Routine 08 (Given - Provider: Dana Zarate RN) magnesium oxide (MAG-OX) tablet 800 mg (COMPLETED) 800 mg, Oral, Once, On Sat03/18/24 at 0615, For 1 dose, For Mg++ 1.6 - 1.9 After Magnesium administration, repeat Mg++ level in the AM., Routine 0632 (Given - Provider: Elly Smith, MARK) polyethylene glycol 3350 (MIRALAX) packet 17 g 17 g, Oral, Every 24 hours scheduled, First dose on Sat03/17/24 at 1200, Dilute packet contents in 8 ounces of water for patient to drink, Routine 1216 (Given - Provider: Dana Zarate RN) 09 (Given - Provider: Dana Zarate RN) predniSONE (DELTASONE) tablet 5 mg 5 mg, Oral, Daily, First dose (after last modification) on Sat03/16/24 at 0900, Routine 1019 (Given - Provider: Delaney Hidalgo RN) 08 (Given - Provider: Dana Zarate RN) 09 (Given - Provider: Dana Zarate RN) pregabalin (LYRICA) capsule 25 mg 25 mg, Oral, 2 times daily, First dose on Sat03/15/24 at 0900, Routine 1019 (Given - Provider: Delaney Hidalgo RN)2039 (Given - Provider: Erendira Robins RN) 0812 (Given - Provider: Dana Zarate RN)2045 (Given - Provider: Elly Smith RN) 09 (Given - Provider: Dana Zarate RN) vitamin D3 (CHOLECALCIFEROL) tablet 25 mcg 25 mcg, Oral, Every 24 hours scheduled, First dose on Sat03/15/24 at 0900, 1000 units = 25 mcg, Routine 1019 (Given - Provider: Delaney Hidalgo RN) 08 (Given - Provider: Dana Zarate RN) 09 (Given - Provider: Dana Zarate RN) PRN Medication Order 03/16/2024 03/17/2024 03/18/2024 LORazepam (ATIVAN) tablet 0.5 mg 0.5 mg, Oral, Every 8 hours PRN, Anxiety, prn for relaxation, Starting on 03/15/24 at 0603, Use carefully in patients over the age of 65. Dose selection should generally be on the low end of the dosage range., Routine 2250 (Given - Provider: Erendira Robins RN) 0005 (Given - Provider: Elly Smith RN) morphine 4 mg/mL injection 3 mg (CANCELED) 3 mg, Intravenous, Every 3 hours PRN, SEVERE pain (score 7-10), Starting on 03/14/24 at 2232, Routine 0246 (Given - Provider: Avani Pryor, MARK) ondansetron (ZOFRAN) 2 mg/mL injection 4 mg 4 mg, Intravenous, Every 6 hours PRN, Nausea, Vomiting, Starting on 03/14/24 at 2232, Routine oxyCODONE (ROXICODONE/OXY IR) tablet 10 mg(Linked Group 1) 10 mg, Oral, Every 4 hours PRN, SEVERE pain (score 7-10), Starting on 03/16/24 at 1002, Routine 1548 (See Alternative - Provider: Delaney Hidalgo RN)1950 (Given - Provider: Delaney Hidalgo RN) 0003 (Given - Provider: Erendira Robins RN)0408 (Given - Provider: Erendira Robins RN)0812 (Given - Provider: Dana Zarate RN)1620 (Given - Provider: Dana Zarate RN)2255 (Given - Provider: Elly Smith RN) 0914 (Given - Provider: Dana Zarate RN)1429 (Given - Provider: Dana Zarate RN) oxyCODONE (ROXICODONE/OXY IR) tablet 5 mg (CANCELED) 5 mg, Oral, Every 6 hours PRN, SEVERE pain (score 7-10), Starting on 03/14/24 at 2232, Routine 0515 (Given - Provider: Avani Pryor RN) oxyCODONE (ROXICODONE/OXY IR) tablet 5 mg(Linked Group 1) 5 mg, Oral, Every 4 hours PRN, MODERATE pain (score 4-6), Starting on 03/16/24 at 1002, Routine 1548 (Given - Provider: Delaney Hidalgo RN)1950 (See Alternative - Provider: Delaney Hidalgo RN) 0003 (See Alternative - Provider: Erendira Robins RN)0408 (See Alternative - Provider: Erendira Robins RN)0812 (See Alternative - Provider: Dana Zarate RN)1620 (See Alternative - Provider: Dana Zarate RN)2255 (See Alternative - Provider: Elly Smith RN) 0914 (See Alternative - Provider: Dana Zarate RN)1429 (See Alternative - Provider: Dana Zarate RN) Linked Groups Order Group 1: oxyCODONE (ROXICODONE/OXY IR) tablet 5 mgJump to med 5 mg, Oral, Every 4 hours PRN, MODERATE pain (score 4-6), Starting on Sat03/16/24 at 1002, Routine Or oxyCODONE (ROXICODONE/OXY IR) tablet 10 mgJump to med 10 mg, Oral, Every 4 hours PRN, SEVERE pain (score 7-10), Starting on Sat03/16/24 at 1002, Routine documented in this encounter Care Teams Neurology Director Relationship Specialty Start Date End Date Porfirio Hauser MD [address] [place] [address] PCP - General Internal Medicine 04/03/22 Jerilyn Holley, ZACHARY [address] [place], [place] [id number] Nurse Practitioner Family Medicine 09/18/23 documented as of this encounter
--- OUTSIDE RECORDS SUMMARY | 2024-05-25 11:43 | XMS_ITS | Encounter Summary ---
Author Organization [facility] Address [address] [place] [address] Care Team Providers Care Director And Professor Name Role Phone Porfirio Hauser MD Primary Care Provider [phone] Jerilyn Holley SENIOR COMPLIANCE OFFICER Unavailable [phone] Encounter Details Date Type Department Care Team (Late st Contact Info) Description 03/15/2024 Procedure Pass [facility] MRI [address] [place] [address] Social History Tobacco Use Types Packs/Day Years Used Date Smoking Tobacco: Never Smokeless Tobacco: Never Alcohol Use Standard Drinks/Week Comments Yes 0 (1 standard drink = 0.6 oz pur e alcohol) rarely [facility] Utilities Answer Date Recorded In the past 12 months has e [employer], gas, oil, or water [employer] threatened to shut off services in your [...] any time in the past 12 m [facility], were you homeless or living in a fdc (including now)? No 03/16/2024 Sex and Gender Information Value Date Recorded Sex Assigned at Not on file Gender Identity Not on file Sexual Orientation Not on file documented as of this encounter Plan of Treatment Not on file documented as of this encounter Visit Diagnoses Not on filedocumented in this encounter Care Teams Director And Professor Relationship Specialty Start Date End Date Porfirio Hauser MD [address] [place] [address] [address] [place], [place] [id number] PCP - General Internal Medicine 8/30/22 Jerilyn Holley NP [address] [place] [address] Nurse Practitioner Family Medicine 09/18/23 documented as of this encounter
--- OUTSIDE RECORDS SUMMARY | 2024-05-25 11:43 | XMS_ITS | Encounter Summary ---
Author Organization [facility] Address [address] [place] [address] Care Team Providers Care Cake Maker Name Role Phone Porfirio Hauser MD Primary Care Provider [phone] Porfirio Hauser MD Primary Care Provider [phone] Jerilyn Holley NP Unavailable [phone] Encounter Details Date Type Department Care Team (Late st Contact Info) Description 01/23/2018 Procedure Pass [facility] MRI [address] [place] [address] Social History Tobacco Use Types Packs/Day Years Used Date Smoking Tobacco: Never Smokeless Tobacco: Never Alcohol Use Standard Drinks/Week Comments Yes 0 (1 standard drink = 0.6 oz pur e alcohol) rarely Sex and Gender Information Value Date Recorded Sex Assigned at Not on file Gender Identity Not on file Sexual Orientation Not on file documented as of this encounter Plan of Treatment Not on file documented as of this encounter Visit Diagnoses Not on filedocumented in this encounter Care Teams Cake Maker Relationship Specialty Start Date End Date Porfirio Hauser MD PCP - General 12/25/14 04/02/22 Porfirio Hauser MD [address] [place] [address] PCP - General Internal Medicine 04/03/22 Jerilyn Holley NP [address] [address] Nurse Practitioner Family Medicine 09/18/23 documented as of this encounter
--- OUTSIDE RECORDS SUMMARY | 2024-05-25 11:43 | XMS_ITS | Clinical Summary ---
Author Organization [facility] Address [place] [address] Care Team Providers Care Core Extruder Name Role Phone Breana Brothers MD Primary Care Provider Allergies Active Allergy Reactions Criticality Noted Date Comments Ciprofloxacin Anaphylaxis 02/03/2007 Egg GI Upset 12/25/2011 Sulfa (Sulfonamide Antibiotics) SULFA-?RASH KID Medications Medication Sig Dispensed Refills Start Date End Date Status NITROGLYCERIN 0.4 MG SUBLINGUAL TAB 04/30/2008 Active folic acid 1 mg tablet Take 1 tablet by mouth once daily. Dr Sneed, rheum, [facility] 0 05/24/2010 Active hydrocodone-acetam inophen, 5-500 mg, (VICODIN) Tab tablet Take by mouth. Maximum dose of acetaminophen is 4000 mg from all sources in [address] Hauser, Lace Finisher at [facility] 0 05/24/2010 Active LORazepam (ATIVAN) 0.5 mg TabIndications:Anx iety state, unspecified Take 0.5-1 mg by mouth three times daily. Dr Hauser, Lace Finisher at [facility] 1 05/24/2010 Active methotrexate (RHEUMATREX) 2.5 mg tablet 1 tablet. 2.5 mg, takes 5 tablets po qwk, Dr Sneed, Rheum at [facility]. 0 05/24/2010 Active predniSONE (DELTASONE) 5 mg tablet Take by mouth. 5 mg po qAM, Dr Sneed, Rheum, [facility] 0 05/24/2010 Active zolpidem (AMBIEN) 10 mg tablet Take by mouth. 10 mg po qhs, Dr Hauser, Lace Finisher, [facility] 0 05/24/2010 Active latanoprost (XALATAN) 0.005 % ophthalmic solution Place 1 Drop into both eyes at bedtime. Active diphenoxylate-atro pine, 2.5-0.025 mg, (LomotiL) 2.5-0.025 mg tabletIndications: diarrhea Take 1 Tablet by mouth. As directed 1 tab after each loose stool as needed for diarrhea; max 8 per day Active docusate (Colace) 100 mg capsule Take 100 mg by mouth. Active alendronate (FOSAMAX) 70 mg tabletIndications: Disorder of bone and cartilage Take 1 Tablet (70 mg) by mouth once a week in the morning. Take on empty stomach with full glass of water. Do not lie down for 1 hr. 12 Tablet 3 03/05/2023 Active Active Problems Problem Noted Date Diagnosed Date ASYMMETRIC SENSORINEURAL HEARING LOSS 01/08/2012 Overview (01/23/2012): 01/02/2012 Dr Crawford's office Severe to profound right sensorineural hearing loss, MRI of the brain and internal auditory canals with gadolinium ordered to r/o acoustic neuroma. MRI - no evidence of restricted diffusion to suggest acute ischemia, both IAC's are normal , no masses. 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 DEXA: [place] glaze sprayer: Vit D 37.8, 12/2011 CPX: 12/25/2011 ([place]) New egg allergy, declines flu vaccines Shingles vaccine - declines, 2009, 2010, 2011 INFLAMMATORY POLYARTHRITIS C /W SERONEGATIVE RA, dx'ed at [place], 12/[address] Roby Chapman, 05/200805/16/2008 Overview (06/23/2012): 05/06/2008 left knee efuision and bilateral MCP and PIP pain. Knee was tapped 12/2007 in [place] and appeared inflamatory non-infectious non-crystaline. 12/2011 Now on Prednisone and MTX - followed by Rheum, Dr Nataly Ortega, in [place] All labs should be ordered by Dr Ortega. Anxiety State, on Ativan prn per MD in [place] 0 04/30/2008 Fibromyalgia, on vicodin per MD in [place]; NO VICODIN will be given to pt by this clinic 04/30/2008 Overview (06/01/2008): 05/29/2008 Pt went to ER because of generalized full body pain (after this clinic refused to refill her Vicodin which she was taking q4hr). Per ER note the patient's daugher was present during the history and exam and afterwards handed me a note which stated [We believe she is exhibiting these symptoms in an attempt to obtain a Vicodin prescription]. Insomnia, on chronic Zolpide m per MD's at [place] (no Ambien per this clinic) 04/30/2008 Unspecified Heart Disease- ? coronary spasm 06/2007 in [place]. On no meds except asa 04/03/2008 POLYMYALGIA RHEUMATICA, dx'e d in [place], on steroids 01/200702/03/2007 OSTEOPENIA Resolved Problems Problem Noted Date Diagnosed Date Resolved Date Perforated Diverticulum with abscess, 03/2008, partial sigmoid colectomy with ostomy, Dr Karma Stephen, plan takedown in 8-12 weeks. 04/03/2008 12/25/2011 Overview (05/24/2010): Pt previously lived in [facility] and was my patient. Moved to [place] approx 6 years ago. Developed perforated tic while in [place], 03/2008, and transferred to [facility] and [facility] (children are here in town). I have agreed to be her MD while she is in [facility]. Immunizations Name Administration Dates Next Due Influenza, IIV3 (Age >=3 years) 06/05/2007 Pneumococcal Poly,23-Valent (Pneumovax) 08/05/19 04 Td (Age >=7 Years) 04/24/2003,08/05/2002, 002 Tdap 12/25/2011 Family History Medical History Relation Name Comments Other Father 74, ? caus e of , htn, Other Mother , 97, compl ications from fall Cancer-breast Other m cousins 3 Cancer No Family History Cancer-colon No Family History Cancer-ovarian No Family History Cancer-prostate No Family History Relation Name Status Comments Father (Age 74) HTN, LIVER /KIDNEY FAILURE Mother Other 93 HYPOTHYROID, OA Other m cousins 3 Alive Social History Tobacco Use Types Packs/Day Years Used Date Smoking Tobacco: Never Smokeless Tobacco: Never Tobacco Cessation:Counseling Given: Not Answered Alcohol Use Standard Drinks/Week Comments Not Currently 0 (1 standard drink = 0.6 oz pur e alcohol) PHQ-2 Answer Date Recorded PHQ-2 TOTAL SCORE 3 03/19/2023 Social Connections Answer Date Recorded Frequency of Communication with Friends and Fami ly Not on file 02/19/2023 Alcohol Use Answer Date Recorded How often do you have a drink containing alcohol ? 3 02/19/2023 How many drinks containing a lcohol do you have on a typical day when you are drinking? 0 02/19/2023 How often do you have five or more drinks on one occasion? 0 02/19/2023 Sex and Gender Information Value Date Recorded Sex Assigned at Not on file Gender Identity Not on file Sexual Orientation Not on file Obstetrics History Last Filed Vital Signs Vital Sign Reading Time Taken Comments Blood Pressure 132/78 03/19/2023 3:20 PM CDT Pulse 90 03/19/2023 3:20 PM CDT Temperature 37.1 ??C (98.7 ??F) 05/29/2008 1 1:00 AM CDT Respiratory Rate 16 07/30/2012 11:5 4 AM TUBE PULLER Oxygen Saturation 98% 03/19/2023 3:20 PM CDT Inhaled Oxygen Concentration - - Weight 58.5 kg (128 lb 14.4 oz) 023 11:20 AM CDT Height 165.1 cm (5' 5) 12/25/2011 1:10 PM CDT Body Mass Index - - Plan of Treatment Health Maintenance Due Date Last Done Comments COVID-19 vaccine series (#1) 1945 BMI (ht and wt on same day) for age 18+ 1958 Zoster (shingles) series for age 50+ (1 of 2) 1959 Pneumococcal series for age 65+ (2 of 2 - PCV) 2005 08/05/2003 Medicare Wellness for age 65+ 12/25/2012 12/25/2011 RSV vaccine for adults or (1 - 1-dose 75+ series) 2015 Tetanus booster 12/24/2021 12/25/2011, 04/06, 08/05/2002, Additional history exists Depression screening for age 12+ 03/19/2024 03/19/20 Tdap Completed 12/25/2011 DEXA/DXA scan for age 65+ Completed 02/20/2023 Medical Devices Implanted Type Area Sales Representative [facility] Device Identifier Shelf Expiration Date Model / Serial / Lot Seprafilm Implanted:Qty: 1 on 04/03/2008 at [facility] [id number] Description:SEPRAFILM Procedures Procedure Name Priority Date/Time Associated Diagnosis Comments XR DXA BONE DENSITY 2 SITES AXIAL Routine 02/20/2023 11:56 AM CDT Other specified disorders of bone density and structure, multiple sites from Last 3 Months or Most Recently Relevant to Health Maintenance Results * (ABNORMAL) XR DXA BONE DENSITY 2 SITES AXIAL (02/20/2023 11:56 AM CDT) Anatomical Region Laterality Modality Spine, HIPS, HIPL, HIPR Other Impressions 02/26/2023 2:44 PM CDT Osteopenia. RECOMMENDATIONS: The National Osteoporosis Foundation recommends pharmacologic treatment for patients with T-scores of -2.5 or less, patients with prior history of fragility fractures, or patients with 10-year probability of greater than 3% at hips or greater than 20% of suffering major osteoporotic fractures. Recommend continued optimization of calcium and vitamin D intake through dietary means and/or supplementation and regular exercise. Consider pharmacologic therapy for osteopenia with increased fracture risk. Follow-up bone density reading in 2 years if therapy initiated to assess therapeutic efficacy. Ines Chávez PA-C [id number] [facility] 02/26/2023 ?? Narrative 02/26/2023 2:44 PM CDT For Patients: Results are automatically released to your [id number] ([employer]) account once available, in compliance with federal regulations. This means that you may see your results before your provider has had a chance to review them. Please allow 2-3 business days for your provider to comment on the results. XR DXA Bone Mineral Density (BMD) EXAM LOCATION: [address] [facility] [address] PATIENT NAME: Bryanna Coelho DATE OF : 1940 EXAM DATE: 02/20/2023 REQUESTING PROVIDER: Da Restrepo MD GENDER AT : female HEIGHT: 5' 5 (12/25/2011) WEIGHT: ??128 lb 14.4 oz (02/19/2023) MENOPAUSAL STATUS: Postmenopausal RACE/ETHNICITY: White RISK FACTORS: Height Loss (2 inches or more), History of Fragility Fracture (at a major site), and White Race CURRENT MEDICATION FOR BONE LOSS: NONE INDICATION: Initial scan for screening and Post-Menopause COMPARISON DATE(S): None DXA scans are compared to prior studies for a patient only when the two (or more) studies were performed on the same scanner. It is not possible to compare data generated on one scanner to data from another because there are not standards in DXA equipment. This applies even if the two scanners are made by the same web design specialist. PROCEDURE: Dual-energy x-ray absorptiometry performed with routine technique. Reporting is completed in the form of a T-score. The T-score represents the standard deviation from peak bone mass based on young healthy adult. A Z-score is used for diagnosis in premenopausal women, and for men under the age of 50. FINDINGS: RESULT LUMBAR SPINE L1 - L4 (L3)BMD: 1.189 g/cm2 T-Score: + 0.0 Z-Score: + 2.1 Change from prior: ??None RESULTS FEMUR Right femoral neck BMD: 0.891 g/cm2 T-Score: - 1.1 Z-Score: + 2.1 Change from prior: ??None Right hip BMD: 0.816 g/cm2 T-Score: - 1.5 Z-Score: + 0.8 Change from prior: ??None WHO criteria: Normal: T-score at or above -1 SD Osteopenia: T-score between -1.1 and -2.4 SD Osteoporosis: T-score at or below -2.5 SD FRAX RISK CALCULATION (USED FOR OSTEOPENIA ONLY): 10-year probability of major osteoporotic fracture: 16.5%. 10-year probability of hip fracture: 3.4%. Da Restrepo MD DEXA from Last 3 Months or Most Recently Relevant to Health Maintenance Insurance Payer Benefit Plan / Group Subscriber ID Effective Dates Phone Address Type MEDICARE PART B - HB USE ONLY MEDICARE PART B HB ONLY [id number] 2005-Present ATTN: CLAIMS [address] [place] [address] MEDICARE PART A - HB USE ONLY MEDICARE PART A HB ONLY [id number] 2005-Present ATTN: CLAIMS [address] [place] [address] MEDICARE - PB USE ONLY MEDICARE PB ONLY [id number] 2005-Present ATTN: CLAIMS [address] [place] [address] AAR AARP [id number] 2005-Present [address] [place] [address] Advance Directives * Full Code (Latest Code Status on File) Date Activated Date Inactivated Comments 04/03/2008 5:31 PM 04/12/2008 3:03 PM * Full Code Date Activated Date Inactivated Comments 04/03/2008 7:59 AM 04/03/2008 5:31 PM * No Code Status Date Activated Date Inactivated Comments 06/19/2004 10:07 AM 06/19/2004 11:07 AM Care Teams Core Extruder Relationship Specialty Start Date End Date Breana Brothers MD [address] [address] PCP - General 06/19/04
--- OUTSIDE RECORDS SUMMARY | 2024-05-25 11:43 | XMS_ITS | Patient Health Record ---
Author Organization [facility], Address [address] [place] [address] Care Team Providers Care Shredding Machine Operator Name Role Phone Porfirio Hauser MD Primary Care Provider Iftikhar Landeros [phone] Allergies Allergen (clinical drug ingredient) Drug/Non Drug Allergy documented on EMR Reaction Allergy Type Onset Date Status ciprofloxacin Cipro Unknown Drug Allergy Act lien Reason For Referral No Information Medications Medication SIG (Take, Route, Fr equency, Duration) Notes Start Date End Date Status prednisoLONE 5 MG 1 tablet in the morn ing with food or milk Orally Once a day A ctive Methotrexate 2.5 MG as directed Orally Active Vicodin Active Social History Tobacco Use: Social History Observation Description Date Details (start date - stop date) Never Smoker NA - NA Sex Assigned At : Social History Observation Description Sex Assigned At Female Tobacco Use/Smoking Question Answer Notes Are you a: never smoker Problems Problem Type SNOMED Code ICD Code Onset Dates Problem Status W/U Status Risk Notes Problem 922856449 Sensorineural hearing loss, bilateral (H90.3) Active confirmed Plan Of Treatment No Information Insurance Providers Payer Name Payer Address Payer Phone Subscriber Number Group Number Insured Name Patient Relationship to Insured Coverage Start Date Coverage End Date Medicare Part B Carriers [address] [place] [phone] [id number] MILIND FRASER Self - patient is the insured 5 [employer] Claims Division [address] [place] [address] [id number] MILIND FRASER Self - patient is the insured Medical (General) History Medical History History ICD Code Fibermyalgia Surgical History Surgery Date(Month/Year) Ostamy surgery x2 Gallbladder Removed x2 Hysterectomy [place] Teeth Tonsilectomy Broken Leg x2 Broken Hip
--- OUTSIDE RECORDS SUMMARY | 2024-05-25 11:43 | XMS_ITS | Encounter Summary ---
Author Organization [facility] Address [address] [place] [address] Care Team Providers Care Platform Architect Name Role Phone Porfirio Hauser MD Primary Care Provider [phone] Porfirio Hauser MD Primary Care Provider [phone] Jerilyn Holley STEAM CLEANER Unavailable [phone] Encounter Details Date Type Department Care Team (Late st Contact Info) Description 05/18/2019 Telephone [facility] [address] [place] [address] Deborah Houser, RN Social History Tobacco Use Types Packs/Day Years [...] on filedocumented in this encounter Care Teams Platform Architect Relationship Specialty Start Date End Date Porfirio Hauser MD PCP - General 12/25/14 04/02/22 Porfirio Hauser MD [address] [place] [address] PCP - General Internal Medicine 04/03/22 Jerilyn Holley NP [address] [place] [address] Nurse Practitioner Family Medicine 09/18/23 documented as of this encounter
--- OUTSIDE RECORDS SUMMARY | 2024-05-25 11:43 | XMS_ITS | Patient Health Record ---
Author Organization [facility] Address [address] [place] [address] Care Team Providers Care Quality Assurance Inspector Name Role Phone Porfirio Hauser Primary Care Provider [phone] Agustín Velazquez [phone] Allergies Allergen (clinical drug ingredient) Drug/Non Drug Allergy documented on EMR Reaction Allergy Type Onset Date Status ant (uncoded) Unknown Allergy Active ciprofloxacin Cipro Unknown Drug Allergy Act lien Reason For Referral No Information Medications Medication SIG (Take, Route, Frequency, Duration) Notes Start Date End Date Status Metoprolol Succinate ER 25 MG 0.5 tablet Orally EOD for 30 day(s) 10/08/2019 Active Social History Tobacco Use: Social History Observation Description Date Details (start date - stop date) Never Smoker NA - NA Smoking Question Answer Notes Status: Non Smoker Problems Problem Type SNOMED Code ICD Code Onset Dates Problem Status W/U Status Risk Notes Problem 59473841 Palpitations (R00.2) Active confirmed Problem 727845025 Shortness of breath (R06.02) Active confirmed Problem 209857951 Localized edema (R60.0) Active confirmed Problem 72226606 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) Active confirmed Problem 69030116 Chest tightness (R07.89) Active confirmed Problem 579915574 Abnormal stress ECG with treadmill (R94.39) Active confirmed Plan Of Treatment Pending Test Test Name Order Date Lexiscan Stress Nuclear MPI 1-day protoc ol 09/23/2019 Ultrasound: Echocardiogram 09/23/2019 Ultrasound: Venous Lower RIGHT extremity 09/23/2019 Ultrasound: Venous Lower LEFT extremity 09/23/2019 Holter Monitor 24 Hours 09/23/2019 Insurance Providers Payer Name Payer Address Payer Phone Subscriber Number Group Number Insured Name Patient Relationship to Insured Coverage Start Date Coverage End Date Medicare [address] [place] [phone] [id number] Bryanna Coelho Self - patient is the insured [facility] Claims Division [address] [place] [address] [phone] [id number] Bryanna Coelho Self - patient is the insured Medical (General) History Medical History History ICD Code venous insufficiency hernia lside upper stomach
--- OUTSIDE RECORDS SUMMARY | 2024-05-25 11:43 | XMS_ITS | Encounter Summary ---
Author Organization [facility] Address [address] [place] [address] Care Team Providers Care Dramatic Teacher Name Role Phone Porfirio Hauser MD Primary Care Provider [phone] Jerilyn Holley LICENSED LOAN OFFICER Unavailable [phone] Encounter Details Date Type Department Care Team (Late st Contact Info) Description 03/15/2024 Procedure Pass [facility] MRI [address] [place] [address] Social History Tobacco Use Types Packs/Day Years Used Date Smoking Tobacco: Never Smokeless Tobacco: Never Alcohol Use Standard Drinks/Week Comments Yes 0 (1 standard drink = 0.6 oz pur e alcohol) rarely [facility] Utilities Answer Date Recorded In the past 12 months has e [employer], gas, oil, or water [employer] threatened to shut off services in your [...] any time in the past 12 m [facility], were you homeless or living in a senior living (including now)? No 03/16/2024 Sex and Gender Information Value Date Recorded Sex Assigned at Not on file Gender Identity Not on file Sexual Orientation Not on file documented as of this encounter Plan of Treatment Not on file documented as of this encounter Visit Diagnoses Not on filedocumented in this encounter Care Teams Dramatic Teacher Relationship Specialty Start Date End Date Porfirio Hauser MD [address] [place] [address] [address] [place], [place] [id number] PCP - General Internal Medicine 8/30/22 Jerilyn Holley NP [address] [place] [address] Nurse Practitioner Family Medicine 09/18/23 documented as of this encounter
--- OUTSIDE RECORDS SUMMARY | 2024-05-25 11:43 | XMS_ITS | Continuity of Care Document ---
Author Organization [facility] Address [address] [place] [address] Phone Care Team Providers Care Active Directory Systems Administrator Name Role Phone Gene Marks PA-C Unavailable Unavailable Procedures Procedure Date INITIAL HOSPITAL CARE Advance Directives Directive Yes / No Effective Date File Name No Information Encounters Encounter Description Practice Location Reason(s) For Visit Diagnoses Date Provider Providers Copied on Encounter INITIAL HOSPITAL CARE [facility], [address] [place] [address], [id number], tel:[phone] [facility] No Information [facility]. [address], [address], [place], [place], [id number], . tel:[phone] Referring Provider: Gary Sainz [address], [place], [address] . tel:[phone] Family History Family Member Type Diagnosis Age At Onset No Information Payers Payer name Insurance type Covered democrat ID Authoriza tion(s) Medicare MB [id number] [facility] Health Care Options [id number] Social History Type Description Quantity Date [...]
--- OUTSIDE RECORDS SUMMARY | 2024-05-25 11:43 | XMS_ITS | Encounter Summary ---
Author Organization [facility] Address [address] [place] [address] Care Team Providers Care Departmental Shipping Clerk Name Role Phone Porfirio Hauser MD Primary Care Provider [phone] Porfirio Hauser MD Primary Care Provider [phone] Jerilyn Holley NP Unavailable [phone] Encounter Details Date Type Department Care Team (Late st Contact Info) Description 05/18/2017 Procedure Pass [facility] Inpatient Surgery [address] [place] [address] Social History Tobacco Use Types [...] on filedocumented in this encounter Care Teams Departmental Shipping Clerk Relationship Specialty Start Date End Date Porfirio Hauser MD PCP - General 12/25/14 04/02/22 Porfirio Hauser MD [address] [place] [address] PCP - General Internal Medicine 04/03/22 Jerilyn Holley NP [address] [place] [address] Nurse Practitioner Family Medicine 09/18/23 documented as of this encounter
--- OUTSIDE RECORDS SUMMARY | 2024-05-25 11:43 | XMS_ITS | Encounter Summary ---
Author Organization [facility] Address [address] [place] [address] Care Team Providers Care Inspector Machine Cut Glass Name Role Phone Porfirio Hauser MD Primary Care Provider [phone] Porfirio Hauser MD Primary Care Provider [phone] Jerilyn Holley NP Unavailable [phone] Encounter Details Date Type Department Care Team (Late st Contact Info) Description 01/23/2018 Procedure Pass [facility] MRI [address] [place] [address] Social History Tobacco Use Types [...] on filedocumented in this encounter Care Teams Inspector Machine Cut Glass Relationship Specialty Start Date End Date Porfirio Hauser MD PCP - General 12/25/14 04/02/22 Porfirio Hauser MD [address] [place] [address] PCP - General Internal Medicine 04/03/22 Jerilyn Holley NP [address] [address] Nurse Practitioner Family Medicine 09/18/23 documented as of this encounter
--- OUTSIDE RECORDS SUMMARY | 2024-05-25 11:43 | XMS_ITS | Encounter Summary ---
Author Organization [facility] Address [address] [place] [address] Care Team Providers Care Bench Repair Technician Name Role Phone Porfirio Hauser MD Primary Care Provider [phone] Jerilyn Holley PROPERTIES SUPERVISOR Unavailable [phone] Encounter Details Date Type Department Care Team (Latest Contact Info) Description 03/14/2024 Travel Social History Tobacco Use Types Packs/Day Years Used Date Smoking Tobacco: Never Smokeless Tobacco: Never Alcohol Use Standard Drinks/Week Comments Yes 0 (1 standard drink = 0.6 oz pur e alcohol) rarely PHQ-2 Answer Date Recorded Depression Risk 0 03/14/2024 Sex and Gender Information Value Date Recorded Sex Assigned at Not on file Gender Identity Not on file Sexual Orientation Not on file documented as of this encounter Plan of Treatment Not on file documented as of this encounter Visit Diagnoses Not on filedocumented in this encounter Care Teams Bench Repair Technician Relationship Specialty Start Date End Date Porfirio Hauser MD [address] [place] [address] PCP - General Internal Medicine 04/03/22 Jerilyn Holley NP [address] [place] [address] Nurse Practitioner Family Medicine 09/18/23 documented as of this encounter
[2024-05-25 11:50] VITALS: BP 120/78; PULSE 72; RESP 18; O2SAT 95
== END 2024-05-25 11:51 | disposition home or self-care (01) ==
LOC: ED 11:40
PROVIDERS: Emergency Provider Emergency Medicine
DX: S22.32XA Fracture of one rib, left side, initial encounter for closed fracture (principal); W01.10XA Fall on same level from slipping, tripping and stumbling with subsequent striking against unspecified object, initial encounter
CPT/HCPCS: 71250; 99284; A9270

== ENCOUNTER 2024-06-04 09:16 | Outpatient (CLI) | payer MEDICARE, SELFPAY | END 2024-06-04 09:17 | disposition home or self-care (01) | PROVIDERS: Visit Provider Nurse Practitioner Family | DX: I87.2 Venous insufficiency (chronic) (peripheral) (principal); I89.0 Lymphedema, not elsewhere classified; R54 Age-related physical debility | CPT/HCPCS: G0463 ==

== ENCOUNTER 2024-08-26 09:14 | Outpatient (REF) | payer MEDICARE, SELFPAY ==
[2024-08-26 09:42] LABS: Basophils Absolute Auto 0.02 K/uL (0.00-0.30); Basophils Percent Auto 0.4 % (0.0-3.0); Eosinophils Absolute Auto 0.05 K/uL (0.00-0.50); Hemoglobin* 10.7 gm/dL (12.0-16.0); Immature Granulocytes Abs Auto 0.31 K/uL (0.00-0.30); Immature Granulocytes Pct Auto 6.4 %; Lymphocytes Absolute Auto 1.57 K/uL (0.90-2.90); Lymphocytes Percent Auto 32.2 % (20-44); Mean Corpuscular HGB Conc 32 gm/dL (32-36); Mean Corpuscular Hemoglobin 32 pg (26-34); Mean Corpuscular Volume 100 fL (80-100); Monocytes Percent Auto 17.8 % (0.0-11.0); Neutrophils Absolute Auto 2.06 K/uL (1.7-7.0); Neutrophils Percent Auto 42.2 % (42.0-72.0); Platelet Count* 125 K/uL (140-440); RDW Coefficient of Variation % 15.6 % (11.5-15.5); Red Blood Count 3.31 m/uL (4.00-5.20); Slide Review Reflex No; White Blood Count* 4.88 K/uL (4.50-11.00)
[2024-08-26 10:12] LABS: Chloride* 99 mmol/L (96-114); Potassium* 4.5 mmol/L (3.6-5.1); Sodium* 134 mmol/L (135-149)
[2024-08-26 10:15] LABS: Anion Gap 7 mEq/L (7-15); Blood Urea Nitrogen* 24 mg/dL (7-30); Calcium* 9.2 mg/dL (8.4-10.6); Carbon Dioxide* 28 mmol/L (20-32); Creatinine* 0.8 mg/dL (0.5-1.5); Estimated Glomerular Filt Rate 73 ml/min; Glucose* 86 mg/dL (60-115)
[2024-08-26 10:32] LABS: Iron* 86 ug/dL (37-170)
[2024-08-26 10:41] LABS: Percent Iron Saturation 26 % (20-50); Total Iron Binding Capacity 333 ug/dL (265-497)
[2024-08-26 12:01] LABS: Vitamin B12* 812 pg/mL (243-894)
== END 2024-08-26 09:15 | disposition home or self-care (01) ==
LOC: NPINS 09:14
PROVIDERS: Visit Provider Family Medicine
DX: I10 Essential (primary) hypertension (principal); D64.9 Anemia, unspecified
CPT/HCPCS: 80048; 82607; 82728; 83540; 83550; 85025

== ENCOUNTER 2025-02-04 02:45 | Outpatient (CLI) | payer MEDICARE, SELFPAY | END 2025-02-04 02:46 | disposition home or self-care (01) | LOC: AMB 02-08 09:52 | PROVIDERS: Visit Provider Family Medicine | DX: R10.9 Unspecified abdominal pain (principal) | CPT/HCPCS: A0425; A0427 ==

== ENCOUNTER 2025-02-04 03:02 | Inpatient (IN) | payer MEDICARE, SELFPAY ==
[2025-02-04] VITALS (13 sets, daily range): BP systolic 132–164; BP diastolic 62–87; PULSE 70–102; RESP 14–18; TEMP 36.5–37.2; O2SAT 91–97; BMI 18.8; BMI 18.2
--- OUTSIDE RECORDS SUMMARY | 2025-02-04 03:04 | XMS_ITS | Clinical Summary ---
Author Organization [facility] Address [address] [place] [address] Care Team Providers Care Telecommunication Equipment Repairer Name Role Phone Breana Brothers MD Primary Care Provider [phone] Allergies Active Allergy Reactions Criticality Noted Date Comments Ciprofloxacin Anaphylaxis 02/03/2007 Egg GI Upset 12/25/2011 Sulfa (Sulfonamide Antibiotics) SULFA-?RASH KID Medications NITROGLYCERIN 0.4 MG SUBLINGUAL TAB 8 Active folic acid 1 mg tablet Take 1 tablet by mouth once daily. Dr Sneed, rheum, [facility] 0 0 Active hydrocodone-iris taminophen, 5-500 mg, (VICODIN) Tab tablet Take by mouth. Maximum dose of acetaminophen is 4000 mg from all sources in [address] Hauser, Director Network Development at [facility] 0 0 Active LORazepam (ATIVAN) 0.5 mg TabIndications: Anxiety state, unspecified Take 0.5-1 mg by mouth three times daily. Dr Hauser, Director Network Development at [facility] 1 0 Active methotrexate (RHEUMATREX) 2.5 mg tablet 1 tablet. 2.5 mg, takes 5 tablets po qwk, Dr Sneed, Rheum at [facility]. 0 0 Active predniSONE (DELTASONE) 5 mg tablet Take by mouth. 5 mg po qAM, Dr Sneed, Rheum, [facility] 0 0 Active zolpidem (AMBIEN) 10 mg tablet Take by mouth. 10 mg po qhs, Dr Hauser, Director Network Development, [facility] 0 0 Active latanoprost (XALATAN) 0.005 % ophthalmic solution Place 1 Drop into both eyes at bedtime. Active diphenoxylate-a tropine, 2.5-0.025 mg, (LomotiL) 2.5-0.025 mg tabletIndicatio ns:diarrhea Take 1 Tablet by mouth. As directed 1 tab after each loose stool as needed for diarrhea; max 8 per day Active docusate (Colace) 100 mg capsule Take 100 mg by mouth. Active alendronate (FOSAMAX) 70 mg tabletIndicatio ns:Disorder of bone and cartilage Take 1 Tablet (70 mg) by mouth once a week in the morning. Take on empty stomach with full glass of water. Do not lie down for 1 hr. 12 Tablet 3 3 Active Active Problems Problem Noted Date Diagnosed [...] 05/24/2010 Overview (12/28/2011): COLONOSCOPY: last done in [place] PAP/PELVIC - [place] electronic technologist or wound care physician in [facility]. DEXA: [place] electronic technologist: Vit D 37.8, 12/2011 CPX: 12/25/2011 ([place]) New egg allergy, declines flu vaccines Shingles vaccine - declines, 2009, 2010, 2011 INFLAMMATORY POLYARTHRITIS C /W SERONEGATIVE RA, dx'ed at [place], 12/[address] Roby Chapman, 05/200805/16/2008 Overview (06/23/2012): 05/06/2008 left knee efuision and bilateral MCP and PIP pain. Knee was tapped 12/2007 in [place] and appeared inflamatory non-infectious non-crystaline. 12/2011 Now on Prednisone and MTX - followed by Rheum, Dr Nataly Ortega, in [place] All labs should be ordered by Dr Ortega. Anxiety State, on Ativan prn per MD in [place] 0 04/30/2008 Fibromyalgia, on vicodin per MD in [place]; NO VICODIN will be given to pt [...] on chronic Zolpide m per MD's at [place] (no Ambien per this clinic) 04/30/2008 Unspecified Heart Disease- ? coronary spasm 06/2007 in [place]. 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 04/03/2008 12/25/2011 Overview (05/24/2010): Pt previously lived in [facility] and was my patient. Moved to [place] approx 6 years ago. Developed perforated tic while in [place], 03/2008, and transferred to [facility] and [facility] (children are here in town). I have agreed to be her MD while she is in [facility]. Immunizations Immunization Administration Dates Next Due Influenza, IIV3 (Age [...] more drinks on one occasion? 0 02/19/2023 Comments No Sex and Gender Information Value Date Recorded Sex Assigned at Not on file Legal Sex Female 6:13 AM CHILD CARE SITTER Gender Identity Not on file Sexual Orientation Not on file Obstetrics History Last Filed Vital Signs Vital Sign Reading Time Taken Comments Blood Pressure 132/78 03/19/2023 3:20 PM CDT Pulse 90 03/19/2023 3:20 PM CDT Temperature 37.1 C (98.7 F) 05/29/2008 11:00 AM CDT Respiratory Rate 16 07/30/2012 11:5 4 AM CHILD CARE SITTER Oxygen Saturation 98% 03/19/2023 3:20 PM CDT [...] of 2) 1959 Pneumococcal series for age 50+ (2 of 2 - PCV) 08/05/2004 08/05/2003 Medicare Wellness for age 65+ 12/25/2012 12/25/2011 RSV vaccine for adults or (1 - 1-dose 75+ series) 2015 Tetanus booster 12/24/2021 12/25/2011, 04/06, 08/05/2002, Additional history exists Depression screening for age 12+ 03/19/2024 03/19/2023 ([place]) Tdap Completed 12/25/2011 DEXA/DXA scan for age 65+ Completed 02/20/2023 Hepatitis B series for 19+ Aged Out N o longer eligible based on patient's age to complete this topic Medical Devices Implanted Type Area Registered Nurse Midwife Device Identifier Shelf Expiration Date Model / Serial / Lot [employer]film Implanted:Qty: 1 on 04/03/2008 at [facility] [id number] Description:SEPRAFILM Procedures Procedure Name Priority [...] to assess therapeutic efficacy. Ines Chávez PA-C [facility] 02/26/2023 Narrative 02/26/2023 2:44 PM CDT For Patients: Results are automatically released to your [facility] ([employer]) account once available, in compliance with federal regulations. This means that you may see your results before your provider has had a chance to review them. Please allow 2-3 business days for your provider to comment on the results. XR DXA Bone Mineral Density (BMD) EXAM LOCATION: [address] [address] PATIENT NAME: Bryanna Coelho DATE OF : 1940 EXAM DATE: 02/20/2023 REQUESTING PROVIDER: Da Restrepo MD GENDER AT : female HEIGHT: 5' 5 (12/25/2011) WEIGHT: 128 lb 14.4 oz (02/19/2023) MENOPAUSAL STATUS: Postmenopausal [...] two scanners are made by the same quartz mounter. PROCEDURE: Dual-energy x-ray absorptiometry performed with routine [...] 0.0 Z-Score: + 2.1 Change from prior: None RESULTS FEMUR Right femoral neck BMD: 0.891 g/cm2 T-Score: - 1.1 Z-Score: + 2.1 Change from prior: None Right hip BMD: 0.816 g/cm2 T-Score: - 1.5 Z-Score: + 0.8 Change from prior: None WHO criteria: Normal: T-score at or above -1 SD Osteopenia: T-score between -1.1 and -2.4 SD Osteoporosis: T-score at or below -2.5 SD FRAX RISK CALCULATION (USED FOR OSTEOPENIA ONLY): 10-year probability of major osteoporotic fracture: 16.5%. 10-year probability of hip fracture: 3.4%. Da Restrepo MD DEXA Final Resu lt from Last 3 Months or Most Recently Relevant to Health Maintenance Insurance MEDICARE PB ONLY MEDICARE PART B HB ONLY [facility] MEDICARE PART A HB ONLY Advance Directives * Full Code (Latest Code Status on File) Date Activated Date Inactivated Comments 04/03/2008 5:31 PM 04/12/2008 3:03 PM * Full Code Date Activated Date Inactivated Comments 04/03/2008 7:59 AM 04/03/2008 5:31 PM * No Code Status Date Activated Date Inactivated Comments 06/19/2004 10:07 AM 06/19/2004 11:07 AM Care Teams Telecommunication Equipment Repairer Relationship Specialty Start Date End Date Breana Brothers MD [address] [address] PCP - General 06/19/04
--- NOTE | 2025-02-04 03:22 | CRLHL7_ITS ---
For Patients: As a result of the Century Cures Act, medical imaging exams and procedure reports are released immediately into your electronic medical record. You may view this report before your referring provider. If you have questions, please contact your health care provider. INDICATION: Abdominal pain and distention with surgical scars. Patient reports ovarian cystectomy, reversed colostomy and hysterectomy. COMPARISON: 02/08/2023, 04/01/2018 TECHNIQUE: CT of the abdomen and pelvis with intravenous contrast. Multiplanar axial, coronal, and sagittal reformats were reconstructed. Contrast: 58 mL Isovue 370. FINDINGS: Lung bases: Mild basilar reticular opacities and atelectasis. Relatively similar to the previous exam. Small pericardial effusion, similar to the previous exam. Trace bilateral pleural effusions. Liver: Normal. No mass. Gallbladder and bile ducts: Cholecystectomy. Mild left intrahepatic ductal dilatation. Mild extrahepatic biliary ductal dilatation measuring 9 millimeters. This is dilated down towards the ampulla. Does not appear significantly different than the previous exam. Pancreas: No pancreatitis. Minimal prominence of the pancreatic duct in the pancreatic head. Similar appearance since 2018. Spleen: Normal. Adrenal glands: Normal. Kidneys: Normal renal size and position. No mass or cyst. There is hyperdense contrast already excreted into the urinary tract collecting system. No large calculi seen. No urinary tract dilation. Urinary bladder: Partially filled. Pelvis: Apparent hysterectomy. No pelvic mass or cyst. Vessels: Heavy atherosclerosis. The mesenteric arteries and veins are patent. Bowel: Small amount of fluid in the stomach. The proximal small bowel is decompressed. There is gradual transition to dilated small bowel. There are few transition points. The distal most transition is in the deep right posterior pelvis near a distal ileal anastomotic suture line. See series 3, image 99. Other transition points are higher in the central abdomen. For example series 3, image 93, with a similar area also seen on series 5, image 49. The dilated small bowel measures up to 3 centimeters. There is normal bowel wall thickness and enhancement. There is some layering hyperdense ingested material in some of the bowel loops. The distal ileum is unremarkable. There is a moderate to large stool burden. There is a rectosigmoid anastomosis is unremarkable. The appendix is not seen. Lymph nodes: No adenopathy. Peritoneum: Small ascites. No free air. Abdominal wall: There is a small fat containing left lower quadrant incisional hernia. General laxity and atrophy of the abdominal wall musculature. Bones: Assuming there is a rudimentary L5-S1 disc space there are compression fractures of T8, T10, T12, L2, and L3. The T10 fracture end above was not previously within the field of view. The other fractures are about the same. No destructive focal bone lesion. IMPRESSION: Small-bowel obstruction. There are several transition points with the distal Hayes in the deep right posterior pelvis. There is not a closed loop morphology. No ischemia or perforation. Please note that all CT scans at this facility use dose modulation, iterative reconstruction, and/or weight-based dosing when appropriate to reduce radiation dose to as low as reasonably achievable. Dictated by Bina Lo MD @ 02/04/2025 4:24:02 AM (Electronically Signed)
--- NOTE | 2025-02-04 03:34 | ED.GENADULT ---
HPI - General Adult General Chief complaint: Abdominal Pain Stated complaint: abdominal pain Time Seen by Provider: 02/04/25 03:04 Source: patient and EMS Mode of arrival: EMS Limitations: other (Memory impairment) History of Present Illness HPI narrative: 84-year-old female presents to the emergency department for evaluation of abdominal pain since yesterday. She is very foggy on the details and does not elaborate on timeline. Assisted living reports that she had an episode of vomiting this evening when they attempted to give her a dose of pain medicine. She points all over the mid abdomen as the area of pain. When I ask if her belly seems more distended than usual to her, she says that she does not know. I see a large laparotomy scar and I asked her what history of abdominal surgery she has had and she says that she is unable to recall. She denies any recent injury or trauma. She denies any hematemesis, bloody stools or hematuria. I am not sure if I fully trust her recollection. She denies any gynecological or urinary changes today. She says that she has had a poor appetite when I asked specifically. She is uncertain if she is tried any other interventions to feel better. EMS reporting that no an mention to fever or other signs of illness today. Patient is completely unable to recall her surgical history. Review of the records here shows very limited outpatient data but I do see that she was admitted in 2018 for a small-bowel obstruction and at that time they noted that she had a history of ruptured diverticulitis with partial colectomy and reanastomosis, I do not know the dates on the colectomy. She denies chest pain or shortness of breath. Remainder of history is very limited to the 1 hospitalization records available. Nursing facility reports that she had a bowel movement yesterday, small and hard. Review of her accompanying health status shows mainly history of chronic pain disorder and inflammatory arthritis. Does take 20 mg total of oxycodone daily and has another 5 mg to use as needed. Also looks as though she is prescribed metoprolol for tachycardia, methotrexate for the inflammatory arthritis as well as prednisone. She does take a daily stool softener. It seems as though she is a nonsmoker and does have family in the area listed as contact. Related Data Home Medications ?Medication ?Instructions ?Recorded ?Confirmed hydrocodone 5 mg-acetaminophen 325 2 tab PO TID 08/02/22 02/08/23 mg tablet latanoprost 0.005 % eye drops 1 drp ophthalmic (eye) HS 08/02/22 02/08/23 lorazepam 0.5 mg tablet (Ativan) 0.5 mg PO Q12H PRN 08/02/22 02/08/23 methotrexate sodium 2.5 mg tablet 12.5 mg PO .WEEKLY 08/02/22 02/09/23 prednisone 5 mg tablet 5 mg PO DAILY 08/02/22 02/08/23 tramadol 50 mg tablet 50 mg PO Q6H PRN pain 02/09/23 02/09/23 zolpidem 5 mg tablet (Ambien) 2.5 mg PO QHS 02/09/23 02/09/23 metoprolol succinate 25 mg 12.5 mg PO DAILY 05/25/24 05/25/24 tablet,extended release 24 hr oxycodone 5 mg tablet PO 05/25/24 pregabalin 25 mg capsule mg PO BID 05/25/24 pregabalin 50 mg capsule 50 mg PO BID 05/25/24 05/25/24 Previous Rx's ?Medication ?Instructions ?Recorded lidocaine 5 % topical patch 1 patch topical DAILY #15 ea 02/04/23 calcitonin (salmon) 200 1 spray intranasal HS #1 ea 02/10/23 unit/actuation nasal spray calcium 500 mg (as 1 tab PO BID #60 tabs 02/10/23 carbonate)-vitamin D3 5 mcg (200 unit) tablet (Oyster Shell Calcium-Vitamin D3) folic acid 1 mg tablet 1 mg PO DAILY #30 tabs 02/10/23 ibuprofen 400 mg tablet 400 mg PO Q6H PRN #100 tabs 02/10/23 polyethylene glycol 3350 17 gram 17 g PO DAILY PRN Constipation #1 02/10/23 oral powder packet (Miralax) ea sennosides 8.6 mg-docusate sodium 1 tab PO BID PRN constipation #60 02/10/23 50 mg tablet (Stool tabs Softener-Laxative) cephalexin 500 mg capsule 500 mg PO Q8H 7 days #21 caps 02/15/23 Allergies Allergy/AdvReac Type Severity Reaction Status Date / [facility] Allergy Anaphylaxis Verified 10/22/24 09:13 PFSH PFS Medical History Frailty syndrome in geriatric patient ?R54 - Age-related physical debility (ICD-10) History of femur fracture ?Z87.81 - Personal history of (healed) traumatic fracture (ICD-10) Thoracic compression fracture ?S22.000A - Wedge compression fracture of unspecified thoracic vertebra, initial encounter for closed fracture (ICD-10) Anxiety ?F41.9 - Anxiety disorder, unspecified (ICD-10) Sensorineural hearing loss ?H90.5 - Unspecified sensorineural hearing loss (ICD-10) Perforation of sigmoid colon due to diverticulitis ?K57.20 - Diverticulitis of large intestine with perforation and abscess without bleeding (ICD-10) Insomnia ?G47.00 - Insomnia, unspecified (ICD-10) Fibromyalgia ?M79.7 - Fibromyalgia (ICD-10) Inflammatory arthritis ?M19.90 - Unspecified osteoarthritis, unspecified site (ICD-10) Polypharmacy ?Z79.899 - Other superintendent terminal (current) drug therapy (ICD-10) Chronic, continuous use of opioids ?F11.90 - Opioid use, unspecified, uncomplicated (ICD-10) Osteoporosis ?M81.0 - Age-related osteoporosis without current pathological fracture (ICD-10) Surgical History History of ovarian cystectomy ?Z98.890 - Other specified postprocedural states (ICD-10) ?Z87.42 - Personal history of other diseases of the female genital tract (ICD-10) History of colostomy reversal ?Z98.890 - Other specified postprocedural states (ICD-10) History of colostomy History of hysterectomy ?Z90.710 - Acquired absence of both cervix and uterus (ICD-10) History of cholecystectomy ?Z90.49 - Acquired absence of other specified parts of digestive tract (ICD-10) Social History Narrative: Patient lives in [place] in the winter but visits family in [place] in the summer. She maintains a condominium in [place]. May 2022. She has 4 children. 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 Code status is DNR. She does not smoke. She drinks wine about twice a week. What is your current living situation?: I presently have a place to live Problems where you live: declined to answer Problems where you live details: na In the past 12 months, utilities in danger of being shut off: no In past 12 months, lack of transportation kept you from medical appts, meetings, work, or getting things needed for daily living: no In the past 12 mos, have been you worried that your food would run out before you had money to buy more?: never true In the past 12 mos, the food you bought just didn't last and you didn't have money to buy more?: never true Smoking Status: Never smoker Do you use any of these nicotine containing products: None Second hand tobacco smoke exposure: No How often do you have a drink containing alcohol: monthly or less How many standard drinks containing alcohol do you have on a typical day: 1 or 2 How often do you have six or more drinks on one occasion: Never AUDIT-C Alcohol total score: 1 Non-prescribed substance use: denies use How often does anyone, including family, friends and others, physically hurt you: never How often does anyone, including family, friends and others, insult or talk down to you: never How often does anyone, including family, friends and others, threaten you with harm: never How often does anyone, including family, friends and others, scream or curse at you: never service: No Exam Const: Vital Signs, click to edit/add: Vital Signs - 24 hr 02/04/25 03:04 02/04/25 03:15 02/04/25 04:00 Temperature 98.5 F Pulse Rate 73 71 Pulse Rate [Left P ulse Oximeter] 86 Respiratory Rate 18 Blood Pressure Blood Pressure [Ri ght Upper Arm] 151/83 H Pulse Oximetry 92 93 91 Oxygen Delivery Me thod Room Air 02/04/25 04:01 Temperature Pulse Rate 70 Pulse Rate [Left P ulse Oximeter] Respiratory Rate Blood Pressure 143/62 H Blood Pressure [Ri ght Upper Arm] Pulse Oximetry 94 Oxygen Delivery Me thod Documenting provider has reviewed patient's vital signs: yes Common normals: alert General appearance: well kempt Other: Seems to have some memory impairment but appears well-nourished and well-hydrated. It is difficult for her to answer questions and does seem to be mildly distressed due to pain. HENMT: Common normals: normocephalic and oropharynx normal Head and scalp: normocephalic Face and sinus: normal facial exam Other: Mucous membranes seem dry but otherwise normal facial exam. Eye: Common normals: conjunctivae normal General eye: normal appearance of both eyes Conjunctiva: conjunctiva(e) normal Neck & C-Spine: Common normals: full ROM and no lymphadenopathy Resp: Common normals: normal respiratory effort, no use of accessory muscles and clear to auscultation bilaterally Effort & inspection: able to speak in complete sentences Auscultation: clear to auscultation bilaterally Cardio: Common normals: regular rate, regular rhythm, S1 normal heart sound, S2 normal heart sound and no murmurs Rate: regular rate Rhythm: regular rhythm Heart sounds: S1 normal and S2 normal GI: Other: Abdomen seems distended. Large midline healed laparotomy scar. Bowel sounds are high-pitched and hyperactive diffusely tender to palpation. No obvious mass, liver and spleen do not seem enlarged. No ascites. There is a reducible ventral hernia. : Common normals: no CVA tenderness Bladder/kidney exam: no CVA tenderness Back & Pelvis: Common normals: no CVA tenderness Thoracic spine/upper back: normal to inspection Extremity: Common normals: normal to inspection Other: Mild venous stasis changes of the lower extremities and tenderness to palpation but there really does not seem to be any open sores or edema. Neuro: Common normals: moves all extremities Sensorium/orientation: alert Psych: Appearance: well kempt Attention/concentration: attention grossly intact Memory/cognition: memory grossly impaired Insight: limited Judgement: fair Skin: Common normals: no rashes or lesions noted General skin exam: no rashes or lesions noted Course Course ED Course: 84-year-old female living in assisted living with abdominal pain of 12-24 hours duration with episode of vomiting. Presentation is highly suspicious for acute small bowel obstruction, especially with apparent surgical history. Cannot exclude pancreatitis, colitis, volvulus, strangulated hernia, ischemic bowel, amongst many others. Will place peripheral IV, 1 L LR, give 4 mg of morphine and 4 mg of Zofran. She is on chronic opiates so higher dose recommended. Will obtain typical abdominal labs, CT of the abdomen and pelvis. Will likely need admission. Await findings. Reevaluation(s) Time of Reevaluation #1: 04:46 Reevaluation #1: I counseled patient on findings, consistent with small-bowel obstruction but no signs of perforation, ischemia or a closed loop obstruction. I elected not to wake our surgeons in the middle of the night out of respect for the fact that this is not a surgical case. The day hospitalist may contact them during the daylight hours for consultation if they so choose. Patient is not vomiting therefore an NG tube will not be placed at this time. P.r.n. morphine has been ordered but she is comfortable now. I have spoken with the hospitalist and they have accepted admission for care of patient for small bowel obstruction. Vital Signs Vital signs: Initial Vital Signs Temperature 98.5 F 02/04/25 03:04 Temperature Source Temporal Artery Scan 02/04/25 03:04 Pulse Rate 86 02/04/25 03:04 Pulse Rhythm Regular 02/04/25 03:04 Respiratory Rate 18 02/04/25 03:04 Blood Pressure 151/83 H 02/04/25 03:04 Blood Pressure Mean 105 02/04/25 03:04 Blood Pressure Position Semi-Fowlers 02/04/25 03:04 Pulse Oximetry 92 02/04/25 03:04 Oxygen Delivery Method Room Air 02/04/25 03:04 Vital Signs Temperature 98.5 F 02/04/25 03:04 Pulse Rate 86 02/04/25 03:04 Respiratory Rate 18 02/04/25 03:04 Blood Pressure 151/83 H 02/04/25 03:04 Pulse Oximetry 92 02/04/25 03:04 Oxygen Delivery Method Room Air 02/04/25 03:04 Temperature 98.5 F 02/04/25 03:04 Pulse Rate 70 02/04/25 04:01 Respiratory Rate 18 02/04/25 03:04 Blood Pressure 143/62 H 02/04/25 04:01 Pulse Oximetry 94 02/04/25 04:01 Oxygen Delivery Method Room Air 02/04/25 03:04 Medications Administered Medications: Generic Name Dose Route Start Last Admin Trade Name Freq PRN Reason Stop Dose Admin Lactated Ringer's 1,000 mls @ 500 mls/hr 02/04/25 03:22 02/04/25 03:35 Lactated Ringers 1000 Ml IV 02/04/25 05:21 500 mls/hr .Q2H YVONNE Administration Discontinued Medications Generic Name Dose Route Start Last Admin Trade Name Patsy PRN Reason Stop Dose Admin Morphine Sulfate 4 mg 02/04/25 03:22 02/04/25 03:37 Morphine 4 Mg/Ml Inj IVP 02/04/25 03:23 4 mg ONCE ONE Administration Ondansetron HCl 4 mg 02/04/25 03:22 02/04/25 03:37 Ondansetron 2 Mg/Ml Inj IVP 02/04/25 03:23 4 mg ONCE ONE Administration Medical Decision Making Lab Data Lab results reviewed: Yes I reviewed the patient's lab results Lab results narrative: No leukocytosis. No anemia. Lactate very mildly elevated. Normal electrolytes, creatinine and liver function. Normal CRP, normal lipase. Labs: Lab Results 02/04/25 02/04/25 Range/Units 03:22 03:25 WBC 6.18 (4.50-11.00) K/uL RBC 3.51 L (4.00-5.20) m/uL Hgb 11.0 L (12.0-16.0) gm/dL Hct 33.9 (33.0-51.0) % MCV 97 (80-100) fL MCH 31 (26-34) pg MCHC 32 (32-36) gm/dL RDW Coeff of Dre 17.2 H (11.5-15.5) % Plt Count 165 (140-440) K/uL Neut % (Auto) 76.5 H (42.0-72.0) % Lymph % (Auto) 7.0 L (20-44) % [place] % (Auto) 15.2 H (0.0-11.0) % Eos % (Auto) 0.2 (0.0-7.0) % Baso % (Auto) 0.5 (0.0-3.0) % Neut # (Auto) 4.70 (1.7-7.0) K/uL Lymph # (Auto) 0.40 L (0.90-2.90) K/uL [place] # (Auto) 0.90 (0.00-0.90) K/UL Eos # (Auto) 0.01 (0.00-0.50) K/uL Baso # (Auto) 0.03 (0.00-0.30) K/uL Abs Immat Gran (auto) 0.04 (0.00-0.30) K/uL Imm/Tot Granulo (auto) 0.6 % Sodium 138 (135-149) mmol/L Potassium 4.0 (3.6-5.1) mmol/L Chloride 100 (96-114) mmol/L Carbon Dioxide 27 (20-32) mmol/L Anion Gap 11 (7-15) mEq/L BUN 17 (7-30) mg/dL Creatinine 0.8 (0.5-1.5) mg/dL Estimated Creat Clear 35.98 Estimated GFR 73 ml/min Glucose 99 (60-115) mg/dL Lactate 2.0 H (0.5-1.9) mmol/L Calcium 9.7 (8.4-10.6) mg/dL Total Bilirubin 1.4 (0.1-1.5) mg/dL AST 34 (12-35) U/L ALT 24 (4-35) U/L Alkaline Phosphatase 95 (40-150) U/L C-Reactive Protein 0.5 (0.5-1.0) mg/dL Total Protein 7.1 (6.0-8.3) g/dL Albumin 4.7 (3.3-5.0) g/dL Lipase 83 (23-300) U/L POC Creatinine 0.8 (0.6-1.3) mg/dl Imaging Data CT scan - abdomen: Attestation: I have reviewed the pertinent imaging results. My impression: Small bowel obstruction. No signs of perforation, volvulus or ischemic bowel. No mass Radiologist's impression: IMPRESSION: Small-bowel obstruction. There are several transition points with the distal Hayes in the deep right posterior pelvis. There is not a closed loop morphology. No ischemia or perforation. Please note that all CT scans at this facility use dose modulation, iterative reconstruction, and/or weight-based dosing when appropriate to reduce radiation dose to as low as reasonably achievable. Dictated by Bina Lo MD @ 02/04/2025 4:24:02 AM Discharge Plan Discharge Clinical Impression: Small intestine obstruction Patient Disposition: Admitted As Inpatient Condition: Stable
[2025-02-04] MEDS: LACTATED RINGERS 1000 ML 1,000 ML 500 ML IV (03:35)
[2025-02-04] MEDS: MORPHINE 4 MG/ML INJ IVP ×3 (03:37→19:30)
[2025-02-04] MEDS: ONDANSETRON 2 MG/ML inj 4 MG IVP (03:37)
[2025-02-04 03:38] LABS: Lactate* 2.0 mmol/L (0.5-1.9)
[2025-02-04 03:39] LABS: Hematocrit 33.9 % (33.0-51.0); Hemoglobin* 11.0 gm/dL (12.0-16.0); Immature Granulocytes Abs Auto 0.04 K/uL (0.00-0.30); Immature Granulocytes Pct Auto 0.6 %; Lymphocytes Absolute Auto 0.40 K/uL (0.90-2.90); Mean Corpuscular HGB Conc 32 gm/dL (32-36); Mean Corpuscular Hemoglobin 31 pg (26-34); Mean Corpuscular Volume 97 fL (80-100); RDW Coefficient of Variation % 17.2 % (11.5-15.5); Red Blood Count 3.51 m/uL (4.00-5.20); Slide Review Reflex No; White Blood Count* 6.18 K/uL (4.50-11.00)
[2025-02-04 03:40] LABS: Creatinine, Point-of-Care* 0.8 mg/dl (0.6-1.3)
[2025-02-04 03:56] LABS: Albumin* 4.7 g/dL (3.3-5.0); Chloride* 100 mmol/L (96-114); Potassium* 4.0 mmol/L (3.6-5.1); Sodium* 138 mmol/L (135-149)
[2025-02-04 03:58] LABS: Alanine Aminotransferase* 24 U/L (4-35); Aspartate Amino Transferase* 34 U/L (12-35); Blood Urea Nitrogen* 17 mg/dL (7-30); Creatinine* 0.8 mg/dL (0.5-1.5); Est. Creatinine Clearance* 35.98; Estimated Glomerular Filt Rate 73 ml/min
[2025-02-04 03:59] LABS: Alkaline Phosphatase* 95 U/L (40-150); Anion Gap 11 mEq/L (7-15); Bilirubin Total* 1.4 mg/dL (0.1-1.5); Carbon Dioxide* 27 mmol/L (20-32); Total Protein* 7.1 g/dL (6.0-8.3)
[2025-02-04 04:00] LABS: Calcium* 9.7 mg/dL (8.4-10.6); Glucose* 99 mg/dL (60-115)
--- NOTE | 2025-02-04 04:59 | W.PM.TELEH&P ---
Telehealth- H&P: HPI History of Present Illness Date Seen: 02/04/25 Chief complaint: abdominal pain Narrative: Bryanna Coelho is seen as an Interactive Telehealth visit. Bryanna Coelho is a 84 year old female h/o inflammatory arthritis, perforated diverticulitis s/p surgical repair, SBO, currently residing in memory care unit presenting with abdominal pain and distension. She had an episode of vomiting earlier today. Occured after trying to take her pain medication. Per patient who may be suffering from cognitive decline vs dementia, she currently feels nauseous. She reports generalized abdominal pain that started in the morning and has continued throughout the day. she also reports vomiting the entire day. no fever, chills no constipation +diarrhea no melena no hematochezia +nauseous no headache no dizziness no flatulence no smoking no ETOH use PFSH PFSH Medical History Frailty syndrome in geriatric patient ?R54 - Age-related physical debility (ICD-10) History of femur fracture ?Z87.81 - Personal history of (healed) traumatic fracture (ICD-10) Thoracic compression fracture ?S22.000A - Wedge compression fracture of unspecified thoracic vertebra, initial encounter for closed fracture (ICD-10) Anxiety ?F41.9 - Anxiety disorder, unspecified (ICD-10) Sensorineural hearing loss ?H90.5 - Unspecified sensorineural hearing loss (ICD-10) Perforation of sigmoid colon due to diverticulitis ?K57.20 - Diverticulitis of large intestine with perforation and abscess without bleeding (ICD-10) Insomnia ?G47.00 - Insomnia, unspecified (ICD-10) Fibromyalgia ?M79.7 - Fibromyalgia (ICD-10) Inflammatory arthritis ?M19.90 - Unspecified osteoarthritis, unspecified site (ICD-10) Polypharmacy ?Z79.899 - Other retirement (current) drug therapy (ICD-10) Chronic, continuous use of opioids ?F11.90 - Opioid use, unspecified, uncomplicated (ICD-10) Osteoporosis ?M81.0 - Age-related osteoporosis without current pathological fracture (ICD-10) Surgical History History of ovarian cystectomy ?Z98.890 - Other specified postprocedural states (ICD-10) ?Z87.42 - Personal history of other diseases of the female genital tract (ICD-10) History of colostomy reversal ?Z98.890 - Other specified postprocedural states (ICD-10) History of colostomy History of hysterectomy ?Z90.710 - Acquired absence of both cervix and uterus (ICD-10) History of cholecystectomy ?Z90.49 - Acquired absence of other specified parts of digestive tract (ICD-10) Social History Narrative: Patient lives in [place] in the winter but visits family in [place] in the summer. She maintains a condominium in [place]. May 2022. She has 4 children. 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 Code status is DNR. She does not smoke. She drinks wine about twice a week. What is your current living situation?: I presently have a place to live Problems where you live: declined to answer Problems where you live details: na In the past 12 months, utilities in danger of being shut off: no In past 12 months, lack of transportation kept you from medical appts, meetings, work, or getting things needed for daily living: no In the past 12 mos, have been you worried that your food would run out before you had money to buy more?: never true In the past 12 mos, the food you bought just didn't last and you didn't have money to buy more?: never true Smoking Status: Never smoker Do you use any of these nicotine containing products: None Second hand tobacco smoke exposure: No How often do you have a drink containing alcohol: monthly or less How many standard drinks containing alcohol do you have on a typical day: 1 or 2 How often do you have six or more drinks on one occasion: Never AUDIT-C Alcohol total score: 1 Non-prescribed substance use: denies use How often does anyone, including family, friends and others, physically hurt you: never How often does anyone, including family, friends and others, insult or talk down to you: never How often does anyone, including family, friends and others, threaten you with harm: never How often does anyone, including family, friends and others, scream or curse at you: never service: No Meds Home Medications and Allergies Home Medications ?Medication ?Instructions ?Recorded ?Confirmed ?Type hydrocodone 5 mg-acetaminophen 325 2 tab PO TID 08/02/22 02/08/23 History mg tablet latanoprost 0.005 % eye drops 1 drp ophthalmic (eye) HS 08/02/22 02/08/23 History lorazepam 0.5 mg tablet (Ativan) 0.5 mg PO Q12H PRN 08/02/22 02/08/23 History methotrexate sodium 2.5 mg tablet 12.5 mg PO .WEEKLY 08/02/22 02/09/23 History prednisone 5 mg tablet 5 mg PO DAILY 08/02/22 02/08/23 History lidocaine 5 % topical patch 1 patch topical DAILY #15 ea 02/04/23 02/08/23 Rx tramadol 50 mg tablet 50 mg PO Q6H PRN pain 02/09/23 02/09/23 History zolpidem 5 mg tablet (Ambien) 2.5 mg PO QHS 02/09/23 02/09/23 History calcitonin (salmon) 200 1 spray intranasal HS #1 ea 02/10/23 Rx unit/actuation nasal spray calcium 500 mg (as 1 tab PO BID #60 tabs 02/10/23 Rx carbonate)-vitamin D3 5 mcg (200 unit) tablet (Oyster Shell Calcium-Vitamin D3) folic acid 1 mg tablet 1 mg PO DAILY #30 tabs 02/10/23 Rx ibuprofen 400 mg tablet 400 mg PO Q6H PRN #100 tabs 02/10/23 Rx polyethylene glycol 3350 17 gram 17 g PO DAILY PRN Constipation #1 02/10/23 Rx oral powder packet (Miralax) ea sennosides 8.6 mg-docusate sodium 1 tab PO BID PRN constipation #60 02/10/23 Rx 50 mg tablet (Stool tabs Softener-Laxative) cephalexin 500 mg capsule 500 mg PO Q8H 7 days #21 caps 02/15/23 Rx metoprolol succinate 25 mg 12.5 mg PO DAILY 05/25/24 05/25/24 History tablet,extended release 24 hr oxycodone 5 mg tablet PO 05/25/24 History pregabalin 25 mg capsule mg PO BID 05/25/24 History pregabalin 50 mg capsule 50 mg PO BID 05/25/24 05/25/24 History Allergies Allergy/AdvReac Type Severity Reaction Status Date / Time ciprofloxacin (From Cipro) Allergy Anaphylaxis Verified 10/22/24 09:13 Exam Narrative Exam Narrative: Physical Exam GENERAL: ?vital signs reviewed, well developed and nourished, in no distress HEENT: pupils are equal round and reactive to light, extraocular movements are grossly within normal limits and oral mucosa is dry NECK: Supple without lymphadenopathy or thyromegaly according to nursing staff examination observation HEART: Regular rate and rhythm without any rubs, murmurs, or gallops. LUNGS: Clear to auscultation bilaterally with good air movement throughout ABDOMEN: Observation from nurse assisted exam, abdomen appears soft, +tender, and +distended with poor bowel sounds EXTREMITIES: Strength and sensation is observed to be grossly within normal limits in the upper and lower extremities.? No focal strength deficit is observed. SKIN:? venous stasis changes, no edema, no clubbing, 2+ peripheral pulses; Observed warm and dry w Const Vital Signs, click to edit/add: Vital Signs - 24 hr 02/04/25 03:04 02/04/25 03:15 02/04/25 04:00 Temperature 98.5 F Pulse Rate 73 71 Pulse Rate [Left Pulse Oximeter] 86 Respiratory Rate 18 Blood Pressure Blood Pressure [Right Upper Arm] 151/83 H Pulse Oximetry 92 93 91 Oxygen Delivery Method Room Air 02/04/25 04:01 Temperature Pulse Rate 70 Pulse Rate [Left Pulse Oximeter] Respiratory Rate Blood Pressure 143/62 H Blood Pressure [Right Upper Arm] Pulse Oximetry 94 Oxygen Delivery Method Hospitalist - H&P: Result Labs Labs: Short CBC 02/04/25 Range/Units 03:25 WBC 6.18 (4.50-11.00) K/uL Hgb 11.0 L (12.0-16.0) gm/dL Hct 33.9 (33.0-51.0) % Plt Count 165 (140-440) K/uL BMP 02/04/25 03:25 Sodium 138 Potassium 4.0 Chloride 100 Carbon Dioxide 27 BUN 17 Creatinine 0.8 Glucose 99 Calcium 9.7 Liver Function 02/04/25 Range/Units 03:25 Total Bilirubin 1.4 (0.1-1.5) mg/dL AST 34 (12-35) U/L ALT 24 (4-35) U/L Alkaline Phosphatase 95 (40-150) U/L Albumin 4.7 (3.3-5.0) g/dL Imaging CT scan - abdomen: Attestation: I have reviewed the pertinent imaging results. Radiologist's impression: CT abd/pel Pancreas: No pancreatitis. Minimal prominence of the pancreatic duct in the pancreatic head. Similar appearance since 2018. Spleen: Normal. Adrenal glands: Normal. Kidneys: Normal renal size and position. No mass or cyst. There is hyperdense contrast already excreted into the urinary tract collecting system. No large calculi seen. No urinary tract dilation. Urinary bladder: Partially filled. Pelvis: Apparent hysterectomy. No pelvic mass or cyst. Vessels: Heavy atherosclerosis. The mesenteric arteries and veins are patent. Bowel: Small amount of fluid in the stomach. The proximal small bowel is decompressed. There is gradual transition to dilated small bowel. There are few transition points. The distal most transition is in the deep right posterior pelvis near a distal ileal anastomotic suture line. See series 3, image 99. Other transition points are higher in the central abdomen. For example series 3, image 93, with a similar area also seen on series 5, image 49. The dilated small bowel measures up to 3 centimeters. There is normal bowel wall thickness and enhancement. There is some layering hyperdense ingested material in some of the bowel loops. The distal ileum is unremarkable. There is a moderate to large stool burden. There is a rectosigmoid anastomosis is unremarkable. The appendix is not seen. Lymph nodes: No adenopathy. Peritoneum: Small ascites. No free air. Abdominal wall: There is a small fat containing left lower quadrant incisional hernia. General laxity and atrophy of the abdominal wall musculature. Bones: Assuming there is a rudimentary L5-S1 disc space there are compression fractures of T8, T10, T12, L2, and L3. The T10 fracture end above was not previously within the field of view. The other fractures are about the same. No destructive focal bone lesion. IMPRESSION: Small-bowel obstruction. There are several transition points with the distal Hayes in the deep right posterior pelvis. There is not a closed loop morphology. No ischemia or perforation. Please note that all CT scans at this facility use dose modulation, iterative reconstruction, and/or weight-based dosing when appropriate to reduce radiation dose to as low as reasonably achievable. 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 Continue outpatient prednisone and methotrexate. Add folic acid for methotrexate Status: Chronic (3) Chronic, continuous use of opioids: Status: Chronic Plan SBO: patient had no further complaints of nausea in ED but is now having some nausea --bowel rest --consult general surgery in AM --IVf --IV pain medication --if nasuea/vomiting is not controlled by ondasetron, will need NG tube placement h/o inflammatory arthritis: --continue prednisone h/o chronic opiate use: likely contributor of moderate stool burden --may need bowel regimen Per discussion with ED: history of cognitive decline vs dementia as patient is in a memory unit. she did not recall why she was her during our interview. I am not sure which parts of interview of true. --obtain medical history from memory unit paperwork to confirm --may need to contact memory unit staff to confirm history DNR/DNI Telehealth: Statement Statement Telehealth Visit: Today's History and Physical is provided via interactive telehealth by Tawana Ellington MD.? Patient is located at [facility].? Provider is located at [facility].? Nursing staff assisted with the patient's exam. The visit being done today meets criteria for a telehealth visit and the patient or patient?s parent/guardian is aware the visit is a telehealth visit.
[2025-02-04] MEDS: LACTATED RINGERS 1000 ML 1,000 ML 75 ML IV ×2 (06:14→18:26)
[2025-02-04 08:40] LABS: Lactate* 1.0 mmol/L (0.5-1.9)
--- NOTE | 2025-02-04 10:47 | PM.GSCN ---
History of Present Illness Consult details Date Seen: 02/04/25 Consult date: 02/04/25 Narrative: 84-year-old female was admitted the hospital with small-bowel obstruction in a was asked by the hospitalist to see her in consultation. Patient states that she started to feel diffuse abdominal pain yesterday in the morning. She was not able to describe the pain. She was not passing gas. She vomited several times and then presented to emergency room. Patient's surgical history is significant for sigmoidectomy with Abby's for perforated sigmoid diverticulitis with an abscess. Patient then underwent laparoscopic reversal of her Abby's procedure with lysis of adhesions. Her other history includes rectocele and cystocele repair, cholecystectomy, hysterectomy. I personally reviewed her workup in the emergency room. Patient was found to have normal WBC. Her hemoglobin was 11. An abdominal CT was obtained that showed dilated loops of small intestine with multiple transition points. There was no evidence of free air or pneumatosis. In the right lower quadrant radiologist described ileal anastomotic line. Review of Systems Narrative: General: no fevers HENT: no problems swallowing CV: no shortness of breath Resp: no cough GI: No nausea, vomiting, abdominal pain : no dysuria, no increased urinary frequency, no hematuria Skin: no new rashes Musculoskeletal: no back pain Neuro: no muscle weakness Psyche: no depression, no anxiety PFSH PFSH Medical History Frailty syndrome in geriatric patient ?R54 - Age-related physical debility (ICD-10) History of femur fracture ?Z87.81 - Personal history of (healed) traumatic fracture (ICD-10) Thoracic compression fracture ?S22.000A - Wedge compression fracture of unspecified thoracic vertebra, initial encounter for closed fracture (ICD-10) Anxiety ?F41.9 - Anxiety disorder, unspecified (ICD-10) Sensorineural hearing loss ?H90.5 - Unspecified sensorineural hearing loss (ICD-10) Perforation of sigmoid colon due to diverticulitis ?K57.20 - Diverticulitis of large intestine with perforation and abscess without bleeding (ICD-10) Insomnia ?G47.00 - Insomnia, unspecified (ICD-10) Fibromyalgia ?M79.7 - Fibromyalgia (ICD-10) Inflammatory arthritis ?M19.90 - Unspecified osteoarthritis, unspecified site (ICD-10) Polypharmacy ?Z79.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 (ICD-10) Chronic, continuous use of opioids ?F11.90 - Opioid use, unspecified, uncomplicated (ICD-10) Osteoporosis ?M81.0 - Age-related osteoporosis without current pathological fracture (ICD-10) Surgical History (Updated 02/04/25 @ 10:50 by Kaylan Quiñonez MD) History of ovarian cystectomy ?Z98.890 - Other specified postprocedural states (ICD-10) ?Z87.42 - Personal history of other diseases of the female genital tract (ICD-10) History of colostomy reversal ?Z98.890 - Other specified postprocedural states (ICD-10) History of colostomy History of hysterectomy ?Z90.710 - Acquired absence of both cervix and uterus (ICD-10) History of cholecystectomy ?Z90.49 - Acquired absence of other specified parts of digestive tract (ICD-10) Social History Narrative: Patient lives in [place] in the winter but visits family in [place] in the summer. She maintains a condominium in [place]. May 2022. She has 4 children. 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 Code status is DNR. She does not smoke. She drinks wine about twice a week. What is your current living situation?: I presently have a place to live Problems where you live: no known problems Problems where you live details: n/a In the past 12 months, utilities in danger of being shut off: no In past 12 months, lack of transportation kept you from medical appts, meetings, work, or getting things needed for daily living: no In the past 12 mos, have been you worried that your food would run out before you had money to buy more?: never true In the past 12 mos, the food you bought just didn't last and you didn't have money to buy more?: never true Highest level of school completed/degree received: some college, no degree Smoking Status: Never smoker Do you use any of these nicotine containing products: None Second hand tobacco smoke exposure: No How often do you have a drink containing alcohol: never AUDIT-C Alcohol total score: 0 Non-prescribed substance use: denies use Caffeine: No How often does anyone, including family, friends and others, physically hurt you: never How often does anyone, including family, friends and others, insult or talk down to you: never How often does anyone, including family, friends and others, threaten you with harm: never How often does anyone, including family, friends and others, scream or curse at you: never service: No Meds Home Medications and Allergies Home Medications ?Medication ?Instructions ?Recorded ?Confirmed ?Type latanoprost 0.005 % eye drops 1 drp ophthalmic (eye) HS 08/02/22 02/04/25 History methotrexate sodium 2.5 mg tablet 12.5 mg PO .sat@08/02/22 02/04/25 History prednisone 5 mg tablet 5 mg PO DAILY 08/02/22 02/04/25 History folic acid 1 mg tablet 1 mg PO DAILY #30 tabs 02/10/23 02/04/25 Rx polyethylene glycol 3350 17 gram 17 g PO DAILY PRN Constipation #1 02/10/23 02/04/25 Rx oral powder packet (Miralax) ea metoprolol succinate 25 mg 12.5 mg PO DAILY 05/25/24 02/04/25 History tablet,extended release 24 hr oxycodone 5 mg tablet 5 mg PO Q6H PRN 05/25/24 02/04/25 History pregabalin 25 mg capsule 25 mg PO BID 05/25/24 02/04/25 History acetaminophen 325 mg tablet 650 mg PO Q4H PRN 02/04/25 02/04/25 History docusate sodium 100 mg capsule 100 mg PO BID 02/04/25 02/04/25 History melatonin 3 mg tablet 3 mg PO HS 02/04/25 02/04/25 History oxycodone 5 mg tablet 5 mg PO QID 02/04/25 02/04/25 History Allergies Allergy/AdvReac Type Severity Reaction Status Date / Time ciprofloxacin (From Cipro) Allergy Anaphylaxis Verified 10/22/24 09:13 Exam Narrative: Exam Narrative: General appearance: Alert, cooperative, and in no distress Pulmonary: Chest symmetric, lungs clear bilaterally Cardiovascular Heart: Regular rate and rhythm, S1, S2, no murmurs/rubs/gallops Gastrointestinal Abdominal: soft, protuberant, patient has thin abdominal wall, tender to palpation in the right lower quadrant but not tender to percussion anywhere in the abdomen. Superior and lateral to the umbilicus to the left there is a fascial defect palpated this approximately to 3 cm in the largest dimension. No intra-abdominal structures palpated through this defect while patient is lying down. Skin: Normal skin color, texture, and turgor. No rashes or lesions. Psychiatric: Alert, cooperative, normal affect. Const: Vital Signs, click to edit/add: Vital Signs - 24 hr 02/04/25 03:04 02/04/25 03:15 02/04/25 04:00 Temperature 98.5 F Pulse Rate 73 71 Pulse Rate [Left P ulse Oximeter] 86 Pulse Rate [Pulse Oximeter] Respiratory Rate 18 Blood Pressure Blood Pressure [Ri ght Arm] Blood Pressure [Ri ght Upper Arm] 151/83 H Pulse Oximetry 92 93 91 Oxygen Delivery Me thod Room Air Oxygen Flow Rate 02/04/25 04:01 02/04/25 05:15 02/04/25 06:22 Temperature 97.8 F Pulse Rate 70 Pulse Rate [Left P ulse Oximeter] Pulse Rate [Pulse Oximeter] 77 Respiratory Rate 18 18 Blood Pressure 143/62 H Blood Pressure [Ri ght Arm] 164/87 H Blood Pressure [Ri ght Upper Arm] Pulse Oximetry 94 96 96 Oxygen Delivery Me thod Nasal Cannula Nasal Cannula Oxygen Flow Rate 1.5 1.5 02/04/25 09:36 02/04/25 09:36 02/04/25 09:36 Temperature 97.7 F Pulse Rate Pulse Rate [Left P ulse Oximeter] Pulse Rate [Pulse Oximeter] 88 88 Respiratory Rate 18 18 Blood Pressure Blood Pressure [Ri ght Arm] 132/68 Blood Pressure [Ri ght Upper Arm] Pulse Oximetry 97 97 Oxygen Delivery Me thod Nasal Cannula Oxygen Flow Rate 1.5 Results Labs Labs: Abnormal lab results 02/04/25 Range/Units 03:25 RBC 3.51 L (4.00-5.20) m/uL Hgb 11.0 L (12.0-16.0) gm/dL RDW Coeff of Dre 17.2 H (11.5-15.5) % Neut % (Auto) 76.5 H (42.0-72.0) % Lymph % (Auto) 7.0 L (20-44) % [place] % (Auto) 15.2 H (0.0-11.0) % Lymph # (Auto) 0.40 L (0.90-2.90) K/uL Lactate 2.0 H (0.5-1.9) mmol/L Diabetes panel 02/04/25 Range/Units 03:25 Sodium 138 (135-149) mmol/L Potassium 4.0 (3.6-5.1) mmol/L Chloride 100 (96-114) mmol/L Carbon Dioxide 27 (20-32) mmol/L BUN 17 (7-30) mg/dL Creatinine 0.8 (0.5-1.5) mg/dL Glucose 99 (60-115) mg/dL Calcium 9.7 (8.4-10.6) mg/dL AST 34 (12-35) U/L ALT 24 (4-35) U/L Alkaline Phosphatase 95 (40-150) U/L Total Protein 7.1 (6.0-8.3) g/dL Albumin 4.7 (3.3-5.0) g/dL Calcium panel 02/04/25 Range/Units 03:25 Calcium 9.7 (8.4-10.6) mg/dL Albumin 4.7 (3.3-5.0) g/dL Pituitary panel 02/04/25 Range/Units 03:25 Sodium 138 (135-149) mmol/L Potassium 4.0 (3.6-5.1) mmol/L Chloride 100 (96-114) mmol/L Carbon Dioxide 27 (20-32) mmol/L BUN 17 (7-30) mg/dL Creatinine 0.8 (0.5-1.5) mg/dL Glucose 99 (60-115) mg/dL Calcium 9.7 (8.4-10.6) mg/dL Adrenal panel 02/04/25 Range/Units 03:25 Sodium 138 (135-149) mmol/L Potassium 4.0 (3.6-5.1) mmol/L Chloride 100 (96-114) mmol/L Carbon Dioxide 27 (20-32) mmol/L BUN 17 (7-30) mg/dL Creatinine 0.8 (0.5-1.5) mg/dL Glucose 99 (60-115) mg/dL Calcium 9.7 (8.4-10.6) mg/dL Total Bilirubin 1.4 (0.1-1.5) mg/dL AST 34 (12-35) U/L ALT 24 (4-35) U/L Alkaline Phosphatase 95 (40-150) U/L Total Protein 7.1 (6.0-8.3) g/dL Albumin 4.7 (3.3-5.0) g/dL All other labs normal. Progress Note:A&P Assessment and plan (1) Small intestine obstruction: Status: Acute Assessment and Plan: 84-year-old female admitted to the hospital with small-bowel obstruction. The patient was very tired from her night of staying up. Patient small-bowel obstruction is most likely related to surgical adhesions from her previous surgeries. I discussed with the patient that we will continue with conservative approach with NPO and IV fluids.
--- NOTE | 2025-02-04 11:27 | PM.IMPN1 ---
Assessment and Plan Assessment and plan (1) Small intestine obstruction: Problem comment: CT shows Small-bowel obstruction. There are several transition points with the distal Hayes in the deep right posterior pelvis. There is not a closed loop morphology. No ischemia or perforation. Past medical history significant abdominal surgeries Abdominal pain/distension on admission - improving. Nausea - improving Continue bowel rest, NPO, IVF Encourage ambulation Pain and nausea management as needed. Suspect she is on a small amount of supplemental oxygen secondary to narcotics General surgery consulted, Dr. Quiñonez, recommending ongoing monitoring, plan as above Status: Acute (2) Inflammatory arthritis: Problem comment: Rheumatoid arthritis. Continue outpatient prednisone and methotrexate. Also on folic acid and pregabalin Status: Chronic (3) Chronic, continuous use of opioids: Problem comment: Chronic pain Status: Chronic (4) Polymyalgia rheumatica: Problem comment: Diagnosed [facility] 01/2007 Continue home prednisone Status: Acute (5) Cognitive impairment: Problem comment: Resident in memory care Status: Acute Plan As above, continue NPO, IVF Total Time Spent Total Time Spent: Today I spent 75 minutes seeing the patient, reviewing Expanse and EPIC notes/diagnostics, discussing the care plan with our care time that includes social work, PT/OT, pharmacy, RT, long-term and documenting my impressions and plan in the medical record. Subjective Date Seen: 02/04/25 Interval history: Patient admitted earlier this morning by our overnight tele hospitalist. Sleeping this morning. Easy to wake. Denies headache or dizziness. Denies chest pain or shortness of breath. Not currently nauseous. Reports abdominal pain is better. Has not yet passed gas. Exam Narrative: Exam Narrative: PHYSICAL EXAM General: Sleepy otherwise appropriately conversant, appears in NAD HEENT: Normocephalic, atraumatic, sclera white, EOMI, oral mucosa moist Cardiovascular: RRR, S1S2. No pitting edema Pulmonary: CTA bilaterally without rhonchi, rales, expiratory wheezes. No dyspnea on 1L NC Abdominal: Soft, mildly distended, some RLQ tenderness, very mild LLQ Neurological: Alert, answering questions appropriately currently, cranial nerves intact, no focal findings Extremities: No gross joint deformity or swelling. AROMI. Neurovascularly intact Skin: Warm, dry. Const: Vital Signs, click to edit/add: Vital Signs - 24 hr 02/04/25 03:04 02/04/25 03:15 02/04/25 04:00 Temperature 98.5 F Pulse Rate 73 71 Pulse Rate [Left P ulse Oximeter] 86 Pulse Rate [Pulse Oximeter] Respiratory Rate 18 Blood Pressure Blood Pressure [Ri ght Arm] Blood Pressure [Ri ght Upper Arm] 151/83 H Pulse Oximetry 92 93 91 Oxygen Delivery Me thod Room Air Oxygen Flow Rate 02/04/25 04:01 02/04/25 05:15 02/04/25 06:22 Temperature 97.8 F Pulse Rate 70 Pulse Rate [Left P ulse Oximeter] Pulse Rate [Pulse Oximeter] 77 Respiratory Rate 18 18 Blood Pressure 143/62 H Blood Pressure [Ri ght Arm] 164/87 H Blood Pressure [Ri ght Upper Arm] Pulse Oximetry 94 96 96 Oxygen Delivery Me thod Nasal Cannula Nasal Cannula Oxygen Flow Rate 1.5 1.5 02/04/25 09:36 02/04/25 09:36 02/04/25 09:36 Temperature 97.7 F Pulse Rate Pulse Rate [Left P ulse Oximeter] Pulse Rate [Pulse Oximeter] 88 88 Respiratory Rate 18 18 Blood Pressure Blood Pressure [Ri ght Arm] 132/68 Blood Pressure [Ri ght Upper Arm] Pulse Oximetry 97 97 Oxygen Delivery Me thod Nasal Cannula Oxygen Flow Rate 1.5 Labs Labs: Laboratory Results - last 24 hr 02/04/25 02/04/25 02/04/25 03:22 03:25 08:30 WBC 6.18 RBC 3.51 L Hgb 11.0 L Hct 33.9 MCV 97 MCH 31 MCHC 32 RDW Coeff of Dre 17.2 H Plt Count 165 Neut % (Auto) 76.5 H Lymph % (Auto) 7.0 L Wilson % (Auto) 15.2 H Eos % (Auto) 0.2 Baso % (Auto) 0.5 Neut # (Auto) 4.70 Lymph # (Auto) 0.40 L Wilson # (Auto) 0.90 Eos # (Auto) 0.01 Baso # (Auto) 0.03 Abs Immat Gran (auto) 0.04 Imm/Tot Granulo (auto) 0.6 Sodium 138 Potassium 4.0 Chloride 100 Carbon Dioxide 27 Anion Gap 11 BUN 17 Creatinine 0.8 Estimated Creat Clear 35.98 Estimated GFR 73 Glucose 99 Lactate 2.0 H 1.0 Calcium 9.7 Total Bilirubin 1.4 AST 34 ALT 24 Alkaline Phosphatase 95 C-Reactive Protein 0.5 Total Protein 7.1 Albumin 4.7 Lipase 83 POC Creatinine 0.8
[2025-02-04 13:21] LABS: Appearance Urine Cloudy (Clear)
[2025-02-04] MEDS: SODIUM CHLORIDE 0.9 % (FLUSH) 10 ML SYRINGE 5 ML IVF ×2 (14:00→19:31)
[2025-02-04] MEDS: ONDANSETRON ODT 4 MG TAB PO (17:59)
--- NOTE | 2025-02-04 19:15 | PC.NURSE ---
Nursing Care Hours: [id number] Pt this shift calm and cooperative, alert and oriented with occasional forgetfulness. Titrate supplemental O2 from 1.5L to room air. Pain 1-2/10. Was requesting water or ice d/t mouth being dry. Dr. Mason approved very small amounts of ice chips. Trialed a total of a spoonful of ice and pt pn increased to 6/10. Treated via IV meds. Mouth swabs used for rest of shift and no increase in pain since. Walked alicia about 200ft x3 this shift. Nausea started after evening shift, treated with PO antiemetics. Fluids running, pt voiding. BS very hypoactive.
[2025-02-04] MEDS: LATANOPROST 0.005% OPHTH 1 DROP EYE-BOTH (20:15)
[2025-02-04] MEDS: ENOXAPARIN 40 MG/0.4 ML INJ SUBCUT (20:16)
[2025-02-04] MEDS: PREGABALIN 25 MG CAPSULE PO (20:16)
[2025-02-04] MEDS: MELATONIN 3 MG TABLET PO (22:38)
[2025-02-04] MEDS: ACETAMINOPHEN 325 MG TABLET 650 MG PO (22:52)
[2025-02-05] VITALS (10 sets, daily range): BP systolic 132–164; BP diastolic 74–85; PULSE 86–108; RESP 16–20; TEMP 36.6–37.3; O2SAT 90–95
[2025-02-05] MEDS: MORPHINE 4 MG/ML INJ IVP ×2 (03:24→09:11)
--- NOTE | 2025-02-05 06:09 | PC.NURSE ---
End of shift report [id number]: VSS. Afebrile. When sleeping pt was on 1 L O2 via NC. Bowel sounds remain hypoactive and pt denies passing gas. Patient rates abdominal pain 6-7/10 prn pain meds offered and given with relief. Pt stated she had a headache, prn Tylenol offered and given with relief. Pt denied nausea overnight. Pt is tolerating NPO diet. Pt ambulates SBA with walker. Pt is resting in bed, call light within reach.?
[2025-02-05 06:17] LABS: Hematocrit 28.4 % (33.0-51.0); Hemoglobin* 9.2 gm/dL (12.0-16.0); Mean Corpuscular HGB Conc 32 gm/dL (32-36); Mean Corpuscular Hemoglobin 31 pg (26-34); Mean Corpuscular Volume 96 fL (80-100); Red Blood Count 2.95 m/uL (4.00-5.20); White Blood Count* 7.59 K/uL (4.50-11.00)
[2025-02-05 06:19] LABS: Slide Review Reflex No
[2025-02-05 06:26] LABS: Chloride* 101 mmol/L (96-114); Potassium* 4.2 mmol/L (3.6-5.1); Sodium* 134 mmol/L (135-149)
[2025-02-05 06:29] LABS: Blood Urea Nitrogen* 18 mg/dL (7-30); Creatinine* 0.7 mg/dL (0.5-1.5); Est. Creatinine Clearance* 34.90; Estimated Glomerular Filt Rate 85 ml/min
[2025-02-05 06:30] LABS: Anion Gap 7 mEq/L (7-15); Calcium* 8.7 mg/dL (8.4-10.6); Carbon Dioxide* 26 mmol/L (20-32); Glucose* 83 mg/dL (60-115)
--- NOTE | 2025-02-05 08:24 | P.IMPN_ITS ---
Assessment and Plan Assessment and plan (1) Small intestine obstruction: Problem comment: CT shows Small-bowel obstruction. There are several transition points with the distal Hayes in the deep right posterior pelvis. There is not a closed loop morphology. No ischemia or perforation. Past medical history significant abdominal surgeries Abdominal pain/distension on admission - improving. Nausea - improving Continue bowel rest, NPO, IVF Encourage ambulation Pain and nausea management as needed. Suspect she is on a small amount of supplemental oxygen secondary to narcotics General surgery consulted, Dr. Quiñonez, recommending ongoing monitoring, plan as above 02/05: Discussed with General surgery, continue NPO, IVF, encourage frequent ambulation Hemoglobin trending down 9.2, likely dilutional with ongoing LR Status: Acute (2) Inflammatory arthritis: Problem comment: Rheumatoid arthritis. Continue outpatient prednisone and methotrexate. Also on folic acid and pregabalin Status: Chronic (3) Chronic, continuous use of opioids: Problem comment: Chronic pain Status: Chronic (4) Polymyalgia rheumatica: Problem comment: Diagnosed [facility] 01/2007 Continue home prednisone Status: Acute (5) Cognitive impairment: Problem comment: Resident in memory care Status: Acute Plan As above, continue NPO, IVF Total Time Spent Total Time Spent: Today I spent 45 minutes seeing the patient, reviewing Expanse and EPIC notes/diagnostics, discussing the care plan with our care time that includes social work, PT/OT, pharmacy, RT, intermediate and documenting my impressions and plan in the medical record. Subjective Date Seen: 02/05/25 Interval history: Patient is seen lying in bed this morning. Continues with abdominal distension which is still soft. No significant improvement in pain. Continues with intermittent nausea but no vomiting. Has not passed gas. Bowel sounds remain quiet. Has been up and ambulating with staff yesterday. Remains NPO, IVF Exam Narrative: Exam Narrative: PHYSICAL EXAM General: Appropriately conversant, NAD Cardiovascular: RRR, S1S2. No pitting edema Pulmonary: CTA bilaterally without rhonchi, rales, expiratory wheezes. No dyspnea Abdominal: Soft, mildly distended, mild RLQ tenderness, mild LLQ Neurological: Alert, answering questions appropriately currently, cranial nerves intact, no focal findings Extremities: No gross joint deformity or swelling. AROMI. Neurovascularly intact Skin: Warm, dry. Const: Vital Signs, click to edit/add: Vital Signs - 24 hr 02/04/25 09:36 02/04/25 09:36 02/04/25 09:36 Temperature 97.7 F Pulse Rate [Pulse Oximeter] 88 88 Respiratory Rate 18 18 Blood Pressure [Le ft Arm] Blood Pressure [Ri ght Arm] 132/68 Pulse Oximetry 97 97 Oxygen Delivery Me thod Nasal Cannula Oxygen Flow Rate 1.5 02/04/25 11:00 02/04/25 15:00 02/04/25 15:00 Temperature Pulse Rate [Pulse Oximeter] 102 H 92 Respiratory Rate 16 16 Blood Pressure [Le ft Arm] Blood Pressure [Ri ght Arm] 142/72 H Pulse Oximetry 92 94 Oxygen Delivery Me thod Room Air Oxygen Flow Rate 02/04/25 15:00 02/04/25 19:00 02/04/25 21:18 Temperature 98.3 F 99 F Pulse Rate [Pulse Oximeter] 92 97 Respiratory Rate 16 14 Blood Pressure [Le ft Arm] 135/69 132/87 Blood Pressure [Ri ght Arm] Pulse Oximetry 94 91 95 Oxygen Delivery Me thod Room Air Room Air Nasal Cannula Oxygen Flow Rate 1 02/04/25 21:22 02/04/25 22:11 02/04/25 22:11 Temperature 98.8 F Pulse Rate [Pulse Oximeter] 97 94 Respiratory Rate 14 16 Blood Pressure [Le ft Arm] 144/82 H Blood Pressure [Ri ght Arm] Pulse Oximetry 91 91 Oxygen Delivery Me thod Nasal Cannula Oxygen Flow Rate 1 02/05/25 03:00 Temperature 98.1 F Pulse Rate [Pulse Oximeter] 93 Respiratory Rate 20 Blood Pressure [Le ft Arm] 164/85 H Blood Pressure [Ri ght Arm] Pulse Oximetry 93 Oxygen Delivery Me thod Nasal Cannula Oxygen Flow Rate 1 Labs Labs: Laboratory Results - last 24 hr 02/04/25 02/04/25 02/05/25 08:30 12:45 05:47 WBC 7.59 RBC 2.95 L Hgb 9.2 L Hct 28.4 L MCV 96 MCH 31 MCHC 32 Plt Count 160 Sodium 134 L Potassium 4.2 Chloride 101 Carbon Dioxide 26 Anion Gap 7 BUN 18 Creatinine 0.7 Estimated Creat Clear 34.90 Estimated GFR 85 Glucose 83 Lactate 1.0 Calcium 8.7 Urine Color Yellow Urine Appearance Cloudy A Urine pH 6.5 Ur Specific [place] 1.015 Urine Protein Negative Urine Glucose (UA) Negative Urine Ketones Negative Urine Blood Trace-intact A Urine Nitrite Positive A Urine Bilirubin Negative Urine Urobilinogen 0.2 Ur Leukocyte Esterase Negative Urine RBC 0-2 Urine WBC 0-2 Ur Squamous Epith Cells None Urine Bacteria Many A
[2025-02-05] MEDS: LACTATED RINGERS 1000 ML 1,000 ML 75 ML IV ×2 (09:03→21:42)
[2025-02-05] MEDS: METOPROLOL SUCCINATE (XL) 25 MG TAB 12.5 MG PO (09:04)
[2025-02-05] MEDS: SODIUM CHLORIDE 0.9 % (FLUSH) 10 ML SYRINGE 5 ML IVF ×2 (09:05→20:52)
[2025-02-05] MEDS: PREGABALIN 25 MG CAPSULE PO ×2 (09:10→21:17)
[2025-02-05] MEDS: ONDANSETRON ODT 4 MG TAB PO (15:43)
--- NOTE | 2025-02-05 17:45 | PM.GSPN ---
Subjective Subjective Date Seen: 02/05/25 Interval history: Patient is doing okay. She complained to nurses of increased abdominal pain but states that it was not ?that bad?. She had some nausea but no vomiting. She is not passing gas. She ambulated 4 times today. Exam Narrative: Exam Narrative: Abdomen is soft, protuberant, mildly distended. Tender to palpation in the right lower quadrant but not left lower quadrant. Not tender to percussion. Const: Vital Signs, click to edit/add: Vital Signs - 24 hr 02/04/25 19:00 02/04/25 21:18 02/04/25 21:22 Temperature 99 F Pulse Rate [Left R adial] Pulse Rate [Pulse Oximeter] 97 97 Respiratory Rate 14 14 Blood Pressure [Le ft Arm] 132/87 Pulse Oximetry 91 95 Oxygen Delivery Me thod Room Air Nasal Cannula Oxygen Flow Rate 1 02/04/25 22:11 02/04/25 22:11 02/05/25 03:00 Temperature 98.8 F 98.1 F Pulse Rate [Left R adial] Pulse Rate [Pulse Oximeter] 94 93 Respiratory Rate 16 20 Blood Pressure [Le ft Arm] 144/82 H 164/85 H Pulse Oximetry 91 91 93 Oxygen Delivery Me thod Nasal Cannula Nasal Cannula Oxygen Flow Rate 1 1 02/05/25 07:00 02/05/25 07:00 02/05/25 08:00 Temperature 99.1 F Pulse Rate [Left R adial] 93 93 Pulse Rate [Pulse Oximeter] 93 Respiratory Rate 16 16 Blood Pressure [Le ft Arm] 137/77 Pulse Oximetry 93 93 Oxygen Delivery Me thod Room Air Oxygen Flow Rate 02/05/25 11:25 02/05/25 15:00 02/05/25 15:00 Temperature 98.2 F Pulse Rate [Left R adial] 93 86 Pulse Rate [Pulse Oximeter] 93 Respiratory Rate 16 16 Blood Pressure [Le ft Arm] 143/84 H Pulse Oximetry 90 94 Oxygen Delivery Me thod Nasal Cannula Oxygen Flow Rate 1 02/05/25 15:30 Temperature 98.1 F Pulse Rate [Left R adial] 86 Pulse Rate [Pulse Oximeter] Respiratory Rate 16 Blood Pressure [Le ft Arm] 146/76 H Pulse Oximetry 94 Oxygen Delivery Me thod Room Air Oxygen Flow Rate Progress Note:A&P Assessment and plan (1) Small intestine obstruction: Status: Acute Plan 84-year-old female with history of multiple surgeries admitted to the hospital with small-bowel obstruction. Patient's WBC remains normal. Her hemoglobin decreased to 9.2 from 11, which is most likely delusional anemia. Patient has normal vital signs. I recommended to proceed with NG tube placement. An attempt at NG placement was done but was not successful. We will give patient IV Ativan and try again. Patient may not be agreeable to keep trying to place the NG. Patient will continue ambulating.
--- NOTE | 2025-02-05 17:52 | CRLHL7_ITS ---
For Patients: As a result of the Cures Act, medical imaging exams and procedure reports are released immediately into your electronic medical record. You may view this report before your referring provider. If you have questions, please contact your health care provider. INDICATION: NG PLACEMENT CONFIRMATION. TECHNIQUE: Chest 1 view. COMPARISON: CT chest dated 05/25/2024. FINDINGS: Redemonstrated enlarged cardiomediastinal silhouette. Enteric tube tip projects over the gastric body. Mild streaky bibasilar opacities. No sign of pleural effusion or pneumothorax, though the lung apices are outside the field view. Age-indeterminate left mid posterior rib fracture. IMPRESSION: Enteric tube tip projects over the gastric body. Dictated by Kb Marks MD @ 02/05/2025 8:41:27 PM (Electronically Signed)
--- NOTE | 2025-02-05 18:34 | PC.NURSE ---
Pt is pleasant to care for. VSS. A&Ox4, intermittently forgetful. Ambulated the alicia five times this shift with walker and standby assist. Pt has required 1L O2 NC to maintain sat's >90%. Pt has been NPO entire shift. Pt has not passed gas. Bowels are hypoactive x4. Abdomen soft, round, tender, distended. Around 1500 pt reported increased abdominal pain, nausea and appeared pale in the face. Upon assessment, pt's abdomen appeared more distended than [address] Quiñonez was notified of changes and ordered NG placement. During NG placement, selling underwriter met resistance in right and left nare at approximately 10-12cm. Pt was not tolerating procedure, yelling out, grabbing supplies and grabbing nursing staff. Second nurse assisted in placement, met resistance in left nare and was able to advance completely into right nare; pt was unable to successfully swallow water during procedure, started gagging, appeared to have difficulty breathing and was waving her hands to stop. Tube was removed, pt's breathing returned to normal and needed to frequently cough/clear her throat afterwards. Dr. Quiñonez was updated and ordered IV ativan prior to next NG placement attempt. Pt was more relaxed and tolerable of placement, NG was placed in the right nare at 56cm, with approximately 250cc output on low intermittent suction. Waiting XR placement confirmation at this time.
[2025-02-05] MEDS: ENOXAPARIN 40 MG/0.4 ML INJ SUBCUT (20:49)
[2025-02-05] MEDS: LATANOPROST 0.005% OPHTH 1 DROP EYE-BOTH (20:50)
[2025-02-05] MEDS: cefTRIAXone 1 GM in 0.9 % SODIUM CHLORIDE Mini-bag 100 ML IVPB (20:50)
[2025-02-05] MEDS: MELATONIN 3 MG TABLET PO (21:17)
--- NOTE | 2025-02-06 01:00 | PC.NURSE ---
At 2340 RN entered room and patient had self D/C'd NG tube. MD notified. Verbal order to leave NG tube out and to reassess if patient develops worsening symptoms.
[2025-02-06] MEDS: ONDANSETRON ODT 4 MG TAB PO ×2 (01:59→09:01)
[2025-02-06 02:00] VITALS: BP 142/69; PULSE 98; RESP 18; TEMP 36.9; O2SAT 93
--- NOTE | 2025-02-06 03:22 | CRLHL7_ITS ---
For Patients: As a result of the Century Cures Act, medical imaging exams and procedure reports are released immediately into your electronic medical record. You may view this report before your referring provider. If you have questions, please contact your health care provider. INDICATION: NG tube placement check COMPARISON: 02/05/2025 TECHNIQUE: 1 view chest radiograph. FINDINGS: Devices: The NG tube is in good position over the left upper quadrant. Lung volumes are low. Diffuse crowding. Patchy peribronchovascular opacities. No pulmonary edema. Small bilateral pleural effusion. No pneumothorax. No pneumomediastinum. Very little bowel gas. IMPRESSION: The NG tube is in radiographically good position. Dictated by Bina Lo MD @ 02/06/2025 5:08:47 AM (Electronically Signed)
--- NOTE | 2025-02-06 06:05 | PC.NURSE ---
End of shift report [id number]: Xray obtained at the beginning of the shift to confirm NG placement. NG was patent and draining in the right nare. NG was?at 56 cm at the nare on low intermittent suction. Pt bowel sounds were active at the beginning of the shift in all quadrants and now they are hypoactive. Pt had increased confusion overnight, requiring frequent reorientation.?Pt was noted to pull out her NG tube at 2340, MD Betts approved not inserting another NG at that time. Pt reported increased nausea at 0200, prn zofran given with no relief, SHU ZAMORANO was contacted and a new NG was inserted around 0430. The NG is 56 cm at the right nare on low intermittent suction, chest xray was performed. Total NG output was 450 this shift. Pt was noted to pull out her IV around 0330, tip was intact, new IV placed in right wrist. Pt was a 1:1 from 2056-5277 this shift. VSS. Afebrile. Pt was on 1 L O2 via NC to maintain O2 sats above 90%. Pt denies passing gas. Abdomen is soft and distended. Pt is tolerating NPO diet. Pt ambulates SBA with walker. Pt is resting in bed, bed alarm on, call light within reach.?
[2025-02-06 06:11] LABS: Hematocrit 31.5 % (33.0-51.0); Hemoglobin* 10.2 gm/dL (12.0-16.0); Mean Corpuscular HGB Conc 32 gm/dL (32-36); Mean Corpuscular Hemoglobin 31 pg (26-34); Mean Corpuscular Volume 96 fL (80-100); Red Blood Count 3.27 m/uL (4.00-5.20); White Blood Count* 10.13 K/uL (4.50-11.00)
[2025-02-06 06:19] LABS: Slide Review Reflex No
[2025-02-06 06:24] LABS: Chloride* 100 mmol/L (96-114)
[2025-02-06 06:25] LABS: Potassium* 3.7 mmol/L (3.6-5.1); Sodium* 134 mmol/L (135-149)
[2025-02-06 06:27] LABS: Blood Urea Nitrogen* 18 mg/dL (7-30); Creatinine* 0.8 mg/dL (0.5-1.5); Est. Creatinine Clearance* 35.39; Estimated Glomerular Filt Rate 73 ml/min
[2025-02-06 06:28] LABS: Anion Gap 8 mEq/L (7-15); Calcium* 8.7 mg/dL (8.4-10.6); Carbon Dioxide* 26 mmol/L (20-32); Glucose* 75 mg/dL (60-115)
--- NOTE | 2025-02-06 07:18 | PM.IMPN1 ---
Assessment and Plan Assessment and plan (1) Small intestine obstruction: Problem comment: CT shows Small-bowel obstruction. There are several transition points with the distal Hayes in the deep right posterior pelvis. There is not a closed loop morphology. No ischemia or perforation. Past medical history significant abdominal surgeries Abdominal pain/distension on admission - improving. Nausea - improving Continue bowel rest, NPO, IVF Encourage ambulation Pain and nausea management as needed. Suspect she is on a small amount of supplemental oxygen secondary to narcotics General surgery consulted, Dr. Quiñonez, recommending ongoing monitoring, plan as above 02/05: Discussed with General surgery, continue NPO, IVF, encourage frequent ambulation Hemoglobin trending down 9.2, likely dilutional with ongoing LR - improving/uptrending again 02/06: NGT placed last evening. Pt pulled it out during episode of confusion. Replaced early am. NPO. LR IVF. Continue home meds. Encourage ambulation Status: Acute (2) Inflammatory arthritis: Problem comment: Rheumatoid arthritis. Continue outpatient prednisone and methotrexate. Also on folic acid and pregabalin Status: Chronic (3) Chronic, continuous use of opioids: Problem comment: Chronic pain Status: Chronic (4) Polymyalgia rheumatica: Problem comment: Diagnosed [facility] 01/2007 Continue home prednisone Status: Acute (5) Cognitive impairment: Problem comment: Resident in memory care Delirium setting in overnight 02/06 (increasing length of hospital stay, narcotics, benzos, NGT) Avoid Ativan/benzos Discontinue dilaudid and use morphine again instead Will wait to see if improves once these meds are metabolized but may need other interventions Encourage sleep-wake cycle. Frequent ambulation 1:1 as needed Status: Acute (6) UTI (urinary tract infection): Problem comment: UC growing >[id number] E coli, pansensitive Continue ceftriaxone x 5 doses Status: Acute Plan As above, continue NPO, IVF Total Time Spent Total Time Spent: Today I spent 45 minutes seeing the patient, reviewing Expanse and EPIC notes/diagnostics, discussing the care plan with our care time that includes social work, PT/OT, pharmacy, RT, senior care and documenting my impressions and plan in the medical record. Subjective Date Seen: 02/06/25 Interval history: Patient is seen sitting up in bed this morning. Confused, mildly agitated. Requiring 1:1 overnight. Was seen by General surgery last night, recommending NGT. During initial attempt, was yelling out and began physically pushing back. Does have a history of cognitive impairment. Received 2 mg Ativan in order to safely place NGT. This may have unfortunately pushed her into delirium. Had also previously refused morphine earlier that afternoon, receiving Dilaudid instead, compounding mental status changes. Ended up pulling NG tube out late last evening. Initial thought was to not put it back in but required it again overnight, receiving another 0.5 mg of Ativan. Good output noted. Labs stable. Remains confused. Exam Narrative: Exam Narrative: PHYSICAL EXAM General: Alert, confused, otherwise NAD Cardiovascular: RRR, S1S2. No pitting edema Pulmonary: CTA bilaterally without rhonchi, rales, expiratory wheezes. No dyspnea Abdominal: Remains distended, firm this morning. NGT in place, dark output Neurological: Confused this morning, oriented only to self. Slightly agitated Extremities: No gross joint deformity or swelling. AROMI. Neurovascularly intact Skin: Warm, dry. Const: Vital Signs, click to edit/add: Vital Signs - 24 hr 02/05/25 08:00 02/05/25 11:25 02/05/25 15:00 Temperature 99.1 F 98.2 F Pulse Rate [Left R adial] 93 93 Pulse Rate [Pulse Oximeter] Respiratory Rate 16 16 Blood Pressure [Le ft Arm] 137/77 143/84 H Pulse Oximetry 93 90 94 Oxygen Delivery Me thod Room Air Nasal Cannula Oxygen Flow Rate 1 02/05/25 15:00 02/05/25 15:30 02/05/25 19:00 Temperature 98.1 F 98.2 F Pulse Rate [Left R adial] 86 86 Pulse Rate [Pulse Oximeter] 93 108 H Respiratory Rate 16 16 16 Blood Pressure [Le ft Arm] 146/76 H 132/74 Pulse Oximetry 94 94 Oxygen Delivery Me thod Room Air Nasal Cannula Oxygen Flow Rate 1 02/05/25 21:10 02/05/25 21:31 02/05/25 22:03 Temperature Pulse Rate [Left R adial] Pulse Rate [Pulse Oximeter] Respiratory Rate 16 16 Blood Pressure [Le ft Arm] Pulse Oximetry 95 92 Oxygen Delivery Me thod Nasal Cannula Oxygen Flow Rate 1 02/05/25 22:03 02/06/25 02:00 Temperature 97.8 F 98.5 F Pulse Rate [Left R adial] Pulse Rate [Pulse Oximeter] 103 H 98 Respiratory Rate 16 18 Blood Pressure [Le ft Arm] 137/77 142/69 H Pulse Oximetry 95 93 Oxygen Delivery Me thod Nasal Cannula Nasal Cannula Oxygen Flow Rate 1 1 Labs Labs: Laboratory Results - last 24 hr 02/06/25 05:42 WBC 10.13 RBC 3.27 L Hgb 10.2 L Hct 31.5 L MCV 96 MCH 31 MCHC 32 Plt Count 180 Sodium 134 L Potassium 3.7 Chloride 100 Carbon Dioxide 26 Anion Gap 8 BUN 18 Creatinine 0.8 Estimated Creat Clear 35.39 Estimated GFR 73 Glucose 75 Calcium 8.7
[2025-02-06 07:50] VITALS: BP 144/88; PULSE 116; RESP 16; TEMP 36.7; O2SAT 90
--- NOTE | 2025-02-06 09:33 | PM.GSPN ---
Subjective Subjective Date Seen: 02/06/25 Interval history: Patient had NG tube placed yesterday but became more confused and pulled the NG out and IV out. The NG tube was then replaced and IV was replaced. Patient denies passing gas. She feels like her abdominal pain is increased. Exam Narrative: Exam Narrative: Abdomen is soft, mildly distended, tender to palpation on the right and the left, this is worse compared to yesterday. No peritoneal signs. Const: Vital Signs, click to edit/add: Vital Signs - 24 hr 02/05/25 11:25 02/05/25 15:00 02/05/25 15:00 Temperature 98.2 F Pulse Rate [Left R adial] 93 86 Pulse Rate [Pulse Oximeter] 93 Respiratory Rate 16 16 Blood Pressure [Le ft Arm] 143/84 H Pulse Oximetry 90 94 Oxygen Delivery Me thod Nasal Cannula Oxygen Flow Rate 1 02/05/25 15:30 02/05/25 19:00 02/05/25 21:10 Temperature 98.1 F 98.2 F Pulse Rate [Left R adial] 86 Pulse Rate [Pulse Oximeter] 108 H Respiratory Rate 16 16 16 Blood Pressure [Le ft Arm] 146/76 H 132/74 Pulse Oximetry 94 94 Oxygen Delivery Me thod Room Air Nasal Cannula Oxygen Flow Rate 1 02/05/25 21:31 02/05/25 22:03 02/05/25 22:03 Temperature 97.8 F Pulse Rate [Left R adial] Pulse Rate [Pulse Oximeter] 103 H Respiratory Rate 16 16 Blood Pressure [Le ft Arm] 137/77 Pulse Oximetry 95 92 95 Oxygen Delivery Me thod Nasal Cannula Nasal Cannula Oxygen Flow Rate 1 1 02/06/25 02:00 Temperature 98.5 F Pulse Rate [Left R adial] Pulse Rate [Pulse Oximeter] 98 Respiratory Rate 18 Blood Pressure [Le ft Arm] 142/69 H Pulse Oximetry 93 Oxygen Delivery Me thod Nasal Cannula Oxygen Flow Rate 1 Progress Note:A&P Assessment and plan (1) Small intestine obstruction: Status: Acute Plan 84-year-old female with history of multiple abdominal surgeries admitted to the hospital with small-bowel obstruction. Patient's pain has worsened, NG tube put out small amounts of fluid, NG tube is in the correct position in the stomach. Patient was confused overnight and continues to be confused. Her WBC is normal with CRP 1.8. Patient has no return of bowel function. I recommended to transfer this patient to a tertiary center with ICU availability. Patient may need surgical intervention with exploratory laparotomy lysis of adhesions. I am concerned for her postoperative recovery with her confusion and not been able to follow commands and be extubated postoperatively. This was discussed with the hospitalist.
[2025-02-06] MEDS: METOPROLOL SUCCINATE (XL) 25 MG TAB 12.5 MG PO (10:21)
[2025-02-06] MEDS: PREGABALIN 25 MG CAPSULE PO ×2 (10:21→20:38)
[2025-02-06 10:58] VITALS: BP 142/69; PULSE 95; RESP 18; TEMP 36.7; O2SAT 95
[2025-02-06] MEDS: LACTATED RINGERS 1000 ML 1,000 ML 75 ML IV (11:01)
--- NOTE | 2025-02-06 14:34 | PC.NURSE ---
Pt continues to have increased abdominal pain and nausea today. Pt is distended and not passing gas. NG tube remains in place with adequate output. Pt is still requiring 1L O2 NC. Pt was confused at the beginning of the shift and now is A&O x4, using call light appropriately. Daughter, Kristal, was updated at 1340. Gastrograffin challenge was initiated at 1300. Pt is resting well at this time.
[2025-02-06] MEDS: DIATRIZOATE MEGLUMINE, SODIUM 120 ML SOLUTION 90 ML NG (14:57)
[2025-02-06 15:00] VITALS: BP 136/74; PULSE 109; RESP 20; TEMP 36.9; O2SAT 94
[2025-02-06 19:19] VITALS: BP 148/84; PULSE 103; RESP 20; TEMP 36.9; O2SAT 93
[2025-02-06] MEDS: MELATONIN 3 MG TABLET PO (21:00)
[2025-02-06] MEDS: LATANOPROST 0.005% OPHTH 1 DROP EYE-BOTH (21:00)
[2025-02-06] MEDS: cefTRIAXone 1 GM in 0.9 % SODIUM CHLORIDE Mini-bag 100 ML IVPB (21:00)
[2025-02-06] MEDS: ENOXAPARIN 40 MG/0.4 ML INJ SUBCUT (21:00)
--- NOTE | 2025-02-06 21:34 | PC.NURSE ---
Patient up with assist of one gait belt and walker. Patient utilizes bed alarm for safety. Patients NG is at 56 on Right side. 550 mls Brown coffee ground output from NG @ 56 Right side from LIS. BS hypoactive all quadrants. Patients pain is managed with prn medications. PIV Right forearm patent with 75/h LR infusing. Patient is continent and voiding clear yellow urine. Patient sats 89% RA so patients using 1 liter via NC with saturations 93-95%. Patient tolerated gastrogaphen challenge so will receive abdominal Xray at 02/06/25 @ 2300.
--- NOTE | 2025-02-06 23:00 | CRLHL7_ITS ---
For Patients: As a result of the Century Cures Act, medical imaging exams and procedure reports are released immediately into your electronic medical record. You may view this report before your referring provider. If you have questions, please contact your health care provider. Indication: Abdominal pain and constipation. Technique: Abdomen 1 view. Comparison: CT abdomen pelvis 02/04/2025. Findings/Impression: Enteric tube with tip and side hole below the diaphragm in the region of the stomach. No definite enteric contrast is visualized within the colon. Nonspecific dilatation of visualized small bowel loops. No acute osseous abnormality. Dictated by Marshal Castellanos MD @ 02/07/2025 1:57:59 AM (Electronically Signed)
[2025-02-06 23:17] VITALS: BP 140/79; PULSE 100; PULSE 94; RESP 20; TEMP 37.2; O2SAT 94
[2025-02-07] MEDS: LACTATED RINGERS 1000 ML 1,000 ML 75 ML IV (00:06)
[2025-02-07] MEDS: ONDANSETRON ODT 4 MG TAB PO ×2 (00:37→08:24)
[2025-02-07 03:21] VITALS: BP 143/77; PULSE 67; RESP 17; TEMP 36.6; O2SAT 94
[2025-02-07 06:12] LABS: Hematocrit 34.9 % (33.0-51.0); Hemoglobin* 11.2 gm/dL (12.0-16.0); Mean Corpuscular HGB Conc 32 gm/dL (32-36); Mean Corpuscular Hemoglobin 31 pg (26-34); Mean Corpuscular Volume 97 fL (80-100); Red Blood Count 3.60 m/uL (4.00-5.20); White Blood Count* 9.12 K/uL (4.50-11.00)
[2025-02-07 06:24] LABS: Chloride* 98 mmol/L (96-114); Potassium* 3.6 mmol/L (3.6-5.1); Sodium* 137 mmol/L (135-149)
[2025-02-07 06:25] LABS: Slide Review Reflex No
[2025-02-07 06:27] LABS: Anion Gap 11 mEq/L (7-15); Blood Urea Nitrogen* 17 mg/dL (7-30); Calcium* 9.1 mg/dL (8.4-10.6); Carbon Dioxide* 28 mmol/L (20-32); Creatinine* 0.8 mg/dL (0.5-1.5); Est. Creatinine Clearance* 34.76; Estimated Glomerular Filt Rate 73 ml/min; Glucose* 72 mg/dL (60-115)
[2025-02-07 07:00] VITALS: O2SAT 94
--- NOTE | 2025-02-07 07:15 | CRLHL7_ITS ---
For Patients: As a result of the Century Cures Act, medical imaging exams and procedure reports are released immediately into your electronic medical record. You may view this report before your referring provider. If you have questions, please contact your health care provider. INDICATION: Abdominal pain and constipation, follow-up contrast study from yesterday COMPARISON: 02/04/2025, 02/06/2025 TECHNIQUE: 1 view abdomen, supine. FINDINGS: Devices: NG tube in the stomach. Hyperdense contrast has mostly resorbed. There are still some dilated small bowel loops in the central abdomen measure up to 4 centimeters in diameter. There is a small stool burden with very little colonic gas. There is a pelvic anastomotic suture line. IMPRESSION: Persistently dilated small bowel with resorption of the contrast. Bowel obstruction suspected. Dictated by Bina Lo MD @ 02/07/2025 9:49:16 AM (Electronically Signed)
[2025-02-07 07:50] VITALS: BP 147/71; PULSE 101; RESP 16; TEMP 36.7; O2SAT 94
[2025-02-07] MEDS: SODIUM CHLORIDE 0.9 % (FLUSH) 10 ML SYRINGE 5 ML IVF (08:26)
[2025-02-07] MEDS: PREGABALIN 25 MG CAPSULE PO (08:30)
[2025-02-07] MEDS: METOPROLOL SUCCINATE (XL) 25 MG TAB 12.5 MG PO (08:30)
[2025-02-07 10:40] VITALS: BP 154/69; PULSE 94; RESP 16; O2SAT 93
--- NOTE | 2025-02-07 11:15 | P.DS_ITS ---
Transfer Discharge Sum: Prov Provider Date Seen: 02/07/25 Date of admission: 02/04/25 05:42 Primary care physician: Not a Local Provider Attending physician on admission: Kyalh Provider AAAGeneric Consults: 02/04/25 08:03 Consult to Physician [CONS] Routine Comment: Consulting Provider: General Marlene, [facility] Has provider been notified: No Attending physician on discharge: Swapna Alamo Anticipated date of transfer: 02/07/25 Receiving physician/facility: [facility] DS: Diagnosis Discharge Diagnosis (1) Small intestine obstruction: Status: Acute Problem details: CT shows Small-bowel obstruction. There are several transition points with the distal Hayes in the deep right posterior pelvis. There is not a closed loop morphology. No ischemia or perforation. Past medical history significant abdominal surgeries Abdominal pain/distension on admission - improving. Nausea - improving Continue bowel rest, NPO, IVF Encourage ambulation Pain and nausea management as needed. Suspect she is on a small amount of supplemental oxygen secondary to narcotics General surgery consulted, Dr. Quiñonez, recommending ongoing monitoring, plan as above 02/05: Discussed with General surgery, continue NPO, IVF, encourage frequent ambulation Hemoglobin trending down 9.2, likely dilutional with ongoing LR - improving/uptrending again 02/06: NGT placed last evening. Pt pulled it out during episode of confusion. Replaced early am. NPO. LR IVF. Continue home meds. Encourage ambulation 02/07: Gastrografin challenge completed yesterday 02/06. Follow up abdominal x-ray and repeat x-ray this morning without evidence of contrast in the colon. Persistently dilated small bowel with resorption of the contrast. Discussed with local General surgery, Dr. Quiñonez. Concern is multiple fascial deficits as well as a thin abdominal. Likely surgical intervention for lysis of adhesions, possible reconstruction, need for mesh, hernia repair. No change in exam. Continues to have pain and intermittent nausea. Recommending transfer to tertiary surgical center. At time of transfer, continues on IVF, NPO, NGT in place to intermittent suction. Small doses of morphine p.r.n. pain. (2) Inflammatory arthritis: Status: Chronic Problem details: Rheumatoid arthritis. Continue outpatient prednisone and methotrexate. Also on folic acid and pregabalin (3) Chronic, continuous use of opioids: Status: Chronic Problem details: Chronic pain According to patient's son, staff at [facility] report she has been refusing her stool softeners (4) Polymyalgia rheumatica: Status: Acute Problem details: Diagnosed [facility] 01/2007 Continue home prednisone (5) Cognitive impairment: Status: Acute Problem details: Resident in [facility] Delirium setting in overnight 02/06 (increasing length of hospital stay, narcotics, benzos, NGT) Avoid Ativan/benzos Discontinue dilaudid and use morphine again instead Will wait to see if improves once these meds are metabolized but may need other interventions Encourage sleep-wake cycle. Frequent ambulation 1:1 as needed 02/07: Patient's confusion/delirium noted to improve yesterday afternoon. This morning, alert and oriented to self and place. Delirium has resolved. Appears to be at baseline confusion. Visiting appropriately with son. (6) UTI (urinary tract infection): Status: Acute Problem details: UC growing >[id number] E coli, pansensitive Ceftriaxone x 5 doses started 02/05 (3 of 5 doses given prior to transfer) Transfer Discharge Sum: Med Medications Active and Home Medications: Home Medications latanoprost 0.005 % eye drops 1 drp ophthalmic (eye) HS 08/02/22 [History Confirmed 02/04/25] methotrexate sodium 2.5 mg tablet 12.5 mg PO .wed@21 08/02/22 [History Confirmed 02/04/25] prednisone 5 mg tablet 5 mg PO DAILY 08/02/22 [History Confirmed 02/04/25] folic acid 1 mg tablet 1 mg PO DAILY #30 tabs 02/10/23 [Rx Confirmed 02/04/25] polyethylene glycol 3350 17 gram oral powder packet (Miralax) 17 g PO DAILY PRN Constipation #1 ea 02/10/23 [Rx Confirmed 02/04/25] metoprolol succinate 25 mg tablet,extended release 24 hr 12.5 mg PO DAILY 05/06 08/28 [History Confirmed 02/04/25] oxycodone 5 mg tablet 5 mg PO Q6H PRN 05/25/24 [History Confirmed 02/04/25] pregabalin 25 mg capsule 25 mg PO BID 05/25/24 [History Confirmed 02/04/25] acetaminophen 325 mg tablet 650 mg PO Q4H PRN 02/04/25 [History Confirmed 02/04/25] docusate sodium 100 mg capsule 100 mg PO BID 02/04/25 [History Confirmed 02/04/25] melatonin 3 mg tablet 3 mg PO HS 02/04/25 [History Confirmed 02/04/25] oxycodone 5 mg tablet 5 mg PO QID 02/04/25 [History Confirmed 02/04/25] Active Medications Acetaminophen (Acetaminophen 325 Mg Tablet) 650 mg PO Q6H PRN PRN Reason: As Needed for Fever or Pain Last Admin: 02/04/25 22:52 Dose: 650 mg Enoxaparin Sodium (Enoxaparin 40 Mg/0.4 Ml Inj) 40 mg SUBCUT [facility] Last Admin: 02/06/25 21:00 Dose: 40 mg Hydromorphone HCl (Hydromorphone 0.5 Mg/0.5 Ml Inj) 0.2 mg IVP Q2H PRN On Hold: 02/06/25 07:44 Last Admin: 02/06/25 03:04 Dose: 0.2 mg Lactated Ringer's (Lactated Ringers 1000 Ml) 1,000 mls @ 75 mls/hr IV .[id number] [facility] Last Admin: 02/07/25 00:06 Dose: 75 mls/hr Ceftriaxone Sodium 1 gm/ (Sodium Chloride) 100 mls @ 200 mls/hr IVPB Q24H [facility] Stop: 02/09/25 21:29 Last Infusion: 02/07/25 07:10 Dose: Infused Latanoprost (Latanoprost 0.005% Ophth) 1 drop EYE-BOTH [facility] Last Admin: 02/06/25 21:00 Dose: 1 drop Melatonin (Melatonin 3 Mg Tablet) 3 mg PO [facility] Last Admin: 02/06/25 21:00 Dose: 3 mg Metoprolol Succinate (Metoprolol Succinate (Xl) 25 Mg Tab) 12.5 mg PO DAILY [facility] Last Admin: 02/07/25 08:30 Dose: 12.5 mg Morphine Sulfate (Morphine 2 Mg/Ml Inj) 2 mg IVP Q2H PRN Last Admin: 02/07/25 08:24 Dose: 2 mg Ondansetron HCl (Ondansetron Odt 4 Mg Tab) 4 mg PO Q6H PRN PRN Reason: Nausea And Vomiting Last Admin: 02/07/25 08:24 Dose: 4 mg Prednisone (Prednisone 5 Mg Tablet) 5 mg PO DAILY [facility] Last Admin: 02/07/25 08:31 Dose: 5 mg Pregabalin (Pregabalin 25 Mg Capsule) 25 mg PO BID [facility] Last Admin: 02/07/25 08:30 Dose: 25 mg Sodium Chloride (Sodium Chloride 0.9 % (Flush) 10 Ml Syringe) 5 ml IVF .FLUSH PRN Sodium Chloride (Sodium Chloride 0.9 % (Flush) 10 Ml Syringe) 5 ml IVF BID [facility] Last Admin: 02/07/25 08:26 Dose: 5 ml Sodium Chloride (0.9 % Sodium Chloride 250 Ml) 250 ml IV Q24H [facility] Last Admin: 02/06/25 23:49 Dose: Not Given Transfer Discharge Sum: Hosp Hospital Course Hospital course: Bryanna Coelho is a 84 year old female with significant past surgical history as reviewed in EMR. Admitted with small-bowel obstruction, not responsive to bowel rest, NGT, nor Gastrografin challenge. Continues on IVF, p.r.n. IV morphine, p.r.n. IV Zofran. Electrolytes remain unremarkable. CBC unremarkable, hemoglobin improving. UC growing > 100,000 E coli. Has received 3 of 5 doses IV ceftriaxone. Local General surgery recommending transfer to Tertiary surgical center for further intervention given significant past surgical history and potential complications. During course of hospital stay, patient did have an episode of significant delirium after receiving Dilaudid for pain and later a total of 2.5 mg Ativan for NGT placement. Delirium has resolved. Peers to be at baseline confusion. On 02/07, approximately 10:30 a.m., patient did have a significant apneic episode. O2 saturations noted to decrease into lower 40s with 1.5 L supplemental oxygen in place per nasal cannula. Patient was unresponsive to voice or sternal rub. Heart rate remained stable in the 90s. No dyspnea or accessory muscle use. Blood pressure 154/69. Patient was laid completely flat and oxygen temporarily increased. She awoke suddenly, complaining of having a bad dream. Entire episode lasting only a couple of mintues. Code blue was called and canceled almost immediately. Recheck of vitals are stable. Patient remains alert, awake, conversing appropriately and visiting with family. Denies headache or dizziness. Denies chest pain or tightness. No dyspnea. No nausea. No worsening abdominal pain. In review of med rec, patient received 2 mg morphine around midnight as well as again around 830. No other sedatives were given. Time Spent with Patient Time attestation: Total time spent providing and/or coordinating transfer services: Total time spent: Greater than 30 minutes Exam Narrative: Exam Narrative: PHYSICAL EXAM General: Awake alert, appears uncomfortable but remains stoic Cardiovascular: RRR Pulmonary: No dyspnea on 1.5 L per NC Abdomen: Remains distended, soft, tender RLQ>LLQ. NGT in place, dark output Neurological: Alert, answering questions appropriately Skin: Warm, dry. Const: Vital Signs, click to edit/add: Vital Signs - 24 hr 02/06/25 15:00 02/06/25 15:00 02/06/25 15:00 Temperature Pulse Rate [Left R adial] 109 H Pulse Rate [Pulse Oximeter] 109 H Respiratory Rate 20 20 Blood Pressure [Le ft Arm] Blood Pressure [Ri ght Arm] Pulse Oximetry 94 94 Oxygen Delivery Me thod Nasal Cannula Oxygen Flow Rate 1 02/06/25 15:00 02/06/25 19:19 02/06/25 23:17 Temperature 98.5 F 98.5 F Pulse Rate [Left R adial] 109 H Pulse Rate [Pulse Oximeter] 109 H 103 H Respiratory Rate 20 20 Blood Pressure [Le ft Arm] 136/74 148/84 H Blood Pressure [Ri ght Arm] Pulse Oximetry 94 93 94 Oxygen Delivery Me thod Nasal Cannula Nasal Cannula Oxygen Flow Rate 1 1 02/06/25 23:17 02/06/25 23:17 02/07/25 03:21 Temperature 98.9 F 97.8 F Pulse Rate [Left R adial] 100 Pulse Rate [Pulse Oximeter] 94 67 Respiratory Rate 20 20 17 Blood Pressure [Le ft Arm] Blood Pressure [Ri ght Arm] 140/79 H 143/77 H Pulse Oximetry 94 94 94 Oxygen Delivery Me thod Nasal Cannula Nasal Cannula Nasal Cannula Oxygen Flow Rate 1 1 1.5 02/07/25 07:00 02/07/25 07:00 02/07/25 07:50 Temperature 98.0 F Pulse Rate [Left R adial] 101 H Pulse Rate [Pulse Oximeter] Respiratory Rate 16 Blood Pressure [Le ft Arm] 147/71 H Blood Pressure [Ri ght Arm] Pulse Oximetry 94 94 94 Oxygen Delivery Me thod Nasal Cannula Room Air Oxygen Flow Rate 1 1 02/07/25 10:40 Temperature Pulse Rate [Left R adial] 94 Pulse Rate [Pulse Oximeter] Respiratory Rate 16 Blood Pressure [Le ft Arm] 154/69 H Blood Pressure [Ri ght Arm] Pulse Oximetry 93 Oxygen Delivery Me thod Nasal Cannula Oxygen Flow Rate 2 Transfer Discharge Sum: Data Imaging Abdomen x-ray 02/07: Attestation: I have reviewed the pertinent imaging results. Radiologist's impression: Devices: NG tube in the stomach. Hyperdense contrast has mostly resorbed. There are still some dilated small bowel loops in the central abdomen measure up to 4 centimeters in diameter. There is a small stool burden with very little colonic gas. There is a pelvic anastomotic suture line. IMPRESSION: Persistently dilated small bowel with resorption of the contrast. Bowel obstruction suspected. Abdomen x-ray 02/06: Attestation: I have reviewed the pertinent imaging results. Radiologist's impression: Comparison: CT abdomen pelvis 02/04/2025. Findings/Impression: Enteric tube with tip and side hole below the diaphragm in the region of the stomach. No definite enteric contrast is visualized within the colon. Nonspecific dilatation of visualized small bowel loops. No acute osseous abnormality. Chest x-ray: Attestation: I have reviewed the pertinent imaging results. Radiologist's impression: 02/05 to confirm NGT Redemonstrated enlarged cardiomediastinal silhouette. Enteric tube tip projects over the gastric body. Mild streaky bibasilar opacities. No sign of pleural effusion or pneumothorax, though the lung apices are outside the field view. Age-indeterminate left mid posterior rib fracture. IMPRESSION: Enteric tube tip projects over the gastric body. 02/06 to confirm NGT Devices: The NG tube is in good position over the left upper quadrant. Lung volumes are low. Diffuse crowding. Patchy peribronchovascular opacities. No pulmonary edema. Small bilateral pleural effusion. No pneumothorax. No pneumomediastinum. Very little bowel gas. IMPRESSION: The NG tube is in radiographically good position. CT scan - abdomen: Attestation: I have reviewed the pertinent imaging results. Radiologist's impression: Lung bases: Mild basilar reticular opacities and atelectasis. Relatively similar to the previous exam. Small pericardial effusion, similar to the previous exam. Trace bilateral pleural effusions. Liver: Normal. No mass. Gallbladder and bile ducts: Cholecystectomy. Mild left intrahepatic ductal dilatation. Mild extrahepatic biliary ductal dilatation measuring 9 millimeters. This is dilated down towards the ampulla. Does not appear significantly different than the previous exam. Pancreas: No pancreatitis. Minimal prominence of the pancreatic duct in the pancreatic head. Similar appearance since 2018. Spleen: Normal. Adrenal glands: Normal. Kidneys: Normal renal size and position. No mass or cyst. There is hyperdense contrast already excreted into the urinary tract collecting system. No large calculi seen. No urinary tract dilation. Urinary bladder: Partially filled. Pelvis: Apparent hysterectomy. No pelvic mass or cyst. Vessels: Heavy atherosclerosis. The mesenteric arteries and veins are patent. Bowel: Small amount of fluid in the stomach. The proximal small bowel is decompressed. There is gradual transition to dilated small bowel. There are few transition points. The distal most transition is in the deep right posterior pelvis near a distal ileal anastomotic suture line. See series 3, image 99. Other transition points are higher in the central abdomen. For example series 3, image 93, with a similar area also seen on series 5, image 49. The dilated small bowel measures up to 3 centimeters. There is normal bowel wall thickness and enhancement. There is some layering hyperdense ingested material in some of the bowel loops. The distal ileum is unremarkable. There is a moderate to large stool burden. There is a rectosigmoid anastomosis is unremarkable. The appendix is not seen. Lymph nodes: No adenopathy. Peritoneum: Small ascites. No free air. Abdominal wall: There is a small fat containing left lower quadrant incisional hernia. General laxity and atrophy of the abdominal wall musculature. Bones: Assuming there is a rudimentary L5-S1 disc space there are compression fractures of T8, T10, T12, L2, and L3. The T10 fracture end above was not previously within the field of view. The other fractures are about the same. No destructive focal bone lesion. IMPRESSION: Small-bowel obstruction. There are several transition points with the distal Hayes in the deep right posterior pelvis. There is not a closed loop morphology. No ischemia or perforation. Transfer Discharge Sum: A/P Plan Cognitive capacity at transfer: Baseline Functional capacity at transfer: uses cane/walker Discharge Plan Discharge Disposition: Critical Access Hospital Hospital Discharge Location: [facility] Date of Admission: 02/04/25 05:42 Attending Provider on Discharge: Swapna Alamo Primary Care Provider: Provider,Not a Local Condition: Unchanged Discharge Orders: Transfer of Care to Other Hospital (ORDER); Ordered 02/07/25 Ordered By: Swapna Alamo Oxygen: Yes Oxygen Delivery Method: Nasal Cannula Oxygen Flow Rate: 1.5L Urinary Catheter: No Drips/Lines: Peripheral IV. NGT Services not available here: General Surgery
--- NOTE | 2025-02-07 13:28 | PC.NURSE ---
Pt continues to report increased abdominal pain and intermittent nausea, unrelieved with PRN medications. VSS. Afebrile. A&Ox4, using call light appropriately. Pt displays an increase of weakness, requiring one assist pivot to bedside commode. Pt is requiring 2L O2 NC to maintain O2 >90%. Pt is having adequate output throughout NG, dark green/brown in color. Pt remains NPO. Family has been notified of pt transferring to [facility]. Pt discharged via EMS at 1325. Nurse to nurse report was given to [place] at 1330.
--- NOTE | 2025-02-07 23:08 | PC.NURSE ---
Late note for 02/07/2025 0700 - Shift Note ([id number]): Patient pleasant, alert and oriented. Up once to use the bathroom during the night. Ambulates with wheeled walker, gait belt and assist of one. Declined to be turned onto side. Was boosted up and legs were elevated on pillows with heels floated. Given PRN Morphine and warm compress for abdominal discomfort. O2 sats 94% on 1 LPM.?
== END 2025-02-07 13:25 | disposition short-term general hospital (02) | DRG 389 ==
LOC: ED 04:48 → MEDSURG 08:55
PROVIDERS: Physician Assistant; Admitting Provider Internal Medicine; Emergency Provider Family Medicine; Visit Provider Internal Medicine
DX: K56.50 Intestinal adhesions [bands], unspecified as to partial versus complete obstruction (principal); N39.0 Urinary tract infection, site not specified; Z68.1 Body mass index [BMI] 19.9 or less, adult; B96.20 Unspecified Escherichia coli [E. coli] as the cause of diseases classified elsewhere; R54 Age-related physical debility; F11.90 Opioid use, unspecified, uncomplicated; M06.00 Rheumatoid arthritis without rheumatoid factor, unspecified site; Z79.631 Long term (current) use of antimetabolite agent; G31.84 Mild cognitive impairment of uncertain or unknown etiology; M35.3 Polymyalgia rheumatica; G89.29 Other chronic pain; F41.9 Anxiety disorder, unspecified; D64.9 Anemia, unspecified
CPT/HCPCS: 36415; 71045; 74018; 74177; 80048; 80053; 81001; 81003; 82565; 83605; 83690; 85025; 85027; 86140; 87086; 94761; 99284; 99285; A9270; J0696; J1171; J1650; J2060; J2270; J2405; J7050; J7120; J7512; Q9967

== ENCOUNTER 2025-02-07 13:14 | Outpatient (CLI) | payer MEDICARE, SELFPAY | END 2025-02-07 13:15 | disposition home or self-care (01) | LOC: AMB 02-08 16:34 | PROVIDERS: Visit Provider Student in an Organized Health Care Education/Training Program | DX: K56.609 Unspecified intestinal obstruction, unspecified as to partial versus complete obstruction (principal) | CPT/HCPCS: A0425; A0433 ==

== ENCOUNTER 2025-07-30 06:08 | Outpatient (CLI) | payer MEDICARE, SELFPAY | END 2025-07-30 06:09 | disposition home or self-care (01) | LOC: AMB 08-01 22:46 | PROVIDERS: Visit Provider Emergency Medicine | DX: R04.0 Epistaxis (principal); M54.50 Low back pain, unspecified | CPT/HCPCS: A0425; A0433 ==

== ENCOUNTER 2025-07-30 06:50 | Emergency (ER) | payer MEDICARE, SELFPAY ==
--- OUTSIDE RECORDS SUMMARY | 2017-05-23 08:45 | XMS_ITS | Continuity of Care Document ---
Author Organization [facility] Address [address] [place] [address] Phone Care Team Providers Care Regulatory Affairs Analyst Name Role Phone Gene Marks PA-C Unavailable Unavailable Procedures Procedure Date INITIAL HOSPITAL CARE Advance Directives Directive Yes / No Effective Date File Name No Information Encounters Encounter Description Practice Location Reason(s) For Visit Diagnoses Date Provider Providers Copied on Encounter INITIAL HOSPITAL CARE [facility], [address] [place] [address], [id number], tel:[phone] [facility] No Information [facility]. [address], [address], [place], [place], [id number], . tel:[phone] Referring Provider: Gary Sainz [address], [place], [address] . tel:[phone] Family History Family Member Type Diagnosis Age At Onset No Information Payers Payer name Insurance type Covered green party ID Authoriza tion(s) Medicare MB [id number] [employer] Health Care Options [id number] CI [id number] Social History Type Description Quantity Date Captured Comments Sex Female Smoking Status No Information Chief Complaint And Reason For Visit No Information Reason For Referral Reason For Referral No Information History Of Present Illness Encounter Date Complaint History Of Prese nt Illness No Information Functional Status Date Functional Assessmen t No Information Instructions Date Instruction Additional Infor mation No Information Assessments Type Assessment Date No Information Patient Care Teams Name Effective Dates (start - stop) Status Members No Information
--- OUTSIDE RECORDS SUMMARY | 2025-07-30 06:52 | XMS_ITS | Clinical Summary ---
Author Organization [facility] Address [address] [place] [address] Care Team Providers Care Furnishings Conservator Name Role Phone Unavailable Primary Care Provider Unavailabl e Source Comments Patient records contain information from all sites at [facility]. For routine questions regarding patient records, call [phone] during business hours, M-F 8:00 AM - 5:00 PM Central Time. Record requests for emergency care only can be directed to [phone] at any time.[facility] Allergies Active AllergyReactionsCriticalityNoted DateCommentsCiprofloxacinAnaphylaxis, BcpasgwktqyHvck75/02/2007 Drops blood pressure, tolerates levofloxacin Medications MedicationSigDispense QuantityRefillsLast FilledStart DateEnd DateStatus docusate sodium (Colace) 100 mg capsule Take 100 mg by mouth 2 (two) times a day.Active folic acid 1 mg tablet Take 1 mg by mouth daily.Active latanoprost (Xalatan) 0.005 % ophthalmic solution Administer 1 drop into both eyes at bedtime.Active melatonin 3 mg tablet Take 3 mg by mouth at bedtime.Active methotrexate (TrexalL) 2.5 mg tablet Take 12.5 mg by mouth once a week.Active metoprolol succinate (Toprol XL) 25 mg 24 hr tablet Take 12.5 mg by mouth daily. Do not crush or chew.Active polyethylene glycol (Miralax) 17 gram powder packet Take 17 g by mouth daily as needed for constipation. Dissolve each 17 g dose in 240 mLs (8 ounces) of beverage.Active oxyCODONE (Roxicodone) 5 mg immediate release tablet Take 5 mg by mouth every 6 (six) hours as needed for pain.Active predniSONE (Deltasone) 5 mg tablet Take 5 mg by mouth daily.Active pregabalin (Lyrica) 25 mg capsule Take 25 mg by mouth 2 (two) times a day.Active acetaminophen (TylenoL) 325 mg tablet Take 2 tablets (650 mg total) by mouth every 6 (six) hours as needed for moderate pain or score 4-6of 10. 100 tablet 02/26/2025 10:19 AM CDT02/26/2025tive Active Problems ProblemNoted DateDiagnosed DateAcute Cystitis Without Pmtheuouv73/25/2025nemia Posthemorrhagic Acute (Blood Loss Anemia)02/26/2025Hemorrhage Gastrointestinal 02/26/2025rthritis Ffuwstkiuf00/25/2025Hypertension Essential Zsdyurf5302/26/2025 Iyytlwrbdxsm90/25/7780Fceabkbohrwv46/25/2025Obstruction Fyhzvvpzbo2025 Social History Tobacco UseTypesPacks/DayYears UsedDateSmoking Tobacco: NeverSmokeless Tobacco: Never Tobacco Cessation:Counseling Given: Not Answered [facility] UtilitiesAnswerDate RecordedIn the past 12 months has the [employer], gas, oil, or water [employer] threatened to shut off services in your home?No02/07/2025 Humiliation, Afraid, Rape, and Kick questionnaireAnswerDate RecordedWithin the last year, have you been afraid of your partner or ex-partner?02/07/2025Within the last year, have you been humiliated or emotionally abused in other ways by your partner or ex-partner?02/07/2025Within the last year, have you been kicked, hit, slapped, or otherwise physically hurt by your partner or ex-partner?No02/07/2025Within the last year, have you been raped or forced to have any kind of sexual activity by your partner or ex-partner?No02/07/2025 Hunger Vital SignAnswerDate RecordedWithin the past 12 months, you worried that your food would run out before you got the money to buymore.Never true02/07/2025 Within the past 12 months, the food you bought just didn't last and you didn't have money to get more.Never true02/07/2025PRAPARE - TransportationAnswerDate RecordedIn the past 12 months, has lack of transportation kept you from medical appointments or from getting medications?No02/07/2025In the past 12 months, has lack of transportation kept you from meetings, work, or from getting things needed for daily living?No02/07/2025Housing StabilityAnswerDate RecordedWhat is your living situation today?I have a steady place to live02/07/2025 CommentsUnknownSex and Gender InformationValueDate RecordedSex Assigned at Not on fileLegal CiwEubobr74/03/2017 6:24 AM CSTGender IdentityNot on fileSexual OrientationNot on file Last Filed Vital Signs Vital SignReadingTime TakenCommentsBlood Zntnhhii38/6207 7:28 AM CDT Aekdu62779/25/2025 7:28 AM EFQNcdfpydcqzg11.7 ??C (98.1 ??F)02/26/2025 7:28 AM CDTRespiratory Srnd206502/26/2025 7:28 AM CDTOxygen Apwnpmppef54%02/26/2025 7:28 AM CDTInhaled Oxygen Concentration--Sackkq92.1 kg (108 lb 3.9 oz)02/23/2025 8:08 AM QSUYiwhrl307 cm (5' 4.96)02/22/2025 10:31 AM CDTBody Mass Index18.03 02/22/2025 10:31 AM CDT Plan of Treatment Health MaintenanceDue DateLast DoneCommentsZoster Vaccines (1 of 2)1959 Pneumococcal vaccine (50+ years) (2 of 2 - PCV)RSV vaccine - (32-36 weeks) or 50+ years (1 - 1-dose 75+ series)2015 DTaP,Tdap,and Td Vaccines (2 - Td or Tdap)Depression Screening (Annual PHQ-2)08/05/2024Fall Risk Screen (Annual)08/05/2024OVID-19 Vaccine ( season)/, 10/12/2020, 09/14/2020 Influenza Vaccine (#1)Office Visit for Blood Pressure Check / Re-checkHPV VaccinesAged OutNo longer eligible based on patient's age to complete this topicIPV VaccinesAged OutNo longer eligible based on patient's age to complete this topic Medical Devices ImplantedTypeAreaManufacturerDevice IdentifierShelf Expiration DateModel / Serial / LotClp Hemo Cath [id number] - [id number] Implanted:Qty: 4 on 02/14/2025 by Vivek Elaine M.B.B.[facility]Or[facility] e.g. pins/screws/rodsN/A: [employer] [id number] / / [id number] Insurance * Guarantor: Bryanna HaysAccount TypeRelation to PatientDate of BirthPhone Billing AddressPersonal/YlaunnEoxy1940 [address] [place] [address] Advance Directives For more information, please contact: [phone] TypeDate RecordedPatient RepresentativeExplanationAdvance Directive10/13/2002 12:00 AMLegacy document. See document viewer. * DNR (Latest Code Status on File) Date ActivatedDate InactivatedComments02/14/2025 11:57 AM02/26/2025 1:26 PM QuestionAnswerCommentsDNR (Do Not Resuscitate):* Discussed-Patient * discussed with patient and daughter Mireille as described prior * Full Code Date ActivatedDate InactivatedComments02/14/2025 9:27 AM02/14/2025 11:57 AM QuestionAnswerCommentsFull Code:* Discussed * Discussed with patient and daughter Mireille. Full code for EGD procedure. * DNR Date ActivatedDate InactivatedComments02/09/2025 6:39 PM02/14/2025 9:27 AMQuestion AnswerCommentsDNR (Do Not Resuscitate):* Discussed-Patient * discussed with pt and daughter * Full Code Date ActivatedDate InactivatedComments02/07/2025 3:07 PM02/09/2025 6:39 PMQuestion AnswerCommentsFull Code:* Not Discussed Due to:* Patient not available
--- OUTSIDE RECORDS SUMMARY | 2025-07-30 06:52 | XMS_ITS | Clinical Summary ---
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 2.5 mg, takes 5 tablets po qwk, Dr Sneed, Rheum at [facility].0 05/24/2010ctive latanoprost (XALATAN) 0.005 % ophthalmic solution Place 1 Drop into both eyes at bedtime.Active alendronate (FOSAMAX) 70 mg tablet Indications:Disorder of bone and cartilageTake 1 Tablet (70 mg) by mouth once a week in the morning. Take on empty stomach with full glass ofwater. Do not lie down for 1 hr. 12 Tablet 5Active polyethylene glycoL (MIRALAX) 17 gram/scoop powder Indications:Constipation, unspecified constipation typeMix 1 scoop (17 g) in liquid then take by mouth once daily. Put 17 gram in 4 ounces of water daily, stir and drink immediately 476 g 5Active acetaminophen (TYLENOL EXTRA STRGTH) 500 mg tablet Indications:Upper back painTake 2 Tablets (1,000 mg) by mouth two times daily. Max acetaminophen dose: 4000mg in 24 hrs. 120 Tablet 5Active nitroglycerin 0.4 mg sublingual tablet Indications:Chest pain, unspecified typePlace 1 Tablet (0.4 mg) under the tongue every 5 minutes if needed for Chest Pain. Up to 3 tablets in 15 minutes. Have her lay down before giving her these medications. Go to the emergency room if the chest pain does not resolve. 25 Tablet 5Active folic acid 1 mg tablet Indications:Nutrition disorderTake 1 Tablet (1 mg) by mouth once daily. 90 Tablet 5Active pregabalin (LYRICA) 25 mg capsule Indications:Other insomniaTAKE 1 CAPSULE BY MOUTH ONCE DAILY 30 Capsule 5Active ferrous sulfate 325 mg (65 mg iron) tablet Indications:Other iron deficiency anemiaTake 1 Tablet (325 mg) by mouth once daily with a meal. 30 Tablet 5Active diphenoxylate-atropine (2.5-0.025 mg) (LOMOTIL) 2.5-0.025 mg tablet Indications:Chronic diarrheaTAKE 1 TABLET BY MOUTH AFTER EACH LOOSE STOOL NEEDED FOR DIARRHEA (MAX 8 PER DAY) 25 Tablet 5Active predniSONE (DELTASONE) 5 mg tablet Indications:Fibromyalgia,Polymyalgia rheumatica (HC)TAKE 1 TABLET BY MOUTH ONCE DAILY 30 Tablet 5Active metoprolol succinate (TOPROL XL) 25 mg Sustained-Release tablet Indications:Benign essential HTNTAKE ONE-HALF (1/2) TABLET (12.5MG) BY MOUTH ONCE DAILY 45 Tablet 5Active docusate (COLACE) 100 mg capsule Indications:Constipation, unspecified constipation typeTAKE 1 CAPSULE BY MOUTH TWICE DAILY 180 Capsule 5Active traZODone (DESYREL) 50 mg tablet Indications:Other insomniaTake 1 Tablet (50 mg) by mouth at bedtime. 90 Tablet 5Active melatonin 3 mg tablet Indications:Other insomniaTake 2 Tablets (6 mg) by mouth at bedtime. 180 Tablet 5Active predniSONE (DELTASONE) 5 mg tablet Indications:Fibromyalgia,Polymyalgia rheumatica (HC)Take 1 Tablet (5 mg) by mouth once daily. 30 Tablet /Discontinued docusate (Colace) 100 mg capsule Indications:Constipation, unspecified constipation typeTake 1 Capsule (100 mg) by mouth two times daily. 60 Capsule Discontinued metoprolol succinate (Toprol XL) 25 mg Sustained-Release tablet Indications:Benign essential HTNTake one half tab daily. 12.5mg 15 Tablet Discontinued melatonin 3 mg tablet Indications:Other insomniaTake 1 Tablet (3 mg) by mouth once daily. [place] administration timing is 2-3 hours before bedtime. 30 Tablet Discontinued traZODone (DESYREL) 50 mg tablet Indications:Other insomniaTake 2 Tablets (100 mg) by mouth at bedtime. 180 Tablet Discontinued(*Medication adjustment) melatonin 3 mg tablet Indications:Other insomniaTAKE 1 TABLET BY MOUTH AT BEDTIME 30 Tablet Discontinued(*Medication adjustment) diphenhydrAMINE-acetaminophen 25-500 mg (Tylenol PM Extra Strength) 25-500 mg tablet Take 1 Tablet by mouth at bedtime if needed. Max acetaminophen dose: 4000mg in 24 hrs.07/14/2025Discontinued(*Med complete/Regimen complete/Level of care change) Active Problems ProblemNoted DateDiagnosed DatePrimary /10/2025 Overview (07/14/2025): She tolerates Trazodone 50 mg at bedtime. When she was increased to 100 mg at bedtime she developeddizziness. ASYMMETRIC SENSORINEURAL HEARING LOSS01/08/2012 Overview (01/23/2012): 01/02/2012 Dr Crawford's office Severe to profound right sensorineural hearing loss, MRI of the brain and internal auditory canals with gadolinium ordered to r/o acoustic neuroma. MRI - no evidence of restricted diffusion to suggest acute ischemia, both IAC's are normal , no masses. 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 DEXA: [place] top lift scourer: Vit D 37.8, 12/2011 CPX: 12/25/2011 ([facility]) New egg allergy, declines flu vaccines Shingles vaccine - declines, 2009, 2010, 2011 INFLAMMATORY POLYARTHRITIS C/W SERONEGATIVE RA, dx'ed at [place], 12/[address] Roby Chapman, Overview (06/23/2012): 05/06/2008 left knee efuision and bilateral MCP and PIP pain. Knee was tapped 12/2007 in [place] and appeared inflamatory non-infectious non-crystaline. 12/2011 Now on Prednisone and MTX - followed by Rheum, Dr Nataly Ortega, in [place] All labs should be ordered by Dr Ortega. Anxiety State, on Ativan prn per MD [place]/30/2008Fibromyalgia, on vicodin per MD in [place]; NO VICODIN will be given to pt by this cuekez8004/30/2008 Overview (06/01/2008): 05/29/2008 Pt went to ER because of generalized full body pain (after this clinic refused to refillher Vicodin which she was taking q4hr). Per ER note the patient's daugher was present during the history and exam and afterwards handed me a note which stated [We believe she is exhibiting these symptoms in an attempt to obtain a Vicodin prescription]. Unspecified Heart Disease- ?coronary spasm 06/2007 in [place]. On no meds except asa04/03/2008POLYMYALGIA RHEUMATICA, dx'ed in [place], on steroids 01/200702/03/2007OSTEOPENIA Resolved Problems ProblemNoted DateDiagnosed DateResolved DatePerforated Diverticulum with abscess, 03/2008, partial sigmoid colectomy with ostomy, Dr Karma Stephen, plan takedown in 8-12 weeks. Overview (05/24/2010): Pt previously lived in [facility] and was my patient. Moved to [place], [place] 6 years ago. Developed perforated tic while in [place], 03/2008, and transferred to [facility] and [facility] (children are here in town). I have agreed to be her MD while she is in [facility]. Encounters DateTypeDepartmentCare PbttXquqzxtcvei00/12/2025Results Follow-Up [address] [address] Emelina Everett MD 07/15/2025Telephone [address] [address] Da Restrepo MD Medication Uduiepjfsb01/10/2025 2:00 PM CSTOffice Visit [address] [address] Da Restrepo MD Medication Management (1 month follow up)07/13/20250606Vbqpqk85/05/2025 4:00 PM WOOD HEEL FLAP TRIMMER Orders Only [address] [address] [place] <No scans attached>07/09/20256987Chwphz23/04/2025 1:30 PM CSTOffice Visit [address] [address] Emelina Everett MD Diarrhea (soft stool since Saturday night/Faxed med to Karen [phone]) 07/08/20256267Sbhcwt47/26/2025Refill [address] [address] Da Restrepo MD Refill Request (Prednisone, Melatonin, Metoprolol Succinate, Docusate)06/29/[address] [address] Da Restrepo MD Refill Request (Diphenoxylate-atropine (2.5-0.025 Mg))06/25/2025Telephone [address] [address] Da Restrepo MD Outside Order06/24/2025Refill [address] [address] Da Restrepo MD Refill Request (Pregabalin)06/15/2025 2:15 PM CSTOrders Only [address] [address] [place] <No scans attached>06/15/20253367Icuonh01/07/2025Telephone [address] [address] Da Restrepo MD Form06/09/2025 12:30 PM CSTAncillary Procedure [address] [address] 06/09/2025 11:20 AM CSTOffice Visit [address] [address] Da Restrepo MD Medication Management (Pain in hands and back - was being weaned off oxycodone but she is requesting a new prescription for this)06/09/20252544Xmtuya52/04/[address] [address] Da Restrepo MD Need Meds (oxycodone)06/03/2025Telephone [address] [address] Da Restrepo MD Medication Management (Oxycodone and Pregabilin)06/03/2025Telephone [address] [address] Da Restrepo MD Medication Management (plan of care )06/03/2025Telephone [facility] [address] [place] [address] Cindy Ivy MD Error-please /29/2025Telephone [facility] [address] [place] [address] Da Restrepo MD Refill Nqqfpec0006/02/2025Telephone [facility] [address] [place] [address] Da Restrepo MD Refill Request (oxyCODONE (ROXICODONE) 5 mg immediate release tablet )06/02/[address] [address] Da Restrepo MD Refill Request (Docusate, Folic Acid, Melatonin, Metoprolol Succinate)05/31/[address] [address] Da Restrepo MD 05/17/2025Refill [address] [address] Da Restrepo MD Refill Request (Pregabalin)05/12/2025Refill [address] [address] Da Restrepo MD Refill Request (Prednisone, Polyethylene Glycol)from Last 3 Months Immunizations ImmunizationAdministration DatesNext DueCOVID-19 VACCINE SPIKEVAX (MODERNA 50MCG/0.5ML) 12YO+ PFS07/08/2025Influenza, IIV3 (Age >=3 years)06/05/2007 Influenza, Inactivated IIV3 (Age 65+ Years) Preserv Free04/29/2025Pneumococcal Poly,23-Valent (Pneumovax)08/05/2003Td (Age >=7 Years)04/24/2003,08/05/2002, 12/19/2001Tdap12/25/2011 Family History Medical HistoryRelationNameCommentsOtherFatherdied 74, ? cause of , htn, OtherMotherdied, 97, complications from fallCancer-breastOtherm cousins 3Cancer No Family HistoryCancer-colonNo Family HistoryCancer-ovarianNo Family History Cancer-prostateNo Family HistoryRelationNameStatusCommentsFatherDeceased (Age 74)HTN, LIVER/KIDNEY XVITINRDmtyoaPulvx27 HYPOTHYROID, OAOtherm cousins 3Alive Social History Tobacco UseTypesPacks/DayYears UsedDateSmoking Tobacco: NeverSmokeless Tobacco: Never Tobacco Cessation:Counseling Given: Not Answered Alcohol UseStandard Drinks/WeekCommentsNot Currently0 (1 standard drink = 0.6 oz pure alcohol)PHQ-2AnswerDate RecordedPHQ-2 TOTAL JMRKT82708/09/2024Social ConnectionsAnswerDate RecordedDo you often feel lonely or isolated from those around you?lcohol UseAnswerDate RecordedHow often do you have a drink containing alcohol?How many drinks containing alcohol do you have on a typical day when you are drinking?How often do you have five or more drinks on one occasion?Financial Resource StrainAnswer Date RecordedDifficulty of Paying Living Ukgwhthw605/12/2025Difficulty of Paying Living ExpensesNot on file03/16/2025Food InsecurityAnswerDate RecordedDo you worry your food will run out before you are able to buy more? Transportation NeedsAnswerDate RecordedDoes lack of transportation keep you from medical appointments?Does lack of transportation keep you from work, meetings or getting things that you need?Housing StabilityAnswerDate RecordedWhat is your housing situation today?UtilitiesAnswerDate RecordedDo you have trouble paying for utilities (for example, heat, electricity, water, phone)?CommentsNoSex and Gender InformationValueDate RecordedSex Assigned at BirthNot on fileLegal SexFemale 08/18/2012 6:13 AM CSTGender IdentityNot on fileSexual OrientationNot on file Last Filed Vital Signs Vital SignReadingTime TakenCommentsBlood Hpngnvdq923/6707/14/2025 2:27 PM WOOD HEEL FLAP TRIMMER Xkuov13096/10/2025 2:27 PM BTOArfmfapgxmh76.8 ??C (98.3 ??F)07/14/2025 2:27 PM CSTRespiratory Xovh264909/30/2011 11:54 AM CSTOxygen Xjhrnwrxzr51%07/14/2025 2:27 PM CSTInhaled Oxygen Concentration--Jaqsxy23.7 kg (116 lb 1.6 oz)07/14/2025 2:27 PM DZDUuewtc199.1 cm (5' 5)07/08/2025 1:44 PM CSTBody Mass Index19.32109/08/2024 1:44 PM WOOD HEEL FLAP TRIMMER Plan of Treatment DateTypeDepartmentCare Team (Latest Contact Info)Reonibflqei94/10/2026 1:55 PM CSTOffice Visit [facility] [address] [place] [address] Da Restrepo MD [address] [place] [address] Health MaintenanceDue DateLast DoneCommentsZoster (shingles) series for age 50+ (1 of 2)1959Pneumococcal series for age 50+ (2 of 2 - PCV)08/05/2004 08/05/2003Medicare Wellness for age 65+RSV vaccine for adults or (1 - 1-dose 75+ series)2015Tetanus iqzhoaw3512/24/2021 12/25/2011, 04/24/2003, 08/05/2002, Additional history existsCOVID-19 vaccine series (2 - Moderna risk series)Depression screening for age 12+, 03/19/2023MI (ht and wt on same day) for age 18+ DEXA/DXA scan for age 65+Vjpgolujm95/19/2023Hepatitis B series for 19+Aged OutNo longer eligible based on patient's age to complete this topic Medical Devices ImplantedTypeAreaManufacturerDevice IdentifierShelf Expiration DateModel / Serial / LotSeprafilm Implanted:Qty: 1 on 04/03/2008 at [id number]:SEPRAFILM Procedures Procedure NamePriorityDate/TimeAssociated DiagnosisCommentsCRYPTOSPORIDIUM GIARDIA RAPID QGUNMQSMrljzcf20/05/2025 6:00 PM WOOD HEEL FLAP TRIMMER Acute diarrhea CBC WITH AUTO ZTRRJCGYILVYBambdac07/11/2025 2:09 PM WOOD HEEL FLAP TRIMMER Other iron deficiency anemia CBC WITH AUTO JBHAHFQNRBGMFjdgvtq40/11/2025 2:09 PM WOOD HEEL FLAP TRIMMER Other iron deficiency anemia XR SPINE THORACIC 3 ZDJAJUdbyetu51/05/2025 12:43 PM WOOD HEEL FLAP TRIMMER Upper back pain XR DXA BONE DENSITY 2 SITES LFFTTCglbpjs30/19/2023 11:56 AM CDT Other specified disorders of bone density and structure, multiple sites from Last 3 Months or Most Recently Relevant to Health Maintenance Results * CRYPTOSPORIDIUM GIARDIA RAPID ANTIGEN [[id number]] (07/09/2025 6:00 PM WOOD HEEL FLAP TRIMMER) ComponentValueRef RangeTest MethodAnalysis TimePerformed AtPathologist SignatureGIARDIA AND CRYPTOSPORIDIUM ANTIGEN PANELSEE NOTE07/15/2025 2:42 PM CSTQUEST DIAGNOSTICSComment: ??GIARDIA AG, EIA, STOOL ?Micro Number: ?[id number] ??Test Status: ? Final ??Specimen Source: ?? Stool ??Specimen Quality: ??Adequate ??Giardia Result 1: ??Not Detected ??Reference Range: ?? Not Detected ? NOTE: Due to intermittent shedding, one negative ? sample does not necessarily rule out the presence ? of a parasitic infection. GIARDIA AND CRYPTOSPORIDIUM ANTIGEN PANELSEE NOTE07/15/2025 2:42 PM CSTQUEST DIAGNOSTICSComment: ??CRYPTOSPORIDIUM ANTIGEN, EIA ?Micro Number: ?[id number] ??Test Status: ? Final ??Specimen Source: ?? Stool ??Specimen Quality: ??Adequate ??Cryptosporidium: ?? Not Detected ??Reference Range: ?? Not Detected ? NOTE: Due to intermittent shedding, one negative ? sample does not necessarily rule out the presence ? of a parasitic infection. Specimen (Source)Anatomical Location / LateralityCollection Method / Volume Collection TimeReceived TimeStoolSTOOL SPECIMEN / UnknownNon-Blood / Unknown 07/09/2025 6:00 PM CST07/14/2025 3:34 PM WOOD HEEL FLAP TRIMMER Narrative Authorizing ProviderResult TypeResult StatusRobyn Rosie Everett MDMICROBIOLOGY Final ResultPerforming OrganizationAddressCity/State/ZIP CodePhone Number [facility] [place] [address], * (ABNORMAL) CBC WITH AUTO DIFFERENTIAL (06/15/2025 2:09 PM WOOD HEEL FLAP TRIMMER)ComponentValue Ref RangeTest MethodAnalysis TimePerformed AtPathologist SignatureWHITE BLOOD CELL COUNT4.93.8 - 10.8 Thousand/uL06/16/2025 3:49 AM CSTQUEST DIAGNOSTICSRED BLOOD CELL COUNT3.16(L)3.80 - 5.10 Million/uL06/16/2025 3:49 AM CSTQUEST XMYUYUXGRZFDEIFIQTCQF22.4(L)11.7 - 15.5 g/dL06/16/2025 3:49 AM CSTQUEST QXPTEDXGMWXRNNBFJVOIM75.7(L)35.0 - 45.0 %06/16/2025 3:49 AM CSTQUEST ZZIHXTCGVOAHOM67.280.0 - 100.0 fL06/16/2025 3:49 AM CSTQUEST DIAGNOSTICSMCH 32.927.0 - 33.0 pg06/16/2025 3:49 AM CSTQUEST QLDGVACIBOGINWO57.932.0 - 36.0 g/dL06/16/2025 3:49 AM CSTQUEST DIAGNOSTICSComment: For adults, a slight decrease in the calculated MCHC value (in the range of 30 to 32 g/dL) is most likely not clinically significant; however, it should be interpreted with caution in correlation with other red cell parameters and the patient's clinical condition. RDW15.7(H)11.0 - 15.0 %06/16/2025 3:49 AM CSTQUEST DIAGNOSTICSPLATELET EALBQ311 140 - 400 Thousand/uL06/16/2025 3:49 AM CSTQUEST YABPANAMLBJAHY22.5(H)7.5 - 12.5 fL06/16/2025 3:49 AM CSTQUEST ORTVOSLSPFWEFAJWDUXCHD33.4%06/16/2025 3:49 AM WOOD HEEL FLAP TRIMMER [facility] WWXEFRDKEVVTOXJGTOWLTP88.2%06/16/2025 3:49 AM CST[facility] GEGRVPFEN45.8%06/16/2025 3:49 AM CSTQUEST DIAGNOSTICSEOSINOPHILS0.2%06/16/2025 3:49 AM CSTQUEST DIAGNOSTICSBASOPHILS0.4%06/16/2025 3:49 AM [facility]ST[facility] ABSOLUTE YENGXXADGIR91093358 - 7800 cells/uL06/16/2025 3:49 AM CSTQUEST DIAGNOSTICSABSOLUTE VBBFTRRRGBM765806 - 3900 cells/uL06/16/2025 3:49 AM CSTQUEST DIAGNOSTICSABSOLUTE ZSNVCYYFU347885 - 950 cells/uL06/16/2025 3:49 AM CSTQUEST DIAGNOSTICSABSOLUTE WHTGXBFROMF49(L)15 - 500 cells/uL06/16/2025 3:49 AM CSTQUEST DIAGNOSTICSABSOLUTE YKCSFUPXN935 - 200 cells/uL06/16/2025 3:49 AM CSTQUEST DIAGNOSTICSSpecimen (Source)Anatomical Location / LateralityCollection Method / VolumeCollection TimeReceived TimeBloodBLOOD SPECIMEN / UnknownQuest Collect / Rpwjprc7506/15/2025 2:09 PM CST06/15/2025 2:09 PM WOOD HEEL FLAP TRIMMER Narrative Authorizing ProviderResult TypeResult StatusMark Tayo Restrepo MDHEMATOLOGYFinal ResultPerforming OrganizationAddressCity/State/ZIP CodePhone Number [facility] [address] [place] [address], * XR SPINE THORACIC 3 VIEWS (06/09/2025 12:43 PM WOOD HEEL FLAP TRIMMER)Anatomical RegionLaterality ModalitySpine, THORACIC SPINEComputed RadiographySpecimen (Source)Anatomical Location / LateralityCollection Method / VolumeCollection TimeReceived Time 06/09/2025 2:49 PM WOOD HEEL FLAP TRIMMER Impressions 06/09/2025 2:49 PM WOOD HEEL FLAP TRIMMER Multiple thoracic compression deformities. Dictated by Jeffrey Lees MD @ 06/09/2025 2:49:01 PM (Electronically Signed) Narrative 06/09/2025 2:49 PM WOOD HEEL FLAP TRIMMER For Patients: As a result of the Cures Act, medical imaging exams and procedure reports are released immediately into your electronic medical record. You may view this report before your referring provider. If you have questions, please contact your health care provider. INDICATION: Upper back pain TECHNIQUE: 3-view thoracic spine. COMPARISON: none FINDINGS: Increased thoracic kyphosis is present. Severe compression deformities are present involving 3 of the thoracic vertebral bodies, thought to be T8, T10 and T12. Additional milder compression of T7 andT6. Aortic tortuosity with vascular calcifications. Procedure Note Jeffrey Lees MD - 06/09/2025 For Patients: As a result of the Cures Act, medical imagingexams and procedure reports are released immediately into your electronicmedical record. You may view this report before your referring provider.If you have questions, please contact your health care provider. INDICATION: Upper back pain TECHNIQUE: 3-view thoracic spine. COMPARISON: none FINDINGS: Increased thoracic kyphosis is present. Severe compression deformities are present involving 3 of the thoracic vertebral bodies, thought to be T8,T10 and T12. Additional milder compression of T7 and T6. Aortic tortuositywith vascular calcifications. IMPRESSION: Multiple thoracic compression deformities. Dictated by Jeffrey Lees MD @ 06/09/2025 2:49:01 PM (Electronically Signed) Authorizing ProviderResult TypeResult StatusMark Tayo Restrepo MDGENERAL IMAGING Final Result * (ABNORMAL) XR DXA BONE DENSITY 2 SITES AXIAL (02/20/2023 11:56 AM CDT) Anatomical RegionLateralityModalitySpine, HIPS, HIPL, HIPROtherSpecimen (Source)Anatomical Location / LateralityCollection Method / VolumeCollection TimeReceived Time Impressions 02/26/2023 2:44 PM CDT Osteopenia. RECOMMENDATIONS: [...] to assess therapeutic efficacy. Ines Chávez PA-C [facility] 02/26/2023 ?? Narrative 02/26/2023 2:44 PM CDT For Patients: Results are automatically released to your [facility] ([employer]) account once available, in compliance with federal regulations. This means that you may see your results before your provider has had a chance to review them. Please allow 2-3 business days for your provider to comment on the results. 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 PROCEDURE: Dual-energy x-ray absorptiometry performed with routine [...] 16.5%. 10-year probability of hip fracture: 3.4%. Authorizing ProviderResult TypeResult StatusMark Tayo Restrepo MDDEXAFinal Result from Last 3 Months or Most Recently Relevant to Health Maintenance Insurance * Guarantor: Bryanna Coelho TypeRelation to PatientDate of BirthPhone Billing AddressPersonal/EhopenWptw1940 [id number] [place] [address] Advance Directives TypeDate RecordedPatient KcgdjzykelqclaEnxlmobcawnZXNVH85/5/2025 * Full Code (Latest Code Status on File) Date ActivatedDate InactivatedComments04/03/2008 5:31 PM04/12/2008 3:03 PM * Full Code Date ActivatedDate InactivatedComments04/03/2008 7:59 AM04/03/2008 5:31 PM * No Code Status Date ActivatedDate JklsibflswoHacruojx38/15/2004 10:07 AM06/19/2004 11:07 AM Care Teams Team MemberRelationshipSpecialtyStart DateEnd Date Da Restrepo MD [address] [place] [address] PCP - GeneralFamily Gsofxvgl44/30/25
[2025-07-30 06:59] VITALS: BP 146/76; PULSE 93; RESP 20; TEMP 36.7; O2SAT 92; BMI 21.5
--- NOTE | 2025-07-30 07:43 | ED.EPISTAXIS ---
History of Present Illness General Time Seen by Provider: 07:15 Date Seen: 07/30/25 Chief Complaint: Unspecified Complaint, Adult Stated Complaint: nose bleed Time Seen by Provider: 07/30/25 07:42 Source: patient and EMS History of Present Illness HPI Narrative: Bryanna is a 85-year-old female with a past medical history of colectomy, chronic pain disorder, inflammatory/osteoarthritis who presents to the emergency department from [facility] by EMS for evaluation of epistaxis and insomnia. Patient reports that she has been having difficulty sleeping and has been suffering from insomnia since she moved back to [place] from [facility]. Patient states that this is been ongoing since May 2024. Patient states worsening symptoms over the past 2 weeks since she is having trouble sleeping, and unable to sleep. Patient reports that also difficult with their scheduled meals at 12 noon and dinner at 430 it is difficult to take a nap during the day. Patient states that she does not like her bed. Denies any new stressors. Patient states she moved back to be with her 4 children after her approximately 2 years ago. Patient denies any new sadness, depression, suicide ideation. Patient states that she is happy being here with her children. Patient also reports that last night while she was sleeping she developed a nose bleed. Patient states that all the son she woke up in blood was coming from her nostril. Patient called the nurse. Patient reports unsure which nostril was bleeding. Nosebleed stopped spontaneously prior to EMS arrival. Patient reports initially feeling a little whoozy but currently is feeling well. Patient denies any fever, chills, cough or cold-like symptoms. Denies any chest pain, shortness of breath, abdominal pain, weakness, dizziness. Patient is not on chronic anticoagulation. Patient reports longstanding history of insomnia and states that back when she lived in [facility] her doctor prescribed her Ativan? To help with her sleep. Patient states that since she has been off this medication she has not been able to sleep. Patient did follow up in clinic a few weeks ago and was started on melatonin as well as trazodone however states that those 2 medications are not helping. Related Data Home Medications ?Medication ?Instructions ?Recorded ?Confirmed latanoprost 0.005 % eye drops 1 drp ophthalmic (eye) HS 08/02/22 07/30/25 methotrexate sodium 2.5 mg tablet 12.5 mg PO .wed@21 08/02/22 07/30/25 prednisone 5 mg tablet 5 mg PO DAILY 08/02/22 07/30/25 metoprolol succinate 25 mg 12.5 mg PO DAILY 05/25/24 07/30/25 tablet,extended release 24 hr pregabalin 25 mg capsule 25 mg PO BID 05/25/24 07/30/25 acetaminophen 325 mg tablet 650 mg PO Q4H PRN 02/04/25 07/30/25 docusate sodium 100 mg capsule 100 mg PO BID 02/04/25 07/30/25 melatonin 3 mg tablet 3 mg PO HS 02/04/25 07/30/25 Previous Rx's ?Medication ?Instructions ?Recorded folic acid 1 mg tablet 1 mg PO DAILY #30 tabs 02/10/23 polyethylene glycol 3350 17 gram 17 g PO DAILY PRN Constipation #1 02/10/23 oral powder packet (Miralax) ea Allergies Allergy/AdvReac Type Severity Reaction Status Date / Time ciprofloxacin (From Cipro) Allergy Anaphylaxis Verified 07/30/25 07:02 Review of Systems Narrative: Past medical history, past surgical history, medications, allergies, family history, and social history were reviewed with the patient. No additional pertinent items. A medically appropriate review of systems was performed with pertinent positives and negatives noted in HPI, all other systems negative. [facility] Medical History (Updated 07/30/25 @ 08:08 by Cori Mason MD) Cognitive impairment ?R41.89 - Other symptoms and signs involving cognitive functions and awareness (ICD-10) Thrombocytopenia ?D69.6 - Thrombocytopenia, unspecified (ICD-10) Microcytic anemia ?D50.9 - Iron deficiency anemia, unspecified (ICD-10) Polymyalgia rheumatica ?M35.3 - Polymyalgia rheumatica (ICD-10) Frailty syndrome in geriatric patient ?R54 - Age-related physical debility (ICD-10) History of femur fracture ?Z87.81 - Personal history of (healed) traumatic fracture (ICD-10) Thoracic compression fracture ?S22.000A - Wedge compression fracture of unspecified thoracic vertebra, initial encounter for closed fracture (ICD-10) Anxiety ?F41.9 - Anxiety disorder, unspecified (ICD-10) Sensorineural hearing loss ?H90.5 - Unspecified sensorineural hearing loss (ICD-10) Perforation of sigmoid colon due to diverticulitis ?K57.20 - Diverticulitis of large intestine with perforation and abscess without bleeding (ICD-10) Insomnia ?G47.00 - Insomnia, unspecified (ICD-10) Fibromyalgia ?M79.7 - Fibromyalgia (ICD-10) Inflammatory arthritis ?M19.90 - Unspecified osteoarthritis, unspecified site (ICD-10) Polypharmacy ?Z79.899 - Other intermodal customer service (current) drug therapy (ICD-10) Chronic, continuous use of opioids ?F11.90 - Opioid use, unspecified, uncomplicated (ICD-10) Osteoporosis ?M81.0 - Age-related osteoporosis without current pathological fracture (ICD-10) Surgical History History of ovarian cystectomy ?Z98.890 - Other specified postprocedural states (ICD-10) ?Z87.42 - Personal history of other diseases of the female genital tract (ICD-10) History of colostomy reversal ?Z98.890 - Other specified postprocedural states (ICD-10) History of colostomy History of hysterectomy ?Z90.710 - Acquired absence of both cervix and uterus (ICD-10) History of cholecystectomy ?Z90.49 - Acquired absence of other specified parts of digestive tract (ICD-10) Social History Narrative: Patient lives in [place] in the winter but visits family in [place] in the summer. She maintains a condominium in [place]. May 2022. She has 4 children. At this time she does admits all 4 children to be healthcare power of divorce attorney. Code status is DNR. She does not smoke. She drinks wine about twice a week. What is your current living situation?: I presently have a place to live Problems where you live: no known problems Problems where you live details: n/a In the past 12 months, utilities in danger of being shut off: no In past 12 months, lack of transportation kept you from medical appts, meetings, work, or getting things needed for daily living: no In the past 12 mos, have been you worried that your food would run out before you had money to buy more?: never true In the past 12 mos, the food you bought just didn't last and you didn't have money to buy more?: never true Highest level of school completed/degree received: some college, no degree Smoking Status: Never smoker Do you use any of these nicotine containing products: None Second hand tobacco smoke exposure: No How often do you have a drink containing alcohol: never AUDIT-C Alcohol total score: 0 Non-prescribed substance use: denies use Caffeine: No How often does anyone, including family, friends and others, physically hurt you: never How often does anyone, including family, friends and others, insult or talk down to you: never How often does anyone, including family, friends and others, threaten you with harm: never How often does anyone, including family, friends and others, scream or curse at you: never service: No Exam Narrative: Exam Narrative: General: Afebrile, no acute distress HEENT: Normocephalic, atraumatic, conjunctiva normal. Bilateral nares with no active bleeding, there is a small area on right anterior kisselbach plexus that appears to be site of bleeding, no active bleeding, posterior pharynx clear with no erythema, no blood, MMM Neck: non-tender, supple Cardio: regular rate. regular rhythm Resp: Normal work of breathing, no respiratory distress, lungs clear bilaterally, no wheezing, rhonchi, rales Chest/Back: no visual signs of trauma, no midline tenderness, no CVA tenderness Abdomen: soft, non distension, no tenderness, no peritoneal signs Neuro: alert and fully oriented. CN II-XII grossly intact. Grossly normal strength and sensation in all extremities. MSK: no deformities. Normal range of motion Integumentary/Skin: no rash visualized, normal color Psych: normal affect, normal behavior Const: Vital Signs, click to edit/add: Vital Signs - 24 hr 07/30/25 06:59 Temperature 98.1 F Pulse Rate [Right Pulse Oximeter] 93 Respiratory Rate 20 Blood Pressure [Ri ght Upper Arm] 146/76 H Pulse Oximetry 92 Oxygen Delivery Me thod Room Air Course Vital Signs Vital signs: Initial Vital Signs Temperature 98.1 F 07/30/25 06:59 Temperature Source Temporal Artery Scan 07/30/25 06:59 Pulse Rate 93 07/30/25 06:59 Respiratory Rate 20 12/26/25 06:59 Blood Pressure 146/76 H 07/30/25 06:59 Blood Pressure Mean 99 07/30/25 06:59 Blood Pressure Position Supine 07/30/25 06:59 Pulse Oximetry 92 07/30/25 06:59 Oxygen Delivery Method Room Air 07/30/25 06:59 Vital Signs Temperature 98.1 F 07/30/25 06:59 Pulse Rate 93 07/30/25 06:59 Respiratory Rate 20 07/30/25 06:59 Blood Pressure 146/76 H 07/30/25 06:59 Pulse Oximetry 92 07/30/25 06:59 Oxygen Delivery Method Room Air 07/30/25 06:59 Temperature 98.1 F 07/30/25 06:59 Pulse Rate 93 07/30/25 06:59 Respiratory Rate 20 07/30/25 06:59 Blood Pressure 146/76 H 07/30/25 06:59 Pulse Oximetry 92 07/30/25 06:59 Oxygen Delivery Method Room Air 07/30/25 06:59 MDM - Epistaxis MDM Narrative Medical decision making narrative: Bryanna is a 85-year-old female with a past medical history of colectomy, chronic pain disorder, inflammatory/osteoarthritis who presents to the emergency department from [facility] by EMS for evaluation of epistaxis and insomnia. Upon arrival patient is nontoxic appearing, afebrile, no distress. In regards to patient episode of epistaxis this is not resolved, there was an area on her right anterior kisselbach plexus which I cauterized with silver nitrate. No active bleeding, no further episodes of epistaxis. Patient denies any weakness, dizziness, chest pain, shortness of breath. Patient is not on chronic anticoagulation to it I discussed with patient and recommend continue supportive care with humidifier as well as Vaseline gauze 10 years bilaterally at bedtime. If recurrent nosebleeds recommend direct pressure. In regards to patient's insomnia this is been ongoing for a while. Patient reports always having difficulty sleeping and in the past has been on Ativan which worked well for her. Patient recently seen in clinic and was started on melatonin as well as trazodone, and also recently had dose is increased. Given patient's age, history of chronic opioid use, insomnia I did discuss with her that I do not recommend Ativan to help with her sleep. Patient recently started on medications as well as having these medications does increased by a clinic doctor (unable to see records). At this time I do not recommend any additional medications or benzodiazepine to help with her chronic insomnia. I do recommend patient to follow up closely in clinic for ongoing medication management. Patient also states she will return to our clinic/provider back in [place] to confirm what medication she was on in the past. Patient feels comfortable with discharge. Strict return precautions discussed. Medical Records Attestation: I reviewed the patient's medical records. Discharge Plan Discharge Clinical Impression: Epistaxis, Insomnia Patient Disposition: Home, Self-Care Condition: Stable Additional Instructions: Please follow up with your primary care provider in the next few days for further evaluation and follow-up. Please call to schedule an appointment. Please continue on medications. Please use a humidifier in your room, you may also apply Vaseline to your nostrils at bedtime. Return to the emergency department if any worsening symptoms. It was a pleasure taking care of you today. Prescriptions: No Action latanoprost 0.005 % drops 1 drp ophthalmic (eye) HS Patient Comments: INSTILL 1 DROP IN BOTH EYES EVERY NIGHT prednisone 5 mg tablet 5 mg PO DAILY Patient Comments: TAKE 1 TABLET BY MOUTH DAILY methotrexate sodium 2.5 mg tablet 12.5 mg PO . Patient Comments: TAKE 5 TABLETS BY MOUTH 1 TIME A WEEK on Saturday Rx Instructions: Wednesdays polyethylene glycol 3350 [Miralax] 17 gram Powder In Packet 17 g PO DAILY PRN (Reason: Constipation) Qty: 1 0RF folic acid 1 mg Tablet 1 mg PO DAILY Qty: 30 0RF metoprolol succinate 25 mg tablet extended release 24 hr 12.5 mg PO DAILY pregabalin 25 mg capsule 25 mg PO BID docusate sodium 100 mg capsule 100 mg PO BID melatonin 3 mg tablet 3 mg PO HS acetaminophen 325 mg tablet 650 mg PO Q4H PRN Follow Up/Referrals: Provider,Not a Local [Primary Care Provider, Family Practice] Stand Alone Forms: [employer] Info Instructions
== END 2025-07-30 08:44 | disposition home or self-care (01) ==
LOC: ED 08:18
PROVIDERS: Emergency Provider Emergency Medicine
DX: R04.0 Epistaxis (principal); G47.00 Insomnia, unspecified
CPT/HCPCS: 30901; 99283; 99285